=== PATIENT | male | born 1975 | race Caucasian/White ===

== ENCOUNTER 2020-03-08 19:20 | Emergency (ER) | payer OTHER, SELFPAY ==
--- NOTE | 2020-03-08 19:34 | PC.NURSE ---
pt using the bathroom at this time.
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
--- NOTE | 2020-03-08 20:54 | PC.NURSE ---
pt just returned to the ed
[2020-03-08 21:06] VITALS: BP 123/69; PULSE 63; RESP 16; TEMP 36.4; O2SAT 99; BMI 22.1
--- NOTE | 2020-03-08 23:36 | ED.MALEGU ---
HPI - Male Genitourinary General Chief complaint: Urogenital-Male Stated complaint: groin pain Time Seen by Provider: 03/08/20 23:33 Source: patient Mode of arrival: ambulatory Limitations: no limitations History of Present Illness HPI Narrative: Patient presents to ED for bilateral testicular pain for the past 2 weeks. Any abdominal pain, flank pain, hematuria, dysuria, penile lesions. Patient states pain started in left testicle that went to the right. Patient denies any recent trauma to the testicle MD Complaint: testicle pain Related Data Previous Rx's Medication Instructions Recorded levofloxacin 500 mg PO DAILY #10 tab 03/09/20 naproxen 500 mg PO BID PRN #20 tab 03/09/20 Allergies Allergy/AdvReac Type Severity Reaction Status Date / Time From BENADRYL Allergy Unknown CANT Uncoded 11/15/19 18:21 BREATHE HIVES Review of Systems Review of Systems: Yes all other systems are reviewed and are negative Constitutional: Constitutional: Reports as per HPI and Reports no additional constitutional complaints Eyes: Eyes: Reports as per HPI and Reports no additional eye complaints ENT: Reports system reviewed and no additional complaints, except as documented and Reports as per HPI Cardiovascular: Cardiovascular: Reports as per HPI and Reports no additional cardiovascular complaints Respiratory: Respiratory: Reports as per HPI and Reports no additional respiratory complaints Gastrointestinal: Gastrointestinal: Reports as per HPI and Reports no additional gastrointestinal complaints Genitourinary: Genitourinary: Reports no additional male genitourinary complaints and Reports as per HPI Comments: testicular pain. Musculoskeletal: Musculoskeletal: Reports no additional musculoskeletal complaints and Reports as per HPI Neurologic: Reports system reviewed and no additional complaints, except as documented and Reports as per HPI Psychiatric: Psychiatric: Reports no additional psychiatric complaints and Reports as per HPI [facility] Past Medical History Medical History (Updated 03/09/20 @ 01:26 by SOLE Bailey) Bipolar 1 disorder, depressed HTN (hypertension) Hypothyroid Social History Social History Advance Directives: No Advance Directives Information Provided: No Physical Exam Vital Signs: Vital Signs: Last Vital Signs Temp 97.5 F 03/08/20 21:06 Pulse 63 03/08/20 21:06 Resp 16 03/08/20 21:06 BP 123/69 03/08/20 21:06 Pulse Ox 99 03/08/20 21:06 Body Mass Index 22.1 Const: General: cooperative, healthy appearing, comfortable, no acute distress, well developed, alert and awake Orientation/consciousness: patient oriented x3 HENMT: Head: Yes normal to inspection and Yes No palpable skull fracture present Eyes: General: appearance normal, both eyes and all related structures Neck: Neck: Yes normal visual inspection, Yes full ROM, Yes no lymphadenopathy, Yes no meningeal signs, Yes trachea midline, Yes supple and No tender Chest: Chest palpation & inspection: normal inspection of the chest and normal palpation of entire chest wall Resp: Effort & Inspection: normal respiratory effort and able to speak in complete sentences Auscultation: clear to auscultation bilaterally Cardio: Jugular venous distension: no JVD Heart sounds: S1 normal heart sound present and S2 normal heart sound present GI: Inspection: Yes normal to inspection Palpation (GI): Soft to palpation, not firm, nontender, no guarding and not rigid : Other: Both testicles positive tenderness on palpation, but negative for swelling, redness, or hernia on palpation. negative for penile discharge, lesions, or discharge. General: No CVA tenderness and Yes no CVA tenderness Back/Spine/Pelvis: Back: no CVA tenderness, No CVA tenderness and No back tenderness Skin: General skin exam: no rashes or lesions noted and elasticity normal Neuro: General: patient oriented x3, gait normal and no meningeal signs Extrem: General: Yes normal to inspection and Yes full ROM Psych: Appearance: grossly normal, well kempt and not disheveled Course Course Course Narrative: Patient has significant tenderness both testicles. Will send for urinalysis and ultrasound to rule out epididymis, varicella, hydrocele, and torsion. Once again patient has been having the symptoms for the past 2 weeks. Negative for any swelling or mass and groin/testicles to indicate hernia. Reevaluation(s) Reevaluation #1: Patient's ultrasound shows bilateral epididymitis. Patient will be treated accordingly. Time: 01:22 Reevaluation #2: Patient was asked if he was sexually active and patient states he has not been sexually active for over 5 years and has no history of STDs. Will give patient Levaquin found 500 mg once daily for 10 days as per up-to-date. Time: 01:25 MDM - Male Genitourinary MDM Narrative Medical decision making narrative: epididymitis Discharge Plan Discharge Clinical Impression: Epididymitis Patient Disposition: Home, Self-Care Instructions: Epididymitis (ED) Additional Instructions: Return to the ED immediately for any worsening testicular pain, penile discharge, testicular swelling, abdominal pain, flank pain, fever, chills, nausea, or vomiting. Prescriptions: New levofloxacin 500 mg tablet 500 mg PO DAILY Qty: 10 RF: 0 naproxen 500 mg tablet 500 mg PO BID PRN (Reason: pain) Qty: 20 RF: 0 Referrals: Jesus Castaneda MD [Physician] - 2 days (Epididymitis in both testicles. ) Print Language: Croatian
[2020-03-09] VITALS: BP 140/60; PULSE 66; RESP 16; TEMP 36.7; O2SAT 98
--- NOTE | 2020-03-09 | US_ITS ---
EXAMINATION: US SCROTUM CLINICAL INFORMATION: Bilateral testicular pain. Question torsion or epididymitis.. COMPARISON: None TECHNIQUE: A sonogram of the scrotum was performed assessing foss-scale appearance and color Doppler flow. Spectral Doppler analysis of the arterial and venous flow were performed in the testes bilaterally. FINDINGS: RIGHT: Right testicle measures 4.4 x 2.5 x 3 cm, volume 17.3 mL. No focal testicular parenchymal lesions are visualized. Spectral Doppler analysis of the arterial and venous flow is normal in the right testis. Right epididymal head is normal in size. No right hydrocele or varicocele is seen. Right epididymal Doppler flow is increased. LEFT: Left testicle measures 4.7 x 2 x 2.8 cm, volume 13.7 mL. No focal testicular parenchymal lesions are visualized. Spectral Doppler analysis of the arterial and venous flow is normal in the left testis. Left epididymal head is normal in size. No varicocele. Possible small complex hydrocele. Left epididymal Doppler flow is increased. US/US scrotum doppler IMPRESSION: No testicular torsion. Increased Doppler vascularity to the epididymis on the right and left suggestive of epididymitis bilaterally.
--- NOTE | 2020-03-09 | US_ITS ---
EXAMINATION: US SCROTUM CLINICAL INFORMATION: Bilateral testicular pain. Question torsion or epididymitis.. COMPARISON: None TECHNIQUE: A sonogram of the scrotum was performed assessing foss-scale appearance and color Doppler flow. Spectral Doppler analysis of the arterial and venous flow were performed in the testes bilaterally. FINDINGS: RIGHT: Right testicle measures 4.4 x 2.5 x 3 cm, volume 17.3 mL. No focal testicular parenchymal lesions are visualized. Spectral Doppler analysis of the arterial and venous flow is normal in the right testis. Right epididymal head is normal in size. No right hydrocele or varicocele is seen. Right epididymal Doppler flow is increased. LEFT: Left testicle measures 4.7 x 2 x 2.8 cm, volume 13.7 mL. No focal testicular parenchymal lesions are visualized. Spectral Doppler analysis of the arterial and venous flow is normal in the left testis. Left epididymal head is normal in size. No varicocele. Possible small complex hydrocele. Left epididymal Doppler flow is increased. US/US scrotum IMPRESSION: No testicular torsion. Increased Doppler vascularity to the epididymis on the right and left suggestive of epididymitis bilaterally.
[2020-03-09 01:38] LABS: Glucose Urine UA NEG (NEG); Leukocyte Esterase Urine NEG (NEG); Nitrite Urine NEG (NEG); PH 5.5 (5.0-8.0); Specific Gravity - Urine >= 1.030 (1.005-1.025); Urine Blood NEG (NEG); Urine Ketones NEG (NEG); Urine Protein NEG (NEG-TRACE)
[2020-03-09 01:46] LABS: Appearance Urine CLEAR; Color Urine YELLOW
[2020-03-09] MEDS: levoFLOXacin 500 MG TABLET PO (01:51)
[2020-03-09] MEDS: Ibuprofen 800 MG TABLET PO (01:52)
[2020-03-09 10:48] LABS: CT PCR NOT DETECTED (Not Detect.); NG PCR NOT DETECTED (Not Detect.)
== END 2020-03-09 01:50 | disposition home or self-care (01) ==
PROVIDERS: Physician Assistant; Emergency Provider Emergency Medicine
DX: N45.1 Epididymitis (principal); I10 Essential (primary) hypertension
CPT/HCPCS: 76870; 81003; 87491; 87591; 93975; 99284

== ENCOUNTER 2021-11-02 00:50 | Emergency (ER) | payer OTHER, SELFPAY ==
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
[2021-11-02 00:56] VITALS: BP 180/110; BP 186/119; PULSE 49; PULSE 50; RESP 20; TEMP 37.2; O2SAT 97; O2SAT 98; BMI 22.2
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
[2021-11-02 01:37] VITALS: BP 180/120; PULSE 54; RESP 16; O2SAT 100
[2021-11-02 01:50] VITALS: BP 176/125; PULSE 58; RESP 18; TEMP 36.7; O2SAT 97
[2021-11-02 01:55] LABS: Amphetamine Screen Urine Not Detected (Not Detect); Benzodiazepines Screen Urine Not Detected (Not Detect); Cannabinoid Screen Urine Not Detected (Not Detect); Cocaine Screen Urine POSITIVE (Not Detect); Fentanyl, urine POSITIVE (Not Detect); Opiate Screen Urine POSITIVE (Not Detect); Phencyclidine Screen Urine Not Detected (Not Detect)
[2021-11-02 01:56] LABS: Barbiturates, Urine Not Detected (Not Detect)
[2021-11-02 01:59] LABS: Ethanol < 10 mg/dL
[2021-11-02] MEDS: hydrALAZINE HCl 20 MG/ML VIAL 5 MG IVPUSH (03:15)
--- NOTE | 2021-11-02 03:16 | ECG_ITS ---
Test Reason : FALL Blood Pressure : / mmHG Vent. Rate : 046 BPM Atrial Rate : 046 BPM P-R Int : 150 ms QRS Dur : 096 ms QT Int : 534 ms P-R-T Axes : 051 008 201 degrees QTc Int : [address] & T wave abnormality, consider inferior ischemia ST & T wave abnormality, consider anterolateral ischemia Prolonged QT Abnormal ECG When compared with ECG of 21-JUL-2012 13:58, Vent. rate has decreased BY [address] no longer depressed in Inferior leads T wave inversion more evident in Lateral leads Referred By: Cyndi Cadena Electronically Signed By:ALFA HUDSON
[2021-11-02 03:25] LABS: COVID-19 Test Negative (Negative); IDNOW Serial# 16C4AD1C
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
[2021-11-02 03:43] LABS: MANUAL DIFF FLAG NO
[2021-11-02 03:44] LABS: Basophils Percent Auto 0.4 % (0-2); Eosinophils Percent Auto 0.3 % (0-4); Hematocrit 36.4 % (42.0-52.0); Hemoglobin 11.7 g/dl (14.0-18.0); Imm Gran Abs Auto 0.02 X10*3/uL (0.00-0.03); Imm Gran Pct Auto 0.3 % (0.0-0.4); Lymphocytes Absolute Auto 1.6 X10*3/uL (1.2-4.9); Lymphocytes Percent Auto 22.6 % (20-40); Mean Corpuscular HGB Conc 32.1 g/dl (31.0-36.0); Mean Corpuscular Hemoglobin 27.8 pg (27.0-33.0); Mean Corpuscular Volume 86.5 fL (80.0-98.0); Mean Platelet Volume 8.9 fL (9.4-12.4); Monocytes Absolute Auto 0.9 X10*3/uL (0.1-1.2); Monocytes Percent Auto 12.4 % (2-11); Neutrophils Absolute Auto 4.4 x10*3/uL (2.0-8.3); Platelet Count 249 X10*3/uL (160-400); Red Blood Count 4.21 X10*6/uL (4.60-5.80); Red Cell Distribution Width 15.1 % (11.0-16.0); White Blood Count 6.9 X10*3/uL (4.8-10.8)
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
--- NOTE | 2021-11-02 04:01 | PC.NURSE ---
EMS arrived at 0400AM to transport patient to [facility] ER.
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
== END 2021-11-02 04:22 | disposition short-term general hospital (02) ==
PROVIDERS: Emergency Provider Student in an Organized Health Care Education/Training Program
DX: S06.5X9A Traumatic subdural hemorrhage with loss of consciousness of unspecified duration, initial encounter (principal); Y02.0XXA Assault by pushing or placing victim in front of motor vehicle, initial encounter; F19.90 Other psychoactive substance use, unspecified, uncomplicated; I10 Essential (primary) hypertension; R00.1 Bradycardia, unspecified; Z20.822 Contact with and (suspected) exposure to COVID-19; Y93.9 Activity, unspecified; Y92.414 Local residential or business street as the place of occurrence of the external cause; Y99.9 Unspecified external cause status
CPT/HCPCS: 36415; 36573; 70450; 70486; 72125; 80307; 82077; 85025; 87635; 93005; 96374; 99285

== ENCOUNTER 2021-12-14 21:44 | Inpatient (IN) | payer OTHER, SELFPAY ==
--- NOTE | ~2021-12-14 | US_ITS ---
EXAMINATION: US ABDOMEN LIMITED CLINICAL INFORMATION: Elevated LFTs. COMPARISON: Noncontrast CT from 12/14/2021 TECHNIQUE: Real-time imaging of the right upper quadrant abdominal viscera. FINDINGS: PANCREAS: Head and body. Tail is obscured by bowel gas shadowing. LIVER: Normal. The liver is normal in size. The liver contour is normal. Parenchymal echogenicity is normal. No focal hepatic lesion. There is no intrahepatic biliary duct dilatation seen. GALLBLADDER: Normal. The gallbladder is physiologically distended without evidence of stones, sludge, polyps, wall thickening or pericholecystic fluid. COMMON BILE DUCT: Normal in caliber measuring 0.4 cm in diameter. RIGHT KIDNEY: Normal. No hydronephrosis. No renal calculi or focal parenchymal lesions. The kidney measures 11.9 cm in maximum dimension. FREE FLUID: Trace ascites is seen. Trace right pleural effusion seen. US/US abdomen limited IMPRESSION: Liver parenchymal appears normal. Trace ascites and trace right pleural effusion seen No shadowing stones or significant gallbladder wall thickening. No biliary ductal dilatation
--- NOTE | ~2021-12-14 | CT_ITS ---
EXAMINATION: CT CHEST, ABDOMEN AND PELVIS WITHOUT CONTRAST CLINICAL INFORMATION: Fall. Rule out aspiration or rib fracture. Abdominal pain and vomiting. COMPARISON: CT abdomen pelvis 12/09/2012 TECHNIQUE: Multidetector volumetric imaging was performed from the thoracic inlet through the pubic symphysis. Sagittal and coronal reformatted images were obtained on the technologist's workstation. Axial MIP volume rendering provided. This CT examination was performed using dose optimization techniques as appropriate, variously including the following: *Automated exposure control *Adjustment of mA and/or kV according to patient size (this includes techniques or standardized protocols for targeted exams where dose is matched to indication/reason for exam; i.e. extremities or head) *Use of iterative reconstruction technique DLP: 876 mGy-cm FINDINGS: CHEST: Lungs: Assessment of lung parenchyma limited somewhat by extensive respiratory motion artifact. No airspace consolidation or suspicious pulmonary nodule. Mild upper lobe or paraseptal emphysema bilaterally. Central airways are clear. Mediastinum: No cardiomegaly or pericardial effusion. Normal caliber thoracic aorta and central pulmonary trunk. No mediastinal hematoma. No mediastinal or hilar lymphadenopathy. Fluid-filled distention of the mid and distal thoracic esophagus. Pericardium/Pleura: Trace right pleural effusion. No pneumothorax. Chest Wall/Axilla: Unremarkable. ABDOMEN/PELVIS: Liver, Gallbladder, Biliary Tree: The liver is normal in size, shape, and attenuation. No focal hepatic lesion or biliary ductal dilatation is present. The gallbladder is unremarkable with no evidence of radiopaque gallstones, gallbladder wall thickening, or pericholecystic inflammatory changes. Pancreas: Unremarkable. Spleen: Unremarkable. Adrenal Glands: Unremarkable. Kidneys and Ureters: Duplicated right renal collecting system. No renal lesion or hydronephrosis. No radiodense renal calculi identified. Bladder: Diffusely thick-walled appearance. No focal bladder wall thickening. Gastrointestinal Tract: Very large amount of stool filling the mildly dilated cecum, ascending and transverse colon. Interstitial large volume stool in the descending and rectosigmoid colon to a lesser degree. No dilated small bowel loops. No gross bowel wall thickening. Appendix is not discretely visualized. No obvious inflammatory change the cecal base. No intra-abdominal free air. No ascites. Diffuse mesenteric edema and mild presacral edema. Abdominal Wall: No hernia is demonstrated. Lymphovascular Structures: Lymph nodes: No lymphadenopathy identified. Vascular: Normal caliber abdominal aorta. Minimal vascular calcifications. Pelvic Viscera: Unremarkable. OSSEOUS STRUCTURES: Mild T11 superior endplate compression fracture, exact acuity uncertain. Chronic appearing mild T7 compression deformity with slight anterior height loss. Nondisplaced acute appearing fracture the left 12th rib. Couple of a subacute to chronic appearing fractures of the posterolateral right sixth and seventh ribs. Chronic appearing superior endplate Schmorl's node deformity of L4. Extensive cystic change and fragmentation of the lateral femoral heads suspicious for avascular necrosis. Chronic appearing left pubic rami fracture deformities. CT/CT abdomen pelvis wo IV con IMPRESSION: 1. Nondisplaced acute appearing fracture of the left 12th rib. 2. Mild T11 superior endplate compression fracture, exact acuity uncertain. 3. Couple of subacute to chronic appearing fractures of the posterolateral right sixth and seventh ribs. 4. No pneumothorax. No airspace consolidation. 5. Trace right pleural effusion. 6. No intra-abdominal free air or free fluid. 7. Very large amount of stool throughout the colon with mild dilation of the cecum, ascending and transverse colon. Correlate clinically with signs or symptoms of constipation/obstipation. 8. Diffusely thick-walled appearance of the urinary bladder. Correlate clinically with signs or symptoms of cystitis or chronic bladder dysfunction. 9. Additional ancillary findings, as described.
--- NOTE | ~2021-12-14 | CT_ITS ---
EXAMINATION: CT head/brain wo IV con, CT cervical spine wo IV con INDICATION INFORMATION: Reason for Exam etoh, fall, known brain bleed 2 weeks ago COMPARISON: CT head without contrast 11/02/2021 TECHNIQUE: Separate noncontrast CT examinations of the head and cervical spine were performed. Coronal and sagittal images were created for each examination at the technologist workstation. This CT examination was performed using dose optimization techniques as appropriate, variously including the following: *Automated exposure control *Adjustment of mA and/or kV according to patient size (this includes techniques or standardized protocols for targeted exams where dose is matched to indication/reason for exam; i.e. extremities or head) *Use of iterative reconstruction technique DLP: 1931 mGy-cm FINDINGS: Motion degraded examination. Head: Decreased size and density of a left hemispheric subdural collection which measures up to 1.1 cm in maximal thickness along the left temporal lobe (previously 1.9 cm) with resolution of midline shift. No new extra-axial collection. Left frontal scalp hematoma. The mastoid air cells and visualized portions of the paranasal sinuses are well aerated. There is no evidence of acute intracranial hemorrhage or territorial infarction. No abnormal mass effect or midline shift is seen. Land to white matter differentiation is well preserved. No hydrocephalus. No significant volume loss. Patchy periventricular and deep white matter hypoattenuation is consistent with mild small vessel ischemic changes. Cervical spine: There is no evidence of acute cervical spine fracture. Vertebral bodies remain normal in height. No pre- or paravertebral soft tissue abnormality is identified. Paraseptal bullous changes at the lung apices. Unremarkable limited evaluation of the cervical soft tissues. CT/CT cervical spine wo IV con IMPRESSION: Motion limited examination. 1. Compared to CT from 11/02/2021, decreased size and density of a left hemispheric subdural collection with resolution of leftward midline shift. No definite new acute intracranial abnormality within the limitations of motion 2. Within the limitations of motion, no evidence of acute fracture or traumatic malalignment of the cervical spine
--- NOTE | 2021-12-14 21:52 | ECG_ITS ---
Test Reason : VOMITING Blood Pressure : / mmHG Vent. Rate : 095 BPM Atrial Rate : 095 BPM P-R Int : 106 ms QRS Dur : 080 ms QT Int : 366 ms P-R-T Axes : 059 027 214 degrees QTc Int : 459 ms Sinus rhythm with short MN ST & T wave abnormality, consider inferior ischemia ST & T wave abnormality, consider anterolateral ischemia Abnormal ECG When compared with ECG of 02-NOV-2021 03:08, MN interval has decreased Vent. rate has increased BY 49 BPM Non-specific change in ST segment in Inferior leads ST now depressed in Anterior leads Lateral leads Referred By: Kristen More Electronically Signed By:NAVJOT DOMINGO MD
--- NOTE | 2021-12-14 21:56 | ED_ITS ---
HPI - General Adult General Chief complaint: Abdominal Pain Stated complaint: abd pain Time Seen by Provider: 12/14/21 21:48 Source: patient and EMS Mode of arrival: ambulatory Limitations: other (Intoxicated?) History of Present Illness HPI narrative: Patient comes to the emergency room via EMS. Patient was found in the bathroom of the local [facility]. Seems that patient was groaning very loudly and bystanders were concerned. When EMS arrived, blood pressure was on the softer side, in the mid 90s, patient complaining of nausea, vomiting and severe abdominal pain. Patient admits to using 1 bag of heroin prior to arrival. Also, the EMS crew who brought in the patient, they are familiar with him, they took the patient to [facility] approximately 2 weeks ago, patient was diagnosed with a brain bleed. Patient confirms this story. Patient states that he has fallen twice after his visit at [facility] for a brain bleed. Related Data Previous Rx's Medication Instructions Recorded levofloxacin 500 mg tablet 500 mg PO DAILY #10 tabs 03/09/20 naproxen 500 mg tablet 500 mg PO BID PRN pain #20 tabs 03/09/20 Allergies Allergy/AdvReac Type Severity Reaction Status Date / Time From BENADRYL Allergy Unknown CANT Uncoded 11/15/19 18:21 BREATHE HIVES Review of Systems Review of Systems: Constitutional : No Weight loss, No Fever, No Chills, complaining of fatigue, generalized malaise ENT/Mouth : No Hearing loss, No Ear Pain, No Nasal Congestion, No Sinus Pain, No Hoarseness, No sore throat, No Rhinorrhea, No Swallowing Difficulty Eyes: No Eye Pain, No Swelling, No Redness, No Foreign Body, No Discharge, No Vision Changes Cardiovascular : No Chest Pain, No SOB, No Dyspnea on Exertion, No Orthopnea, No Edema, No Palpitations Respiratory : No Cough, No Sputum, No Wheezing, No Smoke Exposure, No Dyspnea Gastrointestinal : Complaining of nausea, vomiting, no diarrhea, diffuse intense abdominal pain Genitourinary : no irregular bleeding, No Dysuria, No Urinary Frequency, No Hematuria, No Urinary Incontinence, No Urgency, No Flank Pain, No Urinary Flow Changes, No Hesitancy Musculoskeletal : No joint pain, No Myalgias, No Joint Swelling Skin : Multiple ecchymosis, Neuro : No Weakness, No Numbness, No Paresthesias, No Loss of Consciousness, No Dizziness, No Headache, recent falls after being diagnosed with a brain bleed Psych : No Anxiety/Panic, No Depression, No SI/HI/AH/VH, No Social Issues, Heme/Lymph: No Bruising, No Bleeding,No Lymphadenopathy Endocrine : No Polyuria, No Polydipsia, No Temperature Intolerance FOR[facility], [facility] Past Medical History Medical History Bipolar 1 disorder, depressed HTN (hypertension) Hypothyroid Social History Social History Alcohol intake: current Patient Tobacco Use Status: Former Tobacco user Smoked in Last 30 Days: Yes Use of substances other than those prescribed or required for medical reasons: Yes Substance Use Type: Heroin Advance Directives: No Advance Directives Information Provided: No Physical Exam ED Vital Signs: Vital Signs - 24 hr 12/14/21 21:57 12/14/21 22:41 12/15/21 00:07 Temperature 98.2 F Pulse Rate 89 88 Respiratory Rate 18 25 H 10 L Blood Pressure 100/59 L 120/55 L 97/62 Pulse Oximetry 100 96 Oxygen Delivery Method Room Air Room Air Room Air 12/15/21 00:35 Temperature Pulse Rate 91 Respiratory Rate 14 Blood Pressure 100/64 Pulse Oximetry 96 Oxygen Delivery Method Room Air BMI result Body Mass Index 24.3 Const Other: Appearance: Alert. Oriented X3. Ill-appearing Eyes: Pupils equal, round and reactive to light. ENT: Pharynx normal. Neck: Normal inspection. Neck supple. No lymph nodes noted. No crepitus CVS: Normal heart rate and rhythm. Pulses normal. Normal S1 and S2 Respiratory: No respiratory distress. Breath sounds normal. No Wheezing. No rales Abdomen: Soft, mildly distended, diffusely tender to palpation Skin: Skin warm and dry. 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 No Lacerations. No Rash Neuro: Oriented X 3. No motor deficit. No sensory deficit. Moving all extre mities. No slurred speech. CN 2 through 12 grossly intact Psych: calm, cooperative Course Course Course Narrative: Of patient's labs and imaging are pending. Also we requested records from [facility]. Reviewing medical records from [facility], patient was in [facility] on November 04, diagnosed with a left temporal lobe subdural hematoma. Then, patient was seen at [facility] again on December 09, CT scan showed a subacute chronic subdural hematoma with improvement in thickness, previously 2.1 cm on November 04, on December 09 it was 1.6 cm EKG done today shows T-wave inversions in V3 to V6. However, EKG that was sent from [facility], showed the same T-wave inversions. Patient is not having any chest pain The chemistry is pending. At this time, we note that the patient is pancytopenic, has a new white blood cell count of 1.3, hemoglobin 7.2, hematocrit 21.9. I asked the patient if he has any blood in the stool, states yes it has been going on for approximately 1 week. Patient declines a rectal exam/JOHN. Patient is agreeable to get a blood transfusion, understands the risks versus benefits. 23:42, I was informed by the patient's nurse that the patient was caught in his room trying to use heroin. CT scan of head and neck do not show any acute abnormality, the subdural hematoma seems to be improving. Patient's lactic acid is 4.0. Patient's white blood cell count is 1.3. Patient is being giving empirically 2 g of IV cefepime. At this time, patient received 1 L of fluids, but more importantly patient needs blood. Sepsis is not suspected. Patient does not have a fever, blood pressure and heart rate within normal limits Patient's labs resulted at 01:10. Patient has also acute kidney injury and hypokalemia, being repleted IV. I discussed the patient with Dr. Reaves, pt being admitted Medical Decision Making Lab Data Result diagrams: 12/14/21 23:00 12/14/21 23:00 Labs: Lab Results 12/14/21 12/14/21 12/14/21 Range/Units 23:00 23:00 23:01 WBC 1.3 L (4.8-10.8) X10*3/uL RBC 2.58 L D (4.60-5.80) X10*6/uL Hgb 7.2 L D (14.0-18.0) g/dl Hct 21.9 L D (42.0-52.0) % MCV 84.9 (80.0-98.0) fL MCH 27.9 (27.0-33.0) pg MCHC 32.9 (31.0-36.0) g/dl RDW 16.2 H (11.0-16.0) % Plt Count 288 (160-400) X10*3/uL MPV 8.3 L (9.4-12.4) fL Immature Gran % (Auto) Cancelled Neut % (Auto) Cancelled Lymph % (Auto) Cancelled Roberts % (Auto) Cancelled Eos % (Auto) Cancelled Baso % (Auto) Cancelled Lymph # (Auto) Cancelled Roberts # (Auto) Cancelled Eos # (Auto) Cancelled Baso # (Auto) Cancelled Abs Immat Gran (auto) Cancelled Absolute Neuts (auto) Cancelled Absolute Nucleated RBC 0.000 (0.0-0.012) X10*3/uL Nucleated RBC % (auto) 0.0 (0.0-0.2) /100WBC Neutrophils % (Manual) 57 (45-73) % Band Neutrophils % 26 H (3-5) % Lymphocytes % (Manual) 13 L (20-40) % Atypical Lymphs % (Man) 1 (0-6) % Eosinophils % (Manual) 1 (0-4) % Basophils % (Manual) 1 (0-2) % Metamyelocytes % 1 % Abs Neuts (Manual) 1.1 L (2.0-8.3) X10*3/uL Lymphocytes # (Manual) 0.2 L (1.2-4.9) X10*3/uL Toxic Vacuolation PRESENT Platelet Estimate NORMAL (NORMAL) Large Platelets PRESENT Plt Morphology Comment NOTED RBC Morphology NOTED Polychromasia 1+ (0-2) /OIF Hypochromasia 1+ (5-14) /OIF Microcytosis 1+ (5-14) /OIF Smear Tech's Comments MANUAL DIFF PT 12.7 (10.0-13.1) SEC INR 1.1 (0.9-1.1) Sodium 137 (135-145) mmol/L Potassium 2.9 L (3.3-5.1) mmol/L Chloride 99 (96-108) mmol/L Carbon Dioxide 22 (22-29) mmol/L Anion Gap 19 (12-20) BUN 19 H (9-16) mg/dL Creatinine 1.61 H (0.5-1.4) mg/dL Estim Creat Clear Calc 54.2 Estimated GFR 46 Random Glucose 68 (60-115) mg/dL Lactic Acid (0.5-2.0) mmol/L Calcium 8.1 L (8.4-10.2) mg/dL Magnesium 1.6 (1.6-2.6) mg/dL Total Bilirubin 0.5 (0.0-1.0) mg/dL Direct Bilirubin 0.3 (0.0-0.5) mg/dL AST 308 H (5-37) U/L ALT 73 H (0-40) U/L Alkaline Phosphatase 404 H (39-117) U/L Ammonia (13-55) umol/L Troponin I High Sens (<3.5-35.0) ng/L Total Protein 7.0 (6.5-8.0) g/dL Albumin 3.0 L (3.5-5.0) g/dL Lipase 15 (8-78) U/L Ethyl Alcohol < 10 mg/dL COVID-19 (GUILLERMO) (Negative) COVID-19 Clin Com Blood Type Antibody Screen Crossmatch 12/14/21 12/14/21 12/14/21 Range/Units 23:01 23:01 23:01 WBC (4.8-10.8) X10*3/uL RBC (4.60-5.80) X10*6/uL Hgb (14.0-18.0) g/dl Hct (42.0-52.0) % MCV (80.0-98.0) fL MCH (27.0-33.0) pg MCHC (31.0-36.0) g/dl RDW (11.0-16.0) % Plt Count (160-400) X10*3/uL MPV (9.4-12.4) fL Immature Gran % (Auto) Neut % (Auto) Lymph % (Auto) Roberts % (Auto) Eos % (Auto) Baso % (Auto) Lymph # (Auto) Roberts # (Auto) Eos # (Auto) Baso # (Auto) Abs Immat Gran (auto) Absolute Neuts (auto) Absolute Nucleated RBC (0.0-0.012) X10*3/uL Nucleated RBC % (auto) (0.0-0.2) /100WBC Neutrophils % (Manual) (45-73) % Band Neutrophils % (3-5) % Lymphocytes % (Manual) (20-40) % Atypical Lymphs % (Man) (0-6) % Eosinophils % (Manual) (0-4) % Basophils % (Manual) (0-2) % Metamyelocytes % % Abs Neuts (Manual) (2.0-8.3) X10*3/uL Lymphocytes # (Manual) (1.2-4.9) X10*3/uL Toxic Vacuolation Platelet Estimate (NORMAL) Large Platelets Plt Morphology Comment RBC Morphology Polychromasia /OIF Hypochromasia /OIF Microcytosis /OIF Smear Tech's Comments PT (10.0-13.1) SEC INR (0.9-1.1) Sodium (135-145) mmol/L Potassium (3.3-5.1) mmol/L Chloride (96-108) mmol/L Carbon Dioxide (22-29) mmol/L Anion Gap (12-20) BUN (9-16) mg/dL Creatinine (0.5-1.4) mg/dL Estim Creat Clear Calc Estimated GFR Random Glucose (60-115) mg/dL Lactic Acid 4.0 H* (0.5-2.0) mmol/L Calcium (8.4-10.2) mg/dL Magnesium (1.6-2.6) mg/dL Total Bilirubin (0.0-1.0) mg/dL Direct Bilirubin (0.0-0.5) mg/dL AST (5-37) U/L ALT (0-40) U/L Alkaline Phosphatase (39-117) U/L Ammonia (13-55) umol/L Troponin I High Sens 11.7 (<3.5-35.0) ng/L Total Protein (6.5-8.0) g/dL Albumin (3.5-5.0) g/dL Lipase (8-78) U/L Ethyl Alcohol mg/dL COVID-19 (GUILLERMO) Negative (Negative) COVID-19 Clin Com See Note Blood Type Antibody Screen Crossmatch 12/14/21 12/14/21 Range/Units 23:01 23:56 WBC (4.8-10.8) X10*3/uL RBC (4.60-5.80) X10*6/uL Hgb (14.0-18.0) g/dl Hct (42.0-52.0) % MCV (80.0-98.0) fL MCH (27.0-33.0) pg MCHC (31.0-36.0) g/dl RDW (11.0-16.0) % Plt Count (160-400) X10*3/uL MPV (9.4-12.4) fL Immature Gran % (Auto) Neut % (Auto) Lymph % (Auto) Roberts % (Auto) Eos % (Auto) Baso % (Auto) Lymph # (Auto) Roberts # (Auto) Eos # (Auto) Baso # (Auto) Abs Immat Gran (auto) Absolute Neuts (auto) Absolute Nucleated RBC (0.0-0.012) X10*3/uL Nucleated RBC % (auto) (0.0-0.2) /100WBC Neutrophils % (Manual) (45-73) % Band Neutrophils % (3-5) % Lymphocytes % (Manual) (20-40) % Atypical Lymphs % (Man) (0-6) % Eosinophils % (Manual) (0-4) % Basophils % (Manual) (0-2) % Metamyelocytes % % Abs Neuts (Manual) (2.0-8.3) X10*3/uL Lymphocytes # (Manual) (1.2-4.9) X10*3/uL Toxic Vacuolation Platelet Estimate (NORMAL) Large Platelets Plt Morphology Comment RBC Morphology Polychromasia /OIF Hypochromasia /OIF Microcytosis /OIF Smear Tech's Comments PT (10.0-13.1) SEC INR (0.9-1.1) Sodium (135-145) mmol/L Potassium (3.3-5.1) mmol/L Chloride (96-108) mmol/L Carbon Dioxide (22-29) mmol/L Anion Gap (12-20) BUN (9-16) mg/dL Creatinine (0.5-1.4) mg/dL Estim Creat Clear Calc Estimated GFR Random Glucose (60-115) mg/dL Lactic Acid (0.5-2.0) mmol/L Calcium (8.4-10.2) mg/dL Magnesium (1.6-2.6) mg/dL Total Bilirubin (0.0-1.0) mg/dL Direct Bilirubin (0.0-0.5) mg/dL AST (5-37) U/L ALT (0-40) U/L Alkaline Phosphatase (39-117) U/L Ammonia 25 (13-55) umol/L Troponin I High Sens (<3.5-35.0) ng/L Total Protein (6.5-8.0) g/dL Albumin (3.5-5.0) g/dL Lipase (8-78) U/L Ethyl Alcohol mg/dL COVID-19 (GUILLERMO) (Negative) COVID-19 Clin Com Blood Type O Positive Antibody Screen NEGATIVE Crossmatch See Detail Imaging Data CT scan of chest abdomen and pelvis: Radiologist's impression: FINDINGS: CHEST: Lungs: Assessment of lung parenchyma limited somewhat by extensive respiratory motion artifact. No airspace consolidation or suspicious pulmonary nodule. Mild upper lobe or paraseptal emphysema bilaterally. Central airways are clear. Mediastinum: No cardiomegaly or pericardial effusion. Normal caliber thoracic aorta and central pulmonary trunk. No mediastinal hematoma. No mediastinal or hilar lymphadenopathy. Fluid-filled distention of the mid and distal thoracic esophagus. Pericardium/Pleura: Trace right pleural effusion. No pneumothorax. Chest Wall/Axilla: Unremarkable. ABDOMEN/PELVIS: Liver, Gallbladder, Biliary Tree: The liver is normal in size, shape, and attenuation. No focal hepatic lesion or biliary ductal dilatation is present. The gallbladder is unremarkable with no evidence of radiopaque gallstones, gallbladder wall thickening, or pericholecystic inflammatory changes. Pancreas: Unremarkable. Spleen: Unremarkable. Adrenal Glands: Unremarkable. Kidneys and Ureters: Duplicated right renal collecting system. No renal lesion or hydronephrosis. No radiodense renal calculi identified. Bladder: Diffusely thick-walled appearance. No focal bladder wall thickening. Gastrointestinal Tract: Very large amount of stool filling the mildly dilated cecum, ascending and transverse colon. Interstitial large volume stool in the descending and rectosigmoid colon to a lesser degree. No dilated small bowel loops. No gross bowel wall thickening. Appendix is not discretely visualized. No obvious inflammatory change the cecal base. No intra-abdominal free air. No ascites. Diffuse mesenteric edema and mild presacral edema. Abdominal Wall: No hernia is demonstrated. Lymphovascular Structures: Lymph nodes: No lymphadenopathy identified. Vascular: Normal caliber abdominal aorta. Minimal vascular calcifications. Pelvic Viscera: Unremarkable. OSSEOUS STRUCTURES: Mild T11 superior endplate compression fracture, exact acuity uncertain. Chronic appearing mild T7 compression deformity with slight anterior height loss. Nondisplaced acute appearing fracture the left 12th rib. Couple of a subacute to chronic appearing fractures of the posterolateral right sixth and seventh ribs. Chronic appearing superior endplate Schmorl's node deformity of L4. Extensive cystic change and fragmentation of the lateral femoral heads suspicious for avascular necrosis. Chronic appearing left pubic rami fracture deformities. CT/CT abdomen pelvis wo IV con IMPRESSION: 1.? Nondisplaced acute appearing fracture of the left 12th rib. 2.? Mild T11 superior endplate compression fracture, exact acuity uncertain. 3.? Couple of subacute to chronic appearing fractures of the posterolateral right sixth and seventh ribs. 4.? No pneumothorax. No airspace consolidation. 5.? Trace right pleural effusion. 6.? No intra-abdominal free air or free fluid. 7.? Very large amount of stool throughout the colon with mild dilation of the cecum, ascending and transverse colon. Correlate clinically with signs or symptoms of constipation/obstipation. 8.? Diffusely thick-walled appearance of the urinary bladder. Correlate clinically with signs or symptoms of cystitis or chronic bladder dysfunction. 9.? Additional ancillary findings, as described. ? CT scan of head and neck: Radiologist's impression: Head: Decreased size and density of a left hemispheric subdural collection which measures up to 1.1 cm in maximal thickness along the left temporal lobe (previously 1.9 cm) with resolution of midline shift. No new extra-axial collection. Left frontal scalp hematoma. The mastoid air cells and visualized portions of the paranasal sinuses are well aerated. There is no evidence of acute intracranial hemorrhage or territorial infarction. No abnormal mass effect or midline shift is seen. Land to white matter differentiation is well preserved. No hydrocephalus. No significant volume loss. Patchy periventricular and deep white matter hypoattenuation is consistent with mild small vessel ischemic changes. Cervical spine: There is no evidence of acute cervical spine fracture. Vertebral bodies remain normal in height. ? No pre- or paravertebral soft tissue abnormality is identified.? Paraseptal bullous changes at the lung apices. Unremarkable limited evaluation of the cervical soft tissues. CT/CT head/brain wo IV con IMPRESSION: ? Motion limited examination. ? 1.? Compared to CT from 11/02/2021, decreased size and density of a left hemispheric subdural collection with resolution of leftward midline shift. No definite new acute intracranial abnormality within the limitations of motion ? 2.? Within the limitations of motion, no evidence of acute fracture or traumatic malalignment of the cervical spine ? Critical Care Time Critical Care Time Critical Care Time: Yes Total Critical Care Time: 60 Attestation: I have personally provided critical care time. Time includes review of lab data, radiology results, discussion with consultants, and monitoring for potential decompensation. Intervention performed as documented. Discharge Plan Discharge Clinical Impression: Abdominal pain, Acute kidney injury, Anemia, Leukopenia Patient Disposition: Admitted As Inpatient Prescriptions: No Action levofloxacin 500 mg tablet 500 mg PO DAILY Qty: 10 0RF naproxen 500 mg tablet 500 mg PO BID PRN (Reason: pain) Qty: 20 0RF
[2021-12-14 21:57] VITALS: BP 100/56; BP 100/59; PULSE 70; PULSE 89; RESP 18; TEMP 36.8; O2SAT 100; BMI 24.3
[2021-12-14 22:41] VITALS: BP 120/55; RESP 25
--- NOTE | 2021-12-14 22:47 | PC.NURSE ---
PATIENT CAME IN COVERED WITH VOMIT AND INCONTINENT OF LARGE AMOUNT OF STOOL ,BED BATH GIVEN ,AND PATIENT IS IN HOSPITAL ATTIRE .
--- NOTE | 2021-12-14 22:47 | PC.NURSE ---
Pt clothes were soil, pt skin is rough, cracking on his feet and swollen. Pt skin Pt has edema +2, capillary refill 3 seconds, pt is vomiting and reported he just had heroin. Pt was clean at the time of the assessment pt was having a firm bowel movement and vomiting. Pt temp was not able to take. Pt hands are swollen and red bilaterally. Pt appears jaundice.
[2021-12-14 23:13] LABS: Hematocrit 21.9 % (42.0-52.0); Hemoglobin 7.2 g/dl (14.0-18.0); Mean Corpuscular HGB Conc 32.9 g/dl (31.0-36.0); Mean Corpuscular Hemoglobin 27.9 pg (27.0-33.0); Mean Corpuscular Volume 84.9 fL (80.0-98.0); Mean Platelet Volume 8.3 fL (9.4-12.4); Platelet Count 288 X10*3/uL (160-400); Red Blood Count 2.58 X10*6/uL (4.60-5.80); Red Cell Distribution Width 16.2 % (11.0-16.0)
[2021-12-14 23:15] LABS: INTERNATIONAL NORM RATIO 1.1 (0.9-1.1); Prothrombin Time 12.7 SEC (10.0-13.1)
[2021-12-14 23:17] LABS: White Blood Count 1.3 X10*3/uL (4.8-10.8)
[2021-12-14 23:23] LABS: COVID-19 Test Negative (Negative)
[2021-12-14 23:30] LABS: SLIDE REVIEW MANUAL DIFF
[2021-12-14 23:30] LABS: Troponin-I High Sensitivity 11.7 ng/L (<3.5-35.0)
[2021-12-14 23:37] LABS: Neutrophils Percent Manual 57 % (45-73)
[2021-12-14 23:38] LABS: Atypical Lymphs Percent Manual 1 % (0-6); Band Neutrophils Percent 26 % (3-5); Basophils Percent Manual 1 % (0-2); Eosinophils Percent Manual 1 % (0-4); Lymphocytes Absolute Manual 0.2 X10*3/uL (1.2-4.9); Lymphocytes Percent Manual 13 % (20-40); Metamyelocytes Percent 1 %; Neutrophils Absolute Manual 1.1 X10*3/uL (2.0-8.3)
[2021-12-14 23:39] LABS: Microcytosis 1+ (5-14) /OIF; Platelet Estimate NORMAL (NORMAL); RBC Morphology NOTED
[2021-12-14 23:40] LABS: Hypochromasia 1+ (5-14) /OIF; Large Platelet PRESENT; Platelet Morphology Comment NOTED; Polychromasia 1+ (0-2) /OIF; Toxic Vacuolation PRESENT
[2021-12-14] MEDS: ondansetron HCL 4 MG/2 ML VIAL IVPUSH (23:48)
[2021-12-14] MEDS: 0.9 % Sodium Chloride 1,000 ML 999 ML IVCONT (23:49)
[2021-12-15] VITALS (12 sets, daily range): BP systolic 97–137; BP diastolic 61–103; PULSE 75–91; RESP 10–18; TEMP 36.4–37; O2SAT 96–98
[2021-12-15] MEDS: cefEPime HCl 2 GM in 0.9 % Sodium Chloride 50 ML IV (00:01)
--- NOTE | 2021-12-15 00:05 | PC.NURSE ---
assumed care of patient at 2330. trying to obtain labs and gain IV accss. pt c/o abdominal pain, nausea. pt vomiting and having episodes of diarrhea. pt cleaned and linens changed by patron attendant & RNs. #20G IV R jugular vein by MD Saxena. pt on rn cardiac. iv fluids and antibiotics running. will continue to monitor.
--- NOTE | 2021-12-15 00:17 | PC.NURSE ---
heroin bags found in patients hands by [facility] Duyen Olivarez and security. taken by security.
[2021-12-15 00:56] LABS: Ammonia 25 umol/L (13-55)
[2021-12-15 00:59] LABS: Alanine Aminotransferase 73 U/L (0-40); Alkaline Phosphatase 404 U/L (39-117); Anion Gap 19 (12-20); Aspartate Amino Transferase 308 U/L (5-37); Bilirubin Direct 0.3 mg/dL (0.0-0.5); Bilirubin Total 0.5 mg/dL (0.0-1.0); Blood Urea Nitrogen 19 mg/dL (9-16); Calcium 8.1 mg/dL (8.4-10.2); Carbon Dioxide 22 mmol/L (22-29); Chloride 99 mmol/L (96-108); Creatinine Clr Calc Pharmacy 54.2; Estimated Glomerular Filt Rate 46; Ethanol < 10 mg/dL; Glucose Random 68 mg/dL (60-115); Lipase 15 U/L (8-78); Magnesium 1.6 mg/dL (1.6-2.6); Potassium 2.9 mmol/L (3.3-5.1); Sodium 137 mmol/L (135-145)
[2021-12-15 01:08] LABS: Reflex Lactate? Lactic Acid Added
[2021-12-15] MEDS: Potassium Chloride/H20 10 MEQ/100 ML PIGGYBACK 100 MEQ IV ×2 (01:50→03:55)
--- NOTE | 2021-12-15 01:54 | PC.NURSE ---
pt has two IV sites. blood transfusion running. pt tolerating well. vital sings stable. 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 no apparent distress.
[2021-12-15 02:04] LABS: ~Lactic Acid-LAB USE ONLY 2.9 mmol/L (0.5-2.0)
[2021-12-15 03:39] LABS: Reflex Lactate? 2 Y
[2021-12-15 03:50] LABS: Appearance Urine Clear; Color Urine Yellow; Glucose Urine UA Negative (Negative); Leukocyte Esterase Urine Negative (Negative); Nitrite Urine Negative (Negative); PH 7.5 (5.0-9.0); Specific Gravity - Urine <= 1.005 (1.005-1.025); UMIC TRIGGER UACC YES; Urine Blood Small (1+) (Negative); Urine Ketones Negative (Negative); Urine Protein Trace mg/dL (Neg-Trace)
[2021-12-15 03:51] LABS: ~Lactic Acid-LAB USE ONLY 3.4 mmol/L (0.5-2.0)
[2021-12-15 03:55] LABS: Amphetamine Screen Urine Not Detected (Not Detect); Barbiturates, Urine Not Detected (Not Detect); Benzodiazepines Screen Urine Not Detected (Not Detect); Cannabinoid Screen Urine Not Detected (Not Detect); Cocaine Screen Urine POSITIVE (Not Detect); Fentanyl, urine POSITIVE (Not Detect); Opiate Screen Urine POSITIVE (Not Detect); Phencyclidine Screen Urine Not Detected (Not Detect)
[2021-12-15] MEDS: Potassium Chloride Packet 20 MEQ PACKET 40 MEQ PO ×2 (04:05→09:28)
[2021-12-15 04:06] LABS: Bacteria Urine None Seen (None Seen); Squamous Epithelial Cell Urine 0-2 /HPF (0-2); WBC Urine 0-5 /HPF (0-5)
[2021-12-15] MEDS: Enoxaparin Sodium 40 MG/0.4 ML SYRINGE SUBCUT (04:06)
[2021-12-15] MEDS: methADONE HCl 20 MG/2 ML ORAL.CONC 30 MG PO (04:06)
--- NOTE | 2021-12-15 06:37 | P.HPHOSP_ITS ---
History of Present Illness Date of Service: 12/15/21 Chief Complaint: abd pain, falling 46-year-old male with IV drug use history presents to the hospital after being found in the bathroom of a local [employer], is seen the patient was groaning very loudly and bystanders were concerned therefore EMS was called, on arrival of EMS patient was found to be hypotensive, with a systolic in the 90s, but otherwise stable. Patient himself is somnolent but arousable, reports significant pain in his hip, as well as his ribs after falling and fracturing then, reports that he was at [facility] with epidural hemorrhage, was discharged and ports 2 more falls post discharge. He denies being homeless but reports that he was to be treated for his drug use history. He reports significant abdominal pain, some nausea and v omiting, Reviewing medical records from [facility], patient was in [facility] on November 04, diagnosed with left arm pleural lobe subdural hematoma, in at [facility] again on December 09, CT scan at that time shows subacute chronic subdural hematoma with improvement in thickness, previously 2.7 and now 1.6 cm, patient also has EKG changes were present previously. Patient denies any chest pain. Patient otherwise denies any chest pain, no urinary symptoms, no weakness nu mbness or tingling, no lower extremity edema. He has bruising all over his body. Reports they are all from falling. Patient was also caught in the ED room trying to use heroin. He underwent head and neck CT which showed no acute abnormality, the subdural hematomas seems to be improving, patient also found to have multiple abnormalities including a lactic acid of 4.0, WBC count of 1.3, hemoglobin of 7.2, previously 11.7 on 11/02, potassium of 2.9, creatinine of 1.61, AST of 308, , ALT of 73, alk-phos of 404, UA positive for blood and RBC, UDS positive for opioids, fentanyl, and cocaine Abdominal pelvic CT shows nondisplaced acute appearing fracture of the left 12th rib, mild T11 superior endplate compression fracture, exact acuity uncertain, couple of subacute to chronic appearing fractures of the posterolateral right 6 and 7 ribs, no pneumothorax, no airspace consolidation, no intra-abdominal free air free fluid, very large amount of stool throughout the colon with mild dilatation of the cecum, ascending and transverse colon, diffusely thick-walled appearance of the urinary bladder, Patient given 1 dose of antibiotics all be admitted further management Review of Systems Review of Systems: Yes all other systems are reviewed and are negative [facility] Medical History Bipolar 1 disorder, depressed HTN (hypertension) Hypothyroid Family History Other No family history of coronary artery disease Surgical History No pertinent past surgical history Social History Alcohol intake: current Patient Tobacco Use Status: Former Tobacco user Smoked in Last 30 Days: Yes Use of substances other than those prescribed or required for medical reasons: Yes Substance Use Type: Heroin Advance Directives: No Advance Directives Information Provided: No Meds Allergies Allergy/AdvReac Type Severity Reaction Status Date / Time From BENADRYL Allergy Unknown CANT Uncoded 11/15/19 18:21 BREATHE HIVES Active Medications: Current Medications Acetaminophen (Acetaminophen 325 Mg Tablet) 650 mg PO Q6H PRN PRN Reason: Pain, Mild (Pain Scale 1-3) Docusate Sodium (Docusate Sodium 100 Mg Capsule) 100 mg PO BID [facility] Enoxaparin Sodium (Enoxaparin Sodium 40 Mg/0.4 Ml Syringe) 40 mg SUBCUT Q24H [facility] Last Admin: 12/15/21 04:06 Dose: 40 mg Lactated Ringer's (Lr) 1,000 mls @ 100 mls/hr IVCONT .Q10H [facility] Last Admin: 12/15/21 04:01 Dose: Not Given Ondansetron HCl (Ondansetron Hcl 4 Mg/2 Ml Vial) 4 mg IVPUSH Q8H PRN PRN Reason: Nausea and Vomiting Polyethylene Glycol (Polyethylene Glycol 3350 17 Gm Powd.Pack) 17 gm PO DAILY [facility] Potassium Chloride (Potassium Chloride Packet 20 Meq Packet) 40 meq PO Q4H [facility] Stop: 12/15/21 08:01 Last Admin: 12/15/21 04:05 Dose: 40 meq Sodium Chloride (0.9 % Sodium Chloride Flush 3 Ml Syringe) 3 ml IVFLUSH QSHIFT [facility] Physical Exam Vital Signs and Narrative: Vital Signs: Last Vital Signs Temp 98.0 F 12/15/21 06:26 Pulse 78 12/15/21 06:26 Resp 16 12/15/21 06:26 BP 127/93 H 12/15/21 06:26 Pulse Ox 98 12/15/21 03:52 O2 Del Method 12/15/21 03:52 BMI result Body Mass Index 24.3 Const: General: cooperative and no acute distress Eyes: General: appearance normal, both eyes and all related structures Resp: Effort & Inspection: normal respiratory effort, able to speak in complete sentences and abnormal respiratory pattern Auscultation: clear to auscultation bilaterally Cardio: Rate: regular rate Rhythm: regular rhythm GI: Palpation (GI): Soft to palpation Auscultation: normal bowel sounds Skin: Other: Patient has skin bruising all over his body including contusions to the face, large ecchymosis on his legs bilaterally Neuro: Cognition (Neuro): normal cognition Extrem: General: Yes normal to inspection and Yes no pedal edema Results Labs CBC and Chem 7: 12/14/21 23:00 12/14/21 23:00 Labs: Laboratory Results - last 24 hr 12/14/21 12/14/21 12/14/21 23:00 23:00 23:01 MCV 84.9 MCH 27.9 MCHC 32.9 RDW 16.2 H Plt Count 288 MPV 8.3 L Immature Gran % (Auto) Cancelled Neut % (Auto) Cancelled Lymph % (Auto) Cancelled [place] % (Auto) Cancelled Eos % (Auto) Cancelled Baso % (Auto) Cancelled Lymph # (Auto) Cancelled [place] # (Auto) Cancelled Eos # (Auto) Cancelled Baso # (Auto) Cancelled Abs Immat Gran (auto) Cancelled Absolute Neuts (auto) Cancelled Absolute Nucleated RBC 0.000 Nucleated RBC % (auto) 0.0 Neutrophils % (Manual) 57 Band Neutrophils % 26 H Lymphocytes % (Manual) 13 L Atypical Lymphs % (Man) 1 Eosinophils % (Manual) 1 Basophils % (Manual) 1 Metamyelocytes % 1 Abs Neuts (Manual) 1.1 L Lymphocytes # (Manual) 0.2 L Toxic Vacuolation PRESENT Platelet Estimate NORMAL Large Platelets PRESENT Plt Morphology Comment NOTED RBC Morphology NOTED Polychromasia 1+ (0-2) Hypochromasia 1+ (5-14) Microcytosis 1+ (5-14) Smear Tech's Comments MANUAL DIFF PT 12.7 INR 1.1 Anion Gap 19 Estim Creat Clear Calc 54.2 Estimated GFR 46 Random Glucose 68 Lactic Acid Lactic Acid F/U @ 2Hr Lactic Acid F/U @ 4Hr Calcium 8.1 L Magnesium 1.6 Total Bilirubin 0.5 Direct Bilirubin 0.3 AST 308 H ALT 73 H Alkaline Phosphatase 404 H Ammonia Troponin I High Sens Total Protein 7.0 Albumin 3.0 L Lipase 15 Urine Color Urine Appearance Urine pH Ur Specific [place] Urine Protein Urine Glucose (UA) Urine Ketones Urine Blood Urine Nitrite Ur Leukocyte Esterase Urine RBC Urine WBC Ur Squamous Epith Cells Urine Bacteria Hyaline Casts Urine Opiates Screen Urine Fentanyl Screen Ur Barbiturates Screen Ur Phencyclidine Scrn Ur Amphetamines Screen U Benzodiazepines Scrn Urine Cocaine Screen U Marijuana (THC) Screen Ethyl Alcohol < 10 COVID-19 (GUILLERMO) COVID-19 Clin Com Blood Type Antibody Screen Crossmatch 12/14/21 12/14/21 12/14/21 23:01 23:01 23:01 MCV MCH MCHC RDW Plt Count MPV Immature Gran % (Auto) Neut % (Auto) Lymph % (Auto) [place] % (Auto) Eos % (Auto) Baso % (Auto) Lymph # (Auto) [place] # (Auto) Eos # (Auto) Baso # (Auto) Abs Immat Gran (auto) Absolute Neuts (auto) Absolute Nucleated RBC Nucleated RBC % (auto) Neutrophils % (Manual) Band Neutrophils % Lymphocytes % (Manual) Atypical Lymphs % (Man) Eosinophils % (Manual) Basophils % (Manual) Metamyelocytes % Abs Neuts (Manual) Lymphocytes # (Manual) Toxic Vacuolation Platelet Estimate Large Platelets Plt Morphology Comment RBC Morphology Polychromasia Hypochromasia Microcytosis Smear Tech's Comments PT INR Anion Gap Estim Creat Clear Calc Estimated GFR Random Glucose Lactic Acid 4.0 H* Lactic Acid F/U @ 2Hr Lactic Acid F/U @ 4Hr Calcium Magnesium Total Bilirubin Direct Bilirubin AST ALT Alkaline Phosphatase Ammonia Troponin I High Sens 11.7 Total Protein Albumin Lipase Urine Color Urine Appearance Urine pH Ur Specific [place] Urine Protein Urine Glucose (UA) Urine Ketones Urine Blood Urine Nitrite Ur Leukocyte Esterase Urine RBC Urine WBC Ur Squamous Epith Cells Urine Bacteria Hyaline Casts Urine Opiates Screen Urine Fentanyl Screen Ur Barbiturates Screen Ur Phencyclidine Scrn Ur Amphetamines Screen U Benzodiazepines Scrn Urine Cocaine Screen U Marijuana (THC) Screen Ethyl Alcohol COVID-19 (GUILLERMO) Negative COVID-19 Clin Com See Note Blood Type Antibody Screen Crossmatch 12/14/21 12/14/21 12/15/21 23:01 23:56 01:36 MCV MCH MCHC RDW Plt Count MPV Immature Gran % (Auto) Neut % (Auto) Lymph % (Auto) [place] % (Auto) Eos % (Auto) Baso % (Auto) Lymph # (Auto) [place] # (Auto) Eos # (Auto) Baso # (Auto) Abs Immat Gran (auto) Absolute Neuts (auto) Absolute Nucleated RBC Nucleated RBC % (auto) Neutrophils % (Manual) Band Neutrophils % Lymphocytes % (Manual) Atypical Lymphs % (Man) Eosinophils % (Manual) Basophils % (Manual) Metamyelocytes % Abs Neuts (Manual) Lymphocytes # (Manual) Toxic Vacuolation Platelet Estimate Large Platelets Plt Morphology Comment RBC Morphology Polychromasia Hypochromasia Microcytosis Smear Tech's Comments PT INR Anion Gap Estim Creat Clear Calc Estimated GFR Random Glucose Lactic Acid Lactic Acid F/U @ 2Hr 2.9 H* Lactic Acid F/U @ 4Hr Calcium Magnesium Total Bilirubin Direct Bilirubin AST ALT Alkaline Phosphatase Ammonia 25 Troponin I High Sens Total Protein Albumin Lipase Urine Color Urine Appearance Urine pH Ur Specific [place] Urine Protein Urine Glucose (UA) Urine Ketones Urine Blood Urine Nitrite Ur Leukocyte Esterase Urine RBC Urine WBC Ur Squamous Epith Cells Urine Bacteria Hyaline Casts Urine Opiates Screen Urine Fentanyl Screen Ur Barbiturates Screen Ur Phencyclidine Scrn Ur Amphetamines Screen U Benzodiazepines Scrn Urine Cocaine Screen U Marijuana (THC) Screen Ethyl Alcohol COVID-19 (GUILLERMO) COVID-19 Clin Com Blood Type O Positive Antibody Screen NEGATIVE Crossmatch See Detail 12/15/21 12/15/21 12/15/21 03:21 03:34 03:34 MCV MCH MCHC RDW Plt Count MPV Immature Gran % (Auto) Neut % (Auto) Lymph % (Auto) [place] % (Auto) Eos % (Auto) Baso % (Auto) Lymph # (Auto) [place] # (Auto) Eos # (Auto) Baso # (Auto) Abs Immat Gran (auto) Absolute Neuts (auto) Absolute Nucleated RBC Nucleated RBC % (auto) Neutrophils % (Manual) Band Neutrophils % Lymphocytes % (Manual) Atypical Lymphs % (Man) Eosinophils % (Manual) Basophils % (Manual) Metamyelocytes % Abs Neuts (Manual) Lymphocytes # (Manual) Toxic Vacuolation Platelet Estimate Large Platelets Plt Morphology Comment RBC Morphology Polychromasia Hypochromasia Microcytosis Smear Tech's Comments PT INR Anion Gap Estim Creat Clear Calc Estimated GFR Random Glucose Lactic Acid Lactic Acid F/U @ 2Hr Lactic Acid F/U @ 4Hr 3.4 H* Calcium Magnesium Total Bilirubin Direct Bilirubin AST ALT Alkaline Phosphatase Ammonia Troponin I High Sens Total Protein Albumin Lipase Urine Color Yellow Urine Appearance Clear Urine pH 7.5 Ur Specific [place] <= 1.005 Urine Protein Trace Urine Glucose (UA) Negative Urine Ketones Negative Urine Blood Small (1+) H Urine Nitrite Negative Ur Leukocyte Esterase Negative Urine RBC 3-5 H Urine WBC 0-5 Ur Squamous Epith Cells 0-2 Urine Bacteria None Seen Hyaline Casts 3-5 Urine Opiates Screen POSITIVE H Urine Fentanyl Screen POSITIVE H Ur Barbiturates Screen Not Detected Ur Phencyclidine Scrn Not Detected Ur Amphetamines Screen Not Detected U Benzodiazepines Scrn Not Detected Urine Cocaine Screen POSITIVE H U Marijuana (THC) Screen Not Detected Ethyl Alcohol COVID-19 (GUILLERMO) COVID-19 Clin Com Blood Type Antibody Screen Crossmatch Imaging Radiologist's Impressions: Impressions Abdomen/Pelvis CT 12/14/21 22:40 IMPRESSION: 1. Nondisplaced acute appearing fracture of the left 12th rib. 2. Mild T11 superior endplate compression fracture, exact acuity uncertain. 3. Couple of subacute to chronic appearing fractures of the posterolateral right sixth and seventh ribs. 4. No pneumothorax. No airspace consolidation. 5. Trace right pleural effusion. 6. No intra-abdominal free air or free fluid. 7. Very large amount of stool throughout the colon with mild dilation of the cecum, ascending and transverse colon. Correlate clinically with signs or symptoms of constipation/obstipation. 8. Diffusely thick-walled appearance of the urinary bladder. Correlate clinically with signs or symptoms of cystitis or chronic bladder dysfunction. 9. Additional ancillary findings, as described. Cervical Spine CT 12/14/21 22:40 IMPRESSION: Motion limited examination. 1. Compared to CT from 11/02/2021, decreased size and density of a left hemispheric subdural collection with resolution of leftward midline shift. No definite new acute intracranial abnormality within the limitations of motion 2. Within the limitations of motion, no evidence of acute fracture or traumatic malalignment of the cervical spine Chest CT 12/14/21 22:40 IMPRESSION: 1. Nondisplaced acute appearing fracture of the left 12th rib. 2. Mild T11 superior endplate compression fracture, exact acuity uncertain. 3. Couple of subacute to chronic appearing fractures of the posterolateral right sixth and seventh ribs. 4. No pneumothorax. No airspace consolidation. 5. Trace right pleural effusion. 6. No intra-abdominal free air or free fluid. 7. Very large amount of stool throughout the colon with mild dilation of the cecum, ascending and transverse colon. Correlate clinically with signs or symptoms of constipation/obstipation. 8. Diffusely thick-walled appearance of the urinary bladder. Correlate clinically with signs or symptoms of cystitis or chronic bladder dysfunction. 9. Additional ancillary findings, as described. Head CT 12/14/21 22:40 IMPRESSION: Motion limited examination. 1. Compared to CT from 11/02/2021, decreased size and density of a left hemispheric subdural collection with resolution of leftward midline shift. No definite new acute intracranial abnormality within the limitations of motion 2. Within the limitations of motion, no evidence of acute fracture or traumatic malalignment of the cervical spine Assessment and Plan (1) Abdominal pain: Status: Acute (2) Acute kidney injury: Status: Acute (3) Normocytic anemia: Status: Acute (4) Leukopenia: Status: Acute (5) Acute hypokalemia: Status: Acute (6) IV drug user: Status: Acute (7) Subdural hematoma: Status: Acute (8) Rib fractures: Status: Acute Plan This is a 46-year-old male with past medical history of IV drug use presents to the hospital after being found in the bathroom of a local [employer], he has multiple complaints and multiple findings # abdominal pain - under to severe constipation - will treat with MiraLax, Dulcolax, and Fleet enema as necessary - monitor for movement - per ED nurse, he had 1 large bowel movement post CT # YONY - 6 secondary to dehydration - will treat with IV fluids - follow BMP # lactic acidosis - no evidence of acute infection - UA negative, chest shows no evidence of pneumonia - will treat with IV fluids - trend # acute hypokalemia - likely secondary to poor oral intake - repleted - follow BMP # leukopenia - unclear etiology, likely secondary to IV drug use - not neutropenic - monitor CBC # acute normocytic anemia - likely multifactorial - evidence of hematoma urea, as well as significant ecchymosis all over his body - at this time patient is being transfused by ED - monitor CBC # hematuria - acute - monitor CBC - urology consulted # IV drug user - will also start on methadone - care team consulted # subdural hematoma - improving per imaging - monitor # rib fractures - secondary to frequent falls in the setting of IV drug use - incentive spirometry DVT prophylaxis: SCDs Pt will require a minimum 2 night hospital stay for the significant abnormalities including the YONY requiring IV fluids, lactic acidosis, and acute normocytic anemia leukopenia Quality Stroke Does the patient have a stroke diagnosis?: No VTE Prior VTE?: No VTE Risk Level:: Medical - low VTE Device Contraindication: Treatment Not Indicated VTE Drug Contraindication: N/A - Med Ordered
[2021-12-15 06:52] LABS: Hematocrit 29.5 % (42.0-52.0); Mean Corpuscular HGB Conc 33.9 g/dl (31.0-36.0); Mean Corpuscular Hemoglobin 29.1 pg (27.0-33.0); Mean Corpuscular Volume 85.8 fL (80.0-98.0); Mean Platelet Volume 8.6 fL (9.4-12.4); Platelet Count 327 X10*3/uL (160-400); Red Blood Count 3.44 X10*6/uL (4.60-5.80); Red Cell Distribution Width 15.3 % (11.0-16.0); White Blood Count 11.7 X10*3/uL (4.8-10.8)
[2021-12-15 07:13] LABS: Anion Gap 20 (12-20); Blood Urea Nitrogen 19 mg/dL (9-16); Calcium 7.7 mg/dL (8.4-10.2); Carbon Dioxide 21 mmol/L (22-29); Chloride 99 mmol/L (96-108); Creatinine Clr Calc Pharmacy 62.4; Estimated Glomerular Filt Rate 54; Glucose Random 68 mg/dL (60-115); Potassium 3.7 mmol/L (3.3-5.1); Sodium 136 mmol/L (135-145)
--- NOTE | 2021-12-15 07:18 | PM.UROCN ---
History of Present Illness Consult details Consult date: 12/15/21 Narrative: 46-year-old male with IV drug use history presents to the hospital reportly was found in the bathroom of a local [facility]. He complains of significant pain in his hip, as well as his ribs after falling and fracturing them. Chart review notes the patient was recently a patient at [facility] on November 04, diagnosed with subdural hematoma, and again on December 09. He reports abdominal pain, some nausea and vomiting. Urology called to evaulate due to hematuria. Urinalysis 12/15/21 +blood present, no bacteria seen. CT Pertinent findings: Kidneys and Ureters: Duplicated right renal collecting system. No renal lesion or hydronephrosis. No radiodense renal calculi identified. Bladder: Diffusely thick-walled appearance. No focal bladder wall thickening. Review of Systems Review of Systems: 10 point ROS negative other than [facility] Past Medical History Medical History Bipolar 1 disorder, depressed HTN (hypertension) Hypothyroid Family History Family History Other No family history of coronary artery disease Surgical History Surgical History No pertinent past surgical history Social History Social History Alcohol intake: current Patient Tobacco Use Status: Former Tobacco user Smoked in Last 30 Days: Yes Use of substances other than those prescribed or required for medical reasons: Yes Substance Use Type: Heroin Advance Directives: No Advance Directives Information Provided: No service: No Current occupational status: unemployed Meds Allergies Allergy/AdvReac Type Severity Reaction Status Date / Time From BENADRYL Allergy Unknown CANT Uncoded 11/15/19 18:21 BREATHE HIVES Active Medications: Current Medications Acetaminophen (Acetaminophen 325 Mg Tablet) 650 mg PO Q6H PRN PRN Reason: Pain, Mild (Pain Scale 1-3) Docusate Sodium (Docusate Sodium 100 Mg Capsule) 100 mg PO BID [facility] Enoxaparin Sodium (Enoxaparin Sodium 40 Mg/0.4 Ml Syringe) 40 mg SUBCUT Q24H [facility] Last Admin: 12/15/21 04:06 Dose: 40 mg Lactated Ringer's (Lr) 1,000 mls @ 100 mls/hr IVCONT .Q10H [facility] Last Admin: 12/15/21 04:01 Dose: Not Given Ondansetron HCl (Ondansetron Hcl 4 Mg/2 Ml Vial) 4 mg IVPUSH Q8H PRN PRN Reason: Nausea and Vomiting Polyethylene Glycol (Polyethylene Glycol 3350 17 Gm Powd.Pack) 17 gm PO DAILY [facility] Potassium Chloride (Potassium Chloride Packet 20 Meq Packet) 40 meq PO Q4H [facility] Stop: 12/15/21 08:01 Last Admin: 12/15/21 04:05 Dose: 40 meq Sodium Chloride (0.9 % Sodium Chloride Flush 3 Ml Syringe) 3 ml IVFLUSH QSHIFT [facility] Home Medications Medication Instructions Recorded Confirmed Last Taken Type aspirin 81 mg tablet,delayed 1 tab PO DAILY 12/15/21 12/15/21 Unknown History release nifedipine 30 mg tablet,extended 1 tab PO DAILY 12/15/21 12/15/21 Unknown History release 24 hr Physical Exam Vital Signs: Vital Signs: Last Vital Signs Temp 98.0 F 12/15/21 06:26 Pulse 78 12/15/21 06:26 Resp 16 12/15/21 06:26 BP 127/93 H 12/15/21 06:26 Pulse Ox 98 12/15/21 03:52 O2 Del Method 12/15/21 03:52 BMI result Body Mass Index 24.3 Const: General: no acute distress HEENT: General nose exam: Normal external nose present Eyes: General: appearance normal, both eyes and all related structures Neck: Neck: Yes normal visual inspection Resp: Effort & Inspection: normal respiratory effort Cardio: Rate: regular rate GI: Inspection: Yes normal to inspection Palpation (GI): Soft to palpation : Other: [place] cath in place clear urine noted Penis: normal penis Scrotum: scrotum normal Extrem: General: No pedal edema Results Labs Result diagrams: 12/15/21 06:40 12/16/21 06:52 Labs: Abnormal lab results 12/14/21 12/14/21 12/14/21 Range/Units 23:00 23:00 23:01 WBC 1.3 L (4.8-10.8) X10*3/uL RBC 2.58 L D (4.60-5.80) X10*6/uL Hgb 7.2 L D (14.0-18.0) g/dl Hct 21.9 L D (42.0-52.0) % RDW 16.2 H (11.0-16.0) % MPV 8.3 L (9.4-12.4) fL Band Neutrophils % 26 H (3-5) % Lymphocytes % (Manual) 13 L (20-40) % Abs Neuts (Manual) 1.1 L (2.0-8.3) X10*3/uL Lymphocytes # (Manual) 0.2 L (1.2-4.9) X10*3/uL Potassium 2.9 L (3.3-5.1) mmol/L Carbon Dioxide (22-29) mmol/L BUN 19 H (9-16) mg/dL Creatinine 1.61 H (0.5-1.4) mg/dL Lactic Acid 4.0 H* (0.5-2.0) mmol/L Lactic Acid F/U @ 2Hr (0.5-2.0) mmol/L Lactic Acid F/U @ 4Hr (0.5-2.0) mmol/L Calcium 8.1 L (8.4-10.2) mg/dL AST 308 H (5-37) U/L ALT 73 H (0-40) U/L Alkaline Phosphatase 404 H (39-117) U/L Albumin 3.0 L (3.5-5.0) g/dL Urine Blood (Negative) Urine RBC (0-2) /HPF Urine Opiates Screen (Not Detect) Urine Fentanyl Screen (Not Detect) Urine Cocaine Screen (Not Detect) Crossmatch 12/14/21 12/15/21 12/15/21 Range/Units 23:56 01:36 03:21 WBC (4.8-10.8) X10*3/uL RBC (4.60-5.80) X10*6/uL Hgb (14.0-18.0) g/dl Hct (42.0-52.0) % RDW (11.0-16.0) % MPV (9.4-12.4) fL Band Neutrophils % (3-5) % Lymphocytes % (Manual) (20-40) % Abs Neuts (Manual) (2.0-8.3) X10*3/uL Lymphocytes # (Manual) (1.2-4.9) X10*3/uL Potassium (3.3-5.1) mmol/L Carbon Dioxide (22-29) mmol/L BUN (9-16) mg/dL Creatinine (0.5-1.4) mg/dL Lactic Acid (0.5-2.0) mmol/L Lactic Acid F/U @ 2Hr 2.9 H* (0.5-2.0) mmol/L Lactic Acid F/U @ 4Hr 3.4 H* (0.5-2.0) mmol/L Calcium (8.4-10.2) mg/dL AST (5-37) U/L ALT (0-40) U/L Alkaline Phosphatase (39-117) U/L Albumin (3.5-5.0) g/dL Urine Blood (Negative) Urine RBC (0-2) /HPF Urine Opiates Screen (Not Detect) Urine Fentanyl Screen (Not Detect) Urine Cocaine Screen (Not Detect) Crossmatch See Detail 12/15/21 12/15/21 12/15/21 Range/Units 03:34 03:34 06:40 WBC 11.7 H (4.8-10.8) X10*3/uL RBC 3.44 L D (4.60-5.80) X10*6/uL Hgb 10.0 L D (14.0-18.0) g/dl Hct 29.5 L D (42.0-52.0) % RDW (11.0-16.0) % MPV 8.6 L (9.4-12.4) fL Band Neutrophils % (3-5) % Lymphocytes % (Manual) (20-40) % Abs Neuts (Manual) (2.0-8.3) X10*3/uL Lymphocytes # (Manual) (1.2-4.9) X10*3/uL Potassium (3.3-5.1) mmol/L Carbon Dioxide (22-29) mmol/L BUN (9-16) mg/dL Creatinine (0.5-1.4) mg/dL Lactic Acid (0.5-2.0) mmol/L Lactic Acid F/U @ 2Hr (0.5-2.0) mmol/L Lactic Acid F/U @ 4Hr (0.5-2.0) mmol/L Calcium (8.4-10.2) mg/dL AST (5-37) U/L ALT (0-40) U/L Alkaline Phosphatase (39-117) U/L Albumin (3.5-5.0) g/dL Urine Blood Small (1+) H (Negative) Urine RBC 3-5 H (0-2) /HPF Urine Opiates Screen POSITIVE H (Not Detect) Urine Fentanyl Screen POSITIVE H (Not Detect) Urine Cocaine Screen POSITIVE H (Not Detect) Crossmatch 12/15/21 Range/Units 06:40 WBC (4.8-10.8) X10*3/uL RBC (4.60-5.80) X10*6/uL Hgb (14.0-18.0) g/dl Hct (42.0-52.0) % RDW (11.0-16.0) % MPV (9.4-12.4) fL Band Neutrophils % (3-5) % Lymphocytes % (Manual) (20-40) % Abs Neuts (Manual) (2.0-8.3) X10*3/uL Lymphocytes # (Manual) (1.2-4.9) X10*3/uL Potassium (3.3-5.1) mmol/L Carbon Dioxide 21 L (22-29) mmol/L BUN 19 H (9-16) mg/dL Creatinine (0.5-1.4) mg/dL Lactic Acid (0.5-2.0) mmol/L Lactic Acid F/U @ 2Hr (0.5-2.0) mmol/L Lactic Acid F/U @ 4Hr (0.5-2.0) mmol/L Calcium 7.7 L (8.4-10.2) mg/dL AST (5-37) U/L ALT (0-40) U/L Alkaline Phosphatase (39-117) U/L Albumin (3.5-5.0) g/dL Urine Blood (Negative) Urine RBC (0-2) /HPF Urine Opiates Screen (Not Detect) Urine Fentanyl Screen (Not Detect) Urine Cocaine Screen (Not Detect) Crossmatch Short CBC 12/14/21 12/15/21 Range/Units 23:00 06:40 WBC 1.3 L 11.7 H (4.8-10.8) X10*3/uL Hgb 7.2 L D 10.0 L D (14.0-18.0) g/dl Hct 21.9 L D 29.5 L D (42.0-52.0) % Plt Count 288 327 (160-400) X10*3/uL BMP 12/14/21 12/15/21 23:00 06:40 Sodium 137 136 Potassium 2.9 L 3.7 D Chloride 99 99 Carbon Dioxide 22 21 L BUN 19 H 19 H Creatinine 1.61 H 1.40 Calcium 8.1 L 7.7 L Liver Function 12/14/21 Range/Units 23:00 Total Bilirubin 0.5 (0.0-1.0) mg/dL Direct Bilirubin 0.3 (0.0-0.5) mg/dL AST 308 H (5-37) U/L ALT 73 H (0-40) U/L Alkaline Phosphatase 404 H (39-117) U/L Albumin 3.0 L (3.5-5.0) g/dL Urine 12/15/21 Range/Units 03:34 Urine Color Yellow Urine Appearance Clear Urine pH 7.5 (5.0-9.0) Ur Specific [place] <= 1.005 (1.005-1.025) Urine Protein Trace (Neg-Trace) mg/dL Urine Glucose (UA) Negative (Negative) mg/dL Imaging Abdomen CT scan report/results: report reviewed and image reviewed Additional studies: Date of Service: 12/14/21 EXAMINATION: CT CHEST, ABDOMEN AND PELVIS WITHOUT CONTRAST CLINICAL INFORMATION: Fall. Rule out aspiration or rib fracture. Abdominal pain and vomiting. COMPARISON: CT abdomen pelvis 12/09/2012 FINDINGS: CHEST: Lungs: Assessment of lung parenchyma limited somewhat by extensive respiratory motion artifact. No airspace consolidation or suspicious pulmonary nodule. Mild upper lobe or paraseptal emphysema bilaterally. Central airways are clear. Mediastinum: No cardiomegaly or pericardial effusion. Normal caliber thoracic aorta and central pulmonary trunk. No mediastinal hematoma. No mediastinal or hilar lymphadenopathy. Fluid-filled distention of the mid and distal thoracic esophagus. Pericardium/Pleura: Trace right pleural effusion. No pneumothorax. Chest Wall/Axilla: Unremarkable. ABDOMEN/PELVIS: Liver, Gallbladder, Biliary Tree: The liver is normal in size, shape, and attenuation. No focal hepatic lesion or biliary ductal dilatation is present. The gallbladder is unremarkable with no evidence of radiopaque gallstones, gallbladder wall thickening, or pericholecystic inflammatory changes. Pancreas: Unremarkable. Spleen: Unremarkable. Adrenal Glands: Unremarkable. Kidneys and Ureters: Duplicated right renal collecting system. No renal lesion or hydronephrosis. No radiodense renal calculi identified. Bladder: Diffusely thick-walled appearance. No focal bladder wall thickening. Gastrointestinal Tract: Very large amount of stool filling the mildly dilated cecum, ascending and transverse colon. Interstitial large volume stool in the descending and rectosigmoid colon to a lesser degree. No dilated small bowel loops. No gross bowel wall thickening. Appendix is not discretely visualized. No obvious inflammatory change the cecal base. No intra-abdominal free air. No ascites. Diffuse mesenteric edema and mild presacral edema. Abdominal Wall: No hernia is demonstrated. Lymphovascular Structures: Lymph nodes: No lymphadenopathy identified. Vascular: Normal caliber abdominal aorta. Minimal vascular calcifications. Pelvic Viscera: Unremarkable. OSSEOUS STRUCTURES: Mild T11 superior endplate compression fracture, exact acuity uncertain. Chronic appearing mild T7 compression deformity with slight anterior height loss. Nondisplaced acute appearing fracture the left 12th rib. Couple of a subacute to chronic appearing fractures of the posterolateral right sixth and seventh ribs. Chronic appearing superior endplate Schmorl's node deformity of L4. Extensive cystic change and fragmentation of the lateral femoral heads suspicious for avascular necrosis. Chronic appearing left pubic rami fracture deformities. CT/CT abdomen pelvis wo IV con IMPRESSION: 1.? Nondisplaced acute appearing fracture of the left 12th rib. 2.? Mild T11 superior endplate compression fracture, exact acuity uncertain. 3.? Couple of subacute to chronic appearing fractures of the posterolateral right sixth and seventh ribs. 4.? No pneumothorax. No airspace consolidation. 5.? Trace right pleural effusion. 6.? No intra-abdominal free air or free fluid. 7.? Very large amount of stool throughout the colon with mild dilation of the cecum, ascending and transverse colon. Correlate clinically with signs or symptoms of constipation/obstipation. 8.? Diffusely thick-walled appearance of the urinary bladder. Correlate clinically with signs or symptoms of cystitis or chronic bladder dysfunction. 9.? Additional ancillary findings, as described. ? Assessment and Plan (1) Hematuria: Status: Acute Plan Hematuria. Urine currently clear, U/A no evidence of active UTI CT findings: Kidneys and Ureters: Duplicated right renal collecting system. No renal lesion or hydronephrosis. Bladder: Diffusely thick-walled appearance. No focal bladder wall thickening. No surgical intervention indicated at this time FU with Urology as out patient Procedures Date of Service Date of Service: 12/15/21
[2021-12-15 07:23] LABS: Band Neutrophils Percent 17 % (3-5); Lymphocytes Absolute Manual 0.5 X10*3/uL (1.2-4.9); Lymphocytes Percent Manual 4 % (20-40); Monocytes Absolute Manual 0.2 X10*3/uL (0.1-1.2); Monocytes Percent Manual 2 % (2-11); Neutrophils Percent Manual 77 % (45-73)
[2021-12-15 07:25] LABS: Burr Cells 2+ (3-5) /OIF; Platelet Estimate NORMAL (NORMAL); Platelet Morphology Comment NORMAL; RBC Morphology NOTED
[2021-12-15] MEDS: polyethylene glycoL 3350 17 GM POWD.PACK PO (09:28)
[2021-12-15] MEDS: 0.9 % Sodium Chloride Flush 3 ML SYRINGE IVFLUSH (09:28)
[2021-12-15] MEDS: Docusate Sodium 100 MG CAPSULE PO (09:28)
--- NOTE | 2021-12-15 10:00 | PC.NURSE ---
PT lethargic, awakens with physical touch. PO meds given as documented. Incontinent care provided.Repositioned. Warm blankets given.
--- NOTE | 2021-12-15 10:26 | PHA.MEDREC ---
Pharmacy Consult ? Medication Reconciliation Pharmacy has completed the medication reconciliation. Was unable to wake patient up. Med rec completed by claim history. Zulema Pritchard, ManuelD
[2021-12-15 10:55] LABS: Alanine Aminotransferase 182 U/L (0-40); Albumin Level 2.9 g/dL (3.5-5.0); Alkaline Phosphatase 676 U/L (39-117); Aspartate Amino Transferase 727 U/L (5-37); Bilirubin Direct 0.5 mg/dL (0.0-0.5); Bilirubin Total 1.3 mg/dL (0.0-1.0)
--- NOTE | 2021-12-15 11:19 | PC.NURSE ---
PT sleeping, no apparent distress. Will continue to observe.
[2021-12-15] MEDS: Lactated Ringers 1,000 ML 100 ML IVCONT ×2 (13:15→23:33)
--- NOTE | 2021-12-15 13:24 | PM.GICN ---
History of Present Illness Data of Consult Service Date: 12/15/21 Requesting physician: Luis Del Castillo Primary Care Provider: Unknown Physician HPI Reason for consult: abn LFT 46-year-old male with hx of subdural hematoma, IV drug use history who I am seeing for assessment for abn LFT. No Hx from patient, somnolent, info from notes and primary team interview Patient was admitted to ED after being found unresponsive in the bathroom of a local [facility]. He was somnolent but arousable on arrival. Apparently he was c/o hip and rib pains after a fall and had recently been at [facility] due to subdural hemorrhage. Labs: lactic acid of 4.0, WBC count of 1.3, hemoglobin of 7.2, previously 11.7 on 11/02, potassium of 2.9, creatinine of 1.61, AST of 308, now 700, , ALT of 73, alk-phos of 404, today 600, UA positive for blood and RBC, UDS positive for opioids, fentanyl, and cocaine Imaging revealed nondisplaced acute appearing fracture of the left 12th rib, mild T11 superior endplate compression fracture, exact acuity uncertain, couple of subacute to chronic appearing fractures of the posterolateral right 6 and 7 ribs, no pneumothorax, no airspace consolidation, no intra-abdominal free air free fluid, very large amount of stool throughout the colon with mild dilatation of the cecum, ascending and transverse colon, diffusely thick-walled appearance of the urinary bladder, chronic subdural hematomas were also noted. Review of Systems Review of Systems: Yes Unobtainable due to mental status PMFSH Past Medical History Medical History Bipolar 1 disorder, depressed HTN (hypertension) Hypothyroid Family History Family History Other No family history of coronary artery disease Surgical History Surgical History No pertinent past surgical history Social History Social History Alcohol intake: current Patient Tobacco Use Status: Former Tobacco user Smoked in Last 30 Days: Yes Use of substances other than those prescribed or required for medical reasons: Yes Substance Use Type: Heroin Advance Directives: No Advance Directives Information Provided: No Meds Allergies Allergy/AdvReac Type Severity Reaction Status Date / Time From BENADRYL Allergy Unknown CANT Uncoded 11/15/19 18:21 BREATHE HIVES Active Medications: Current Medications Acetaminophen (Acetaminophen 325 Mg Tablet) 650 mg PO Q6H PRN PRN Reason: Pain, Mild (Pain Scale 1-3) Docusate Sodium (Docusate Sodium 100 Mg Capsule) 100 mg PO BID [facility] Last Admin: 12/15/21 09:28 Dose: 100 mg Enoxaparin Sodium (Enoxaparin Sodium 40 Mg/0.4 Ml Syringe) 40 mg SUBCUT Q24H [facility] Last Admin: 12/15/21 04:06 Dose: 40 mg Lactated Ringer's (Lr) 1,000 mls @ 100 mls/hr IVCONT .Q10H [facility] Last Admin: 12/15/21 13:15 Dose: 100 mls/hr Lidocaine (Lidocaine 4 % Patch Adh..Patch) 1 patch TRANSDERMA DAILY [facility]; Protocol Magnesium Oxide (Magnesium Oxide 400 Mg Tablet) 800 mg PO DAILY [facility] Ondansetron HCl (Ondansetron Hcl 4 Mg/2 Ml Vial) 4 mg IVPUSH Q8H PRN PRN Reason: Nausea and Vomiting Polyethylene Glycol (Polyethylene Glycol 3350 17 Gm Powd.Pack) 17 gm PO DAILY [facility] Last Admin: 12/15/21 09:28 Dose: 17 gm Sodium Chloride (0.9 % Sodium Chloride Flush 3 Ml Syringe) 3 ml IVFLUSH QSHIFT [facility] Last Admin: 12/15/21 09:28 Dose: 3 ml Home Medications Medication Instructions Recorded Confirmed Last Taken Type aspirin 81 mg tablet,delayed 1 tab PO DAILY 12/15/21 12/15/21 Unknown History release nifedipine 30 mg tablet,extended 1 tab PO DAILY 12/15/21 12/15/21 Unknown History release 24 hr Physical Exam Vital Signs: Vital Signs: Last Vital Signs Temp 98.3 F 12/15/21 12:52 Pulse 75 12/15/21 12:52 Resp 13 12/15/21 12:52 BP 137/103 H 12/15/21 12:52 Pulse Ox 98 12/15/21 12:52 O2 Del Method 12/15/21 12:52 BMI result Body Mass Index 24.3 Const: Other: e General: no acute distress, ill appearing and poor hygiene HEENT: Head: Yes normal to inspection Eyes: General: appearance normal, both eyes and all related structures Pupils: Equal, round and reactive pupils present Chest: Chest palpation & inspection: no crepitus Resp: Effort & Inspection: normal respiratory effort, no audible wheezes and no cough Cardio: Rate: regular rate Rhythm: regular rhythm GI: Palpation (GI): Soft to palpation Auscultation: normal bowel sounds Skin: Other: Patient has skin bruising all over his body including contusions to the face, large ecchymosis on his legs bilaterally Neuro: General: Unable to assess gait Cranial nerves: Yes Equal, round and reactive pupils present Gait exam (Neuro): Unable to assess gait Extrem: General: Yes normal to inspection and Yes no pedal edema Psych: Appearance: disheveled Mental Status: mental status grossly abnormal Results Labs CBC & Chem 7: 12/15/21 06:40 12/15/21 06:40 Labs: Short CBC 12/14/21 12/15/21 Range/Units 23:00 06:40 WBC 1.3 L 11.7 H (4.8-10.8) X10*3/uL Hgb 7.2 L D 10.0 L D (14.0-18.0) g/dl Hct 21.9 L D 29.5 L D (42.0-52.0) % Plt Count 288 327 (160-400) X10*3/uL BMP 12/14/21 12/15/21 23:00 06:40 Sodium 137 136 Potassium 2.9 L 3.7 D Chloride 99 99 Carbon Dioxide 22 21 L BUN 19 H 19 H Creatinine 1.61 H 1.40 Calcium 8.1 L 7.7 L Cardiac Enzymes 12/15/21 Range/Units 06:40 Total Creatine Kinase 423 H (38-174) U/L Liver Function 12/14/21 12/15/21 Range/Units 23:00 06:40 Total Bilirubin 0.5 1.3 H (0.0-1.0) mg/dL Direct Bilirubin 0.3 0.5 (0.0-0.5) mg/dL AST 308 H 727 H (5-37) U/L ALT 73 H 182 H (0-40) U/L Alkaline Phosphatase 404 H 676 H D (39-117) U/L Albumin 3.0 L 2.9 L (3.5-5.0) g/dL Urine 12/15/21 Range/Units 03:34 Urine Color Yellow Urine Appearance Clear Urine pH 7.5 (5.0-9.0) Ur Specific [place] <= 1.005 (1.005-1.025) Urine Protein Trace (Neg-Trace) mg/dL Urine Glucose (UA) Negative (Negative) mg/dL Assessment and Plan (1) IV drug user: Status: Acute (2) Rib fractures: Status: Acute (3) Abnormal LFTs: Status: Acute Plan / 46 yr old m with IVDA hx found altered with pos u tox screen and multiple fractures and injuries with abn LFT> The AST is high as is the CK so suspect this is related to his muscle injuries and the raised alk phos is due to his fractures. Acute viral hep is not excluded though. Plan: 1/ Check GGT, Hep serolgies incl Hep A,B,C, may need to check PCR 2/ watch for any evidence of rhabdo, compartment syndrome etc 3/ if LFT cont to rise would get US liver as well and check HSV, EBV and CMV antibiodies 4/ check acetaminophen level, daily INR 5/ may need neuro input if remains somnolent or repeat CT brain Procedures Date of Service Date of Service: 12/15/21
--- NOTE | 2021-12-15 15:30 | PC.NURSE ---
PT resting quietly, PT seen by urology. More awake at this time. Will continue to observe.
--- NOTE | 2021-12-15 18:04 | PC.NURSE ---
+ blood culture gram + cocci in clusters .Dr. Del Castillo notified.
--- NOTE | 2021-12-15 18:39 | PHA.PROG ---
Admission Date/Time: December 15, 2021 03:28 Indication: BACTEREMIA Weight in k.575 kg Adjusted body weight in K KG Ivel body weight in Kg: Obesity Dosing Indication % IBW: Serum Creatinine - Last 168 Hours 12/14/21 12/15/21 23:00 06:40 Creatinine 1.61 H 1.40 Estimated CrCl and GFR - Last 168 Hours 12/14/21 12/15/21 23:00 06:40 Estim Creat Clear Calc 54.2 62.4 Estimated GFR 46 54 Vancomycin Loading Dose: 1750 MG Current Vancomycin Dosing Regimen:750 MG Q 12 HOURS Vancomycin Monitoring using AUC goal of 400 - 600 range with trough as surrogate marker: Date and Time for next Vancomycin Level to be drawn: 12/17/21 0500 Pharmacist Comments on Vancomycin Plan:PREDICTED AUC 526 Vancomycin dosing will take advantage of eyeOS as a clinical decision support tool that uses Bayesian modeling to calculate individual patient's pharmacokinetic parameters and forecast the patient's drug concentration time course with the target goal AUC 24 range of 400 - 600 mg/L/hr.
[2021-12-15 19:04] LABS: INTERNATIONAL NORM RATIO 1.4 (0.9-1.1); Prothrombin Time 16.1 SEC (10.0-13.1)
[2021-12-15 19:16] LABS: Acetaminophen LAB < 1 mcg/mL (<30); Salicylate < 5.0 mg/dL (15-30)
[2021-12-15] MEDS: vancomycin HCL 1,000 MG, vancomycin HCL 750 MG in 0.9 % Sodium Chloride 500 ML 267.5 MG IV (19:16)
--- NOTE | 2021-12-15 19:43 | HO.PM.IMPN ---
Subjective Subjective Date of Service: 12/16/21 Interval History: Elevated LFTs, bacteremia Review of Systems Patient seems to be more awake denies any chest pain or shortness of breath or abdominal pain or fever or chills or cough or phlegm. Physical Exam Vital Signs: Vital Signs: Last Vital Signs Temp 98.3 F 12/15/21 12:52 Pulse 75 12/15/21 12:52 Resp 13 12/15/21 12:52 BP 137/103 H 12/15/21 12:52 Pulse Ox 98 12/15/21 12:52 O2 Del Method 12/15/21 12:52 BMI result Body Mass Index 24.3 Physical exam unchanged from H&P. And lot of skin changes on the lower legs? Question chronic Objective Data Active Medications Acetaminophen (Acetaminophen 325 Mg Tablet) 650 mg PO Q6H PRN PRN Reason: Pain, Mild (Pain Scale 1-3) Docusate Sodium (Docusate Sodium 100 Mg Capsule) 100 mg PO BID [facility] Last Admin: 12/15/21 09:28 Dose: 100 mg Documented By: MAILE Enoxaparin Sodium (Enoxaparin Sodium 40 Mg/0.4 Ml Syringe) 40 mg SUBCUT Q24H [facility] Last Admin: 12/15/21 04:06 Dose: 40 mg Documented By: IDALIA Lactated Ringer's (Lr) 1,000 mls @ 100 mls/hr IVCONT .Q10H [facility] Last Admin: 12/15/21 13:15 Dose: 100 mls/hr Documented By: MAILE Vancomycin HCl 1,000 mg/Vancomycin HCl 750 mg/ Sodium Chloride 535 mls @ 267.5 mls/hr IV ONCE ONE Stop: 12/15/21 20:34 Last Admin: 12/15/21 19:16 Dose: 267.5 mls/hr Documented By: NURYS Vancomycin HCl 750 mg/ Sodium (Chloride) 265 mls @ 265 mls/hr IV Q12H [facility] Lidocaine (Lidocaine 4 % Patch Adh..Patch) 1 patch TRANSDERMA DAILY [facility]; Protocol Magnesium Oxide (Magnesium Oxide 400 Mg Tablet) 800 mg PO DAILY [facility] Ondansetron HCl (Ondansetron Hcl 4 Mg/2 Ml Vial) 4 mg IVPUSH Q8H PRN PRN Reason: Nausea and Vomiting Pharmacy Consult (Consult Rx Vancomycin Dosing) 1 each MISCELLANE DAILY PRN PRN Reason: Consult order Polyethylene Glycol (Polyethylene Glycol 3350 17 Gm Powd.Pack) 17 gm PO DAILY [facility] Last Admin: 12/15/21 09:28 Dose: 17 gm Documented By: MAILE Sodium Chloride (0.9 % Sodium Chloride Flush 3 Ml Syringe) 3 ml IVFLUSH QSHIFT [facility] Last Admin: 12/15/21 15:13 Dose: Not Given Documented By: MAILE Non-Admin Reason: IV Running Labs CBC & Chem 7: 12/15/21 06:40 12/16/21 06:52 Labs: Laboratory Results - last 24 hr 12/14/21 12/14/21 12/14/21 23:00 23:00 23:01 MCV 84.9 MCH 27.9 MCHC 32.9 RDW 16.2 H Plt Count 288 MPV 8.3 L Immature Gran % (Auto) Cancelled Neut % (Auto) Cancelled Lymph % (Auto) Cancelled [place] % (Auto) Cancelled Eos % (Auto) Cancelled Baso % (Auto) Cancelled Lymph # (Auto) Cancelled [place] # (Auto) Cancelled Eos # (Auto) Cancelled Baso # (Auto) Cancelled Abs Immat Gran (auto) Cancelled Absolute Neuts (auto) Cancelled Absolute Nucleated RBC 0.000 Nucleated RBC % (auto) 0.0 Neutrophils % (Manual) 57 Band Neutrophils % 26 H Lymphocytes % (Manual) 13 L Atypical Lymphs % (Man) 1 Monocytes % (Manual) Eosinophils % (Manual) 1 Basophils % (Manual) 1 Metamyelocytes % 1 Abs Neuts (Manual) 1.1 L Lymphocytes # (Manual) 0.2 L Monocytes # (Manual) Toxic Vacuolation PRESENT Platelet Estimate NORMAL Large Platelets PRESENT Plt Morphology Comment NOTED RBC Morphology NOTED Polychromasia 1+ (0-2) Hypochromasia 1+ (5-14) Microcytosis 1+ (5-14) Jett Cells Smear Tech's Comments MANUAL DIFF Smear Path Review SEE NOTE PT 12.7 INR 1.1 Anion Gap 19 Estim Creat Clear Calc 54.2 Estimated GFR 46 Random Glucose 68 Lactic Acid Lactic Acid F/U @ 2Hr Lactic Acid F/U @ 4Hr Calcium 8.1 L Magnesium 1.6 Total Bilirubin 0.5 Direct Bilirubin 0.3 AST 308 H ALT 73 H Alkaline Phosphatase 404 H Ammonia Total Creatine Kinase Troponin I High Sens Total Protein 7.0 Albumin 3.0 L Lipase 15 Urine Color Urine Appearance Urine pH Ur Specific [place] Urine Protein Urine Glucose (UA) Urine Ketones Urine Blood Urine Nitrite Ur Leukocyte Esterase Urine RBC Urine WBC Ur Squamous Epith Cells Urine Bacteria Hyaline Casts Salicylates Urine Opiates Screen Urine Fentanyl Screen Acetaminophen Ur Barbiturates Screen Ur Phencyclidine Scrn Ur Amphetamines Screen U Benzodiazepines Scrn Urine Cocaine Screen U Marijuana (THC) Screen Ethyl Alcohol < 10 COVID-19 (GUILLERMO) COVID-19 Clin Com Blood Type Antibody Screen Crossmatch 12/14/21 12/14/21 12/14/21 23:01 23:01 23:01 MCV MCH MCHC RDW Plt Count MPV Immature Gran % (Auto) Neut % (Auto) Lymph % (Auto) [place] % (Auto) Eos % (Auto) Baso % (Auto) Lymph # (Auto) [place] # (Auto) Eos # (Auto) Baso # (Auto) Abs Immat Gran (auto) Absolute Neuts (auto) Absolute Nucleated RBC Nucleated RBC % (auto) Neutrophils % (Manual) Band Neutrophils % Lymphocytes % (Manual) Atypical Lymphs % (Man) Monocytes % (Manual) Eosinophils % (Manual) Basophils % (Manual) Metamyelocytes % Abs Neuts (Manual) Lymphocytes # (Manual) Monocytes # (Manual) Toxic Vacuolation Platelet Estimate Large Platelets Plt Morphology Comment RBC Morphology Polychromasia Hypochromasia Microcytosis [place] Cells Smear Tech's Comments Smear Path Review PT INR Anion Gap Estim Creat Clear Calc Estimated GFR Random Glucose Lactic Acid 4.0 H* Lactic Acid F/U @ 2Hr Lactic Acid F/U @ 4Hr Calcium Magnesium Total Bilirubin Direct Bilirubin AST ALT Alkaline Phosphatase Ammonia Total Creatine Kinase Troponin I High Sens 11.7 Total Protein Albumin Lipase Urine Color Urine Appearance Urine pH Ur Specific [place] Urine Protein Urine Glucose (UA) Urine Ketones Urine Blood Urine Nitrite Ur Leukocyte Esterase Urine RBC Urine WBC Ur Squamous Epith Cells Urine Bacteria Hyaline Casts Salicylates Urine Opiates Screen Urine Fentanyl Screen Acetaminophen Ur Barbiturates Screen Ur Phencyclidine Scrn Ur Amphetamines Screen U Benzodiazepines Scrn Urine Cocaine Screen U Marijuana (THC) Screen Ethyl Alcohol COVID-19 (GUILLERMO) Negative COVID-19 Clin Com See Note Blood Type Antibody Screen Crossmatch 12/14/21 12/14/21 12/15/21 23:01 23:56 01:36 MCV MCH MCHC RDW Plt Count MPV Immature Gran % (Auto) Neut % (Auto) Lymph % (Auto) [place] % (Auto) Eos % (Auto) Baso % (Auto) Lymph # (Auto) [place] # (Auto) Eos # (Auto) Baso # (Auto) Abs Immat Gran (auto) Absolute Neuts (auto) Absolute Nucleated RBC Nucleated RBC % (auto) Neutrophils % (Manual) Band Neutrophils % Lymphocytes % (Manual) Atypical Lymphs % (Man) Monocytes % (Manual) Eosinophils % (Manual) Basophils % (Manual) Metamyelocytes % Abs Neuts (Manual) Lymphocytes # (Manual) Monocytes # (Manual) Toxic Vacuolation Platelet Estimate Large Platelets Plt Morphology Comment RBC Morphology Polychromasia Hypochromasia Microcytosis [place] Cells Smear Tech's Comments Smear Path Review PT INR Anion Gap Estim Creat Clear Calc Estimated GFR Random Glucose Lactic Acid Lactic Acid F/U @ 2Hr 2.9 H* Lactic Acid F/U @ 4Hr Calcium Magnesium Total Bilirubin Direct Bilirubin AST ALT Alkaline Phosphatase Ammonia 25 Total Creatine Kinase Troponin I High Sens Total Protein Albumin Lipase Urine Color Urine Appearance Urine pH Ur Specific [place] Urine Protein Urine Glucose (UA) Urine Ketones Urine Blood Urine Nitrite Ur Leukocyte Esterase Urine RBC Urine WBC Ur Squamous Epith Cells Urine Bacteria Hyaline Casts Salicylates Urine Opiates Screen Urine Fentanyl Screen Acetaminophen Ur Barbiturates Screen Ur Phencyclidine Scrn Ur Amphetamines Screen U Benzodiazepines Scrn Urine Cocaine Screen U Marijuana (THC) Screen Ethyl Alcohol COVID-19 (GUILLERMO) COVID-19 Clin Com Blood Type O Positive Antibody Screen NEGATIVE Crossmatch See Detail 12/15/21 12/15/21 12/15/21 03:21 03:34 03:34 MCV MCH MCHC RDW Plt Count MPV Immature Gran % (Auto) Neut % (Auto) Lymph % (Auto) [place] % (Auto) Eos % (Auto) Baso % (Auto) Lymph # (Auto) [place] # (Auto) Eos # (Auto) Baso # (Auto) Abs Immat Gran (auto) Absolute Neuts (auto) Absolute Nucleated RBC Nucleated RBC % (auto) Neutrophils % (Manual) Band Neutrophils % Lymphocytes % (Manual) Atypical Lymphs % (Man) Monocytes % (Manual) Eosinophils % (Manual) Basophils % (Manual) Metamyelocytes % Abs Neuts (Manual) Lymphocytes # (Manual) Monocytes # (Manual) Toxic Vacuolation Platelet Estimate Large Platelets Plt Morphology Comment RBC Morphology Polychromasia Hypochromasia Microcytosis Jett Cells Smear Tech's Comments Smear Path Review PT INR Anion Gap Estim Creat Clear Calc Estimated GFR Random Glucose Lactic Acid Lactic Acid F/U @ 2Hr Lactic Acid F/U @ 4Hr 3.4 H* Calcium Magnesium Total Bilirubin Direct Bilirubin AST ALT Alkaline Phosphatase Ammonia Total Creatine Kinase Troponin I High Sens Total Protein Albumin Lipase Urine Color Yellow Urine Appearance Clear Urine pH 7.5 Ur Specific [place] <= 1.005 Urine Protein Trace Urine Glucose (UA) Negative Urine Ketones Negative Urine Blood Small (1+) H Urine Nitrite Negative Ur Leukocyte Esterase Negative Urine RBC 3-5 H Urine WBC 0-5 Ur Squamous Epith Cells 0-2 Urine Bacteria None Seen Hyaline Casts 3-5 Salicylates Urine Opiates Screen POSITIVE H Urine Fentanyl Screen POSITIVE H Acetaminophen Ur Barbiturates Screen Not Detected Ur Phencyclidine Scrn Not Detected Ur Amphetamines Screen Not Detected U Benzodiazepines Scrn Not Detected Urine Cocaine Screen POSITIVE H U Marijuana (THC) Screen Not Detected Ethyl Alcohol COVID-19 (GUILLERMO) COVID-19 Clin Com Blood Type Antibody Screen Crossmatch 12/15/21 12/15/21 12/15/21 06:40 06:40 18:53 MCV 85.8 MCH 29.1 MCHC 33.9 RDW 15.3 Plt Count 327 MPV 8.6 L Immature Gran % (Auto) Cancelled Neut % (Auto) Cancelled Lymph % (Auto) Cancelled [place] % (Auto) Cancelled Eos % (Auto) Cancelled Baso % (Auto) Cancelled Lymph # (Auto) Cancelled [place] # (Auto) Cancelled Eos # (Auto) Cancelled Baso # (Auto) Cancelled Abs Immat Gran (auto) Cancelled Absolute Neuts (auto) Cancelled Absolute Nucleated RBC 0.000 Nucleated RBC % (auto) 0.0 Neutrophils % (Manual) 77 H Band Neutrophils % 17 H Lymphocytes % (Manual) 4 L Atypical Lymphs % (Man) Monocytes % (Manual) 2 Eosinophils % (Manual) Basophils % (Manual) Metamyelocytes % Abs Neuts (Manual) 11.0 H Lymphocytes # (Manual) 0.5 L Monocytes # (Manual) 0.2 Toxic Vacuolation Platelet Estimate NORMAL Large Platelets Plt Morphology Comment NORMAL RBC Morphology NOTED Polychromasia Hypochromasia Microcytosis [place] Cells 2+ (3-5) Smear Tech's Comments Smear Path Review PT 16.1 H INR 1.4 H Anion Gap 20 Estim Creat Clear Calc 62.4 Estimated GFR 54 Random Glucose 68 Lactic Acid Lactic Acid F/U @ 2Hr Lactic Acid F/U @ 4Hr Calcium 7.7 L Magnesium Total Bilirubin 1.3 H Direct Bilirubin 0.5 AST 727 H ALT 182 H Alkaline Phosphatase 676 H D Ammonia Total Creatine Kinase 423 H Troponin I High Sens Total Protein 7.0 Albumin 2.9 L Lipase Urine Color Urine Appearance Urine pH Ur Specific [place] Urine Protein Urine Glucose (UA) Urine Ketones Urine Blood Urine Nitrite Ur Leukocyte Esterase Urine RBC Urine WBC Ur Squamous Epith Cells Urine Bacteria Hyaline Casts Salicylates Urine Opiates Screen Urine Fentanyl Screen Acetaminophen Ur Barbiturates Screen Ur Phencyclidine Scrn Ur Amphetamines Screen U Benzodiazepines Scrn Urine Cocaine Screen U Marijuana (THC) Screen Ethyl Alcohol COVID-19 (GUILLERMO) COVID-19 Clin Com Blood Type Antibody Screen Crossmatch 12/15/21 18:53 MCV MCH MCHC RDW Plt Count MPV Immature Gran % (Auto) Neut % (Auto) Lymph % (Auto) [place] % (Auto) Eos % (Auto) Baso % (Auto) Lymph # (Auto) [place] # (Auto) Eos # (Auto) Baso # (Auto) Abs Immat Gran (auto) Absolute Neuts (auto) Absolute Nucleated RBC Nucleated RBC % (auto) Neutrophils % (Manual) Band Neutrophils % Lymphocytes % (Manual) Atypical Lymphs % (Man) Monocytes % (Manual) Eosinophils % (Manual) Basophils % (Manual) Metamyelocytes % Abs Neuts (Manual) Lymphocytes # (Manual) Monocytes # (Manual) Toxic Vacuolation Platelet Estimate Large Platelets Plt Morphology Comment RBC Morphology Polychromasia Hypochromasia Microcytosis Jett Cells Smear Tech's Comments Smear Path Review PT INR Anion Gap Estim Creat Clear Calc Estimated GFR Random Glucose Lactic Acid Lactic Acid F/U @ 2Hr Lactic Acid F/U @ 4Hr Calcium Magnesium Total Bilirubin Direct Bilirubin AST ALT Alkaline Phosphatase Ammonia Total Creatine Kinase Troponin I High Sens Total Protein Albumin Lipase Urine Color Urine Appearance Urine pH Ur Specific [place] Urine Protein Urine Glucose (UA) Urine Ketones Urine Blood Urine Nitrite Ur Leukocyte Esterase Urine RBC Urine WBC Ur Squamous Epith Cells Urine Bacteria Hyaline Casts Salicylates < 5.0 L Urine Opiates Screen Urine Fentanyl Screen Acetaminophen < 1 Ur Barbiturates Screen Ur Phencyclidine Scrn Ur Amphetamines Screen U Benzodiazepines Scrn Urine Cocaine Screen U Marijuana (THC) Screen Ethyl Alcohol COVID-19 (GUILLERMO) COVID-19 Clin Com Blood Type Antibody Screen Crossmatch Microbiology Microbiology Results: Microbiology 12/14/21 23:00 Blood Culture - Preliminary Blood - Venous Assessment and Plan (1) Abnormal LFTs: Status: Acute (2) Leukopenia: Status: Acute Plan 46-year-old male with past medical history of IV drug use presents to the hospital after being found in the bathroom of a local [place], he has multiple complaints and multiple findings. In addition to H&P note: LFTs: Seems slightly worsening ? Elevated alk phosphatase because of rib fracture Added Tylenol, salicylate, PT INR, abdominal so now abdominal so now Patient says that he takes Tylenol only once a day GI evaluation noted-labs including above and hepatitis serology added. Monitor LFTs in the morning Hypokalemia repleted and resolved Leukocytosis trending down blood culture 1/2 is Gram-positive cocci Vancomycin added id evaluation Quality Stroke Does the patient have a stroke diagnosis?: No VTE Prior VTE?: No VTE Risk Level:: Medical - low VTE Device Contraindication: Treatment Not Indicated VTE Drug Contraindication: N/A - Med Ordered
--- NOTE | 2021-12-15 20:02 | HO.ADDICT_ITS ---
History of Present Illness Date of Service: 12/15/2021 Chief Complaint: abd pain Reason for Consult: OUD--methadone titration HPI Narrative: Patient is a 46 year old male with OUD currently medically admitted with YONY Methadone 30mg administered with positive effect When seen by this literary writer, patient lethargic and unable to participate in interview. He was able to report that methadone dose was helpful and that he has been on methadone in the past. Did not appear to be in any discomfort--not diaphoretic, not restless Nursing documentation shows that patient has been sleeping most of the day UDS +fentanyl. Review of Systems Review of Systems Yes Unobtainable due to mental status Diagnostics Vital Signs (24Hr): Vital Signs - 24 hr 12/14/21 21:57 12/14/21 22:41 12/15/21 00:07 Temperature 98.2 F Pulse Rate 89 88 Respiratory Rate 18 25 H 10 L Blood Pressure 100/59 L 120/55 L 97/62 Pulse Oximetry 100 96 Oxygen Delivery Method Room Air Room Air Room Air 12/15/21 00:35 12/15/21 01:21 12/15/21 01:37 Temperature 97.9 F 98.1 F Pulse Rate 91 89 84 Respiratory Rate 14 18 15 Blood Pressure 100/64 100/61 116/82 Pulse Oximetry 96 Oxygen Delivery Method Room Air 12/15/21 02:07 12/15/21 02:52 12/15/21 03:57 Temperature 97.5 F 97.5 F Pulse Rate 85 84 84 Respiratory Rate 14 14 18 Blood Pressure 135/95 H 135/91 H 125/89 Pulse Oximetry 98 Oxygen Delivery Method Room Air 12/15/21 03:52 12/15/21 04:14 12/15/21 06:26 Temperature 97.9 F 98.0 F Pulse Rate 80 86 78 Respiratory Rate 16 14 16 Blood Pressure 134/90 H 137/99 H 127/93 H Pulse Oximetry 98 Oxygen Delivery Method Room Air 12/15/21 07:38 12/15/21 12:52 Temperature 98.6 F 98.3 F Pulse Rate 78 75 Respiratory Rate 16 13 Blood Pressure 137/98 H 137/103 H Pulse Oximetry 98 98 Oxygen Delivery Method Room Air Room Air BMI result Body Mass Index 24.3 Labs Results: 12/15/21 06:40 12/15/21 06:40 Labs: Laboratory Results - last 48 hr 12/14/21 12/14/21 12/14/21 23:00 23:00 23:01 WBC 1.3 L RBC 2.58 L D Hgb 7.2 L D Hct 21.9 L D MCV 84.9 MCH 27.9 MCHC 32.9 RDW 16.2 H Plt Count 288 MPV 8.3 L Immature Gran % (Auto) Cancelled Neut % (Auto) Cancelled Lymph % (Auto) Cancelled Hooker % (Auto) Cancelled Eos % (Auto) Cancelled Baso % (Auto) Cancelled Lymph # (Auto) Cancelled Hooker # (Auto) Cancelled Eos # (Auto) Cancelled Baso # (Auto) Cancelled Abs Immat Gran (auto) Cancelled Absolute Neuts (auto) Cancelled Absolute Nucleated RBC 0.000 Nucleated RBC % (auto) 0.0 Neutrophils % (Manual) 57 Band Neutrophils % 26 H Lymphocytes % (Manual) 13 L Atypical Lymphs % (Man) 1 Monocytes % (Manual) Eosinophils % (Manual) 1 Basophils % (Manual) 1 Metamyelocytes % 1 Abs Neuts (Manual) 1.1 L Lymphocytes # (Manual) 0.2 L Monocytes # (Manual) Toxic Vacuolation PRESENT Platelet Estimate NORMAL Large Platelets PRESENT Plt Morphology Comment NOTED RBC Morphology NOTED Polychromasia 1+ (0-2) Hypochromasia 1+ (5-14) Microcytosis 1+ (5-14) Jett Cells Smear Tech's Comments MANUAL DIFF Smear Path Review SEE NOTE PT 12.7 INR 1.1 Sodium 137 Potassium 2.9 L Chloride 99 Carbon Dioxide 22 Anion Gap 19 BUN 19 H Creatinine 1.61 H Estim Creat Clear Calc 54.2 Estimated GFR 46 Random Glucose 68 Lactic Acid Lactic Acid F/U @ 2Hr Lactic Acid F/U @ 4Hr Calcium 8.1 L Magnesium 1.6 Total Bilirubin 0.5 Direct Bilirubin 0.3 AST 308 H ALT 73 H Alkaline Phosphatase 404 H Ammonia Total Creatine Kinase Troponin I High Sens Total Protein 7.0 Albumin 3.0 L Lipase 15 Urine Color Urine Appearance Urine pH Ur Specific [place]burn Urine Protein Urine Glucose (UA) Urine Ketones Urine Blood Urine Nitrite Ur Leukocyte Esterase Urine RBC Urine WBC Ur Squamous Epith Cells Urine Bacteria Hyaline Casts Salicylates Urine Opiates Screen Urine Fentanyl Screen Acetaminophen Ur Barbiturates Screen Ur Phencyclidine Scrn Ur Amphetamines Screen U Benzodiazepines Scrn Urine Cocaine Screen U Marijuana (THC) Screen Ethyl Alcohol < 10 COVID-19 (GUILLERMO) COVID-19 Clin Com Blood Type Antibody Screen Crossmatch 12/14/21 12/14/21 12/14/21 23:01 23:01 23:01 WBC RBC Hgb Hct MCV MCH MCHC RDW Plt Count MPV Immature Gran % (Auto) Neut % (Auto) Lymph % (Auto) Hooker % (Auto) Eos % (Auto) Baso % (Auto) Lymph # (Auto) Hooker # (Auto) Eos # (Auto) Baso # (Auto) Abs Immat Gran (auto) Absolute Neuts (auto) Absolute Nucleated RBC Nucleated RBC % (auto) Neutrophils % (Manual) Band Neutrophils % Lymphocytes % (Manual) Atypical Lymphs % (Man) Monocytes % (Manual) Eosinophils % (Manual) Basophils % (Manual) Metamyelocytes % Abs Neuts (Manual) Lymphocytes # (Manual) Monocytes # (Manual) Toxic Vacuolation Platelet Estimate Large Platelets Plt Morphology Comment RBC Morphology Polychromasia Hypochromasia Microcytosis Jett Cells Smear Tech's Comments Smear Path Review PT INR Sodium Potassium Chloride Carbon Dioxide Anion Gap BUN Creatinine Estim Creat Clear Calc Estimated GFR Random Glucose Lactic Acid 4.0 H* Lactic Acid F/U @ 2Hr Lactic Acid F/U @ 4Hr Calcium Magnesium Total Bilirubin Direct Bilirubin AST ALT Alkaline Phosphatase Ammonia Total Creatine Kinase Troponin I High Sens 11.7 Total Protein Albumin Lipase Urine Color Urine Appearance Urine pH Ur Specific [place] Urine Protein Urine Glucose (UA) Urine Ketones Urine Blood Urine Nitrite Ur Leukocyte Esterase Urine RBC Urine WBC Ur Squamous Epith Cells Urine Bacteria Hyaline Casts Salicylates Urine Opiates Screen Urine Fentanyl Screen Acetaminophen Ur Barbiturates Screen Ur Phencyclidine Scrn Ur Amphetamines Screen U Benzodiazepines Scrn Urine Cocaine Screen U Marijuana (THC) Screen Ethyl Alcohol COVID-19 (GUILLERMO) Negative COVID-19 Clin Com See Note Blood Type Antibody Screen Crossmatch 12/14/21 12/14/21 12/15/21 23:01 23:56 01:36 WBC RBC Hgb Hct MCV MCH MCHC RDW Plt Count MPV Immature Gran % (Auto) Neut % (Auto) Lymph % (Auto) Hooker % (Auto) Eos % (Auto) Baso % (Auto) Lymph # (Auto) Hooker # (Auto) Eos # (Auto) Baso # (Auto) Abs Immat Gran (auto) Absolute Neuts (auto) Absolute Nucleated RBC Nucleated RBC % (auto) Neutrophils % (Manual) Band Neutrophils % Lymphocytes % (Manual) Atypical Lymphs % (Man) Monocytes % (Manual) Eosinophils % (Manual) Basophils % (Manual) Metamyelocytes % Abs Neuts (Manual) Lymphocytes # (Manual) Monocytes # (Manual) Toxic Vacuolation Platelet Estimate Large Platelets Plt Morphology Comment RBC Morphology Polychromasia Hypochromasia Microcytosis Frederick Cells Smear Tech's Comments Smear Path Review PT INR Sodium Potassium Chloride Carbon Dioxide Anion Gap BUN Creatinine Estim Creat Clear Calc Estimated GFR Random Glucose Lactic Acid Lactic Acid F/U @ 2Hr 2.9 H* Lactic Acid F/U @ 4Hr Calcium Magnesium Total Bilirubin Direct Bilirubin AST ALT Alkaline Phosphatase Ammonia 25 Total Creatine Kinase Troponin I High Sens Total Protein Albumin Lipase Urine Color Urine Appearance Urine pH Ur Specific [place]burn Urine Protein Urine Glucose (UA) Urine Ketones Urine Blood Urine Nitrite Ur Leukocyte Esterase Urine RBC Urine WBC Ur Squamous Epith Cells Urine Bacteria Hyaline Casts Salicylates Urine Opiates Screen Urine Fentanyl Screen Acetaminophen Ur Barbiturates Screen Ur Phencyclidine Scrn Ur Amphetamines Screen U Benzodiazepines Scrn Urine Cocaine Screen U Marijuana (THC) Screen Ethyl Alcohol COVID-19 (GUILLERMO) COVID-19 Clin Com Blood Type O Positive Antibody Screen NEGATIVE Crossmatch See Detail 12/15/21 12/15/21 12/15/21 03:21 03:34 03:34 WBC RBC Hgb Hct MCV MCH MCHC RDW Plt Count MPV Immature Gran % (Auto) Neut % (Auto) Lymph % (Auto) Hooker % (Auto) Eos % (Auto) Baso % (Auto) Lymph # (Auto) Hooker # (Auto) Eos # (Auto) Baso # (Auto) Abs Immat Gran (auto) Absolute Neuts (auto) Absolute Nucleated RBC Nucleated RBC % (auto) Neutrophils % (Manual) Band Neutrophils % Lymphocytes % (Manual) Atypical Lymphs % (Man) Monocytes % (Manual) Eosinophils % (Manual) Basophils % (Manual) Metamyelocytes % Abs Neuts (Manual) Lymphocytes # (Manual) Monocytes # (Manual) Toxic Vacuolation Platelet Estimate Large Platelets Plt Morphology Comment RBC Morphology Polychromasia Hypochromasia Microcytosis Frederick Cells Smear Tech's Comments Smear Path Review PT INR Sodium Potassium Chloride Carbon Dioxide Anion Gap BUN Creatinine Estim Creat Clear Calc Estimated GFR Random Glucose Lactic Acid Lactic Acid F/U @ 2Hr Lactic Acid F/U @ 4Hr 3.4 H* Calcium Magnesium Total Bilirubin Direct Bilirubin AST ALT Alkaline Phosphatase Ammonia Total Creatine Kinase Troponin I High Sens Total Protein Albumin Lipase Urine Color Yellow Urine Appearance Clear Urine pH 7.5 Ur Specific Leburn <= 1.005 Urine Protein Trace Urine Glucose (UA) Negative Urine Ketones Negative Urine Blood Small (1+) H Urine Nitrite Negative Ur Leukocyte Esterase Negative Urine RBC 3-5 H Urine WBC 0-5 Ur Squamous Epith Cells 0-2 Urine Bacteria None Seen Hyaline Casts 3-5 Salicylates Urine Opiates Screen POSITIVE H Urine Fentanyl Screen POSITIVE H Acetaminophen Ur Barbiturates Screen Not Detected Ur Phencyclidine Scrn Not Detected Ur Amphetamines Screen Not Detected U Benzodiazepines Scrn Not Detected Urine Cocaine Screen POSITIVE H U Marijuana (THC) Screen Not Detected Ethyl Alcohol COVID-19 (GUILLERMO) COVID-19 Clin Com Blood Type Antibody Screen Crossmatch 12/15/21 12/15/21 12/15/21 06:40 06:40 18:53 WBC 11.7 H RBC 3.44 L D Hgb 10.0 L D Hct 29.5 L D MCV 85.8 MCH 29.1 MCHC 33.9 RDW 15.3 Plt Count 327 MPV 8.6 L Immature Gran % (Auto) Cancelled Neut % (Auto) Cancelled Lymph % (Auto) Cancelled [place] % (Auto) Cancelled Eos % (Auto) Cancelled Baso % (Auto) Cancelled Lymph # (Auto) Cancelled [place]er # (Auto) Cancelled Eos # (Auto) Cancelled Baso # (Auto) Cancelled Abs Immat Gran (auto) Cancelled Absolute Neuts (auto) Cancelled Absolute Nucleated RBC 0.000 Nucleated RBC % (auto) 0.0 Neutrophils % (Manual) 77 H Band Neutrophils % 17 H Lymphocytes % (Manual) 4 L Atypical Lymphs % (Man) Monocytes % (Manual) 2 Eosinophils % (Manual) Basophils % (Manual) Metamyelocytes % Abs Neuts (Manual) 11.0 H Lymphocytes # (Manual) 0.5 L Monocytes # (Manual) 0.2 Toxic Vacuolation Platelet Estimate NORMAL Large Platelets Plt Morphology Comment NORMAL RBC Morphology NOTED Polychromasia Hypochromasia Microcytosis Jett Cells 2+ (3-5) Smear Tech's Comments Smear Path Review PT 16.1 H INR 1.4 H Sodium 136 Potassium 3.7 D Chloride 99 Carbon Dioxide 21 L Anion Gap 20 BUN 19 H Creatinine 1.40 Estim Creat Clear Calc 62.4 Estimated GFR 54 Random Glucose 68 Lactic Acid Lactic Acid F/U @ 2Hr Lactic Acid F/U @ 4Hr Calcium 7.7 L Magnesium Total Bilirubin 1.3 H Direct Bilirubin 0.5 AST 727 H ALT 182 H Alkaline Phosphatase 676 H D Ammonia Total Creatine Kinase 423 H Troponin I High Sens Total Protein 7.0 Albumin 2.9 L Lipase Urine Color Urine Appearance Urine pH Ur Specific [place] Urine Protein Urine Glucose (UA) Urine Ketones Urine Blood Urine Nitrite Ur Leukocyte Esterase Urine RBC Urine WBC Ur Squamous Epith Cells Urine Bacteria Hyaline Casts Salicylates Urine Opiates Screen Urine Fentanyl Screen Acetaminophen Ur Barbiturates Screen Ur Phencyclidine Scrn Ur Amphetamines Screen U Benzodiazepines Scrn Urine Cocaine Screen U Marijuana (THC) Screen Ethyl Alcohol COVID-19 (GUILLERMO) COVID-19 Clin Com Blood Type Antibody Screen Crossmatch 12/15/21 18:53 WBC RBC Hgb Hct MCV MCH MCHC RDW Plt Count MPV Immature Gran % (Auto) Neut % (Auto) Lymph % (Auto) [place]er % (Auto) Eos % (Auto) Baso % (Auto) Lymph # (Auto) [place]er # (Auto) Eos # (Auto) Baso # (Auto) Abs Immat Gran (auto) Absolute Neuts (auto) Absolute Nucleated RBC Nucleated RBC % (auto) Neutrophils % (Manual) Band Neutrophils % Lymphocytes % (Manual) Atypical Lymphs % (Man) Monocytes % (Manual) Eosinophils % (Manual) Basophils % (Manual) Metamyelocytes % Abs Neuts (Manual) Lymphocytes # (Manual) Monocytes # (Manual) Toxic Vacuolation Platelet Estimate Large Platelets Plt Morphology Comment RBC Morphology Polychromasia Hypochromasia Microcytosis Jett Cells Smear Tech's Comments Smear Path Review PT INR Sodium Potassium Chloride Carbon Dioxide Anion Gap BUN Creatinine Estim Creat Clear Calc Estimated GFR Random Glucose Lactic Acid Lactic Acid F/U @ 2Hr Lactic Acid F/U @ 4Hr Calcium Magnesium Total Bilirubin Direct Bilirubin AST ALT Alkaline Phosphatase Ammonia Total Creatine Kinase Troponin I High Sens Total Protein Albumin Lipase Urine Color Urine Appearance Urine pH Ur Specific [place] Urine Protein Urine Glucose (UA) Urine Ketones Urine Blood Urine Nitrite Ur Leukocyte Esterase Urine RBC Urine WBC Ur Squamous Epith Cells Urine Bacteria Hyaline Casts Salicylates < 5.0 L Urine Opiates Screen Urine Fentanyl Screen Acetaminophen < 1 Ur Barbiturates Screen Ur Phencyclidine Scrn Ur Amphetamines Screen U Benzodiazepines Scrn Urine Cocaine Screen U Marijuana (THC) Screen Ethyl Alcohol COVID-19 (GUILLERMO) COVID-19 Clin Com Blood Type Antibody Screen Crossmatch Imaging Radiology Impressions: ITS Impressions Abdomen/Pelvis CT 12/14/21 22:40 IMPRESSION: 1. Nondisplaced acute appearing fracture of the left 12th rib. 2. Mild T11 superior endplate compression fracture, exact acuity uncertain. 3. Couple of subacute to chronic appearing fractures of the posterolateral right sixth and seventh ribs. 4. No pneumothorax. No airspace consolidation. 5. Trace right pleural effusion. 6. No intra-abdominal free air or free fluid. 7. Very large amount of stool throughout the colon with mild dilation of the cecum, ascending and transverse colon. Correlate clinically with signs or symptoms of constipation/obstipation. 8. Diffusely thick-walled appearance of the urinary bladder. Correlate clinically with signs or symptoms of cystitis or chronic bladder dysfunction. 9. Additional ancillary findings, as described. Cervical Spine CT 12/14/21 22:40 IMPRESSION: Motion limited examination. 1. Compared to CT from 11/02/2021, decreased size and density of a left hemispheric subdural collection with resolution of leftward midline shift. No definite new acute intracranial abnormality within the limitations of motion 2. Within the limitations of motion, no evidence of acute fracture or traumatic malalignment of the cervical spine Chest CT 12/14/21 22:40 IMPRESSION: 1. Nondisplaced acute appearing fracture of the left 12th rib. 2. Mild T11 superior endplate compression fracture, exact acuity uncertain. 3. Couple of subacute to chronic appearing fractures of the posterolateral right sixth and seventh ribs. 4. No pneumothorax. No airspace consolidation. 5. Trace right pleural effusion. 6. No intra-abdominal free air or free fluid. 7. Very large amount of stool throughout the colon with mild dilation of the cecum, ascending and transverse colon. Correlate clinically with signs or symptoms of constipation/obstipation. 8. Diffusely thick-walled appearance of the urinary bladder. Correlate clinically with signs or symptoms of cystitis or chronic bladder dysfunction. 9. Additional ancillary findings, as described. Head CT 12/14/21 22:40 IMPRESSION: Motion limited examination. 1. Compared to CT from 11/02/2021, decreased size and density of a left hemispheric subdural collection with resolution of leftward midline shift. No definite new acute intracranial abnormality within the limitations of motion 2. Within the limitations of motion, no evidence of acute fracture or traumatic malalignment of the cervical spine Mental Status Exam Mental Status Exam Patient Appearance: Unkempt Level of Consciousness: Lethargic Medications Medications Current Medications Acetaminophen (Acetaminophen 325 Mg Tablet) 650 mg PO Q6H PRN PRN Reason: Pain, Mild (Pain Scale 1-3) Docusate Sodium (Docusate Sodium 100 Mg Capsule) 100 mg PO BID [facility] Last Admin: 12/15/21 09:28 Dose: 100 mg Enoxaparin Sodium (Enoxaparin Sodium 40 Mg/0.4 Ml Syringe) 40 mg SUBCUT Q24H [facility] Last Admin: 12/15/21 04:06 Dose: 40 mg Lactated Ringer's (Lr) 1,000 mls @ 100 mls/hr IVCONT .Q10H [facility] Last Admin: 12/15/21 13:15 Dose: 100 mls/hr Vancomycin HCl 1,000 mg/Vancomycin HCl 750 mg/ Sodium Chloride 535 mls @ 267.5 mls/hr IV ONCE ONE Stop: 12/15/21 20:34 Last Admin: 12/15/21 19:16 Dose: 267.5 mls/hr Vancomycin HCl 750 mg/ Sodium (Chloride) 265 mls @ 265 mls/hr IV Q12H [facility] Lidocaine (Lidocaine 4 % Patch Adh..Patch) 1 patch TRANSDERMA DAILY [facility]; Protocol Magnesium Oxide (Magnesium Oxide 400 Mg Tablet) 800 mg PO DAILY [facility] Methadone HCl (Methadone Hcl 20 Mg/2 Ml Oral.Conc) 30 mg PO DAILY [facility] Ondansetron HCl (Ondansetron Hcl 4 Mg/2 Ml Vial) 4 mg IVPUSH Q8H PRN PRN Reason: Nausea and Vomiting Pharmacy Consult (Consult Rx Vancomycin Dosing) 1 each MISCELLANE DAILY PRN PRN Reason: Consult order Polyethylene Glycol (Polyethylene Glycol 3350 17 Gm Powd.Pack) 17 gm PO DAILY [facility] Last Admin: 12/15/21 09:28 Dose: 17 gm Sodium Chloride (0.9 % Sodium Chloride Flush 3 Ml Syringe) 3 ml IVFLUSH QSHIFT [facility] Last Admin: 12/15/21 15:13 Dose: Not Given Allergies Allergies Allergy/AdvReac Type Severity Reaction Status Date / Time From BENADRYL Allergy Unknown CANT Uncoded 11/15/19 18:21 BREATHE HIVES Assessment & Plan Assessment & Plan (1) Opioid use disorder: Status: Acute Code(s): F11.90 - Opioid use, unspecified, uncomplicated Assessment and Plan: * methadone 30mg daily ordered --please hold dose if patient appearing sedated * will continue to follow and attempt to obtain substance use history when patient able to participate in interview I spent minutes with the patient and/or on the patient floor today, greater than?50% of which was spent counseling/coordinating care. PMFSH Past Medical History Medical History Bipolar 1 disorder, depressed HTN (hypertension) Hypothyroid Family History Family History Other No family history of coronary artery disease Surgical History Surgical History No pertinent past surgical history Social History Social History Alcohol intake: current Patient Tobacco Use Status: Former Tobacco user Smoked in Last 30 Days: Yes Use of substances other than those prescribed or required for medical reasons: Yes Substance Use Type: Heroin Advance Directives: No Advance Directives Information Provided: No
[2021-12-16] VITALS (7 sets, daily range): BP systolic 132–184; BP diastolic 88–115; PULSE 55–68; RESP 10–18; TEMP 36.4–37.2; O2SAT 92–98
[2021-12-16] MEDS: Docusate Sodium 100 MG CAPSULE PO ×3 (01:48→20:49)
[2021-12-16] MEDS: 0.9 % Sodium Chloride Flush 3 ML SYRINGE IVFLUSH (01:49)
[2021-12-16] MEDS: Enoxaparin Sodium 40 MG/0.4 ML SYRINGE SUBCUT (01:53)
[2021-12-16 04:41] LABS: HBS Num1 11.02 mIU/mL (0-7.99); HBc Num1 0.53 S/CO (0.00-0.79); HBsAGNum1 0.87 S/CO (0.00-0.99); Hepatitis A Antibody IgM 0.31 Index (0-0.79); Hepatitis B Core Antibody Nonreactive (Nonreactive); Hepatitis B Surface Antigen Negative (Negative); ~HepC Num1 11.19 S/CO (0.00-0.79); ~Hepatitis A Antibody IgM Nonreactive (Nonreactive); ~Hepatitis C Antibody Reactive (Nonreactive)
[2021-12-16 05:22] LABS: HBS Num2 8.87 mIU/mL (0-7.99); ~Hepatitis B Surface Antibody GRAYZONE (Nonreactive)
[2021-12-16 07:11] LABS: INTERNATIONAL NORM RATIO 1.5 (0.9-1.1)
[2021-12-16 07:23] LABS: Anion Gap 15 (12-20); Blood Urea Nitrogen 25 mg/dL (9-16); Calcium 7.5 mg/dL (8.4-10.2); Carbon Dioxide 23 mmol/L (22-29); Chloride 100 mmol/L (96-108); Creatinine Clr Calc Pharmacy 70.4; Estimated Glomerular Filt Rate > 60; Glucose Random 72 mg/dL (60-115); Potassium 3.7 mmol/L (3.3-5.1); Sodium 134 mmol/L (135-145)
--- NOTE | 2021-12-16 07:47 | HE.PHANOTE ---
WILLIAN VIDAL CONTINUE CURRENT DOSE, NEXT TROUGH due 12/17 @0500
[2021-12-16] MEDS: Magnesium Oxide 400 MG TABLET 800 MG PO (08:16)
[2021-12-16] MEDS: polyethylene glycoL 3350 17 GM POWD.PACK PO (08:16)
[2021-12-16] MEDS: vancomycin HCL 750 MG in 0.9 % Sodium Chloride 250 ML 265 MG IV ×2 (08:16→19:08)
[2021-12-16] MEDS: methADONE HCl 20 MG/2 ML ORAL.CONC 30 MG PO (08:17)
[2021-12-16] MEDS: Lactated Ringers 1,000 ML 100 ML IVCONT (08:21)
[2021-12-16] MEDS: NIFEdipine ER 30 MG TAB.ER.24 PO (09:22)
[2021-12-16] MEDS: Aspirin Enteric Coated 81 MG TABLET.DR PO (09:22)
[2021-12-16 09:26] LABS: Alanine Aminotransferase 102 U/L (0-40); Albumin Level 2.7 g/dL (3.5-5.0); Alkaline Phosphatase 481 U/L (39-117); Aspartate Amino Transferase 228 U/L (5-37); Bilirubin Direct 0.4 mg/dL (0.0-0.5); Bilirubin Total 0.9 mg/dL (0.0-1.0); Total Protein 6.8 g/dL (6.5-8.0)
--- NOTE | 2021-12-16 10:24 | MHC.CM.PN ---
Addendum entered by Bronwyn Stephenson 12/17/21 11:15: CM DID ATTEMPT TO DELIVER PTS OBSERVATION NOTICE HOWEVER PT STILL SLEEPING AND UNABLE TO ENGAGE OBS NOTICE AT BEDSIDE FOR PTS REVIEW AT A LATER TIME Original Note: Attempted to meet with patient in regards to discharge planning. Patient is currently sleeping. No family present. Case management assessment completed using medical record. Patient is on Methadone, but unable to verify which methadone clinic he uses. No PCP on file. Unable to verify PCP. Patient received 1 Moderna vaccine. No HCP on file. Physical therapy eval is ordered and pending. Case management will have to meet with patient when he is more alert and oriented to complete a more accurate discharge plan. Continue to monitor for d/c needs.
--- NOTE | 2021-12-16 13:44 | P.PNIM_ITS ---
Subjective Subjective Date of Service: 12/16/21 Interval History: Elevated LFTs, bacteremia Review of Systems Patient seems to be more awake denies any chest pain or shortness of breath or abdominal pain or fever or chills or cough or phlegm. Physical Exam Vital Signs: Vital Signs: Last Vital Signs Temp 98.9 F 12/16/21 05:29 Pulse 58 12/16/21 12:07 Resp 12 12/16/21 12:07 BP 184/115 H 12/16/21 12:07 Pulse Ox 98 12/16/21 12:07 O2 Del Method 12/16/21 12:07 BMI result Body Mass Index 24.3 Appearance: Alert.? Oriented X3.? seems generalised weak.1 cvs: rrr, [id number] , no murmur res: clear to auscultation ,no rhonchii or wheezing abd: no rebound or guarding ,nt, bs present. ext pulses present , no cyanosis . Patient has skin bruising all over his body including contusions to the face, large ecchymosis on his legs bilaterally neuro: axo3 , nonfocal. Objective Data Active Medications Acetaminophen (Acetaminophen 325 Mg Tablet) 650 mg PO Q6H PRN PRN Reason: Pain, Mild (Pain Scale 1-3) Aspirin (Aspirin Enteric Coated 81 Mg Tablet.) 81 mg PO DAILY [facility] Last Admin: 12/16/21 09:22 Dose: 81 mg Documented By: MARY Docusate Sodium (Docusate Sodium 100 Mg Capsule) 100 mg PO BID [facility] Last Admin: 12/16/21 08:16 Dose: 100 mg Documented By: MARY Enoxaparin Sodium (Enoxaparin Sodium 40 Mg/0.4 Ml Syringe) 40 mg SUBCUT Q24H [facility] Last Admin: 12/16/21 01:53 Dose: 40 mg Documented By: NURYS Lactated Ringer's (Lr) 1,000 mls @ 100 mls/hr IVCONT .Q10H [facility] Last Admin: 12/16/21 08:21 Dose: 100 mls/hr Documented By: MARY Vancomycin HCl 750 mg/ Sodium (Chloride) 265 mls @ 265 mls/hr IV Q12H [facility] Last Infusion: 12/16/21 09:22 Dose: 0 mls/hr Documented By: MARY Lidocaine (Lidocaine 4 % Patch Adh..Patch) 1 patch TRANSDERMA DAILY [facility]; Protoc ol Last Admin: 12/16/21 08:16 Dose: Not Given Documented By: MARY Non-Admin Reason: Patient Refused Magnesium Oxide (Magnesium Oxide 400 Mg Tablet) 800 mg PO DAILY [facility] Last Admin: 12/16/21 08:16 Dose: 800 mg Documented By: MARY Methadone HCl (Methadone Hcl 20 Mg/2 Ml Oral.Conc) 30 mg PO DAILY [facility] Last Admin: 12/16/21 08:17 Dose: 30 mg Documented By: MARY Nifedipine (Nifedipine Er 30 Mg Tab.Er.24) 30 mg PO DAILY [facility]; Protocol Last Admin: 12/16/21 09:22 Dose: 30 mg Documented By: MARY Ondansetron HCl (Ondansetron Hcl 4 Mg/2 Ml Vial) 4 mg IVPUSH Q8H PRN PRN Reason: Nausea and Vomiting Pharmacy Consult (Consult Rx Vancomycin Dosing) 1 each MISCELLANE DAILY PRN PRN Reason: Consult order Polyethylene Glycol (Polyethylene Glycol 3350 17 Gm Powd.Pack) 17 gm PO DAILY [facility] Last Admin: 12/16/21 08:16 Dose: 17 gm Documented By: MARY Sodium Chloride (0.9 % Sodium Chloride Flush 3 Ml Syringe) 3 ml IVFLUSH QSHIFT [facility] Last Admin: 12/16/21 08:21 Dose: Not Given Documented By: MARY Non-Admin Reason: IV Running Labs CBC & Chem 7: 12/15/21 06:40 12/16/21 06:52 Labs: Laboratory Results - last 24 hr 12/15/21 12/15/21 12/15/21 15:04 18:53 18:53 PT 16.1 H INR 1.4 H Anion Gap Estim Creat Clear Calc Estimated GFR Random Glucose Calcium Total Bilirubin Direct Bilirubin AST ALT Alkaline Phosphatase Total Protein Albumin Salicylates < 5.0 L Acetaminophen < 1 Hepatitis A IgM Ab Nonreactive Hep Bs Antigen Negative Hep Bs Antibody GRAYZONE Hep B Core Total Ab Nonreactive Hepatitis C Ab (EIA) Reactive H 12/16/21 12/16/21 06:52 06:52 PT 18.0 H INR 1.5 H Anion Gap 15 Estim Creat Clear Calc 70.4 Estimated GFR > 60 Random Glucose 72 Calcium 7.5 L Total Bilirubin 0.9 Direct Bilirubin 0.4 AST 228 H ALT 102 H Alkaline Phosphatase 481 H D Total Protein 6.8 Albumin 2.7 L Salicylates Acetaminophen Hepatitis A IgM Ab Hep Bs Antigen Hep Bs Antibody Hep B Core Total Ab Hepatitis C Ab (EIA) Microbiology Microbiology Results: Microbiology 12/14/21 23:00 Blood Culture - Preliminary Blood - Venous Staphylococcus species 12/14/21 23:00 Blood Culture - Preliminary Blood - Venous No growth after 24 hours. Assessment and Plan (1) Hematuria: Status: Acute (2) Abnormal LFTs: Status: Acute (3) Rib fractures: Status: Acute (4) Subdural hematoma: Status: Acute (5) IV drug user: Status: Acute (6) YONY (acute kidney injury): Status: Acute (7) Bacteremia: Status: Acute Plan 46-year-old male with past medical history of IV drug use presents to the hospital after being found in the bathroom of a local [employer]'s, he has multiple complaints and multiple findings # abdominal pain - under to severe constipation - will treat with MiraLax, Dulcolax, and Fleet enema as necessary has 1 bm big yesterday - monitor for bm. # YONY - secondary to dehydration - will treat with IV fluids - follow BMP # lactic acidosis - no evidence of acute infection - UA negative, chest shows no evidence of pneumonia - will treat with IV fluid no further trending need unless clinical siutation changes. # acute hypokalemia - likely secondary to poor oral intake - repleted and resolved. # leukopenia-resolved has leucocytosis moniter cbc # acute normocytic anemia - likely multifactorial - evidence of hematoma , as well as significant ecchymosis all over his body s/p 2 prbc yesterday [facility] admission repeat h/h in 12/26.5 yesterday added repeat cbc. added anemia workup # hematuria - acute - monitor CBC - urology consulted- follow up outpatient. # IV drug user - will also start on methadone - care team consulted # subdural hematoma - improving per imaging - monitor # rib fractures - secondary to frequent falls in the setting of IV drug use - incentive spirometry elevated LFT: alk phos may also be levated sec to rib fracture. improving workup pending abd us, ebv,hsv ,hepataitis serology hypokaemia replted and resolved. Possible Gram-positive Staphylococcus bacteremia: 1/2 blood culture positive in IV drug user patient. Continue IV vancomycin. Monitor vanco trough, renal function and electrolytes. DVT prophylaxis: SCDs Pt eval inaptient need: Elevated liver function test need workup and GI follow-up, Yony need IV hydration, anemia workup, possible bacteremia-need IV antibiotic and workup. Quality Stroke Does the patient have a stroke diagnosis?: No VTE Prior VTE?: No VTE Risk Level:: Medical - low VTE Device Contraindication: Treatment Not Indicated VTE Drug Contraindication: N/A - Med Ordered
[2021-12-16] MEDS: hydrALAZINE HCl 20 MG/ML VIAL 5 MG IVPUSH (15:44)
[2021-12-16] MEDS: hydrALAZINE HCl 25 MG TABLET PO ×2 (15:44→20:49)
[2021-12-16 17:12] LABS: Iron 16 mcg/dL (45-160); Percent Iron Saturation 6 % (15-50); Total Iron Binding Capacity 271 mcg/dL (228-428); Unsaturated Iron Binding 255 ug/dL
[2021-12-16 17:48] LABS: Folate 5.7 ng/mL (> or = 4.0); Vitamin B12 334 pg/mL (200-900)
[2021-12-16 18:51] LABS: Hematocrit 36.2 % (42.0-52.0); Hemoglobin 12.5 g/dl (14.0-18.0); Mean Corpuscular HGB Conc 34.5 g/dl (31.0-36.0); Mean Corpuscular Hemoglobin 28.2 pg (27.0-33.0); Mean Corpuscular Volume 81.7 fL (80.0-98.0); Mean Platelet Volume 9.1 fL (9.4-12.4); Platelet Count 307 X10*3/uL (160-400); Red Blood Count 4.43 X10*6/uL (4.60-5.80); Red Cell Distribution Width 15.9 % (11.0-16.0); White Blood Count 27.7 X10*3/uL (4.8-10.8)
--- NOTE | 2021-12-16 19:53 | PC.NURSE ---
Care of patient assumed in ED now. Patient is alert, able to state name, birthday, location, and year. 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 Pupils are large, 6mm, but briskly reactive to light. Speech is clear, no facial asymmetry noted. 5/5 strength in upper extremities, 5/5 RLE, 4/5 LLE due to history of breaking that leg in the past/pain. Redness/ blotches/bruising noted to all extremities. Patient given dinner tray. HR nsr 60s. BPs stable. call bustamante is within reach.
--- NOTE | 2021-12-16 21:22 | P.PNADD_ITS ---
Subjective Subjective Date of Service: 12/16/21 Reason For Visit: abd pain Interim History: Patient seen in follow up. Initially asleep, however easily awakened. Patient very pleasant and grateful for treatment of withdrawal sx. Reporting improvement in sx, however still experiencing chills and body aches. Reports he has been on methadone recently at [facility] and this is where he wished to return. Review of Systems Acute medical concerns: Yes Medical Review of Systems: unchanged Mental Status Exam Mental Status Exam Patient Appearance: Appropriate Patient Orientation: Person, Place, Time and Situation Level of Consciousness: Awake and Appropriate Mood Description: Calm Affect Description: Calm Diagnostics Vital Signs (24Hr): Vital Signs - 24 hr 12/16/21 05:29 12/16/21 08:11 12/16/21 12:07 Temperature 98.9 F Pulse Rate 63 55 58 Respiratory Rate 18 16 12 Blood Pressure 156/114 H 161/109 H 184/115 H Pulse Oximetry 97 96 98 Oxygen Delivery Method Room Air Room Air Room Air 12/16/21 15:46 12/16/21 19:52 12/16/21 20:20 Temperature 97.7 F 98.6 F Pulse Rate 66 68 65 Respiratory Rate 18 14 10 L Blood Pressure 150/111 H 132/96 H 132/96 H Pulse Oximetry 92 95 94 Oxygen Delivery Method Room Air Room Air Room Air BMI result Body Mass Index 24.3 Labs Results: 12/16/21 18:41 12/16/21 06:52 Labs: Laboratory Results - last 48 hr 12/14/21 12/14/21 12/14/21 23:00 23:00 23:01 WBC 1.3 L RBC 2.58 L D Hgb 7.2 L D Hct 21.9 L D MCV 84.9 MCH 27.9 MCHC 32.9 RDW 16.2 H Plt Count 288 MPV 8.3 L Immature Gran % (Auto) Cancelled Neut % (Auto) Cancelled Lymph % (Auto) Cancelled [place] % (Auto) Cancelled Eos % (Auto) Cancelled Baso % (Auto) Cancelled Lymph # (Auto) Cancelled [place] # (Auto) Cancelled Eos # (Auto) Cancelled Baso # (Auto) Cancelled Abs Immat Gran (auto) Cancelled Absolute Neuts (auto) Cancelled Absolute Nucleated RBC 0.000 Nucleated RBC % (auto) 0.0 Neutrophils % (Manual) 57 Band Neutrophils % 26 H Lymphocytes % (Manual) 13 L Atypical Lymphs % (Man) 1 Monocytes % (Manual) Eosinophils % (Manual) 1 Basophils % (Manual) 1 Metamyelocytes % 1 Abs Neuts (Manual) 1.1 L Lymphocytes # (Manual) 0.2 L Monocytes # (Manual) Toxic Vacuolation PRESENT Platelet Estimate NORMAL Large Platelets PRESENT Plt Morphology Comment NOTED RBC Morphology NOTED Polychromasia 1+ (0-2) Hypochromasia 1+ (5-14) Microcytosis 1+ (5-14) [place] Cells Smear Tech's Comments MANUAL DIFF Smear Path Review SEE NOTE PT 12.7 INR 1.1 Sodium 137 Potassium 2.9 L Chloride 99 Carbon Dioxide 22 Anion Gap 19 BUN 19 H Creatinine 1.61 H Estim Creat Clear Calc 54.2 Estimated GFR 46 Random Glucose 68 Lactic Acid Lactic Acid F/U @ 2Hr Lactic Acid F/U @ 4Hr Calcium 8.1 L Magnesium 1.6 Iron TIBC % Saturation Unsat Iron Binding Total Bilirubin 0.5 Direct Bilirubin 0.3 AST 308 H ALT 73 H Alkaline Phosphatase 404 H Ammonia Total Creatine Kinase Troponin I High Sens Total Protein 7.0 Albumin 3.0 L Lipase 15 Vitamin B12 Folate Urine Color Urine Appearance Urine pH Ur Specific [place] Urine Protein Urine Glucose (UA) Urine Ketones Urine Blood Urine Nitrite Ur Leukocyte Esterase Urine RBC Urine WBC Ur Squamous Epith Cells Urine Bacteria Hyaline Casts Salicylates Urine Opiates Screen Urine Fentanyl Screen Acetaminophen Ur Barbiturates Screen Ur Phencyclidine Scrn Ur Amphetamines Screen U Benzodiazepines Scrn Urine Cocaine Screen U Marijuana (THC) Screen Ethyl Alcohol < 10 COVID-19 (GUILLERMO) COVID-19 Clin Com Hepatitis A IgM Ab Hep Bs Antigen Hep Bs Antibody Hep B Core Total Ab Hepatitis C Ab (EIA) Blood Type Antibody Screen Crossmatch 12/14/21 12/14/21 12/14/21 23:01 23:01 23:01 WBC RBC Hgb Hct MCV MCH MCHC RDW Plt Count MPV Immature Gran % (Auto) Neut % (Auto) Lymph % (Auto) [place] % (Auto) Eos % (Auto) Baso % (Auto) Lymph # (Auto) [place] # (Auto) Eos # (Auto) Baso # (Auto) Abs Immat Gran (auto) Absolute Neuts (auto) Absolute Nucleated RBC Nucleated RBC % (auto) Neutrophils % (Manual) Band Neutrophils % Lymphocytes % (Manual) Atypical Lymphs % (Man) Monocytes % (Manual) Eosinophils % (Manual) Basophils % (Manual) Metamyelocytes % Abs Neuts (Manual) Lymphocytes # (Manual) Monocytes # (Manual) Toxic Vacuolation Platelet Estimate Large Platelets Plt Morphology Comment RBC Morphology Polychromasia Hypochromasia Microcytosis Jett Cells Smear Tech's Comments Smear Path Review PT INR Sodium Potassium Chloride Carbon Dioxide Anion Gap BUN Creatinine Estim Creat Clear Calc Estimated GFR Random Glucose Lactic Acid 4.0 H* Lactic Acid F/U @ 2Hr Lactic Acid F/U @ 4Hr Calcium Magnesium Iron TIBC % Saturation Unsat Iron Binding Total Bilirubin Direct Bilirubin AST ALT Alkaline Phosphatase Ammonia Total Creatine Kinase Troponin I High Sens 11.7 Total Protein Albumin Lipase Vitamin B12 Folate Urine Color Urine Appearance Urine pH Ur Specific [place] Urine Protein Urine Glucose (UA) Urine Ketones Urine Blood Urine Nitrite Ur Leukocyte Esterase Urine RBC Urine WBC Ur Squamous Epith Cells Urine Bacteria Hyaline Casts Salicylates Urine Opiates Screen Urine Fentanyl Screen Acetaminophen Ur Barbiturates Screen Ur Phencyclidine Scrn Ur Amphetamines Screen U Benzodiazepines Scrn Urine Cocaine Screen U Marijuana (THC) Screen Ethyl Alcohol COVID-19 (GUILLERMO) Negative COVID-19 Clin Com See Note Hepatitis A IgM Ab Hep Bs Antigen Hep Bs Antibody Hep B Core Total Ab Hepatitis C Ab (EIA) Blood Type Antibody Screen Crossmatch 12/14/21 12/14/21 12/15/21 23:01 23:56 01:36 WBC RBC Hgb Hct MCV MCH MCHC RDW Plt Count MPV Immature Gran % (Auto) Neut % (Auto) Lymph % (Auto) [place] % (Auto) Eos % (Auto) Baso % (Auto) Lymph # (Auto) [place] # (Auto) Eos # (Auto) Baso # (Auto) Abs Immat Gran (auto) Absolute Neuts (auto) Absolute Nucleated RBC Nucleated RBC % (auto) Neutrophils % (Manual) Band Neutrophils % Lymphocytes % (Manual) Atypical Lymphs % (Man) Monocytes % (Manual) Eosinophils % (Manual) Basophils % (Manual) Metamyelocytes % Abs Neuts (Manual) Lymphocytes # (Manual) Monocytes # (Manual) Toxic Vacuolation Platelet Estimate Large Platelets Plt Morphology Comment RBC Morphology Polychromasia Hypochromasia Microcytosis [place] Cells Smear Tech's Comments Smear Path Review PT INR Sodium Potassium Chloride Carbon Dioxide Anion Gap BUN Creatinine Estim Creat Clear Calc Estimated GFR Random Glucose Lactic Acid Lactic Acid F/U @ 2Hr 2.9 H* Lactic Acid F/U @ 4Hr Calcium Magnesium Iron TIBC % Saturation Unsat Iron Binding Total Bilirubin Direct Bilirubin AST ALT Alkaline Phosphatase Ammonia 25 Total Creatine Kinase Troponin I High Sens Total Protein Albumin Lipase Vitamin B12 Folate Urine Color Urine Appearance Urine pH Ur Specific [place] Urine Protein Urine Glucose (UA) Urine Ketones Urine Blood Urine Nitrite Ur Leukocyte Esterase Urine RBC Urine WBC Ur Squamous Epith Cells Urine Bacteria Hyaline Casts Salicylates Urine Opiates Screen Urine Fentanyl Screen Acetaminophen Ur Barbiturates Screen Ur Phencyclidine Scrn Ur Amphetamines Screen U Benzodiazepines Scrn Urine Cocaine Screen U Marijuana (THC) Screen Ethyl Alcohol COVID-19 (GUILLERMO) COVID-19 Clin Com Hepatitis A IgM Ab Hep Bs Antigen Hep Bs Antibody Hep B Core Total Ab Hepatitis C Ab (EIA) Blood Type O Positive Antibody Screen NEGATIVE Crossmatch See Detail 12/15/21 12/15/21 12/15/21 03:21 03:34 03:34 WBC RBC Hgb Hct MCV MCH MCHC RDW Plt Count MPV Immature Gran % (Auto) Neut % (Auto) Lymph % (Auto) [place] % (Auto) Eos % (Auto) Baso % (Auto) Lymph # (Auto) [place] # (Auto) Eos # (Auto) Baso # (Auto) Abs Immat Gran (auto) Absolute Neuts (auto) Absolute Nucleated RBC Nucleated RBC % (auto) Neutrophils % (Manual) Band Neutrophils % Lymphocytes % (Manual) Atypical Lymphs % (Man) Monocytes % (Manual) Eosinophils % (Manual) Basophils % (Manual) Metamyelocytes % Abs Neuts (Manual) Lymphocytes # (Manual) Monocytes # (Manual) Toxic Vacuolation Platelet Estimate Large Platelets Plt Morphology Comment RBC Morphology Polychromasia Hypochromasia Microcytosis [place] Cells Smear Tech's Comments Smear Path Review PT INR Sodium Potassium Chloride Carbon Dioxide Anion Gap BUN Creatinine Estim Creat Clear Calc Estimated GFR Random Glucose Lactic Acid Lactic Acid F/U @ 2Hr Lactic Acid F/U @ 4Hr 3.4 H* Calcium Magnesium Iron TIBC % Saturation Unsat Iron Binding Total Bilirubin Direct Bilirubin AST ALT Alkaline Phosphatase Ammonia Total Creatine Kinase Troponin I High Sens Total Protein Albumin Lipase Vitamin B12 Folate Urine Color Yellow Urine Appearance Clear Urine pH 7.5 Ur Specific [place] <= 1.005 Urine Protein Trace Urine Glucose (UA) Negative Urine Ketones Negative Urine Blood Small (1+) H Urine Nitrite Negative Ur Leukocyte Esterase Negative Urine RBC 3-5 H Urine WBC 0-5 Ur Squamous Epith Cells 0-2 Urine Bacteria None Seen Hyaline Casts 3-5 Salicylates Urine Opiates Screen POSITIVE H Urine Fentanyl Screen POSITIVE H Acetaminophen Ur Barbiturates Screen Not Detected Ur Phencyclidine Scrn Not Detected Ur Amphetamines Screen Not Detected U Benzodiazepines Scrn Not Detected Urine Cocaine Screen POSITIVE H U Marijuana (THC) Screen Not Detected Ethyl Alcohol COVID-19 (GUILLERMO) COVID-19 Clin Com Hepatitis A IgM Ab Hep Bs Antigen Hep Bs Antibody Hep B Core Total Ab Hepatitis C Ab (EIA) Blood Type Antibody Screen Crossmatch 12/15/21 12/15/21 12/15/21 06:40 06:40 15:04 WBC 11.7 H RBC 3.44 L D Hgb 10.0 L D Hct 29.5 L D MCV 85.8 MCH 29.1 MCHC 33.9 RDW 15.3 Plt Count 327 MPV 8.6 L Immature Gran % (Auto) Cancelled Neut % (Auto) Cancelled Lymph % (Auto) Cancelled [place] % (Auto) Cancelled Eos % (Auto) Cancelled Baso % (Auto) Cancelled Lymph # (Auto) Cancelled [place] # (Auto) Cancelled Eos # (Auto) Cancelled Baso # (Auto) Cancelled Abs Immat Gran (auto) Cancelled Absolute Neuts (auto) Cancelled Absolute Nucleated RBC 0.000 Nucleated RBC % (auto) 0.0 Neutrophils % (Manual) 77 H Band Neutrophils % 17 H Lymphocytes % (Manual) 4 L Atypical Lymphs % (Man) Monocytes % (Manual) 2 Eosinophils % (Manual) Basophils % (Manual) Metamyelocytes % Abs Neuts (Manual) 11.0 H Lymphocytes # (Manual) 0.5 L Monocytes # (Manual) 0.2 Toxic Vacuolation Platelet Estimate NORMAL Large Platelets Plt Morphology Comment NORMAL RBC Morphology NOTED Polychromasia Hypochromasia Microcytosis [place] Cells 2+ (3-5) Smear Tech's Comments Smear Path Review PT INR Sodium 136 Potassium 3.7 D Chloride 99 Carbon Dioxide 21 L Anion Gap 20 BUN 19 H Creatinine 1.40 Estim Creat Clear Calc 62.4 Estimated GFR 54 Random Glucose 68 Lactic Acid Lactic Acid F/U @ 2Hr Lactic Acid F/U @ 4Hr Calcium 7.7 L Magnesium Iron TIBC % Saturation Unsat Iron Binding Total Bilirubin 1.3 H Direct Bilirubin 0.5 AST 727 H ALT 182 H Alkaline Phosphatase 676 H D Ammonia Total Creatine Kinase 423 H Troponin I High Sens Total Protein 7.0 Albumin 2.9 L Lipase Vitamin B12 Folate Urine Color Urine Appearance Urine pH Ur Specific [place] Urine Protein Urine Glucose (UA) Urine Ketones Urine Blood Urine Nitrite Ur Leukocyte Esterase Urine RBC Urine WBC Ur Squamous Epith Cells Urine Bacteria Hyaline Casts Salicylates Urine Opiates Screen Urine Fentanyl Screen Acetaminophen Ur Barbiturates Screen Ur Phencyclidine Scrn Ur Amphetamines Screen U Benzodiazepines Scrn Urine Cocaine Screen U Marijuana (THC) Screen Ethyl Alcohol COVID-19 (GUILLERMO) COVID-19 Clin Com Hepatitis A IgM Ab Nonreactive Hep Bs Antigen Negative Hep Bs Antibody GRAYZONE Hep B Core Total Ab Nonreactive Hepatitis C Ab (EIA) Reactive H Blood Type Antibody Screen Crossmatch 12/15/21 12/15/21 12/16/21 18:53 18:53 06:52 WBC RBC Hgb Hct MCV MCH MCHC RDW Plt Count MPV Immature Gran % (Auto) Neut % (Auto) Lymph % (Auto) [place] % (Auto) Eos % (Auto) Baso % (Auto) Lymph # (Auto) [place] # (Auto) Eos # (Auto) Baso # (Auto) Abs Immat Gran (auto) Absolute Neuts (auto) Absolute Nucleated RBC Nucleated RBC % (auto) Neutrophils % (Manual) Band Neutrophils % Lymphocytes % (Manual) Atypical Lymphs % (Man) Monocytes % (Manual) Eosinophils % (Manual) Basophils % (Manual) Metamyelocytes % Abs Neuts (Manual) Lymphocytes # (Manual) Monocytes # (Manual) Toxic Vacuolation Platelet Estimate Large Platelets Plt Morphology Comment RBC Morphology Polychromasia Hypochromasia Microcytosis Jett Cells Smear Tech's Comments Smear Path Review PT 16.1 H 18.0 H INR 1.4 H 1.5 H Sodium Potassium Chloride Carbon Dioxide Anion Gap BUN Creatinine Estim Creat Clear Calc Estimated GFR Random Glucose Lactic Acid Lactic Acid F/U @ 2Hr Lactic Acid F/U @ 4Hr Calcium Magnesium Iron TIBC % Saturation Unsat Iron Binding Total Bilirubin Direct Bilirubin AST ALT Alkaline Phosphatase Ammonia Total Creatine Kinase Troponin I High Sens Total Protein Albumin Lipase Vitamin B12 Folate Urine Color Urine Appearance Urine pH Ur Specific [place] Urine Protein Urine Glucose (UA) Urine Ketones Urine Blood Urine Nitrite Ur Leukocyte Esterase Urine RBC Urine WBC Ur Squamous Epith Cells Urine Bacteria Hyaline Casts Salicylates < 5.0 L Urine Opiates Screen Urine Fentanyl Screen Acetaminophen < 1 Ur Barbiturates Screen Ur Phencyclidine Scrn Ur Amphetamines Screen U Benzodiazepines Scrn Urine Cocaine Screen U Marijuana (THC) Screen Ethyl Alcohol COVID-19 (GUILLERMO) COVID-19 Clin Com Hepatitis A IgM Ab Hep Bs Antigen Hep Bs Antibody Hep B Core Total Ab Hepatitis C Ab (EIA) Blood Type Antibody Screen Crossmatch 12/16/21 12/16/21 12/16/21 06:52 06:56 18:41 WBC 27.7 H RBC 4.43 L D Hgb 12.5 L D Hct 36.2 L D MCV 81.7 MCH 28.2 MCHC 34.5 RDW 15.9 Plt Count 307 MPV 9.1 L Immature Gran % (Auto) Neut % (Auto) Lymph % (Auto) [place] % (Auto) Eos % (Auto) Baso % (Auto) Lymph # (Auto) [place] # (Auto) Eos # (Auto) Baso # (Auto) Abs Immat Gran (auto) Absolute Neuts (auto) Absolute Nucleated RBC 0.000 Nucleated RBC % (auto) 0.0 Neutrophils % (Manual) Band Neutrophils % Lymphocytes % (Manual) Atypical Lymphs % (Man) Monocytes % (Manual) Eosinophils % (Manual) Basophils % (Manual) Metamyelocytes % Abs Neuts (Manual) Lymphocytes # (Manual) Monocytes # (Manual) Toxic Vacuolation Platelet Estimate Large Platelets Plt Morphology Comment RBC Morphology Polychromasia Hypochromasia Microcytosis Jett Cells Smear Tech's Comments Smear Path Review PT INR Sodium 134 L Potassium 3.7 Chloride 100 Carbon Dioxide 23 Anion Gap 15 BUN 25 H Creatinine 1.24 Estim Creat Clear Calc 70.4 Estimated GFR > 60 Random Glucose 72 Lactic Acid Lactic Acid F/U @ 2Hr Lactic Acid F/U @ 4Hr Calcium 7.5 L Magnesium Iron 16 L TIBC 271 % Saturation 6 L Unsat Iron Binding 255 Total Bilirubin 0.9 Direct Bilirubin 0.4 AST 228 H ALT 102 H Alkaline Phosphatase 481 H D Ammonia Total Creatine Kinase Troponin I High Sens Total Protein 6.8 Albumin 2.7 L Lipase Vitamin B12 334 Folate 5.7 Urine Color Urine Appearance Urine pH Ur Specific [place] Urine Protein Urine Glucose (UA) Urine Ketones Urine Blood Urine Nitrite Ur Leukocyte Esterase Urine RBC Urine WBC Ur Squamous Epith Cells Urine Bacteria Hyaline Casts Salicylates Urine Opiates Screen Urine Fentanyl Screen Acetaminophen Ur Barbiturates Screen Ur Phencyclidine Scrn Ur Amphetamines Screen U Benzodiazepines Scrn Urine Cocaine Screen U Marijuana (THC) Screen Ethyl Alcohol COVID-19 (GUILLERMO) COVID-19 Clin Com Hepatitis A IgM Ab Hep Bs Antigen Hep Bs Antibody Hep B Core Total Ab Hepatitis C Ab (EIA) Blood Type Antibody Screen Crossmatch Imaging Radiology Impressions: ITS Impressions Abdomen/Pelvis CT 12/14/21 22:40 IMPRESSION: 1. Nondisplaced acute appearing fracture of the left 12th rib. 2. Mild T11 superior endplate compression fracture, exact acuity uncertain. 3. Couple of subacute to chronic appearing fractures of the posterolateral right sixth and seventh ribs. 4. No pneumothorax. No airspace consolidation. 5. Trace right pleural effusion. 6. No intra-abdominal free air or free fluid. 7. Very large amount of stool throughout the colon with mild dilation of the cecum, ascending and transverse colon. Correlate clinically with signs or symptoms of constipation/obstipation. 8. Diffusely thick-walled appearance of the urinary bladder. Correlate clinically with signs or symptoms of cystitis or chronic bladder dysfunction. 9. Additional ancillary findings, as described. Cervical Spine CT 12/14/21 22:40 IMPRESSION: Motion limited examination. 1. Compared to CT from 11/02/2021, decreased size and density of a left hemispheric subdural collection with resolution of leftward midline shift. No definite new acute intracranial abnormality within the limitations of motion 2. Within the limitations of motion, no evidence of acute fracture or traumatic malalignment of the cervical spine Chest CT 12/14/21 22:40 IMPRESSION: 1. Nondisplaced acute appearing fracture of the left 12th rib. 2. Mild T11 superior endplate compression fracture, exact acuity uncertain. 3. Couple of subacute to chronic appearing fractures of the posterolateral right sixth and seventh ribs. 4. No pneumothorax. No airspace consolidation. 5. Trace right pleural effusion. 6. No intra-abdominal free air or free fluid. 7. Very large amount of stool throughout the colon with mild dilation of the cecum, ascending and transverse colon. Correlate clinically with signs or symptoms of constipation/obstipation. 8. Diffusely thick-walled appearance of the urinary bladder. Correlate clinically with signs or symptoms of cystitis or chronic bladder dysfunction. 9. Additional ancillary findings, as described. Head CT 12/14/21 22:40 IMPRESSION: Motion limited examination. 1. Compared to CT from 11/02/2021, decreased size and density of a left hemispheric subdural collection with resolution of leftward midline shift. No definite new acute intracranial abnormality within the limitations of motion 2. Within the limitations of motion, no evidence of acute fracture or traumatic malalignment of the cervical spine Abdomen Ultrasound 12/15/21 17:51 IMPRESSION: Liver parenchymal appears normal. Trace ascites and trace right pleural effusion seen No shadowing stones or significant gallbladder wall thickening. No biliary ductal dilatation Medications Medications Current Medications Acetaminophen (Acetaminophen 325 Mg Tablet) 650 mg PO Q6H PRN PRN Reason: Pain, Mild (Pain Scale 1-3) Aspirin (Aspirin Enteric Coated 81 Mg Tablet.Dr) 81 mg PO DAILY [facility] Last Admin: 12/16/21 09:22 Dose: 81 mg Docusate Sodium (Docusate Sodium 100 Mg Capsule) 100 mg PO BID [facility] Last Admin: 12/16/21 20:49 Dose: 100 mg Enoxaparin Sodium (Enoxaparin Sodium 40 Mg/0.4 Ml Syringe) 40 mg SUBCUT Q24H [facility] Last Admin: 12/16/21 01:53 Dose: 40 mg Hydralazine HCl (Hydralazine Hcl 25 Mg Tablet) 25 mg PO TID [facility]; Protocol Last Admin: 12/16/21 20:49 Dose: 25 mg Vancomycin HCl 750 mg/ Sodium (Chloride) 265 mls @ 265 mls/hr IV Q12H [facility] Last Infusion: 12/16/21 20:49 Dose: Infused Lidocaine (Lidocaine 4 % Patch Adh..Patch) 1 patch TRANSDERMA DAILY [facility]; Protocol Last Admin: 12/16/21 08:16 Dose: Not Given Magnesium Oxide (Magnesium Oxide 400 Mg Tablet) 800 mg PO DAILY [facility] Last Admin: 12/16/21 08:16 Dose: 800 mg Methadone HCl (Methadone Hcl 20 Mg/2 Ml Oral.Conc) 40 mg PO DAILY [facility] Nifedipine (Nifedipine Er 30 Mg Tab.Er.24) 60 mg PO DAILY [facility]; Protocol Ondansetron HCl (Ondansetron Hcl 4 Mg/2 Ml Vial) 4 mg IVPUSH Q8H PRN PRN Reason: Nausea and Vomiting Pharmacy Consult (Consult Rx Vancomycin Dosing) 1 each MISCELLANE DAILY PRN PRN Reason: Consult order Polyethylene Glycol (Polyethylene Glycol 3350 17 Gm Powd.Pack) 17 gm PO DAILY [facility] Last Admin: 12/16/21 08:16 Dose: 17 gm Sodium Chloride (0.9 % Sodium Chloride Flush 3 Ml Syringe) 3 ml IVFLUSH QSHIFT [facility] Last Admin: 12/16/21 08:21 Dose: Not Given Allergies Allergies Allergy/AdvReac Type Severity Reaction Status Date / Time From BENADRYL Allergy Unknown CANT Uncoded 11/15/19 18:21 BREATHE HIVES Assessment & Plan Assessment & Plan (1) Opioid use disorder: Status: Acute Code(s): F11.90 - Opioid use, unspecified, uncomplicated Assessment and Plan: * methadone dose increased to 40mg tomorrow AM * will continue to follow I spent ___20___ minutes with the patient and/or on the patient floor today, greater than?50% of which was spent counseling/coordinating care.
[2021-12-17] MEDS: 0.9 % Sodium Chloride Flush 3 ML SYRINGE IVFLUSH ×4 (00:06→19:49)
[2021-12-17 00:07] VITALS: BMI 23.4
[2021-12-17 03:46] VITALS: BP 148/88; PULSE 75; RESP 18; TEMP 36.6; O2SAT 95
[2021-12-17] MEDS: Enoxaparin Sodium 40 MG/0.4 ML SYRINGE SUBCUT (04:25)
--- NOTE | 2021-12-17 06:08 | PC.NURSE ---
bladder scanned at 0350 for 329 ml. tiger text sent to Dr. Reaves. Straight cath ordered. Pt able to void, bladder scanned again at 0425 for 238 ml. Did not straight cath at this time. aware.
[2021-12-17 06:26] LABS: Hematocrit 33.6 % (42.0-52.0); Hemoglobin 11.5 g/dl (14.0-18.0); Mean Corpuscular HGB Conc 34.2 g/dl (31.0-36.0); Mean Corpuscular Hemoglobin 28.2 pg (27.0-33.0); Mean Corpuscular Volume 82.4 fL (80.0-98.0); Mean Platelet Volume 9.5 fL (9.4-12.4); Platelet Count 288 X10*3/uL (160-400); Red Blood Count 4.08 X10*6/uL (4.60-5.80); Red Cell Distribution Width 15.5 % (11.0-16.0); White Blood Count 22.5 X10*3/uL (4.8-10.8)
[2021-12-17 06:47] LABS: Alanine Aminotransferase 67 U/L (0-40); Albumin Level 2.6 g/dL (3.5-5.0); Alkaline Phosphatase 360 U/L (39-117); Anion Gap 17 (12-20); Aspartate Amino Transferase 109 U/L (5-37); Bilirubin Direct 0.3 mg/dL (0.0-0.5); Bilirubin Total 0.5 mg/dL (0.0-1.0); Blood Urea Nitrogen 21 mg/dL (9-16); Calcium 7.8 mg/dL (8.4-10.2); Carbon Dioxide 23 mmol/L (22-29); Chloride 98 mmol/L (96-108); Estimated Glomerular Filt Rate > 60; Glucose Random 116 mg/dL (60-115); Potassium 2.9 mmol/L (3.3-5.1); Sodium 135 mmol/L (135-145); Total Protein 6.5 g/dL (6.5-8.0)
[2021-12-17 07:12] VITALS: BP 130/83; PULSE 67; RESP 17; TEMP 36.1; O2SAT 95
[2021-12-17] MEDS: Docusate Sodium 100 MG CAPSULE PO ×2 (08:29→19:45)
[2021-12-17] MEDS: Aspirin Enteric Coated 81 MG TABLET.DR PO (08:29)
[2021-12-17] MEDS: NIFEdipine ER 30 MG TAB.ER.24 60 MG PO (08:29)
[2021-12-17] MEDS: hydrALAZINE HCl 25 MG TABLET PO ×3 (08:30→19:45)
[2021-12-17] MEDS: Magnesium Oxide 400 MG TABLET 800 MG PO (08:30)
[2021-12-17] MEDS: polyethylene glycoL 3350 17 GM POWD.PACK PO ×2 (08:30→19:45)
[2021-12-17] MEDS: Lidocaine 4 % Patch ADH..PATCH 1 PATCH TRANSDERMA (08:30)
[2021-12-17] MEDS: methADONE HCl 20 MG/2 ML ORAL.CONC 40 MG PO (08:42)
[2021-12-17 09:16] LABS: Vancomycin Trough 17.3 mcg/mL (10.0-20.0)
--- NOTE | 2021-12-17 09:29 | HE.PHANOTE ---
RE YOUNG TROUGH WAS 17.3 AFTER THREE DOSES. PER INSIGHT, THE PREDICTED TROUGH WAS 17.4. NOW THAT RENAL FUNCTION IS IMPROVING, WE EXPECT PATIENT WILL CLEAR DRUG MORE EFFICIENTLY AND THE LOADING DOSE DISSAPEARS, THE LEVEL WILL DROP. KEEP CURRENT DOSE BUT GET A TROUGH AGAIN TOMORROW 12/18 @0500 SERGIO
[2021-12-17] MEDS: vancomycin HCL 750 MG in 0.9 % Sodium Chloride 250 ML 265 MG IV ×2 (10:21→19:45)
[2021-12-17] MEDS: Potassium Chloride Packet 20 MEQ PACKET PO (10:22)
[2021-12-17] MEDS: Potassium Chloride ER 20 MEQ TAB.ER.PRT PO (10:23)
[2021-12-17 10:30] VITALS: BP 130/83; PULSE 67; O2SAT 95
[2021-12-17 10:30] LABS: Magnesium 1.6 mg/dL (1.6-2.6)
[2021-12-17 12:00] VITALS: BP 142/63; PULSE 72; RESP 18; TEMP 36.9; O2SAT 96
--- NOTE | 2021-12-17 12:47 | HO.PM.IMPN ---
Subjective Subjective Date of Service: 12/17/21 Interval History: Elevated LFTs, bacteremia Review of Systems generlaly weak Patient seems to be more awake denies any chest pain or shortness of breath or abdominal pain or fever or chills or cough or phlegm. Physical Exam Vital Signs: Vital Signs: Last Vital Signs Temp 98.4 F 12/17/21 12:00 Pulse 72 12/17/21 12:00 Resp 18 12/17/21 12:00 BP 142/63 H 12/17/21 12:00 Pulse Ox 96 12/17/21 12:00 O2 Del Method 12/17/21 12:00 BMI result Body Mass Index 23.4 Appearance: Alert.? Oriented X3.? seems generalised weak.1 cvs: rrr, [id number] , no murmur res: clear to auscultation ,no rhonchii or wheezing abd: no rebound or guarding ,nt, bs present. ext pulses present , no cyanosis . Patient has skin bruising all over his body including contusions to the face, large ecchymosis on his legs bilaterally neuro: axo3 , nonfocal. Objective Data Active Medications Acetaminophen (Acetaminophen 325 Mg Tablet) 650 mg PO Q6H PRN PRN Reason: Pain, Mild (Pain Scale 1-3) Aspirin (Aspirin Enteric Coated 81 Mg Tablet.) 81 mg PO DAILY PENDING SALE TO [facility] Last Admin: 12/17/21 08:29 Dose: 81 mg Documented By: PAUL Docusate Sodium (Docusate Sodium 100 Mg Capsule) 100 mg PO BID PENDING SALE TO [facility] Last Admin: 12/17/21 08:29 Dose: 100 mg Documented By: PAUL Enoxaparin Sodium (Enoxaparin Sodium 40 Mg/0.4 Ml Syringe) 40 mg SUBCUT Q24H PENDING SALE TO [facility] Last Admin: 12/17/21 04:25 Dose: 40 mg Documented By: OZORALB Hydralazine HCl (Hydralazine Hcl 25 Mg Tablet) 25 mg PO TID PENDING SALE TO [facility]; Protocol Last Admin: 12/17/21 08:30 Dose: 25 mg Documented By: PAUL Vancomycin HCl 750 mg/ Sodium (Chloride) 265 mls @ 265 mls/hr IV Q12H PENDING SALE TO [facility] Last Infusion: 12/17/21 11:45 Dose: 0 mls/hr Documented By: PAUL Lidocaine (Lidocaine 4 % Patch Adh..Patch) 1 patch TRANSDERMA DAILY PENDING SALE TO [facility]; Protocol Last Admin: 12/17/21 08:30 Dose: 1 patch Documented By: PAUL Magnesium Oxide (Magnesium Oxide 400 Mg Tablet) 800 mg PO DAILY PENDING SALE TO [facility] Last Admin: 12/17/21 08:30 Dose: 800 mg Documented By: PAUL Methadone HCl (Methadone Hcl 20 Mg/2 Ml Oral.Conc) 40 mg PO DAILY PENDING SALE TO [facility] Last Admin: 12/17/21 08:42 Dose: 40 mg Documented By: PAUL Nifedipine (Nifedipine Er 30 Mg Tab.Er.24) 60 mg PO DAILY PENDING SALE TO [facility]; Protocol Last Admin: 12/17/21 08:29 Dose: 60 mg Documented By: PAUL Ondansetron HCl (Ondansetron Hcl 4 Mg/2 Ml Vial) 4 mg IVPUSH Q8H PRN PRN Reason: Nausea and Vomiting Pharmacy Consult (Consult Rx Vancomycin Dosing) 1 each MISCELLANE DAILY PRN PRN Reason: Consult order Polyethylene Glycol (Polyethylene Glycol 3350 17 Gm Powd.Pack) 17 gm PO DAILY PENDING SALE TO [facility] Last Admin: 12/17/21 08:30 Dose: 17 gm Documented By: PAUL Sodium Chloride (0.9 % Sodium Chloride Flush 3 Ml Syringe) 3 ml IVFLUSH QSHIFT PENDING SALE TO [facility] Last Admin: 12/17/21 08:36 Dose: 3 ml Documented By: PAUL Labs CBC & Chem 7: 12/17/21 05:55 12/17/21 05:55 Labs: Laboratory Results - last 24 hr 12/16/21 12/16/21 12/16/21 06:52 06:56 18:41 MCV 81.7 MCH 28.2 MCHC 34.5 RDW 15.9 Plt Count 307 MPV 9.1 L Absolute Nucleated RBC 0.000 Nucleated RBC % (auto) 0.0 Anion Gap Estim Creat Clear Calc Estimated GFR Random Glucose Calcium Magnesium Iron 16 L TIBC 271 % Saturation 6 L Unsat Iron Binding 255 Total Bilirubin Direct Bilirubin AST ALT Alkaline Phosphatase Total Protein Albumin Vitamin B12 334 Folate 5.7 Vancomycin Trough 12/17/21 12/17/21 12/17/21 05:55 05:55 05:56 MCV 82.4 MCH 28.2 MCHC 34.2 RDW 15.5 Plt Count 288 MPV 9.5 Absolute Nucleated RBC 0.000 Nucleated RBC % (auto) 0.0 Anion Gap 17 Estim Creat Clear Calc 84.0 Estimated GFR > 60 Random Glucose 116 H D Calcium 7.8 L Magnesium 1.6 Iron TIBC % Saturation Unsat Iron Binding Total Bilirubin 0.5 Direct Bilirubin 0.3 AST 109 H ALT 67 H Alkaline Phosphatase 360 H D Total Protein 6.5 Albumin 2.6 L Vitamin B12 Folate Vancomycin Trough 17.3 Microbiology Microbiology Results: Microbiology 12/14/21 23:00 Blood Culture - Final Blood - Venous Staphylococcus aureus 12/14/21 23:00 Blood Culture - Preliminary Blood - Venous No growth after 48 hours. Assessment and Plan (1) Hematuria: Status: Acute (2) Abnormal LFTs: Status: Acute (3) Rib fractures: Status: Acute (4) Subdural hematoma: Status: Acute (5) IV drug user: Status: Acute (6) AUDREY (acute kidney injury): Status: Acute (7) Bacteremia: Status: Acute (8) Hypokalemia: Status: Acute Plan 46-year-old male with past medical history of IV drug use presents to the hospital after being found in the bathroom of a local [employer], he has multiple complaints and multiple findings # abdominal pain - under to severe constipation has 1 bm big yesterday added milk of mag ,adjusted MiraLax, Dulcolax, and Fleet enema as necessary # AUDREY - secondary to dehydration - will treat with IV fluids - follow BMP # lactic acidosis - no evidence of acute infection - UA negative, chest shows no evidence of pneumonia - will treat with IV fluid no further trending need unless clinical siutation changes. # acute hypokalemia - likely secondary to poor oral intake - repleted and resolved. has leucocytosis moniter cbc # acute normocytic anemia - likely multifactorial - evidence of hematoma , as well as significant ecchymosis all over his body s/p 2 prbc yesterday repeat h/h in .6 anemia workup:iron and iron sats low , b12 and folate seems fine, ferritin levels added fobt # hematuria - acute - monitor CBC - urology consulted- follow up outpatient. # IV drug user - will also start on methadone - care team consulted # subdural hematoma - improving per imaging - monitor # rib fractures - secondary to frequent falls in the setting of IV drug use - incentive spirometry elevated LFT: lft's ,alk phos improvin hepatitis profile hep B -grayzone, hepatitis C reactive abd us-seems fine , ebv,hsv serology pending hypokaemia replted -moniter bmp. Possible Gram-positive Staphylococcus bacteremia: 1/2 blood culture positive in IV drug user patient. Continue IV vancomycin.echo Monitor vanco trough, renal function and electrolytes. Id eval DVT prophylaxis: SCDs Pt eval inaptient need: Elevated liver function test need workup and GI follow-up, Audrey need IV hydration, anemia workup, possible bacteremia-need IV antibiotic and workup. Quality Stroke Does the patient have a stroke diagnosis?: No VTE Prior VTE?: No VTE Risk Level:: Medical - low VTE Device Contraindication: Treatment Not Indicated VTE Drug Contraindication: N/A - Med Ordered
[2021-12-17 14:15] LABS: Ferritin 215 ng/mL (20-250)
[2021-12-17] MEDS: Milk of Magnesia 30 ML ORAL.SUSP 15 ML PO (14:31)
[2021-12-17 15:24] VITALS: BP 139/90; PULSE 69; RESP 17; TEMP 37.2; O2SAT 95
[2021-12-17 15:51] VITALS: BMI 23.4
--- NOTE | 2021-12-17 15:54 | MHC.CLN ---
RE: CONSULT REGARDING WT LOSS CURRENT WT 70KG PREVIOUS WT HX REVEALS 68KG (03/08/2020) 3% NON SIGNIFICANT GAIN X 10 MONTHS PT WITH INCREASED NUTRITION RISK R/T PRESSURE INJURY DIET RX: REGULAR-APPROPRIATE RECOMMEND ADDING ENSURE BID TO INCREASE KCALS AND PROMOTE WOUND HEALING SUPP TO PROVIDE 700KCALS, 40G PROTEIN MONITOR PO INTAKE CLOSELY
[2021-12-17 19:01] VITALS: BP 152/90; PULSE 61; RESP 16; TEMP 37; O2SAT 94
[2021-12-18] VITALS (7 sets, daily range): BP systolic 113–168; BP diastolic 75–99; PULSE 58–73; RESP 16–18; TEMP 36.4–36.8; O2SAT 92–99
--- NOTE | 2021-12-18 00:38 | PM.EVENT ---
Event Note Date of Service: 12/18/21 Event Note: pt experiencing withdrawal symptoms requesting small dose of methadone. reviewed note by Maria Ines Aguila. will give 10 mg of methadone
[2021-12-18] MEDS: methADONE HCl 10 MG TABLET PO (01:25)
[2021-12-18] MEDS: traZODone HCL 50 MG TABLET PO (01:43)
[2021-12-18] MEDS: Enoxaparin Sodium 40 MG/0.4 ML SYRINGE SUBCUT (04:18)
[2021-12-18 05:01] LABS: Hematocrit 37.1 % (42.0-52.0); Hemoglobin 12.5 g/dl (14.0-18.0); Mean Corpuscular HGB Conc 33.7 g/dl (31.0-36.0); Mean Corpuscular Hemoglobin 28.1 pg (27.0-33.0); Mean Corpuscular Volume 83.4 fL (80.0-98.0); Mean Platelet Volume 9.2 fL (9.4-12.4); Platelet Count 252 X10*3/uL (160-400); Red Blood Count 4.45 X10*6/uL (4.60-5.80); Red Cell Distribution Width 15.6 % (11.0-16.0); White Blood Count 17.6 X10*3/uL (4.8-10.8)
[2021-12-18 05:31] LABS: Alanine Aminotransferase 56 U/L (0-40); Albumin Level 2.9 g/dL (3.5-5.0); Alkaline Phosphatase 356 U/L (39-117); Anion Gap 17 (12-20); Aspartate Amino Transferase 73 U/L (5-37); Bilirubin Direct 0.3 mg/dL (0.0-0.5); Bilirubin Total 0.6 mg/dL (0.0-1.0); Blood Urea Nitrogen 17 mg/dL (9-16); Calcium 8.3 mg/dL (8.4-10.2); Carbon Dioxide 25 mmol/L (22-29); Chloride 97 mmol/L (96-108); Creatinine Clr Calc Pharmacy 82.4; Estimated Glomerular Filt Rate > 60; Glucose Random 148 mg/dL (60-115); Potassium 3.1 mmol/L (3.3-5.1); Sodium 136 mmol/L (135-145); Total Protein 7.4 g/dL (6.5-8.0)
[2021-12-18 05:45] LABS: Vancomycin Random 17.7 mcg/mL (15-20)
[2021-12-18] MEDS: vancomycin HCL 750 MG in 0.9 % Sodium Chloride 250 ML 265 MG IV ×2 (06:24→20:18)
--- NOTE | 2021-12-18 07:00 | CA_ITS ---
Transthoracic Echocardiogram Patient (Last, First, Middle): Mando Butler, Gender: Male Date of : 1975 Age: 46 Procedure Date: 12/18/2021 Procedure Type: Transthoracic Echocardiogram Location: S3W Height: 175.26 cm Weight: 69.85 kg BSA: 1.85 m2 Heart Rate: 62 bpm BP: 116 / 68 mmHg Magnesium Mill Operator: Referring MD: Luis Del Castillo MD Symptoms: bacteremia Study Quality: Fair ECG Rhythm: Sinus Conclusions: - Normal left ventricular cavity size. There is mildly increased left ventricular wall thickness. The left ventricular systolic function is hyperdynamic. The visually estimated ejection fraction is >70%. - Normal right ventricular cavity size and systolic function. - The left atrium is mildly dilated. - Trivial pericardial effusion along the lateral wall. - There are no definitive echocardiographic findings of tamponade physiology. Findings Left Ventricle Normal left ventricular cavity size. There is mildly increased left ventricular wall thickness. The left ventricular systolic function is hyperdynamic. The visually estimated ejection fraction is >70%. There is no evidence of regional wall motion abnormalities. Diastolic function is normal for age. Right Ventricle Normal right ventricular cavity size and systolic function. Atria The left atrium is mildly dilated. Aortic Valve Normal aortic valve structure and function. There is no aortic valve stenosis. There is no aortic valve regurgitation. Mitral Valve Normal mitral valve structure and function. There is trace mitral valve regurgitation. There is no mitral valve stenosis. Pulmonic Valve Normal pulmonic valve structure and function. There is trace pulmonic valve regurgitation. Tricuspid Valve Normal tricuspid valve structure and function. There is trace tricuspid valve regurgitation. Normal right atrial pressure. There is no evidence of pulmonary hypertension. Great Vessels All visible segments of the aorta are normal in size. Venous The inferior vena cava is normal in size and collapses greater than 50% with inspiration. Pericardium/Pleural There are no definitive echocardiographic findings of tamponade physiology. Trivial pericardial effusion along the lateral wall. Measurements 2D Linear Measurements IVSd: 1.22 0.6-0.9/0.6-1.0 cm LVIDd: 4.01 3.9-5.3/4.2-5.9 cm LVIDd Index: 2.17 2.4-3.2/2.2-3.1 cm/m2 LVIDs: 2.63 2.0-3.6 cm LVPWd: 1.21 0.7-1.1 cm Ao Root: 3.00 2.1-3.5 cm LA Diam: 4.00 2.7-3.8/3.0-4.0 cm LAIDs Index: 2.16 1.5-2.3 cm/m2 LV Mass: 210.71 67-162/88-224 g LV Mass Index: 113.90 43-95/49-115 g/m2 LVOT Diam: 2.10 3.0+(-)1.3 cm Mitral Valve MV Pk E: 0.59 MV PK A: 0.59 MV Decel Time: 306.00 E/A: 1.00 E'Lateral: 6.85 E'Medial: 8.81 E/E' Med: 6.70 E/E' Lat: 8.60 PHT: 90.00 MVA PHT: 2.44 Decel [place]: 1.93 Aortic Valve AoV Pk Joseph: 1.43 AoV Mn Joseph: 1.01 AoV VTI: 0.33 AoV Pk Grad: 8.00 Aov Mn Grad: 5.00 SEAN Cont.VTI: 2.05 LVOT LVOT Pk Joseph: 0.93 LVOT Mn Joseph: 0.62 LVOT VTI: 0.20 LVOT Pk Grad: 3.00 LVOT Mn Grad: 2.00 LVOT Diam: 2.10 LVOT Area: 3.46 Diastolic Function MV Pk E: 0.59 MV Pk A: 0.59 E/A: 1.00 E'Medial: 8.81 E/E' Med: 6.70 E' Laterial: 6.85 E/E' Lat: 8.60 Right Ventricle TAPSE (mm): 27.00 TVS' Joseph: 14.00 Tricuspid Valve TR Pk Joseph: 2.24 TR Pk Grad: 20.00 RA Press: 3.00 RVSP: 23.00 Great Vessels Aorta Ao Root-2D: 3.00 2.0-3.7 cm Ao Asc: 3.00 2.1-3.4 cm Pulmonary Valve PV Pk Joseph: 1.00 Peak PV Grad: 4.00 Updated in Other Vendor System with Status of Final Ramon Lamar MD electronically signed on 12/18/2021 9:28:18 AM with status of Final
--- NOTE | 2021-12-18 07:24 | HE.PHANOTE ---
re vanco SCr marginally increased today (1.06). Will continue current dose despite trough being 17.7. For safety reasons, I will draw a random level after 2 doses and reassess. Consider changing order to 1500mg q24h if trough goes up again, but there is possibility the patient is at steady state. thanks nusrat
--- NOTE | 2021-12-18 08:05 | HO.PM.IMPN ---
Subjective Subjective Date of Service: 12/18/21 Interval History: bacteremia ,lft's Review of Systems seems weak, still feels generalized weak, denies any abdominal pain or nausea vomiting or fever chills looks more awake today Physical Exam Vital Signs: Vital Signs: Last Vital Signs Temp 97.7 F 12/18/21 04:00 Pulse 62 12/18/21 04:00 Resp 18 12/18/21 04:00 BP 113/75 12/18/21 04:00 Pulse Ox 95 12/18/21 04:00 O2 Del Method 12/18/21 04:00 BMI result Body Mass Index 23.4 Appearance: Alert.? Oriented ,generalised weak cvs: rrr, [id number] , no murmur res: clear to auscultation ,no rhonchii or wheezing abd: no rebound or guarding ,nt, bs present. ext pulses present , no cyanosis . Patient has skin bruising all over his body including contusions to the face, large ecchymosis on his legs bilaterally neuro: axo3 , nonfocal. Objective Data Active Medications Acetaminophen (Acetaminophen 325 Mg Tablet) 650 mg PO Q6H PRN PRN Reason: Pain, Mild (Pain Scale 1-3) Aspirin (Aspirin Enteric Coated 81 Mg Tablet.) 81 mg PO DAILY PENDING SALE TO [facility] Last Admin: 12/17/21 08:29 Dose: 81 mg Documented By: PAUL Docusate Sodium (Docusate Sodium 100 Mg Capsule) 100 mg PO BID PENDING SALE TO [facility] Last Admin: 12/17/21 19:45 Dose: 100 mg Documented By: JUNAID Enoxaparin Sodium (Enoxaparin Sodium 40 Mg/0.4 Ml Syringe) 40 mg SUBCUT Q24H PENDING SALE TO [facility] Last Admin: 12/18/21 04:18 Dose: 40 mg Documented By: JUNAID Hydralazine HCl (Hydralazine Hcl 25 Mg Tablet) 25 mg PO TID PENDING SALE TO [facility]; Protocol Last Admin: 12/17/21 19:45 Dose: 25 mg Documented By: JUNAID Vancomycin HCl 750 mg/ Sodium (Chloride) 265 mls @ 265 mls/hr IV Q12H PENDING SALE TO [facility] Last Admin: 12/18/21 06:24 Dose: 265 mls/hr Documented By: JUNAID Lidocaine (Lidocaine 4 % Patch Adh..Patch) 1 patch TRANSDERMA DAILY PENDING SALE TO [facility]; Protocol Last Admin: 12/17/21 08:30 Dose: 1 patch Documented By: PAUL Magnesium Oxide (Magnesium Oxide 400 Mg Tablet) 800 mg PO DAILY PENDING SALE TO [facility] Last Admin: 12/17/21 08:30 Dose: 800 mg Documented By: PAUL Methadone HCl (Methadone Hcl 20 Mg/2 Ml Oral.Conc) 40 mg PO DAILY PENDING SALE TO [facility] Last Admin: 12/17/21 08:42 Dose: 40 mg Documented By: PAUL Nifedipine (Nifedipine Er 30 Mg Tab.Er.24) 60 mg PO DAILY PENDING SALE TO [facility]; Protocol Last Admin: 12/17/21 08:29 Dose: 60 mg Documented By: PAUL Ondansetron HCl (Ondansetron Hcl 4 Mg/2 Ml Vial) 4 mg IVPUSH Q8H PRN PRN Reason: Nausea and Vomiting Pharmacy Consult (Consult Rx Vancomycin Dosing) 1 each MISCELLANE DAILY PRN PRN Reason: Consult order Polyethylene Glycol (Polyethylene Glycol 3350 17 Gm Powd.Pack) 17 gm PO BID PENDING SALE TO [facility] Last Admin: 12/17/21 19:45 Dose: 17 gm Documented By: JUNAID Sodium Chloride (0.9 % Sodium Chloride Flush 3 Ml Syringe) 3 ml IVFLUSH QSHIFT PENDING SALE TO [facility] Last Admin: 12/17/21 19:49 Dose: 3 ml Documented By: JUNAID Labs CBC & Chem 7: 12/18/21 04:54 12/18/21 04:54 Labs: Laboratory Results - last 24 hr 12/17/21 12/17/21 12/18/21 05:55 05:56 04:54 MCV 83.4 MCH 28.1 MCHC 33.7 RDW 15.6 Plt Count 252 MPV 9.2 L Absolute Nucleated RBC 0.000 Nucleated RBC % (auto) 0.0 Anion Gap Estim Creat Clear Calc Estimated GFR Random Glucose Calcium Magnesium 1.6 Ferritin 215 Total Bilirubin Direct Bilirubin AST ALT Alkaline Phosphatase Total Protein Albumin Vancomycin Trough 17.3 Random Vancomycin 12/18/21 12/18/21 04:54 04:54 MCV MCH MCHC RDW Plt Count MPV Absolute Nucleated RBC Nucleated RBC % (auto) Anion Gap 17 Estim Creat Clear Calc 82.4 Estimated GFR > 60 Random Glucose 148 H Calcium 8.3 L D Magnesium Ferritin Total Bilirubin 0.6 Direct Bilirubin 0.3 AST 73 H ALT 56 H Alkaline Phosphatase 356 H Total Protein 7.4 Albumin 2.9 L Vancomycin Trough Random Vancomycin 17.7 Microbiology Microbiology Results: Microbiology 12/16/21 21:48 Blood Culture - Preliminary Blood - Venous No growth after 24 hours. 12/16/21 21:48 Blood Culture - Preliminary Blood - Venous No growth after 24 hours. 12/14/21 23:00 Blood Culture - Final Blood - Venous Staphylococcus aureus Assessment and Plan (1) Hematuria: Status: Acute (2) Abnormal LFTs: Status: Acute (3) Rib fractures: Status: Acute (4) Subdural hematoma: Status: Acute (5) IV drug user: Status: Acute (6) AUDREY (acute kidney injury): Status: Acute (7) Bacteremia: Status: Acute (8) Hypokalemia: Status: Acute Plan 46-year-old male with past medical history of IV drug use presents to the hospital after being found in the bathroom of a local [employer], he has multiple complaints and multiple findings # abdominal pain - under to severe constipation has 1 bm big yesterday as per patieny added milk of mag ,adjusted MiraLax, Dulcolax, and Fleet enema as necessary # AUDREY- secondary to dehydration improved with iv hydration # lactic acidosis - no evidence of acute infection - UA negative, chest shows no evidence of pneumonia off fluids no further trending need unless clinical siutation changes. # acute hypokalemia - likely secondary to poor oral intake - repleted and resolved. has leucocytosis moniter cbc # acute normocytic anemia - likely multifactorial - evidence of hematoma , as well as significant ecchymosis all over his body s/p 2 prbc yesterday repeat h/h in .6 anemia workup:iron and iron sats low , b12 and folate seems fine, ferritin levels added fobt # hematuria - acute - monitor CBC - urology consulted- follow up outpatient. # IV drug user: question mild withdrawal syptoms last night received extra dose of 10 mg methdone. methadone adjusted 40 mg recently but still has possible withdrawal updated addiction team about last night they will follow-up today for further adjustment methadone if needed. # subdural hematoma - improving per imaging - monitor # rib fractures - secondary to frequent falls in the setting of IV drug use - incentive spirometry elevated LFT: lft's ,alk phos improvin hepatitis profile hep B -grayzone, hepatitis C reactive abd us-seems fine , ebv,hsv serology pending hypokaemia replted -moniter bmp. MSSA Bacteremia : Continue IV vancomycin. echo Monitor vanco trough, renal function and electrolytes. Id eval DVT prophylaxis: SCDs Pt eval inaptient need: Elevated liver function test need workup and GI follow-up, Audrey need IV hydration, anemia workup, possible bacteremia-need IV antibiotic and workup. Quality Stroke Does the patient have a stroke diagnosis?: No VTE Prior VTE?: No VTE Risk Level:: Medical - low VTE Device Contraindication: Treatment Not Indicated VTE Drug Contraindication: N/A - Med Ordered
[2021-12-18] MEDS: methADONE HCl 20 MG/2 ML ORAL.CONC 40 MG PO (08:08)
[2021-12-18] MEDS: Docusate Sodium 100 MG CAPSULE PO ×2 (08:09→20:17)
[2021-12-18] MEDS: hydrALAZINE HCl 25 MG TABLET PO ×3 (08:09→20:17)
[2021-12-18] MEDS: Lidocaine 4 % Patch ADH..PATCH 1 PATCH TRANSDERMA (08:09)
[2021-12-18] MEDS: Magnesium Oxide 400 MG TABLET 800 MG PO (08:09)
[2021-12-18] MEDS: Aspirin Enteric Coated 81 MG TABLET.DR PO (08:09)
[2021-12-18] MEDS: NIFEdipine ER 30 MG TAB.ER.24 60 MG PO (08:09)
[2021-12-18] MEDS: polyethylene glycoL 3350 17 GM POWD.PACK PO ×2 (08:10→20:17)
--- NOTE | 2021-12-18 12:17 | MHC.CM.PN ---
Per MD rounds no plan today for patient's d/c. Continues with IV abts. CM will continue to follow for discharge planning needs.
--- NOTE | 2021-12-18 13:39 | MHC.CLN ---
F/U DIET=REGULAR. SUPPLEMENT ENSURE BID PROVIDES ADDITIONAL 700 KCALS, 40 G PROTEIN. STAGE II WOUND TO BUTTOCKS. SUPPLEMENT APPROPRIATE TO PROMOTE WOUND HEALING. INTAKE 100% X 2 MEALS. FOLLOW FOR INTAKE AND WOUND HEALING.
--- NOTE | 2021-12-18 14:25 | MHC.RECOVRN ---
Addendum entered by Angi Mazariegos RN 12/18/21 14:30: This appeals writer reviewed with pt role of CM, CM is aware of pts interest in [facility], SNF or exterminator helper rehab is not recommended and so is the Addiction/Recovery team. Original Note: This appeals writer met w/ pt, pt alert, watching t.v, laying in bed. Pt reports felt horrible withdrawals in the evening last p.m. Pt expressed concern if that would happen again tonite. Pt reminded that if feeling withdrawal, let RN know and RN can contact Provider. Pt reports that after receiving 10mg last p.m of Methadone, pt felt better. Pt states is feeling better right now, pt states is feeling tired and plans to rest. Pt expressed concern about discharge plans, pt states interested in [facility] and would be willing to go anywhere, [facility], [place] etc for further treatment. Pt reports is fearful of being discharged to the street as pt is currently homeless and feels like can not survive on the street in the cold months so sick. Pt reports wants to take shower today. Pt pleasant and states thank you for the care here at the hospital.
[2021-12-18] MEDS: 0.9 % Sodium Chloride Flush 3 ML SYRINGE IVFLUSH ×2 (16:26→20:19)
--- NOTE | 2021-12-18 16:49 | MHC.RECOVRN ---
This technical proposal writer met w/ pt, pt was alert to verbal stimuli, under all covers, eyes closed. Pt reporting feeling withdrawals now. Pt states feeling the cold sweats, achey, nauseous, gooseflesh. Provider aware, Provider put in an order for 5mg MTD.
[2021-12-18] MEDS: methADONE HCl 20 MG/2 ML ORAL.CONC 5 MG PO (17:05)
[2021-12-18] MEDS: Potassium Chloride Packet 20 MEQ PACKET PO (17:07)
[2021-12-19 03:10] VITALS: BP 135/86; PULSE 68; RESP 16; TEMP 36.5; O2SAT 98
[2021-12-19] MEDS: Enoxaparin Sodium 40 MG/0.4 ML SYRINGE SUBCUT (03:41)
[2021-12-19] MEDS: Acetaminophen 325 MG TABLET 650 MG PO ×2 (05:24→16:21)
[2021-12-19] MEDS: cloNIDine HCL 0.1 MG TABLET PO (06:09)
[2021-12-19] MEDS: hydrOXYzine HCL 25 MG TABLET PO ×2 (06:09→16:21)
[2021-12-19 06:22] LABS: Vancomycin Random 16.2 mcg/mL (15-20)
[2021-12-19] MEDS: vancomycin HCL 750 MG in 0.9 % Sodium Chloride 250 ML 265 MG IV ×2 (06:43→18:10)
[2021-12-19 07:23] LABS: Creatinine Clr Calc Pharmacy 105.3; Estimated Glomerular Filt Rate > 60
[2021-12-19 08:00] VITALS: BP 136/84; PULSE 63; RESP 16; TEMP 36.7; O2SAT 98
[2021-12-19 08:25] LABS: Magnesium 1.5 mg/dL (1.6-2.6); Potassium 2.9 mmol/L (3.3-5.1)
--- NOTE | 2021-12-19 08:49 | HE.PHANOTE ---
VANCO DOSING ADJUSTMENT 750MG AM DOSE ALREADY GIVEN. BASED ON SCR OF 0.83 AND TROUGH OF 16.2 DOSE CONTINUED FOR SAME DOSE AND TROUGH ORDERED FOR 12/19
[2021-12-19] MEDS: Magnesium Oxide 400 MG TABLET 800 MG PO (09:18)
[2021-12-19] MEDS: Lidocaine 4 % Patch ADH..PATCH 1 PATCH TRANSDERMA (09:18)
[2021-12-19] MEDS: polyethylene glycoL 3350 17 GM POWD.PACK PO ×2 (09:18→19:39)
[2021-12-19] MEDS: Docusate Sodium 100 MG CAPSULE PO ×2 (09:18→19:38)
[2021-12-19] MEDS: methADONE HCl 20 MG/2 ML ORAL.CONC 50 MG PO (09:19)
[2021-12-19] MEDS: hydrALAZINE HCl 25 MG TABLET PO ×3 (09:19→19:38)
[2021-12-19] MEDS: Aspirin Enteric Coated 81 MG TABLET.DR PO (09:19)
[2021-12-19] MEDS: NIFEdipine ER 30 MG TAB.ER.24 60 MG PO (09:19)
[2021-12-19 12:00] VITALS: BP 133/84; PULSE 59; RESP 16; TEMP 36.7; O2SAT 98
[2021-12-19 15:16] VITALS: BP 130/87; PULSE 68; RESP 17; TEMP 36.4; O2SAT 97
--- NOTE | 2021-12-19 16:20 | MHC.RECOVSUP ---
Recovery Support note: This report writer followed up with patient to discuss withdrawal symptoms and methadone maintenance. Patient reports to this report writer that last night was torture and that he couldn't get any rest due to body aches and cold sweats related to withdrawal. Patient reports current withdrawal symptoms including aches, runny nose and hot and cold flashes. Discussed with Jane NAVA. Plan for patient to receive additional 10mg of methadone today.
[2021-12-19] MEDS: 0.9 % Sodium Chloride Flush 3 ML SYRINGE IVFLUSH ×2 (16:21→19:39)
[2021-12-19] MEDS: methADONE HCl 20 MG/2 ML ORAL.CONC 10 MG PO (16:24)
[2021-12-19 19:07] LABS: CMV DNA PCR Qn Source Plasma; CMV DNA Qn PCR Not Detected log IU/mL; CMV DNA Qn Real Time PCR Not Detected
[2021-12-19 19:13] VITALS: BP 127/77; PULSE 62; RESP 17; TEMP 36.7; O2SAT 95
[2021-12-19 20:56] LABS: EBV DNA PCR Not Detected (Not Detected); EBV Source Plasma
[2021-12-20] MEDS: Enoxaparin Sodium 40 MG/0.4 ML SYRINGE SUBCUT (03:06)
[2021-12-20] MEDS: hydrOXYzine HCL 25 MG TABLET PO ×2 (03:06→12:58)
[2021-12-20] MEDS: vancomycin HCL 750 MG in 0.9 % Sodium Chloride 250 ML 265 MG IV (06:45)
[2021-12-20 06:58] LABS: Creatinine Clr Calc Pharmacy 78.7; Estimated Glomerular Filt Rate > 60
[2021-12-20 07:00] LABS: Vancomycin Trough 20.2 mcg/mL (10.0-20.0)
[2021-12-20 07:27] VITALS: BP 131/89; PULSE 61; RESP 18; TEMP 37.1; O2SAT 95
[2021-12-20] MEDS: polyethylene glycoL 3350 17 GM POWD.PACK PO ×2 (07:36→19:43)
[2021-12-20] MEDS: methADONE HCl 20 MG/2 ML ORAL.CONC 50 MG PO (07:37)
[2021-12-20] MEDS: Aspirin Enteric Coated 81 MG TABLET.DR PO (07:37)
[2021-12-20] MEDS: hydrALAZINE HCl 25 MG TABLET PO ×3 (07:37→19:43)
[2021-12-20] MEDS: Acetaminophen 325 MG TABLET 650 MG PO ×2 (07:37→16:07)
[2021-12-20] MEDS: Magnesium Oxide 400 MG TABLET 800 MG PO (07:37)
[2021-12-20] MEDS: Docusate Sodium 100 MG CAPSULE PO ×2 (07:37→19:43)
[2021-12-20] MEDS: NIFEdipine ER 30 MG TAB.ER.24 60 MG PO (07:38)
--- NOTE | 2021-12-20 07:43 | HE.PHANOTE ---
VANCO DOSE ADJUSTMENT BASED ON INCREASE OF SCR TO 1.11 AND TROUGH OF 20.2 DOSES DECREASED TO 1250 Q 24H. MEW SCR AND RANDOM ORDERED FOR 1700 TODAY
[2021-12-20 08:14] LABS: Alanine Aminotransferase 38 U/L (0-40); Albumin Level 2.8 g/dL (3.5-5.0); Alkaline Phosphatase 356 U/L (39-117); Aspartate Amino Transferase 37 U/L (5-37); Bilirubin Direct 0.2 mg/dL (0.0-0.5); Bilirubin Total 0.3 mg/dL (0.0-1.0); Magnesium 1.6 mg/dL (1.6-2.6); Potassium 3.2 mmol/L (3.3-5.1); Total Protein 6.8 g/dL (6.5-8.0)
[2021-12-20] MEDS: Lactated Ringers 1,000 ML 80 ML IVCONT ×2 (08:25→19:39)
[2021-12-20 11:30] VITALS: BP 132/88; PULSE 61; RESP 18; TEMP 36.6; O2SAT 97
--- NOTE | 2021-12-20 11:47 | HO.PM.IMPN ---
Subjective Subjective Date of Service: 12/21/21 Interval History: bacteremia ,lft's Review of Systems still feels generalized weak, denies any abdominal pain or nausea vomiting or fever chills looks more awake Physical Exam Vital Signs: Vital Signs: Last Vital Signs Temp 97.8 F 12/20/21 11:30 Pulse 61 12/20/21 11:30 Resp 18 12/20/21 11:30 BP 132/88 12/20/21 11:30 Pulse Ox 97 12/20/21 11:30 O2 Del Method 12/20/21 11:30 BMI result Body Mass Index 23.4 Appearance: Alert.? Oriented ,generalised weak cvs: rrr, [id number] , no murmur res: clear to auscultation ,no rhonchii or wheezing abd: no rebound or guarding ,nt, bs present. ext pulses present , no cyanosis . Patient has skin bruising all over his body including contusions to the face, large ecchymosis on his legs bilaterally neuro: axo3 , nonfocal. Objective Data Active Medications Acetaminophen (Acetaminophen 325 Mg Tablet) 650 mg PO Q6H PRN PRN Reason: Pain, Mild (Pain Scale 1-3) Last Admin: 12/20/21 07:37 Dose: 650 mg Documented By: COTEMA Aspirin (Aspirin Enteric Coated 81 Mg Tablet.) 81 mg PO DAILY [facility] Last Admin: 12/20/21 07:37 Dose: 81 mg Documented By: WILBUR Docusate Sodium (Docusate Sodium 100 Mg Capsule) 100 mg PO BID [facility] Last Admin: 12/20/21 07:37 Dose: 100 mg Documented By: WILBUR Enoxaparin Sodium (Enoxaparin Sodium 40 Mg/0.4 Ml Syringe) 40 mg SUBCUT Q24H [facility] Last Admin: 12/20/21 03:06 Dose: 40 mg Documented By: MARISSA Hydralazine HCl (Hydralazine Hcl 25 Mg Tablet) 25 mg PO TID [facility]; Protocol Last Admin: 12/20/21 07:37 Dose: 25 mg Documented By: WILBUR Hydroxyzine HCl (Hydroxyzine Hcl 25 Mg Tablet) 25 mg PO Q8H PRN PRN Reason: withdrawal symptoms Last Admin: 12/20/21 03:06 Dose: 25 mg Documented By: MARISSA Vancomycin HCl 1,250 mg/ (Sodium Chloride) 250 mls @ 166.667 mls/hr IV Q24H [facility] Lactated Ringer's (Lr) 1,000 mls @ 80 mls/hr IVCONT .[id number] [facility] Last Admin: 12/20/21 08:25 Dose: 80 mls/hr Documented By: COTEMA Lidocaine (Lidocaine 4 % Patch Adh..Patch) 1 patch TRANSDERMA DAILY [facility]; Protocol Last Admin: 12/20/21 07:43 Dose: Not Given Documented By: COTEMA Non-Admin Reason: Patient Refused Magnesium Oxide (Magnesium Oxide 400 Mg Tablet) 800 mg PO DAILY [facility] Last Admin: 12/20/21 07:37 Dose: 800 mg Documented By: COTEMA Methadone HCl (Methadone Hcl 20 Mg/2 Ml Oral.Conc) 50 mg PO DAILY [facility] Last Admin: 12/20/21 07:37 Dose: 50 mg Documented By: COTEMA Nifedipine (Nifedipine Er 30 Mg Tab.Er.24) 60 mg PO DAILY [facility]; Protocol Last Admin: 12/20/21 07:38 Dose: 60 mg Documented By: WILBUR Ondansetron HCl (Ondansetron Hcl 4 Mg/2 Ml Vial) 4 mg IVPUSH Q8H PRN PRN Reason: Nausea and Vomiting Pharmacy Consult (Consult Rx Vancomycin Dosing) 1 each MISCELLANE DAILY PRN PRN Reason: Consult order Polyethylene Glycol (Polyethylene Glycol 3350 17 Gm Powd.Pack) 17 gm PO BID [facility] Last Admin: 12/20/21 07:36 Dose: 17 gm Documented By: BLANCOEMA Sodium Chloride (0.9 % Sodium Chloride Flush 3 Ml Syringe) 3 ml IVFLUSH QSHIFT [facility] Last Admin: 12/20/21 07:36 Dose: Not Given Documented By: COTEMA Non-Admin Reason: IV Running Labs CBC & Chem 7: 12/18/21 04:54 12/21/21 05:50 Labs: Laboratory Results - last 24 hr 12/15/21 12/15/21 12/20/21 18:53 18:53 05:39 Estim Creat Clear Calc 78.7 Estimated GFR > 60 Magnesium 1.6 Total Bilirubin 0.3 Direct Bilirubin 0.2 AST 37 D ALT 38 Alkaline Phosphatase 356 H Total Protein 6.8 Albumin 2.8 L Vancomycin Trough CMV Specimen Source Plasma CMV Qnt PCR IU/mL Not Detected CMV Qnt PCR log IU/mL Not Detected EBV Source Plasma EBV DNA (PCR) Not Detected 12/20/21 05:39 Estim Creat Clear Calc Estimated GFR Magnesium Total Bilirubin Direct Bilirubin AST ALT Alkaline Phosphatase Total Protein Albumin Vancomycin Trough 20.2 H CMV Specimen Source CMV Qnt PCR IU/mL CMV Qnt PCR log IU/mL EBV Source EBV DNA (PCR) Microbiology Microbiology Results: Microbiology 12/14/21 23:00 Blood Culture - Final Blood - Venous No growth after 5 days. Assessment and Plan (1) Hypokalemia: Status: Acute (2) Bacteremia: Status: Acute (3) Abnormal LFTs: Status: Acute (4) IV drug user: Status: Acute Plan 46-year-old male with past medical history of IV drug use presents to the hospital after being found in the bathroom of a local [employer], he has multiple complaints and multiple findings # abdominal pain - under to severe constipation passing bm's as per patient continue MiraLax, Dulcolax, and Fleet enema as necessary # YONY-? secondary to dehydration improved with iv hydration # lactic acidosis - no evidence of acute infection - UA negative, chest shows no evidence of pneumonia off fluids no further trending need unless clinical siutation changes. # acute hypokalemia - likely secondary to poor oral intake - repleted ,also added po magnesium. has leucocytosis moniter cbc # acute normocytic anemia - likely multifactorial - evidence of hematoma , as well as significant ecchymosis all over his body s/p 2 prbc yesterday repeat h/h in .6 ?anemia workup:iron and iron sats low , b12 and folate seems fine, ferritin levels added fobt # hematuria - acute - monitor CBC - urology consulted- follow up outpatient. # IV drug user: switched to metadone 50 mg daily updated addiction team about last night they will follow-up today for further adjustment methadone if needed. # subdural hematoma - improving per imaging - monitor # rib fractures - secondary to frequent falls in the setting of IV drug use - incentive spirometry elevated LFT: lft's ,alk phos improvin hepatitis profile hep B -grayzone, hepatitis C reactive abd us-seems fine , ebv,hsv serology pending hypokaemia replted -moniter bmp. MSSA Bacteremia :? Continue IV vancomycin-? interaction between linezolid/methadone. repeat blood culture neg@48 hrs echo-grosslly seems fine ,ef 70% Monitor vanco trough, renal function and electrolytes. Id eval DVT prophylaxis: SCDs Pt eval inaptient need:? possible bacteremia-need IV antibiotic and workup-need to eval final antibiotics regimen since linezolid/metahdone interaction,also may need . Quality Stroke Does the patient have a stroke diagnosis?: No VTE Prior VTE?: No VTE Risk Level:: Medical - low VTE Device Contraindication: Treatment Not Indicated VTE Drug Contraindication: N/A - Med Ordered
--- NOTE | 2021-12-20 12:35 | P.PNADD_ITS ---
Subjective Subjective Date of Service: 12/20/21 Reason For Visit: abd pain Medical Problems Affecting Mental Status: No Interim History: patient reports the methadone 50mg yesterday am, along with an additional 10mg later in day, was effective in managing sx of withdrawals and cravings. Today has received the 50mg this am. Reports now beginning to experience generalized body aches, restless legs, cramping, hot/cold flashes, some sweating, which he attributes to opioid withdrawals. Requests to continue with additional 10mg afternoon methadone dosing for today. Medication Compliance: Yes Review of Systems Review of Systems as per HPI Reports w/d's, including body aches, cold/hot sweats, restless legs Mental Status Exam Mental Status Exam Patient Appearance: Appropriate Patient Orientation: Person, Place, Time and Situation Level of Consciousness: Awake and Appropriate Mood Description: Calm Affect Description: Calm Speech Pattern: Clear and Appropriate Diagnostics Vital Signs (24Hr): Vital Signs - 24 hr 12/19/21 15:16 12/19/21 19:13 12/20/21 07:27 Temperature 97.6 F 98.1 F 98.8 F Pulse Rate 68 62 61 Respiratory Rate 17 17 18 Blood Pressure 130/87 127/77 131/89 Pulse Oximetry 97 95 95 Oxygen Delivery Method Room Air Room Air Room Air 12/20/21 11:30 Temperature 97.8 F Pulse Rate 61 Respiratory Rate 18 Blood Pressure 132/88 Pulse Oximetry 97 Oxygen Delivery Method Room Air BMI result Body Mass Index 23.4 Labs Results: 12/18/21 04:54 12/20/21 05:39 Labs: Laboratory Results - last 48 hr 12/15/21 12/15/21 12/19/21 18:53 18:53 05:40 Potassium Creatinine Estim Creat Clear Calc Estimated GFR Magnesium Total Bilirubin Direct Bilirubin AST ALT Alkaline Phosphatase Total Protein Albumin Vancomycin Trough Random Vancomycin 16.2 CMV Specimen Source Plasma CMV Qnt PCR IU/mL Not Detected CMV Qnt PCR log IU/mL Not Detected EBV Source Plasma EBV DNA (PCR) Not Detected 12/19/21 12/20/21 12/20/21 05:40 05:39 05:39 Potassium 2.9 L 3.2 L Creatinine 0.83 1.11 Estim Creat Clear Calc 105.3 78.7 Estimated GFR > 60 > 60 Magnesium 1.5 L 1.6 Total Bilirubin 0.3 Direct Bilirubin 0.2 AST 37 D ALT 38 Alkaline Phosphatase 356 H Total Protein 6.8 Albumin 2.8 L Vancomycin Trough 20.2 H Random Vancomycin CMV Specimen Source CMV Qnt PCR IU/mL CMV Qnt PCR log IU/mL EBV Source EBV DNA (PCR) Imaging Radiology Impressions: ITS Impressions Abdomen/Pelvis CT 12/14/21 22:40 IMPRESSION: 1. Nondisplaced acute appearing fracture of the left 12th rib. 2. Mild T11 superior endplate compression fracture, exact acuity uncertain. 3. Couple of subacute to chronic appearing fractures of the posterolateral right sixth and seventh ribs. 4. No pneumothorax. No airspace consolidation. 5. Trace right pleural effusion. 6. No intra-abdominal free air or free fluid. 7. Very large amount of stool throughout the colon with mild dilation of the cecum, ascending and transverse colon. Correlate clinically with signs or symptoms of constipation/obstipation. 8. Diffusely thick-walled appearance of the urinary bladder. Correlate clinically with signs or symptoms of cystitis or chronic bladder dysfunction. 9. Additional ancillary findings, as described. Cervical Spine CT 12/14/21 22:40 IMPRESSION: Motion limited examination. 1. Compared to CT from 11/02/2021, decreased size and density of a left hemispheric subdural collection with resolution of leftward midline shift. No definite new acute intracranial abnormality within the limitations of motion 2. Within the limitations of motion, no evidence of acute fracture or traumatic malalignment of the cervical spine Chest CT 12/14/21 22:40 IMPRESSION: 1. Nondisplaced acute appearing fracture of the left 12th rib. 2. Mild T11 superior endplate compression fracture, exact acuity uncertain. 3. Couple of subacute to chronic appearing fractures of the posterolateral right sixth and seventh ribs. 4. No pneumothorax. No airspace consolidation. 5. Trace right pleural effusion. 6. No intra-abdominal free air or free fluid. 7. Very large amount of stool throughout the colon with mild dilation of the cecum, ascending and transverse colon. Correlate clinically with signs or symptoms of constipation/obstipation. 8. Diffusely thick-walled appearance of the urinary bladder. Correlate clinically with signs or symptoms of cystitis or chronic bladder dysfunction. 9. Additional ancillary findings, as described. Head CT 12/14/21 22:40 IMPRESSION: Motion limited examination. 1. Compared to CT from 11/02/2021, decreased size and density of a left hemispheric subdural collection with resolution of leftward midline shift. No definite new acute intracranial abnormality within the limitations of motion 2. Within the limitations of motion, no evidence of acute fracture or traumatic malalignment of the cervical spine Abdomen Ultrasound 12/15/21 17:51 IMPRESSION: Liver parenchymal appears normal. Trace ascites and trace right pleural effusion seen No shadowing stones or significant gallbladder wall thickening. No biliary ductal dilatation Medications Medications Current Medications Acetaminophen (Acetaminophen 325 Mg Tablet) 650 mg PO Q6H PRN PRN Reason: Pain, Mild (Pain Scale 1-3) Last Admin: 12/20/21 07:37 Dose: 650 mg Aspirin (Aspirin Enteric Coated 81 Mg Tablet.Dr) 81 mg PO DAILY [facility] Last Admin: 12/20/21 07:37 Dose: 81 mg Docusate Sodium (Docusate Sodium 100 Mg Capsule) 100 mg PO BID [facility] Last Admin: 12/20/21 07:37 Dose: 100 mg Enoxaparin Sodium (Enoxaparin Sodium 40 Mg/0.4 Ml Syringe) 40 mg SUBCUT Q24H [facility] Last Admin: 12/20/21 03:06 Dose: 40 mg Hydralazine HCl (Hydralazine Hcl 25 Mg Tablet) 25 mg PO TID [facility]; Protocol Last Admin: 12/20/21 07:37 Dose: 25 mg Hydroxyzine HCl (Hydroxyzine Hcl 25 Mg Tablet) 25 mg PO Q8H PRN PRN Reason: withdrawal symptoms Last Admin: 12/20/21 03:06 Dose: 25 mg Vancomycin HCl 1,250 mg/ (Sodium Chloride) 250 mls @ 166.667 mls/hr IV Q24H [facility] Lactated Ringer's (Lr) 1,000 mls @ 80 mls/hr IVCONT .[id number] [facility] Last Admin: 12/20/21 08:25 Dose: 80 mls/hr Lidocaine (Lidocaine 4 % Patch Adh..Patch) 1 patch TRANSDERMA DAILY [facility]; Protocol Last Admin: 12/20/21 07:43 Dose: Not Given Magnesium Oxide (Magnesium Oxide 400 Mg Tablet) 800 mg PO DAILY [facility] Last Admin: 12/20/21 07:37 Dose: 800 mg Magnesium Oxide (Magnesium Oxide 400 Mg Tablet) 400 mg PO BIDPC [facility] Methadone HCl (Methadone Hcl 20 Mg/2 Ml Oral.Conc) 50 mg PO DAILY [facility] Last Admin: 12/20/21 07:37 Dose: 50 mg Methadone HCl (Methadone Hcl 10 Mg Tablet) 10 mg PO ONCE ONE Stop: 12/20/21 12:34 Nifedipine (Nifedipine Er 30 Mg Tab.Er.24) 60 mg PO DAILY [facility]; Protocol Last Admin: 12/20/21 07:38 Dose: 60 mg Ondansetron HCl (Ondansetron Hcl 4 Mg/2 Ml Vial) 4 mg IVPUSH Q8H PRN PRN Reason: Nausea and Vomiting Pharmacy Consult (Consult Rx Vancomycin Dosing) 1 each MISCELLANE DAILY PRN PRN Reason: Consult order Polyethylene Glycol (Polyethylene Glycol 3350 17 Gm Powd.Pack) 17 gm PO BID [facility] Last Admin: 12/20/21 07:36 Dose: 17 gm Sodium Chloride (0.9 % Sodium Chloride Flush 3 Ml Syringe) 3 ml IVFLUSH QSHIFT [facility] Last Admin: 12/20/21 07:36 Dose: Not Given Allergies Allergies Allergy/AdvReac Type Severity Reaction Status Date / Time From BENADRYL Allergy Unknown CANT Uncoded 11/15/19 18:21 BREATHE HIVES Assessment & Plan Assessment & Plan (1) Opioid use disorder: Status: Acute Code(s): F11.90 - Opioid use, unspecified, uncomplicated Plan 1. Add methadone dose 10mg for now. 2. Increase daily methadone dose to 60mg daily, start tomorrow am. 3. Recovery team to f/u with patient. I spent minutes with the patient and/or on the patient floor today, greater than?50% of which was spent counseling/coordinating care. Education Patient educated on: diagnosis, medication risk/benefits and substance abuse Informed Consent: understands
[2021-12-20] MEDS: Potassium Chloride Packet 20 MEQ PACKET 40 MEQ PO (12:58)
[2021-12-20] MEDS: methADONE HCl 20 MG/2 ML ORAL.CONC 10 MG PO (12:58)
[2021-12-20 15:10] VITALS: BP 137/86; PULSE 64; RESP 17; TEMP 36.5; O2SAT 96
[2021-12-20] MEDS: Magnesium Oxide 400 MG TABLET PO (16:07)
[2021-12-20 17:26] LABS: Estimated Glomerular Filt Rate > 60
[2021-12-20 17:41] LABS: Vancomycin Random 20.1 mcg/mL (15-20)
[2021-12-20 19:11] VITALS: BP 141/86; PULSE 69; RESP 17; TEMP 37.2; O2SAT 95
[2021-12-21] MEDS: Enoxaparin Sodium 40 MG/0.4 ML SYRINGE SUBCUT (05:10)
[2021-12-21] MEDS: hydrOXYzine HCL 25 MG TABLET PO (05:12)
[2021-12-21] MEDS: Acetaminophen 325 MG TABLET 650 MG PO (05:12)
[2021-12-21 06:22] LABS: Creatinine Clr Calc Pharmacy 87.4; Estimated Glomerular Filt Rate > 60
[2021-12-21 06:31] LABS: Vancomycin Random 11.7 mcg/mL (15-20)
--- NOTE | 2021-12-21 07:15 | HE.PHANOTE ---
VANCO DOSING ADJUSTMENT BASED ON IMPROVEMENT OF SCR AND TROUGH OF 11.7 DOSE RESTARTED AT 1500 Q 24H. TROUGH ORDERED FOR 12/22 @ 0600
[2021-12-21 07:22] VITALS: BP 128/75; PULSE 63; RESP 16; TEMP 37.5; O2SAT 94
[2021-12-21] MEDS: methADONE HCl 20 MG/2 ML ORAL.CONC 60 MG PO (07:56)
[2021-12-21] MEDS: Magnesium Oxide 400 MG TABLET 800 MG PO (07:56)
[2021-12-21] MEDS: NIFEdipine ER 30 MG TAB.ER.24 60 MG PO (07:57)
[2021-12-21] MEDS: Aspirin Enteric Coated 81 MG TABLET.DR PO (07:57)
[2021-12-21] MEDS: hydrALAZINE HCl 25 MG TABLET PO ×3 (07:57→20:21)
[2021-12-21] MEDS: Magnesium Oxide 400 MG TABLET PO ×2 (07:57→16:35)
[2021-12-21] MEDS: polyethylene glycoL 3350 17 GM POWD.PACK PO ×2 (07:58→20:21)
[2021-12-21] MEDS: vancomycin HCL 1,500 MG in 0.9 % Sodium Chloride 500 ML 333.33 MG IV (07:58)
[2021-12-21] MEDS: Docusate Sodium 100 MG CAPSULE PO ×2 (08:14→20:21)
[2021-12-21 08:26] LABS: Potassium 3.6 mmol/L (3.3-5.1)
[2021-12-21] MEDS: Lactated Ringers 1,000 ML 80 ML IVCONT ×2 (09:35→20:24)
[2021-12-21 11:32] VITALS: BP 129/82; PULSE 62; RESP 18; TEMP 36.6; O2SAT 96
--- NOTE | 2021-12-21 12:14 | HO.PM.IMPN ---
Subjective Subjective Date of Service: 12/21/21 Interval History: mssa ,lft's Review of Systems still feels generalized weak, denies any abdominal pain or nausea vomiting or fever chills looks more awake Physical Exam Vital Signs: Vital Signs: Last Vital Signs Temp 97.9 F 12/21/21 11:32 Pulse 62 12/21/21 11:32 Resp 18 12/21/21 11:32 BP 129/82 12/21/21 11:32 Pulse Ox 96 12/21/21 11:32 O2 Del Method 12/21/21 11:32 BMI result Body Mass Index 23.4 Appearance: Alert.? Oriented ,generalised weak cvs: rrr, [id number] , no murmur res: clear to auscultation ,no rhonchii or wheezing abd: no rebound or guarding ,nt, bs present. ext pulses present , no cyanosis . Patient has skin bruising all over his body including contusions to the face, large ecchymosis on his legs bilaterally neuro: axo3 , nonfocal. Objective Data Active Medications Acetaminophen (Acetaminophen 325 Mg Tablet) 650 mg PO Q6H PRN PRN Reason: Pain, Mild (Pain Scale 1-3) Last Admin: 12/21/21 05:12 Dose: 650 mg Documented By: MARISSA Aspirin (Aspirin Enteric Coated 81 Mg Tablet.) 81 mg PO DAILY [facility] Last Admin: 12/21/21 07:57 Dose: 81 mg Documented By: POOJA Docusate Sodium (Docusate Sodium 100 Mg Capsule) 100 mg PO BID [facility] Last Admin: 12/21/21 08:14 Dose: 100 mg Documented By: POOJA Enoxaparin Sodium (Enoxaparin Sodium 40 Mg/0.4 Ml Syringe) 40 mg SUBCUT Q24H [facility] Last Admin: 12/21/21 05:10 Dose: 40 mg Documented By: MARISSA Hydralazine HCl (Hydralazine Hcl 25 Mg Tablet) 25 mg PO TID [facility]; Protocol Last Admin: 12/21/21 07:57 Dose: 25 mg Documented By: POOJA Hydroxyzine HCl (Hydroxyzine Hcl 25 Mg Tablet) 25 mg PO Q8H PRN PRN Reason: withdrawal symptoms Last Admin: 12/21/21 05:12 Dose: 25 mg Documented By: MARISSA Lactated Ringer's (Lr) 1,000 mls @ 80 mls/hr IVCONT .[id number] [facility] Last Admin: 12/21/21 09:35 Dose: 80 mls/hr Documented By: POOJA Vancomycin HCl 1,500 mg/ (Sodium Chloride) 500 mls @ 333.333 mls/hr IV Q24H [facility] Last Infusion: 12/21/21 09:42 Dose: 0 mls/hr Documented By: POOJA Lidocaine (Lidocaine 4 % Patch Adh..Patch) 1 patch TRANSDERMA DAILY [facility]; Protocol Last Admin: 12/21/21 07:58 Dose: Not Given Documented By: POOJA Non-Admin Reason: Patient Refused Magnesium Oxide (Magnesium Oxide 400 Mg Tablet) 800 mg PO DAILY [facility] Last Admin: 12/21/21 07:56 Dose: 800 mg Documented By: POOJA Magnesium Oxide (Magnesium Oxide 400 Mg Tablet) 400 mg PO BIDPC [facility] Last Admin: 12/21/21 07:57 Dose: 400 mg Documented By: POOJA Methadone HCl (Methadone Hcl 20 Mg/2 Ml Oral.Conc) 60 mg PO DAILY [facility] Last Admin: 12/21/21 07:56 Dose: 60 mg Documented By: POOJA Nifedipine (Nifedipine Er 30 Mg Tab.Er.24) 60 mg PO DAILY [facility]; Protocol Last Admin: 12/21/21 07:57 Dose: 60 mg Documented By: POOJA Ondansetron HCl (Ondansetron Hcl 4 Mg/2 Ml Vial) 4 mg IVPUSH Q8H PRN PRN Reason: Nausea and Vomiting Pharmacy Consult (Consult Rx Vancomycin Dosing) 1 each MISCELLANE DAILY PRN PRN Reason: Consult order Polyethylene Glycol (Polyethylene Glycol 3350 17 Gm Powd.Pack) 17 gm PO BID [facility] Last Admin: 12/21/21 07:58 Dose: 17 gm Documented By: POOJA Sodium Chloride (0.9 % Sodium Chloride Flush 3 Ml Syringe) 3 ml IVFLUSH QSHIFT [facility] Last Admin: 12/21/21 07:53 Dose: Not Given Documented By: POOJA Non-Admin Reason: IV Running Labs CBC & Chem 7: 12/18/21 04:54 12/21/21 05:50 Labs: Laboratory Results - last 24 hr 12/20/21 12/20/2122 16:59 16:59 05:50 Estim Creat Clear Calc 84.0 87.4 Estimated GFR > 60 > 60 Random Vancomycin 20.1 H 12/21/21 05:50 Estim Creat Clear Calc Estimated GFR Random Vancomycin 11.7 L Assessment and Plan (1) Hypokalemia: Status: Acute (2) Bacteremia: Status: Acute (3) YONY (acute kidney injury): Status: Acute (4) Abnormal LFTs: Status: Acute Plan 46-year-old male with past medical history of IV drug use presents to the hospital after being found in the bathroom of a local [employer], he has multiple complaints and multiple findings # abdominal pain - under to severe constipation passing bm's? as per patient continue MiraLax, Dulcolax, and Fleet enema as necessary # YONY-? secondary to dehydration improved with iv hydration # lactic acidosis - no evidence of acute infection - UA negative, chest shows no evidence of pneumonia off fluids no further trending need unless clinical siutation changes. # acute hypokalemia - likely secondary to poor oral intake - repleted ,also added po magnesium. has leucocytosis moniter cbc # acute normocytic anemia - likely multifactorial - evidence of hematoma , as well as significant ecchymosis all over his body s/p 2 prbc yesterday repeat h/h in .6 ?anemia workup:iron and iron sats low , b12 and folate seems fine, ferritin levels normal possible iron/iron sats low due to recent bruise/hematoma moniter cbc if h/h drop may need further workup. # hematuria - acute - monitor CBC - urology consulted- follow up outpatient. # IV drug user: on metadone? 50 mg daily started this admission updated addiction team about last night they will follow-up today for further adjustment methadone if needed. # subdural hematoma - improving per imaging - monitor # rib fractures - secondary to frequent falls in the setting of IV drug use - incentive spirometry elevated LFT: lft's ,alk phos improvin hepatitis profile hep B -grayzone, hepatitis C reactive,ebv,hsv serology pending abd us-seems fine . moniter lft's , will need Gi follow up upon discharge. hypokaemia replted -moniter bmp. MSSA Bacteremia :? Continue IV vancomycin- interaction between linezolid/methadone. repeat blood culture neg@48 hrs echo-grosslly seems fine ,ef 70% Monitor vanco trough, renal function and electrolytes. d/w ID- recomended most likley need linezolid addiction follow up -before startin linezolid ,? interaction between linezolid/methadone. Discussed with addiction, id and subsequently with patient multiple times he currently does not agree for linezolid and wants to continue vancomycin. '' he said I would need to think for about it'' DVT prophylaxis: SCDs Pt eval inaptient need:?? possible bacteremia-need IV antibiotic and workup-need to eval final antibiotics regimen since linezolid/metahdone interaction . Quality Stroke Does the patient have a stroke diagnosis?: No VTE Prior VTE?: No VTE Risk Level:: Medical - low VTE Device Contraindication: Treatment Not Indicated VTE Drug Contraindication: N/A - Med Ordered
--- NOTE | 2021-12-21 12:57 | MHC.RECOVRN ---
Addendum entered by Angi Mazariegos RN 12/21/21 16:02: This movie writer met w/ pt, pt alert, sitting up in bed resting. T/W reviewed w/ pt, that pts MTD would be on hold at 60mg if on other ABX that had been ordered due to interaction. T/W reviewed that comfort medications could be prescribed to help w/ withdrawals that pt has been reporting in the evening. Pt verbalized understanding and agreeable. Pt request medication for sleep. Dr. Del Castillo aware. Original Note: This movie writer met w/ pt, pt alert, oriented, sitting in bed. Pt reports last night had withdrawal symptoms around midnite. Pt states hot/cold sweats, muscle cramping, unable to sleep. Pt states had success on MTD in the past, was on 110 mg for one year at [facility]. Pt reports does not want a daily dose as high as 110mg. Pt reports before coming into hospital 1-3 bundles daily of heroin, IV. Pt states from [id number] was in Recovery, went throught [facility], [facility] and was living at [facility]. Pt reports, experienced a reoccurrence about one year ago and has been unstably housed with daily heroin use. Pt reports no cravings at this time, feels committed to recovery and wanting to get back to living and giving back and thanks God . Pt interested in referral to [employer]. Pt expressed interest in getting in touch with AA/NA recovery community. Pt reports has no belongings, pt request toiletries, change of clothes. This movie writer and pt discussed CSS process, if pt medically cleared and suitable, can perform ADL's and is ambulatory, referral could then be placed. Pt aware of processs. Pt verbalized understanding. Pt pleasant, grateful for the care at [facility]. T/W will f/u w/ Case Management. As pt is currently not ambulating, this movie writer can not put referral into CSS until PT eval etc.
--- NOTE | 2021-12-21 13:29 | P.EN_ITS ---
Event Note Date of Service: 12/21/21 Event Note: This casualty underwriter contacted by hospitalist Dr. Del Castillo, who was seeking guidance regarding methadone, as ID had recommended linezolid. T/C with [facility], spoke with pharmacist who recommended would be considered safe as long as doses not increased at this time. Patient currently receiving methadone 60 mg daily. Was also instructed to watch for signs and symptoms of serotonin syndrome with the 2 medications being used concurrently. Those symptoms include: Signs and symptoms include: * Agitation or restlessness * Insomnia * Confusion * Rapid heart rate and high blood pressure * Dilated pupils * Loss of muscle coordination or twitching muscles * High blood pressure * Muscle rigidity * Heavy sweating * Diarrhea * Headache * Shivering * Goose bumps These recommendation shared with Dr. Geri Del Castillo.
--- NOTE | 2021-12-21 13:29 | PM.EVENT ---
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 Del Castillo, who was seeking guidance regarding methadone, as ID had recommended linezolid. T/C with [facility] [place], spoke with pharmacist who recommended would be considered safe as long as doses not increased at this time. Patient currently receiving methadone 60 mg daily. Was also instructed to watch for signs and symptoms of serotonin syndrome with the 2 medications being used concurrently. Those symptoms include: Signs and symptoms include: Agitation or restlessness Insomnia Confusion Rapid heart rate and high blood pressure Dilated pupils Loss of muscle coordination or twitching muscles High blood pressure Muscle rigidity Heavy sweating Diarrhea Headache Shivering Goose bumps These recommendation shared with Dr. Geri Del Castillo.
[2021-12-21 15:18] VITALS: BP 139/85; PULSE 67; RESP 16; TEMP 36.6; O2SAT 95
--- NOTE | 2021-12-21 15:48 | MHC.CLN ---
F/U DIET=REGULAR. SUPPLEMENT ENSURE BID PROVIDES ADDITIONAL 700 KCALS, 40 G PROTEIN. STAGE II WOUND TO BUTTOCKS. SUPPLEMENT APPROPRIATE TO PROMOTE WOUND HEALING. INTAKE 50-100%. CONTINUE DIET AND SUPPLEMENT. FOLLOW FOR INTAKE AND WOUND HEALING.
--- OUTSIDE RECORDS SUMMARY | 2021-12-21 16:11 | XMS_ITS | Continuity of Care Document ---
:1975 Author Organization [facility] Address [address] [place] [id number]- Care Team Providers Name Role Phone Niall STARK, Jace Stovall Primary Care Physician [id number] Date(s): 11/22/21 - 11/22/[address] [address]- Discharge Disposition: A-Error Chart/Home (ED Only) Attending Physician: Not on Staff, Attending MD Admitting Physician: Not on Staff, Admitting MD Referring Physician: Not on Staff, Referring MD Allergies, Adverse Reactions, Alerts Substance Reaction Severity Status diphenhydrAMINE Active Medications Keppra 500 mg oral tablet 1 tablet = 500 mg, By Mouth, 2 times a day, # 10 tablet, 0 Refills, Maintenance, 11/04/21 11:18:00 EDT, Tablet, [facility], Partial fill upon patient request if the prescription is for a schedule II opioid drug., 176, cm, 11/02/21 10:51:... Start Date: 11/04/21 Stop Date: 11/09/21 Status: Orderedmultivitamin Multiple Vitamins oral tablet 1 tablet, By Mouth, Daily, # 14 tablet, 0 Refills, Maintenance, Tablet Start Date: 10/19/12 Stop Date: 11/02/12 Status: Orderednaproxen 500 mg oral tablet 1 tablet = 500 mg, By Mouth, 2 times a day, # 60 tablet, 0 Refills, Maintenance, Tablet Start Date: 10/19/12 Stop Date: 11/18/12 Status: Orderedoxybutynin 5 mg/5 ml oral syrup 5 mL = 5 mg, By Mouth, 3 times a day, PRN Pain , Moderate, # 210 mL, 0 Refills, Maintenance, Syrup Start Date: 10/19/12 Stop Date: 11/02/12 Status: Orderedtamsulosin 0.4 mg oral capsule 1 capsule = 0.4 mg, By Mouth, Daily, # 30 capsule, 0 Refills, Maintenance, Capsule Start Date: 10/19/12 Stop Date: 11/18/12 Status: Ordered Care Team PersonnelName: Jace Tierney MD Address: [address] [place] [id number]
--- OUTSIDE RECORDS SUMMARY | 2021-12-21 16:11 | XMS_ITS | Continuity of Care Document ---
:1975 Author Organization [facility] Address [address] [place] [address]- Care Team Providers Name Role Phone Not on Staff, PCP Primary Care Physician Unavailable Encounter [facility] Date(s): 11/04/21 - 11/04/21 [facility] [address] [place] [address]- Encounter Diagnosis Subdural hemorrhage (Final) - 11/04/21 Heroin use (Final) - 11/04/21 Discharge Disposition: A-D/C AMA Attending Physician: Lázaro Aiken MD Admitting Physician: Lázaro Aiken MD Referring Physician: Not on Staff, Referring MD Allergies, Adverse Reactions, Alerts Substance Reaction Severity Status diphenhydrAMINE Active Medications Keppra 500 mg oral tablet 1 tablet = 500 mg, By Mouth, 2 times a day, # 10 tablet, 0 Refills, Maintenance, 11/04/21 11:18:00 EDT, Tablet, [facility], Partial fill upon patient [...] Date: 10/19/12 Stop Date: 11/18/12 Status: Ordered Vital Signs Most recent to oldest [Reference 1 2 3 Range]: Oxygen Saturation [94-100 %] 97 % 100 % 100 % (11/04/21 8:58 AM) (11/04/21 8:39 AM) (11/04/21 8:01 A M) Pulse Rate [55-90 bpm] 55 bpm 57 bpm 57 bpm (11/04/21 8:58 AM) (11/04/21 8:39 AM) (11/04/21 8:01 A M) Blood Pressure [90-138/55-84 mm 122/80 mm Hg 136/93 mm Hg 125/87 mm Hg Hg] (11/04/21 8:39 AM) (11/04/21 8:01 AM) (11/04/21 7:05 A M) Respiratory Rate [16-30 br/min] 9 br/min 11 br/min 11 br/min *L* *L* *L* (11/04/21 8:58 AM) (11/04/21 8:39 AM) (11/04/21 8:01 A M) Temperature [96.8-100.4 DegF] 97.6 DegF (11/04/21 8:58 AM) Mode of Delivery (Oxygen) Room air Room air Room a ir (11/04/21 8:58 AM) (11/04/21 8:39 AM) (11/04/21 8:01 A M) Blood pressure sites Arm, left Arm, left Arm, left (11/04/21 8:39 AM) (11/04/21 8:01 AM) (11/04/21 7:05 A M) Temperature Route Oral (11/04/21 8:58 AM) Care Team PersonnelName: Not on Staff, PCP
--- OUTSIDE RECORDS SUMMARY | 2021-12-21 16:11 | XMS_ITS | Continuity of Care Document ---
:1975 Author Organization [facility] Address [address] [place] [address]- Care Team Providers Name Role Phone Not on Staff, PCP Primary Care Physician Unavailable Encounter [facility] Date(s): 04/27/20 - 04/27/20 [facility] [address] [place] [address]- Discharge Disposition: A-D/C Home Attending Physician: Bereket Barrientos MD Admitting Physician: Bereket Barrientos MD Referring Physician: Not on Staff, Referring MD Allergies, Adverse Reactions, Alerts Substance Reaction Severity Status diphenhydrAMINE Active Medications multivitamin Multiple Vitamins oral tablet 1 tablet, By [...] Vital Signs Most recent to oldest [Reference Range]: 1 2 Height 175 cm 175 cm (04/27/20 12:48 PM) (04/27/20 10:33 AM) Weight 73 kg 73 kg (04/27/20 12:48 PM) (04/27/20 10:33 AM) Oxygen Saturation [94-100 %] 99 % 100 % (04/27/20 12:48 PM) (04/27/20 10:33 AM) Pulse Rate [55-90 bpm] 56 bpm 52 bpm (04/27/20 12:48 PM) *L* (04/27/20 10:33 AM) Body Mass Index [18.5-24.99] 23.84 (04/27/20 12:48 PM) Blood Pressure [90-138/55-84 mm Hg] 17/73 mm Hg 110/ 70 mm Hg *L* (04/27/20 10:33 AM) (04/27/20 12:48 PM) Respiratory Rate [16-30 br/min] 18 br/min 20 br/mi n (04/27/20 12:48 PM) (04/27/20 10:33 AM) Temperature [96.8-100.4 DegF] 97.7 DegF (04/27/20 10:33 AM) Mode of Delivery (Oxygen) Room air Room air (04/27/20 12:48 PM) (04/27/20 10:33 AM) Blood pressure sites Arm, left (04/27/20 12:48 PM) Temperature Route Oral (04/27/20 10:33 AM) Dry Weight 73 kg 73 kg (04/27/20 12:48 PM) (04/27/20 10:33 AM)
--- OUTSIDE RECORDS SUMMARY | 2021-12-21 16:11 | XMS_ITS | Continuity of Care Document ---
:1975 Author Organization [facility] Address [address] [place] [address]- Care Team Providers Name Role Phone Not on Staff, PCP Primary Care Physician Unavailable Encounter [facility] Date(s): 12/08/21 - 12/09/[address] [address] Discharge Disposition: A-D/C AMA Attending Physician: Dl Bullock MD Admitting Physician: Mitchell Zamora DO Referring Physician: Not on Staff, Referring MD Allergies, Adverse Reactions, Alerts Substance Reaction Severity Status diphenhydrAMINE Active Medications Acetaminophen Tablet 650 mg, Tablet, By Mouth, Every 4 hours, PRN for Pain , Mild, Temperature Greater than 100.5, Routine, 12/08/21 7:25:00 EDT Start Date: 12/08/21 Stop Date: 12/10/21 Status: Discontinuedlevothyroxine 0.1 mg oral tablet By Mouth, Daily, 0 Refills, Maintenance, 12/08/21 15:08:00 EDT, Partial fill upon patient request ifthe prescription is for a schedule II opioid drug. Start Date: 12/08/21 Status: OrderedLisinopril By Mouth, Daily, Maintenance, 12/08/21 15:08:00 EDT, Partial fill upon patient request if the prescription is for a schedule II opioid drug. Start Date: 12/08/21 Status: Orderedmethadone 10 mg oral tablet 10 mg, Tablet, By Mouth, Once, Routine, 12/09/21 14:00:00 EDT, Stop date 12/09/21 14:00:00 EDT Start Date: 12/09/21 Stop Date: 12/09/21 Status: Completed Problem List Condition Confirmation Course Effective Dates Status Health I nformant Status Avascular necrosis of Confirmed Active hip Essential Confirmed Active hypertension IV heroin dependence Confirmed Active History of subdural Confirmed 11/02/21 Active hematoma History of traumatic Confirmed Active brain injury Hypothyroidism Confirmed Active Tobacco dependence Confirmed Active Results Radiology Reports Exam Date Time Procedure Performing Provider Status 12/08/21 3:56 AM XR Femur 2 Views Left Nelli KhannaJavier Snyder (Camila ified) Notes:(XR Femur 2 Views Left) Reason For Exam: PainRESULT: Femur 2 Views Left PROCEDURE: Pelvis 1 or 2 Views, Femur 2 Views Left CLINICAL INDICATION: 46 years old Male with Hx of Present Illness: pt. At [employer] fell forward striking forehead no loc; Reason: Pain; Clinical Question(s): Fracture. TECHNIQUE: AP pelvis and AP and crosstable lateral views of the LEFT femur including a frog lateral view of the LEFT hip are obtained. COMPARISONS: Pelvis and LEFT hip, enhanced CT abdomen and pelvis of November 23, 2021, CT LEFT hip of later today December 08, 2021. FINDINGS: Bones and joints: No acute fracture or dislocation. Old healed fractures of the LEFT superior and inferior pubic rami again seen. Mild degenerative changes of the hip joints bilaterally. Moderate calcifications adjacent to the RIGHT greater trochanter consistent with significant enthesopathy (calcification at ligament and tendon insertion sites) or trochanteric bursitis. Focal lucency along the weightbearing aspect of the LEFT femoral head correlating with AVN and subchondral collapse on CT which also showed more subtle evidence of AVN in the RIGHT femoral head not seen radiographically.. Small suprapatellar effusion in the LEFT knee. Soft Tissues: Moderate volume of fecal material in the RIGHT colon and increased volume of gas in small and large bowel loops without definite dilatation.. No evidence of radiopaque foreign body. IMPRESSION: 1. No evidence of acute bony injuries. 2. AVN with mild subchondral collapse of the LEFT femoral head. 3. Mild degenerative changes of both hips. 4. Old healed fractures LEFT superior and inferior pubic rami. 5. Small LEFT pleural effusion. Thank you for allowing me to participate in the care of this patient. WSN: [id number] Ordering Physician: Fly Jones Dictated By: Justin Caldwell MD Dictated Date/Time: 12/08/21 8:19 am Reviewed By: Justin Caldwell MD Signed By: Justin Caldwell MD Signed Date/Time: 12/08/21 8:19 am Transcribed By: MARY ALICE Transcribed Date/Time: 12/08/21 8:10 am Exam Date Time Procedure Performing Provider Status 12/08/21 3:56 AM Pelvis 1 or 2 Views Nelli Khanna; Claudio (Ver ied) Notes:(Pelvis 1 or 2 Views) Reason For Exam: PainRESULT: Pelvis 1 or 2 Views PROCEDURE: Pelvis 1 or 2 Views, Femur 2 Views Left CLINICAL INDICATION: 46 years old Male with Hx of Present Illness: pt. At [employer] fell forward striking forehead no loc; Reason: Pain; Clinical Question(s): Fracture. TECHNIQUE: AP pelvis and AP and crosstable lateral views of the LEFT femur including a frog lateral view of the LEFT hip are obtained. COMPARISONS: Pelvis and LEFT hip, enhanced CT abdomen and pelvis of November 23, 2021, CT LEFT hip of later today December 08, 2021. FINDINGS: Bones and joints: No acute fracture or dislocation. Old healed fractures of the LEFT superior and inferior pubic rami again seen. Mild degenerative changes of the hip joints bilaterally. Moderate calcifications adjacent to the RIGHT greater trochanter consistent with significant enthesopathy (calcification at ligament and tendon insertion sites) or trochanteric bursitis. Focal lucency along the weightbearing aspect of the LEFT femoral head correlating with AVN and subchondral collapse on CT which also showed more subtle evidence of AVN in the RIGHT femoral head not seen radiographically.. Small suprapatellar effusion in the LEFT knee. Soft Tissues: Moderate volume of fecal material in the RIGHT colon and increased volume of gas in small and large bowel loops without definite dilatation.. No evidence of radiopaque foreign body. IMPRESSION: 1. No evidence of acute bony injuries. 2. AVN with mild subchondral collapse of the LEFT femoral head. 3. Mild degenerative changes of both hips. 4. Old healed fractures LEFT superior and inferior pubic rami. 5. Small LEFT pleural effusion. Thank you for allowing me to participate in the care of this patient. WSN: [id number] Ordering Physician: Fly Jones Dictated By: Justin Caldwell MD Dictated Date/Time: 12/08/21 8:19 am Reviewed By: Justin Caldwell MD Signed By: Justin Caldewll MD Signed Date/Time: 12/08/21 8:19 am Transcribed By: MARY ALICE Transcribed Date/Time: 12/08/21 8:10 am Exam Date Time Procedure Performing Provider Status 12/08/21 3:56 AM Ankle Min 3 Views Left Nelli Khanna; Auth (Ve rified) Notes:(Ankle Min 3 Views Left) Reason For Exam: PainRESULT: Ankle Min 3 Views Left PROCEDURE: Ankle Min 3 Views Left CLINICAL INDICATION: 46 years old Male with Hx of Present Illness: pt. At [facility] fell forward striking forehead no loc; Reason: Pain; Clinical Question(s): Fracture. TECHNIQUE: Three views of the LEFT ankle are obtained. COMPARISONS: None. FINDINGS: Bones and joints: No fracture or dislocation. Joint spaces are normal. Soft Tissues: Mild soft tissue sonogram of the medial and lateral malleoli and posterior to the ankle No evidence of radiopaque foreign body. IMPRESSION: 1. No evidence of acute bony injuries. 2. Mild soft tissue about the ankle with relative sparing anteriorly. Thank you for allowing me to participate in the care of this patient. WSN: [id number] Ordering Physician: Fly Jones Dictated By: Justin Caldwell MD Dictated Date/Time: 12/08/21 8:10 am Reviewed By: Justin Caldwell MD Signed By: Justin Caldwell MD Signed Date/Time: 12/08/21 8:10 am Transcribed By: MARY ALICE Transcribed Date/Time: 12/08/21 8:09 am Exam Date Time Procedure Performing Provider Status 12/08/21 3:56 AM Chest 2 Views Frontal and Lat Nelli Khanna; [place] [facility] (Verified) Notes:(Chest 2 Views Frontal and Lat) Reason For Exam: Traumatic Chest Pain;Other:RESULT: Chest 2 Views Frontal and Lat Chest 2 Views Frontal and Lat Hx of Present Illness: pt. at [facility] fell forward striking forehead no loc; Reason: Other:; Traumatic Chest Pain; Clinical Question(s): Other:; Pneumothorax, Fracture COMPARISON: 11/02/2021 FINDINGS: LINES AND TUBES: None. LUNGS AND PLEURA: Clear lungs. Normal pulmonary vascularity. No pleural effusion. No pneumothorax. HEART, MEDIASTINUM AND BALTA: Heart is normal in size. Normal mediastinal and hilar contour. BONES AND SOFT TISSUES: Multiple chronic right-sided rib fractures. No acute fracture. Large volume stool retention. IMPRESSION: No acute abnormality. WSN: [id number] Ordering Physician: Fly Jones Dictated By: Marvin Mercedes MD Dictated Date/Time: 12/08/21 8:08 am Reviewed By: Marvin Mercedes MD Signed By: Marvin Mercedes MD Signed Date/Time: 12/08/21 8:08 am Transcribed By: MARY ALICE Transcribed Date/Time: 12/08/21 8:05 am Vital Signs Most recent to oldest 1 2 3 [Reference Range]: Height 175 cm 175 cm 175 cm (12/09/21 11:10 AM) (12/09/21 7:30 AM) (12/09/21 4:00 AM) Weight 68.5 kg (12/08/21 5:57 PM) Oxygen Saturation [94-100 96 % 99 % 96 % %] (12/09/21 11:10 AM) (12/09/21 7:30 AM) (12/09/21 4:00 AM) Pulse Rate [55-90 bpm] 59 bpm 65 bpm 66 bpm (12/09/21 11:10 AM) (12/09/21 7:30 AM) (12/09/21 4:00 AM) Body Mass Index [18.5-24.99 22.37 kg/m2 kg/m2] (12/08/21 5:57 PM) Blood Pressure 140/98 mm Hg 139/108 mm Hg 156/112 mm Hg [90-138/55-84 mm Hg] *H* *H* *H* (12/09/21 11:22 AM) (12/09/21 11:10 AM) ( 2 7:30 AM) Respiratory Rate [16-30 17 br/min 17 br/min 16 br/mi n br/min] (12/09/21 1:10 PM) (12/09/21 12:18 PM) (12/09/21 11:10 AM) Temperature [96.8-100.4 98.4 DegF 98.1 DegF 98.1 Deg F DegF] (12/09/21 11:10 AM) (12/09/21 7:30 AM) (12/09/21 4:00 AM) Mode of Delivery (Oxygen) Room air Room air Room a ir (12/09/21 11:10 AM) (12/09/21 7:30 AM) (12/09/21 4:00 AM) Blood pressure sites Arm, right Arm, left Arm, left (12/09/21 11:10 AM) (12/09/21 7:30 AM) (12/09/21 4:00 AM) Temperature Route Oral Oral Oral (12/09/21 11:10 AM) (12/09/21 7:30 AM) (12/09/21 4:00 AM) Dry Weight 68.5 kg (12/08/21 5:57 PM) Social History Social History Type Response Tobacco Use: 4 or less cigarettes(le ss than 1/4 pack)/day in last 30 days. Sex Note [facility] , CIS S: TRANSCRIMarvin Gillette MD: VERIFY Event Display: Result: Authored Date: Chest 2 Views Frontal and Lat Hx of Present Illness: pt. at [facility] fell forward striking forehead no loc; Reason: Other:; Traumatic Chest Pain; Clinical Question(s): Other:; Pneumothorax, Fracture COMPARISON: 11/02/2021 FINDINGS: LINES AND TUBES: None. LUNGS AND PLEURA: Clear lungs. Normal pulmonary vascularity. No pleural effusion. No pneumothorax. HEART, MEDIASTINUM AND BALTA: Heart is normal in size. Normal mediastinal and hilar contour. BONES AND SOFT TISSUES: Multiple chronic right-sided rib fractures. No acute fracture. Large volume stool retention. IMPRESSION: No acute abnormality. WSN: [id number] Ordering Physician: Fly Jones Dictated By: Marvin Mercedes MD Dictated Date/Time: 12/08/21 8:08 am Reviewed By: Marvin Mercedes MD Signed By: Marvin Merecdes MD Signed Date/Time: 12/08/21 8:08 am Transcribed By: MARY ALICE Transcribed Date/Time: 12/08/21 8:05 am XR Ankle - left GE 3 Views [facility] , CIS S: TRANSCRIBE Justin Caldwell MD: VERIFY Event Display: Result: Authored Date: PROCEDURE: Ankle Min 3 Views Left CLINICAL INDICATION: 46 years old Male with Hx of Present Illness: pt. At [facility] fell forward striking forehead no loc; Reason: Pain; Clinical Question(s): Fracture. TECHNIQUE: Three views of the LEFT ankle are obtained. COMPARISONS: None. FINDINGS: Bones and joints: No fracture or dislocation. Joint spaces are normal. Soft Tissues: Mild soft tissue sonogram of the medial and lateral malleoli and posterior to the ankle No evidence of radiopaque foreign body. IMPRESSION: 1. No evidence of acute bony injuries. 2. Mild soft tissue about the ankle with relative sparing anteriorly. Thank you for allowing me to participate in the care of this patient. WSN: [id number] Ordering Physician: Fly Jones Dictated By: Justin Caldwell MD Dictated Date/Time: 12/08/21 8:10 am Reviewed By: Justin Caldwell MD Signed By: Justin Caldwell MD Signed Date/Time: 12/08/21 8:10 am Transcribed By: CSJsesica Transcribed Date/Time: 12/08/21 8:09 am XR Femur - left 2 Views [facility] , CIS S: TRANSCRIBE Justin Caldwell MD: VERIFY Event Display: Result: Authored Date: PROCEDURE: Pelvis 1 or 2 Views, Femur 2 Views Left CLINICAL INDICATION: 46 years old Male with Hx of Present Illness: pt. At [employer] fell forward striking forehead no loc; Reason: Pain; Clinical Question(s): Fracture. TECHNIQUE: AP pelvis and AP and crosstable lateral views of the LEFT femur including a frog lateral view of the LEFT hip are obtained. COMPARISONS: Pelvis and LEFT hip, enhanced CT abdomen and pelvis of November 23, 2021, CT LEFT hip of later today December 08, 2021. FINDINGS: Bones and joints: No acute fracture or dislocation. Old healed fractures of the LEFT superior and inferior pubic rami again seen. Mild degenerative changes of the hip joints bilaterally. Moderate calcifications adjacent to the RIGHT greater trochanter consistent with significant enthesopathy (calcification at ligament and tendon insertion sites) or trochanteric bursitis. Focal lucency along the weightbearing aspect of the LEFT femoral head correlating with AVN and subchondral collapse on CT which also showed more subtle evidence of AVN in the RIGHT femoral head not seen radiographically.. Small suprapatellar effusion in the LEFT knee. Soft Tissues: Moderate volume of fecal material in the RIGHT colon and increased volume of gas in small and large bowel loops without definite dilatation.. No evidence of radiopaque foreign body. IMPRESSION: 1. No evidence of acute bony injuries. 2. AVN with mild subchondral collapse of the LEFT femoral head. 3. Mild degenerative changes of both hips. 4. Old healed fractures LEFT superior and inferior pubic rami. 5. Small LEFT pleural effusion. Thank you for allowing me to participate in the care of this patient. WSN: [id number] Ordering Physician: Fly Jones Dictated By: Justin Caldwell MD Dictated Date/Time: 12/08/21 8:19 am Reviewed By: Justin Caldwell MD Signed By: Justin Caldwell MD Signed Date/Time: 12/08/21 8:19 am Transcribed By: CSJessica Transcribed Date/Time: 12/08/21 8:10 am XR Pelvis 1 or 2 Views [facility] , CIS S: TRANSCRIBE Justin Caldwell MD: VERIFY Event Display: Result: Authored Date: [id number] PROCEDURE: Pelvis 1 or 2 Views, Femur 2 Views Left CLINICAL INDICATION: 46 years old Male with Hx of Present Illness: pt. At [employer] fell forward striking forehead no loc; Reason: Pain; Clinical Question(s): Fracture. TECHNIQUE: AP pelvis and AP and crosstable lateral views of the LEFT femur including a frog lateral view of the LEFT hip are obtained. COMPARISONS: Pelvis and LEFT hip, enhanced CT abdomen and pelvis of November 23, 2021, CT LEFT hip of later today December 08, 2021. FINDINGS: Bones and joints: No acute fracture or dislocation. Old healed fractures of the LEFT superior and inferior pubic rami again seen. Mild degenerative changes of the hip joints bilaterally. Moderate calcifications adjacent to the RIGHT greater trochanter consistent with significant enthesopathy (calcification at ligament and tendon insertion sites) or trochanteric bursitis. Focal lucency along the weightbearing aspect of the LEFT femoral head correlating with AVN and subchondral collapse on CT which also showed more subtle evidence of AVN in the RIGHT femoral head not seen radiographically.. Small suprapatellar effusion in the LEFT knee. Soft Tissues: Moderate volume of fecal material in the RIGHT colon and increased volume of gas in small and large bowel loops without definite dilatation.. No evidence of radiopaque foreign body. IMPRESSION: 1. No evidence of acute bony injuries. 2. AVN with mild subchondral collapse of the LEFT femoral head. 3. Mild degenerative changes of both hips. 4. Old healed fractures LEFT superior and inferior pubic rami. 5. Small LEFT pleural effusion. Thank you for allowing me to participate in the care of this patient. WSN: [id number] Ordering Physician: Fly Jones Dictated By: Justin Caldwell MD Dictated Date/Time: 12/08/21 8:19 am Reviewed By: Justin Caldwell MD Signed By: Justin Caldwell MD Signed Date/Time: 12/08/21 8:19 am Transcribed By: MARY ALICE Transcribed Date/Time: 12/08/21 8:10 am Patient Care team information PersonnelName: Not on Staff, PCP
--- OUTSIDE RECORDS SUMMARY | 2021-12-21 16:11 | XMS_ITS | Continuity of Care Document ---
:1975 Author Organization [facility] Address [address] [place] [id number]- Care Team Providers Name Role Phone Not on Staff, PCP Primary Care Physician Unavailable [place] [facility] [place] 11/26/21 - 11/30/[address] [address] Encounter Diagnosis Substance use disorder (Final) - 11/23/21 Fall (Final) - 11/23/21 Rib fracture (Final) - 11/23/21 Opiate addiction (Final) - 11/23/21 Discharge Disposition: A-D/C Home Attending Physician: Mateusz Vital MD Admitting Physician: Preston Jay MD Referring Physician: Not on Staff, Referring MD Allergies, Adverse Reactions, Alerts Substance Reaction Severity Status diphenhydrAMINE Active Medications acetaminophen 325 mg oral tablet 975 mg, By Mouth, 3 times a day, Temperature Greater than 100.5, # 24 tablet, Refills 0, Tot. Refills 0, Maintenance, 11/30/21 12:01:00 EDT, Route to Pharmacy Electronically, [facility], Partial fill upon patient request if the prescript... Start Date: 11/30/21 Stop Date: 12/07/21 Status: Orderedaspirin 81 mg oral delayed release tablet 81 mg, By Mouth, Daily, # 30 tablet, Refills 0, Tot. Refills 0, Maintenance, 11/30/21 12:01:00 EDT, Route to Pharmacy Electronically, [facility], Partial fill upon patient request if the prescription is for a schedule II opioid drug., 17... Start Date: 11/30/21 Status: Orderedmagnesium oxide 400 mg oral tablet 1 tablet = 400 mg, By Mouth, Daily, for 7 days, # 7 tablet, 0 Refills, Acute 12/07/21 12:02:00 EDT, 11/30/21 12:02:00 EDT, Tablet, [facility], Partial fill upon patient request if the prescription is for a schedule II opioid drug., 175.3... Start Date: 11/30/21 Stop Date: 12/07/21 Status: Orderedmethadone 10 mg oral tablet 30 mg, Tablet, By Mouth, 11/30/21 9:00:00 EDT Start Date: 11/30/21 Stop Date: 11/30/21 Status: CompletedNIFEdipine 30 mg oral tablet, extended release 30 mg, 1, tablet, By Mouth, Daily, # 30 tablet, Refills 0, Tot. Refills 0, Maintenance, 11/30/21 12:02:00 EDT, Route to Pharmacy Electronically, [facility], Partial fill upon patient request if the prescription is for a schedule II opioi... Start Date: 11/30/21 Status: OrderedNIFEdipine 30 mg oral tablet, extended release 30 mg, ER Tablet, By Mouth, 11/30/21 9:00:00 EDT Start Date: 11/30/21 Stop Date: 11/30/21 Status: Completedtamsulosin 0.4 mg oral capsule 1 capsule = 0.4 mg, By Mouth, Daily, # 30 capsule, 0 Refills, Maintenance, 10/19/12 10:35:42 EDT, Capsule Start Date: 10/19/12 Stop Date: 11/18/12 Status: OrderedTylenol 325 mg oral tablet 650 mg, Tablet, By Mouth, Once, PRN for Pain , Moderate, LACY, 11/30/21 3:16:00 EDT Start Date: 11/30/21 Stop Date: 11/30/21 Status: Completed Results Radiology Reports Exam Date Time Procedure Performing Provider Status 11/23/21 12:08 AM XR Femur 2 Views Left Ghotra , Claudia; Auth (V erified) Notes:(XR Femur 2 Views Left) Reason For Exam: with Pain;TraumaRESULT: Femur 2 Views Left XR Hip w/Pelvis 2-3 View Left, Femur 2 Views Left HX OF PRESENT ILLNESS: Fall with hip pain; Reason: Pain; Clinical Question(s): Fracture COMPARISON: Subsequent pelvis CT. FINDINGS: Chronic appearing left superior and inferior pubic ramus fractures. Heterogeneous lucency/cystic change in the bilateral femoral heads, left more than right. No femoralhead collapse. Normal soft tissues. IMPRESSION: 1. No acute fracture or dislocation. 2. Chronic appearing left superior and inferior pubic ramus fractures. 3. Appearance of the femoral heads is likely due to avascular necrosis. WSN: [id number] Ordering Physician: Velia Reveles Dictated By: Trent Dumont MD Dictated Date/Time: 11/23/21 7:51 am Reviewed By: Trent Dumont MD Signed By: Trent Dumont MD Signed Date/Time: 11/23/21 7:51 am Transcribed By: MARY ALICE Transcribed Date/Time: 11/23/21 7:48 am Exam Date Time Procedure Performing Provider Status 11/23/21 12:08 AM XR Hip w/Pelvis 2-3 View Left Claudia Ghotra; Auth (Verified) Notes:(XR Hip w/Pelvis 2-3 View Left) Reason For Exam: PainRESULT: XR Hip w/Pelvis 2-3 View Left XR Hip w/Pelvis 2-3 View Left, Femur 2 Views Left HX OF PRESENT ILLNESS: Fall with hip pain; Reason: Pain; Clinical Question(s): Fracture COMPARISON: Subsequent pelvis CT. FINDINGS: Chronic appearing left superior and inferior pubic ramus fractures. Heterogeneous lucency/cystic change in the bilateral femoral heads, left more than right. No femoralhead collapse. Normal soft tissues. IMPRESSION: 1. No acute fracture or dislocation. 2. Chronic appearing left superior and inferior pubic ramus fractures. 3. Appearance of the femoral heads is likely due to avascular necrosis. WSN: [id number] Ordering Physician: Velia Reveles Dictated By: Trent Dumont MD Dictated Date/Time: 11/23/21 7:51 am Reviewed By: Trent Dumont MD Signed By: Trent Dumont MD Signed Date/Time: 11/23/21 7:51 am Transcribed By: MARY ALICE Transcribed Date/Time: 11/23/21 7:48 am Vital Signs Most recent to oldest 1 2 3 [Reference Range]: Height 175.3 cm 175.3 cm 175.3 cm (11/30/21 1:02 PM) (11/30/21 4:29 AM) (11/29/21 7:3 6 PM) Weight 68.2 kg (11/24/21 4:02 PM) Oxygen Saturation [94-100 98 % 93 % 94 % %] (11/30/21 1:02 PM) *L* (11/29/21 7:36 PM) (11/30/21 4:29 AM) Pulse Rate [55-90 bpm] 74 bpm 74 bpm 72 bpm (11/30/21 1:02 PM) (11/30/21 4:29 AM) (11/29/21 7:3 6 PM) Body Mass Index [18.5-24.99 22.19 kg/m2 kg/m2] (11/24/21 4:02 PM) Blood Pressure 132/85 mm Hg 133/77 mm Hg 118/70 mm Hg [90-138/55-84 mm Hg] (11/30/21 1:02 PM) (11/30/21 9:11 AM) ( 4:29 AM) Respiratory Rate [16-30 18 br/min 18 br/min 18 br/mi n br/min] (11/30/21 1:02 PM) (11/30/21 9:11 AM) (11/30/21 4:4 5 AM) Temperature [96.8-100.4 97.8 DegF 99.2 DegF 98.0 Deg F DegF] (11/30/21 1:02 PM) (11/30/21 4:29 AM) (11/29/21 7:3 6 PM) Liters per Minute 1 L/min 1 L/min 2 L/min (11/29/21 4:19 AM) (11/28/21 8:19 PM) (11/28/21 2:1 1 PM) Mode of Delivery (Oxygen) Room air Room air Room a ir (11/30/21 1:02 PM) (11/30/21 4:29 AM) (11/29/21 7:3 6 PM) Blood pressure sites Arm, left Arm, left Arm, left (11/30/21 1:02 PM) (11/30/21 4:29 AM) (11/29/21 7:3 6 PM) Temperature Route Oral Oral Oral (11/30/21 1:02 PM) (11/30/21 4:29 AM) (11/29/21 7:3 6 PM) Dry Weight 66.8 kg (11/24/21 4:02 PM) Weight Obtained Via Patient/family stated (11/24/21 4:02 PM) Dry Weight Obtained Via Bed scale (11/24/21 4:02 PM) XR Femur - left 2 Views [facility] , CIS S: TRANSCRIBE Trent Dumont MD: VERIFY Event Display: Result: Authored Date: XR Hip w/Pelvis 2-3 View Left, Femur 2 Views Left HX OF PRESENT ILLNESS: Fall with hip pain; Reason: Pain; Clinical Question(s): Fracture COMPARISON: Subsequent pelvis CT. FINDINGS: Chronic appearing left superior and inferior pubic ramus fractures. Heterogeneous lucency/cystic change in the bilateral femoral heads, left more than right. No femoralhead collapse. Normal soft tissues. IMPRESSION: 1. No acute fracture or dislocation. 2. Chronic appearing left superior and inferior pubic ramus fractures. 3. Appearance of the femoral heads is likely due to avascular necrosis. WSN: [id number] Ordering Physician: Velia Reveles Dictated By: Trent Dumont MD Dictated Date/Time: 11/23/21 7:51 am Reviewed By: Trent Dumont MD Signed By: Trent Dumont MD Signed Date/Time: 11/23/21 7:51 am Transcribed By: MARY ALICE Transcribed Date/Time: 11/23/21 7:48 am XR Pelvis and Hip - left Views [facility] , CIS S: TRANSCRIBE Trent Dumont MD: VERIFY Event Display: Result: Authored Date: [id number] XR Hip w/Pelvis 2-3 View Left, Femur 2 Views Left HX OF PRESENT ILLNESS: Fall with hip pain; Reason: Pain; Clinical Question(s): Fracture COMPARISON: Subsequent pelvis CT. FINDINGS: Chronic appearing left superior and inferior pubic ramus fractures. Heterogeneous lucency/cystic change in the bilateral femoral heads, left more than right. No femoralhead collapse. Normal soft tissues. IMPRESSION: 1. No acute fracture or dislocation. 2. Chronic appearing left superior and inferior pubic ramus fractures. 3. Appearance of the femoral heads is likely due to avascular necrosis. WSN: [id number] Ordering Physician: Velia Reveles Dictated By: Trent Dumont MD Dictated Date/Time: 11/23/21 7:51 am Reviewed By: Trent Dumont MD Signed By: Trnet Dumont MD Signed Date/Time: 11/23/21 7:51 am Transcribed By: MARY ALICE Transcribed Date/Time: 11/23/21 7:48 am Patient Care team information PersonnelName: Not on Staff, PCP
--- OUTSIDE RECORDS SUMMARY | 2021-12-21 16:11 | XMS_ITS | Continuity of Care Document ---
:1975 Author Organization [facility] Address [address] [place] [address]- Care Team Providers Name Role Phone Not on Staff, PCP Primary Care Physician Unavailable Encounter [facility] [place] Date(s): 11/30/21 - 12/01/[address] [address]- Discharge Disposition: A-D/C Home Attending Physician: Samuel Dalton MD Admitting Physician: Samuel Dalton MD Referring Physician: Not on Staff, Referring MD Allergies, Adverse Reactions, Alerts Substance Reaction Severity Status diphenhydrAMINE Active Medications acetaminophen 325 mg oral tablet 975 mg, By Mouth, 3 times a day, Temperature Greater than 100.5, # 24 tablet, Refills 0, Tot. Refills 0, Maintenance, 11/30/21 12:01:00 EDT, Route to Pharmacy Electronically, [facility], Partial fill upon patient request if the prescript... Start Date: 11/30/21 Stop Date: 12/07/21 Status: Orderedaspirin 81 mg oral delayed release tablet 81 mg, By Mouth, Daily, # 30 tablet, Refills 0, Tot. Refills 0, Maintenance, 11/30/21 12:01:00 EDT, Route to Pharmacy Electronically, [facility], Partial fill upon patient request if the prescription is for a schedule II opioid drug., 17... Start Date: 11/30/21 Status: Orderedmagnesium oxide 400 mg oral tablet 1 tablet = 400 mg, By Mouth, Daily, for 7 days, # 7 tablet, 0 Refills, Acute 12/07/21 12:02:00 EDT, 11/30/21 12:02:00 EDT, Tablet, [facility], Partial fill upon patient request if the prescription is for a schedule II opioid drug., 175.3... Start Date: 11/30/21 Stop Date: 12/07/21 Status: OrderedNIFEdipine 30 mg oral tablet, extended release 30 mg, ER Tablet, By Mouth, 12/01/21 9:00:00 EDT Start Date: 12/01/21 Stop Date: 12/01/21 Status: CompletedNIFEdipine 30 mg oral tablet, extended release 30 mg, 1, tablet, By Mouth, Daily, # 30 tablet, Refills 0, Tot. Refills 0, Maintenance, 11/30/21 12:02:00 EDT, Route to Pharmacy Electronically, [facility], Partial fill upon patient request if the prescription is for a schedule II opioi... Start Date: 11/30/21 Status: Orderedtamsulosin 0.4 mg oral capsule 1 capsule = 0.4 mg, By Mouth, Daily, # 30 capsule, 0 Refills, Maintenance, 10/19/12 10:35:42 EDT, Capsule Start Date: 10/19/12 Stop Date: 11/18/12 Status: Ordered Vital Signs Most recent to oldest 1 2 3 [Reference Range]: Oxygen Saturation [94-100 %] 97 % 97 % 97 % (12/01/21 9:25 PM) (12/01/21 11:58 AM) (12/01/21 10 :35 AM) Pulse Rate [55-90 bpm] 76 bpm 73 bpm 79 bpm (12/01/21 9:25 PM) (12/01/21 11:58 AM) (12/01/21 10 :35 AM) Blood Pressure [90-138/55-84 131/90 mm Hg 132/84 mm Hg 133 /79 mm Hg mm Hg] (12/01/21 9:25 PM) (12/01/21 11:58 AM) (12/01/21 10 :35 AM) Respiratory Rate [16-30 16 br/min 18 br/min 18 br/mi n br/min] (12/01/21 9:25 PM) (12/01/21 11:58 AM) (12/01/21 10 :35 AM) Temperature [96.8-100.4 98.4 DegF 98.1 DegF 97.9 Deg F DegF] (12/01/21 11:58 AM) (12/01/21 7:42 AM) (12/01/21 2: 27 AM) Mode of Delivery (Oxygen) Room air Room air Room a ir (12/01/21 9:25 PM) (12/01/21 11:58 AM) (12/01/21 7: 42 AM) Blood pressure sites Arm, left Arm, left Arm, left (12/01/21 9:25 PM) (12/01/21 11:58 AM) (12/01/21 7: 42 AM) Temperature Route Oral Oral Oral (12/01/21 11:58 AM) (12/01/21 7:42 AM) (12/01/21 2: 27 AM) Patient Care team information PersonnelName: Not on Staff, PCP
--- OUTSIDE RECORDS SUMMARY | 2021-12-21 16:11 | XMS_ITS | Continuity of Care Document ---
:1975 Author Organization [facility] Address [address] [place] [address]- Care Team Providers Name Role Phone Not on Staff, PCP Primary Care Physician Unavailable [place] [facility] [place] 04/13/20 [place] 04/13/20 [facility] [address] [place] [address]- Discharge Disposition: A-D/C Home Attending Physician: Raza Mack MD Admitting Physician: Raza Mack MD Referring Physician: Not on Staff, Referring [...] Height 175 cm 175 cm 175 cm (04/13/20 6:09 PM) (04/13/20 4:49 PM) (04/13/20 2:3 8 PM) Weight 72 kg 72 kg 72 kg (04/13/20 6:09 PM) (04/13/20 4:49 PM) (04/13/20 2:3 8 PM) Oxygen Saturation [94-100 %] 98 % 100 % (04/13/20 4:49 PM) (04/13/20 2:38 PM) Pulse Rate [55-90 bpm] 67 bpm 97 bpm (04/13/20 4:49 PM) *H* (04/13/20 2:38 PM) Body Mass Index [18.5-24.99] 23.51 (04/13/20 4:49 PM) Blood Pressure [90-138/55-84 mm 132/90 mm Hg 147/104 mm Hg Hg] (04/13/20 4:49 PM) *H* (04/13/20 2:38 PM) Respiratory Rate [16-30 br/min] 16 br/min 18 br/min (04/13/20 4:49 PM) (04/13/20 2:38 PM) Temperature [96.8-100.4 DegF] 98.2 DegF 97.5 DegF (04/13/20 4:49 PM) (04/13/20 2:38 PM) Mode of Delivery (Oxygen) Room air Room air (04/13/20 4:49 PM) (04/13/20 2:38 PM) Blood pressure sites Arm, left (04/13/20 2:38 PM) Temperature Route Oral Oral (04/13/20 4:49 PM) (04/13/20 2:38 PM) Dry Weight 72 kg 72 kg 72 kg (04/13/20 6:09 PM) (04/13/20 4:49 PM) (04/13/20 2:3 8 PM)
--- OUTSIDE RECORDS SUMMARY | 2021-12-21 16:11 | XMS_ITS | Continuity of Care Document ---
:1975 Author Organization [facility] Address [address] [place] [address]- Care Team Providers Name Role Phone Not on Staff, PCP Primary Care Physician Unavailable [place] [facility] [place] 12[place]18[place]21 [facility] [address] [place] [id number] Attending Physician: Jace Tierney MD Admitting Physician: Jace Tierney MD Referring Physician: Jace Tierney MD Allergies, Adverse Reactions, Alerts Substance Reaction Severity Status diphenhydrAMINE Active Medications levothyroxine 0.1 mg oral tablet By Mouth, Daily, 0 Refills, Maintenance, 12/08/21 15:08:00 EDT, Partial fill upon patient request ifthe prescription is for a schedule II opioid drug. Start Date: 12/08/21 Status: OrderedLisinopril By Mouth, Daily, Maintenance, 12/08/21 15:08:00 EDT, Partial fill upon patient request if the prescription is for a schedule II opioid drug. Start Date: 12/08/21 Status: Ordered Problem List Condition Confirmation Course Effective Dates Status Health I nformant Status Avascular necrosis of Confirmed Active hip Essential Confirmed Active hypertension IV heroin dependence Confirmed Active History of subdural Confirmed 11/02/21 Active hematoma History of traumatic Confirmed Active brain injury Hypothyroidism Confirmed Active Tobacco dependence Confirmed Active Social History Social History Type Response Tobacco Use: 4 or less cigarettes(le ss than 1/4 pack)/day in last 30 days. Sex Patient Care team information PersonnelName: Not on Staff, PCP
--- OUTSIDE RECORDS SUMMARY | 2021-12-21 16:11 | XMS_ITS | Continuity of Care Document ---
:1975 Author Organization [facility] Address [address] [place] [address]- Care Team Providers Name Role Phone Not on Staff, PCP Primary Care Physician Unavailable [place] [facility] [place] [facility] [address] [place], [place] [address] Discharge Disposition: A-D/C AMA Attending Physician: Marques lAvares MD Admitting Physician: Marques Alvares MD Referring Physician: Not on Staff, Referring [...] Start Date: 10/19/12 Stop Date: 11/02/12 Status: OrderedoxyCODONE 5 mg oral tablet 5 mg, Tablet, By Mouth, Every 6 hours, PRN for Pain , Severe, Routine, 11/02/21 7:13:00 EDT Start Date: 11/02/21 Stop Date: 11/03/21 Status: Discontinuedtamsulosin 0.4 mg oral capsule 1 capsule = 0.4 mg, By Mouth, Daily, # 30 capsule, 0 Refills, Maintenance, Capsule Start Date: 10/19/12 Stop Date: 11/18/12 Status: Ordered Results Radiology Reports Exam Date Time Procedure Performing Provider Status 11/02/21 4:47 AM Chest Portable Mahsa Alvesian; Claudio (Verified) Notes:(Chest Portable) Reason For Exam: Pain;Other:RESULT: Chest Portable Chest Portable Reason: Other:; Pain; Clinical Question(s): Other:; Fracture, pneumothorax, pulmonary contusion COMPARISON: None. FINDINGS: LINES AND TUBES: None. LUNGS AND PLEURA: Minimal atelectasis at right lung base, otherwise clear lungs. Normal pulmonary vascularity. No pleural effusion. No pneumothorax. HEART, MEDIASTINUM AND BALTA: Heart is normal in size. Normal upper mediastinal and hilar contour. BONES AND SOFT TISSUES: There are recent appearing right posterior fifth-seventh rib fractures. IMPRESSION: Recent appearing right posterior rib fractures. No acute intrathoracic pathology. Mild atelectasis at right lung base. WSN: [id number] Ordering Physician: Rodger Broussard Dictated By: Trent Heart MD Dictated Date/Time: 11/02/21 6:55 am Reviewed By: Trent Heart MD Signed By: Trent Heart MD Signed Date/Time: 11/02/21 6:55 am Transcribed By: MARY ALICE Transcribed Date/Time: 11/02/21 6:49 am Vital Signs Most recent to oldest 1 2 3 4 [Reference Range]: Height 176 cm (11/02/21 10:51 AM) Weight 64 kg 64.7 kg 64.7 kg 64.7 kg (11/03/21 8:00 AM) (11/02/21 10:51 AM) (11/02/21 7:31 AM) ( 7:31 AM) Oxygen Saturation 99 % 98 % 98 % [94-100 %] (11/03/21 8:00 AM) (11/03/21 7:00 AM) (11/03/21 6:00 AM) Pulse Rate [55-90 bpm] 59 bpm 61 bpm (11/02/21 10:51 AM) (11/02/21 5:07 AM) Body Mass Index 20.89 [18.5-24.99] (11/02/21 10:51 AM) Blood Pressure 141/101 mm Hg 136/112 mm Hg 138/102 mm Hg [90-138/55-84 mm Hg] *H* (11/03/21 7:00 AM) (11/03/21 6:21 AM) (11/03/21 8:00 AM) Respiratory Rate 10 br/min 10 br/min 10 br/min [16-30 br/min] *L* *L* *L* (11/03/21 11:19 AM) (11/03/21 10:52 AM) (11/03/21 9:52 AM) Temperature 97.9 DegF 98.7 DegF 98 DegF [96.8-100.4 DegF] (11/03/21 8:00 AM) (11/03/21 4:00 AM) (11/03/21 12:00 A M) Mode of Delivery Room air Room air Room air (Oxygen) (11/03/21 11:00 AM) (11/03/21 10:00 AM) (11/03/21 9:00 AM) Blood pressure sites Arm, left Arm, left Arm, left (11/03/21 8:00 AM) (11/03/21 7:00 AM) (11/03/21 6:00 AM) Temperature Route Oral Oral Oral (11/03/21 8:00 AM) (11/03/21 4:00 AM) (11/03/21 12:00 AM) Dry Weight 64.7 kg (11/02/21 10:51 AM) Weight Obtained Via Bed scale Bed scale Bed scale Bed scal e (11/03/21 8:00 AM) (11/02/21 10:51 AM) (11/02/21 7:31 AM) ( 7:31 AM) Dry Weight Obtained Bed scale Via (11/02/21 10:51 AM) Portable XR Chest Views [facility] , CIS S: TRANSCRIBE Sly STARK, Trent Hopkins: VERIFY Event Display: Result: Authored Date: Chest Portable Reason: Other:; Pain; Clinical Question(s): Other:; Fracture, pneumothorax, pulmonary contusion COMPARISON: None. FINDINGS: LINES AND TUBES: None. LUNGS AND PLEURA: Minimal atelectasis at right lung base, otherwise clear lungs. Normal pulmonary vascularity. No pleural effusion. No pneumothorax. HEART, MEDIASTINUM AND BALTA: Heart is normal in size. Normal upper mediastinal and hilar contour. BONES AND SOFT TISSUES: There are recent appearing right posterior fifth-seventh rib fractures. IMPRESSION: Recent appearing right posterior rib fractures. No acute intrathoracic pathology. Mild atelectasis at right lung base. WSN: [id number] Ordering Physician: Rodger Broussard Dictated By: Trent Heart MD Dictated Date/Time: 11/02/21 6:55 am Reviewed By: Trent Heart MD Signed By: Trent Heart MD Signed Date/Time: 11/02/21 6:55 am Transcribed By: MARY ALICE Transcribed Date/Time: 11/02/21 6:49 am Care Team PersonnelName: Not on Staff, PCP
--- OUTSIDE RECORDS SUMMARY | 2021-12-21 16:11 | XMS_ITS | Continuity of Care Document ---
:1975 Author Organization [facility] Address [address] [place] [address], [address] [place] [address]- Care Team Providers Name Role Phone Not on Staff, PCP Primary Care Physician Unavailable Encounter [facility] [place] Date(s): 11/18/21 - 12/18/[address], [address] [place], [place] [address] Attending Physician: Cas Gann Admitting Physician: Cas Gann Referring Physician: AdmtrCas Allergies, Adverse Reactions, Alerts Substance Reaction Severity [...]
--- OUTSIDE RECORDS SUMMARY | 2021-12-21 16:11 | XMS_ITS | Continuity of Care Document ---
:1975 Author Organization [facility] Address [address] [place] [address], [address] [place] [address]- Care Team Providers Name Role Phone Not on Staff, PCP Primary Care Physician Unavailable [place] [facility] [place] - 12/18/[address], [address] [place] [address]- Attending Physician: Niall STARK, Jace Stovall Referring Physician: Marlo Baron Allergies, Adverse Reactions, Alerts Substance Reaction Severity [...]
[2021-12-21 18:52] LABS: HSV 1 IgM IFA Negative (Negative); HSV 2 IgM IFA Negative (Negative)
[2021-12-21 19:55] VITALS: PULSE 61; RESP 18; TEMP 36.6; O2SAT 95
[2021-12-22] VITALS (8 sets, daily range): BP systolic 137–163; BP diastolic 91–99; PULSE 58–63; RESP 17–20; TEMP 36.5–37.1; O2SAT 94–97
[2021-12-22] MEDS: Enoxaparin Sodium 40 MG/0.4 ML SYRINGE SUBCUT (03:45)
[2021-12-22 07:00] LABS: Hematocrit 32.2 % (42.0-52.0); Hemoglobin 10.6 g/dl (14.0-18.0); Mean Corpuscular HGB Conc 32.9 g/dl (31.0-36.0); Mean Corpuscular Volume 85.2 fL (80.0-98.0); Mean Platelet Volume 10.1 fL (9.4-12.4); Platelet Count 302 X10*3/uL (160-400); Red Blood Count 3.78 X10*6/uL (4.60-5.80); Red Cell Distribution Width 15.9 % (11.0-16.0)
[2021-12-22 07:29] LABS: Creatinine Clr Calc Pharmacy 92.9; Estimated Glomerular Filt Rate > 60
[2021-12-22 07:31] LABS: Alanine Aminotransferase 27 U/L (0-40); Albumin Level 2.7 g/dL (3.5-5.0); Alkaline Phosphatase 349 U/L (39-117); Anion Gap 15 (12-20); Aspartate Amino Transferase 30 U/L (5-37); Bilirubin Direct 0.2 mg/dL (0.0-0.5); Bilirubin Total 0.3 mg/dL (0.0-1.0); Blood Urea Nitrogen 13 mg/dL (9-16); Calcium 8.2 mg/dL (8.4-10.2); Carbon Dioxide 26 mmol/L (22-29); Chloride 97 mmol/L (96-108); Estimated Glomerular Filt Rate > 60; Glucose Random 86 mg/dL (60-115); Potassium 3.8 mmol/L (3.3-5.1); Sodium 134 mmol/L (135-145); Total Protein 6.8 g/dL (6.5-8.0)
[2021-12-22 07:36] LABS: Vancomycin Random 14.4 mcg/mL (15-20)
[2021-12-22] MEDS: Lidocaine 4 % Patch ADH..PATCH 1 PATCH TRANSDERMA (08:02)
[2021-12-22] MEDS: hydrALAZINE HCl 25 MG TABLET PO ×3 (08:03→21:13)
[2021-12-22] MEDS: polyethylene glycoL 3350 17 GM POWD.PACK PO ×2 (08:03→21:13)
[2021-12-22] MEDS: Docusate Sodium 100 MG CAPSULE PO ×2 (08:03→21:13)
[2021-12-22] MEDS: NIFEdipine ER 30 MG TAB.ER.24 60 MG PO (08:04)
[2021-12-22] MEDS: Magnesium Oxide 400 MG TABLET PO ×2 (08:04→16:28)
[2021-12-22] MEDS: methADONE HCl 20 MG/2 ML ORAL.CONC 60 MG PO (08:04)
[2021-12-22] MEDS: Aspirin Enteric Coated 81 MG TABLET.DR PO (08:05)
[2021-12-22] MEDS: Lactated Ringers 1,000 ML 80 ML IVCONT (08:05)
--- NOTE | 2021-12-22 08:24 | HE.PHANOTE ---
VANCO DOSING ADJUSTMENT BASED ON SCR OF 0.96 AND TROUGH OF 14.4. DOSE CONTINUED AT 1500 Q 24H. NEXT TROUGH 12/24 @ 0600
[2021-12-22] MEDS: Magnesium Oxide 400 MG TABLET 800 MG PO (09:24)
[2021-12-22] MEDS: vancomycin HCL 1,500 MG in 0.9 % Sodium Chloride 500 ML 333.33 MG IV (09:25)
--- NOTE | 2021-12-22 10:01 | P.PNIM_ITS ---
Subjective Subjective Date of Service: 12/22/21 Interval History: f/u bacteremia interval history: had some abd pain last night but better today Review of Systems no fever no abd pain this mroning Physical Exam Vital Signs: Vital Signs: Last Vital Signs Temp 98.2 F 12/22/21 07:41 Pulse 62 12/22/21 07:41 Resp 18 12/22/21 07:41 BP 163/99 H 12/22/21 07:41 Pulse Ox 97 12/22/21 07:41 O2 Del Method 12/22/21 07:41 BMI result Body Mass Index 23.4 Appearance: Alert.? Oriented ,generalised weak cvs: rrr, [id number] , no murmur res: clear to auscultation ,no rhonchii or wheezing abd: no rebound or guarding ,nt, bs present. ext pulses present , no cyanosis . Patient has skin bruising all over his body including contusions to the face, large ecchymosis on his legs bilaterally neuro: axo3 , nonfocal. Objective Data Active Medications Acetaminophen (Acetaminophen 325 Mg Tablet) 650 mg PO Q6H PRN PRN Reason: Pain, Mild (Pain Scale 1-3) Last Admin: 12/21/21 05:12 Dose: 650 mg Documented By: MARISSA Aspirin (Aspirin Enteric Coated 81 Mg Tablet.) 81 mg PO DAILY [facility] Last Admin: 12/22/21 08:05 Dose: 81 mg Documented By: AROLDO Docusate Sodium (Docusate Sodium 100 Mg Capsule) 100 mg PO BID [facility] Last Admin: 12/22/21 08:03 Dose: 100 mg Documented By: AROLDO Enoxaparin Sodium (Enoxaparin Sodium 40 Mg/0.4 Ml Syringe) 40 mg SUBCUT Q24H [facility] Last Admin: 12/22/21 03:45 Dose: 40 mg Documented By: VIKASH Hydralazine HCl (Hydralazine Hcl 25 Mg Tablet) 25 mg PO TID [facility]; Protocol Last Admin: 12/22/21 08:03 Dose: 25 mg Documented By: AROLDO Hydroxyzine HCl (Hydroxyzine Hcl 25 Mg Tablet) 25 mg PO Q8H PRN PRN Reason: withdrawal symptoms Last Admin: 12/21/21 05:12 Dose: 25 mg Documented By: MARISSA Vancomycin HCl 1,500 mg/ (Sodium Chloride) 500 mls @ 333.333 mls/hr IV Q24H [facility] Last Admin: 12/22/21 09:25 Dose: 333.33 mls/hr Documented By: AROLDO Lidocaine (Lidocaine 4 % Patch Adh..Patch) 1 patch TRANSDERMA DAILY [facility]; Protocol Last Admin: 12/22/21 08:02 Dose: 1 patch Documented By: AROLDO Magnesium Oxide (Magnesium Oxide 400 Mg Tablet) 800 mg PO DAILY [facility] Last Admin: 12/22/21 09:24 Dose: 800 mg Documented By: AROLDO Magnesium Oxide (Magnesium Oxide 400 Mg Tablet) 400 mg PO BIDPC [facility] Last Admin: 12/22/21 08:04 Dose: 400 mg Documented By: AROLDO Methadone HCl (Methadone Hcl 20 Mg/2 Ml Oral.Conc) 60 mg PO DAILY [facility] Last Admin: 12/22/21 08:04 Dose: 60 mg Documented By: AROLDO Nifedipine (Nifedipine Er 30 Mg Tab.Er.24) 60 mg PO DAILY [facility]; Protocol Last Admin: 12/22/21 08:04 Dose: 60 mg Documented By: AROLDO Ondansetron HCl (Ondansetron Hcl 4 Mg/2 Ml Vial) 4 mg IVPUSH Q8H PRN PRN Reason: Nausea and Vomiting Pharmacy Consult (Consult Rx Vancomycin Dosing) 1 each MISCELLANE DAILY PRN PRN Reason: Consult order Polyethylene Glycol (Polyethylene Glycol 3350 17 Gm Powd.Pack) 17 gm PO BID [facility] Last Admin: 12/22/21 08:03 Dose: 17 gm Documented By: AROLDO Sodium Chloride (0.9 % Sodium Chloride Flush 3 Ml Syringe) 3 ml IVFLUSH QSHIFT [facility] Last Admin: 12/22/21 08:06 Dose: Not Given Documented By: AROLDO Non-Admin Reason: IV Running Labs CBC & Chem 7: 12/22/21 05:47 12/22/21 05:47 Labs: Laboratory Results - last 24 hr 12/15/21 12/22/21 12/22/21 18:53 05:47 05:47 MCV MCH MCHC RDW Plt Count MPV Absolute Nucleated RBC Nucleated RBC % (auto) Anion Gap Estim Creat Clear Calc 92.9 Estimated GFR > 60 Random Glucose Calcium Total Bilirubin Direct Bilirubin AST ALT Alkaline Phosphatase Total Protein Albumin Random Vancomycin 14.4 L HSV I IgM Ab (IFA) Negative HSV II IgM Ab (IFA) Negative 12/22/21 12/22/21 05:47 05:47 MCV 85.2 MCH 28.0 MCHC 32.9 RDW 15.9 Plt Count 302 MPV 10.1 Absolute Nucleated RBC 0.000 Nucleated RBC % (auto) 0.0 Anion Gap 15 Estim Creat Clear Calc 91.0 Estimated GFR > 60 Random Glucose 86 D Calcium 8.2 L Total Bilirubin 0.3 Direct Bilirubin 0.2 AST 30 ALT 27 Alkaline Phosphatase 349 H Total Protein 6.8 Albumin 2.7 L Random Vancomycin HSV I IgM Ab (IFA) HSV II IgM Ab (IFA) Microbiology Microbiology Results: Microbiology 12/16/21 21:48 Blood Culture - Final Blood - Venous No growth after 5 days. 12/16/21 21:48 Blood Culture - Final Blood - Venous No growth after 5 days. Assessment and Plan (1) Hypokalemia: Status: Acute (2) Bacteremia: Status: Acute (3) YONY (acute kidney injury): Status: Acute (4) Abnormal LFTs: Status: Acute Plan 46-year-old male with past medical history of IV drug use presents to the hospital after being found in the bathroom of a local [employer], he has multiple complaints and multiple findings # abdominal pain d/t severe constipation, no evidence of obstruction, has had bms continue MiraLax, Dulcolax, and Fleet enema as necessary # YONY-? secondary to dehydration--resolved # lactic acidosis - no evidence of acute infection - UA negative, chest shows no evidence of pneumonia off fluids no further trending need unless clinical siutation changes. # acute hypokalemia--corrected and resolved has leucocytosis moniter cbc # acute normocytic anemia - likely multifactorial - evidence of hematoma , as well as significant ecchymosis all over his body s/p 2 prbc yesterday repeat h/h in .6 ?anemia workup:iron and iron sats low , b12 and folate seems fine, ferritin levels normal possible iron/iron sats low due to recent bruise/hematoma moniter cbc if h/h drop may need further workup. # hematuria - acute - monitor CBC - urology consulted- follow up outpatient. # IV drug user: continue methadone, addiction med following # subdural hematoma - improving per imaging - monitor # rib fractures - secondary to frequent falls in the setting of IV drug use - incentive spirometry elevated LFT: lft's ,alk phos improvin hepatitis profile hep B -grayzone, hepatitis C reactive,ebv,hsv serology pending abd us-seems fine . moniter lft's , will need Gi follow up upon discharge. MSSA Bacteremia :? Continue IV vancomycin- interaction between linezolid/methadone. repeat blood culture neg@48 hrs echo-grosslly seems fine ,ef 70% Monitor vanco trough, renal function and electrolytes. d/w ID- recomended most likley need linezolid Will transition to Zyvox and monitor interaction with Methadone ' DVT prophylaxis: SCDs Pt eval inaptient need:??bacteremia on IV Abx, DC planning Quality Stroke Does the patient have a stroke diagnosis?: No VTE Prior VTE?: No VTE Risk Level:: Medical - low VTE Device Contraindication: Treatment Not Indicated VTE Drug Contraindication: N/A - Med Ordered
--- NOTE | 2021-12-22 12:24 | MHC.RECOVRN ---
Met with pt in 369 to follow up regarding methadone titration and discharge planning. Pt sitting in bed watching TV, awake, alert, easily engages in conversation. Appears comfortable, slightly diaphoretic. Pt reports withdrawal symptoms including diaphoresis, stomach cramps, muscle aches. Requesting methadone dose increase. Pt reports desire to continue with vanco as opposed to linezolid. Pt aware PT will attempt to evaluate pt today, pt looking forward to working with PT team and agrees to engage in evaluation. Pt unsure of d/c plans at this time and is aware that CSS will not be possible until medically cleared. Pts referral has been sent to [facility]. Discussed with Maria Ines Aguila APRN.
--- NOTE | 2021-12-22 14:15 | P.CNID_ITS ---
History of Present Illness Data of Consult Service Date: 12/21/21 Requesting physician: Luis Del Castillo Primary Care Provider: Unknown Physician HPI Reason for consult: bacteremia He presents to hospital with being found down at [facility]. He has no fever or chills now. He has fallen and has ecchymoses throughout body. He has blood culture staph aureus Review of Systems Review of Systems: Yes all other systems are reviewed and are negative PMFSH Past Medical History Medical History Bipolar 1 disorder, depressed HTN (hypertension) Hypothyroid Family History Family History Other No family history of coronary artery disease Family history: reviewed and not pertinent Surgical History Surgical History No pertinent past surgical history Social History Social History Household Members: Friend(s) Housing: Apartment Do you presently have visiting nurse or other home services: No Alcohol intake: current Patient Tobacco Use Status: Current everyday Tobacco user Tobacco use type: Cigarette Cigarettes Per Day: 4 Second Hand Smoke Exposure: Yes Substance Use Type: Heroin service: No Current occupational status: unemployed Meds Allergies Allergy/AdvReac Type Severity Reaction Status Date / Time From BENADRYL Allergy Unknown CANT Uncoded 11/15/19 18:21 BREATHE HIVES Active Medications: Current Medications Acetaminophen (Acetaminophen 325 Mg Tablet) 650 mg PO Q6H PRN PRN Reason: Pain, Mild (Pain Scale 1-3) Last Admin: 12/21/21 05:12 Dose: 650 mg Aspirin (Aspirin Enteric Coated 81 Mg Tablet.) 81 mg PO DAILY [facility] Last Admin: 12/22/21 08:05 Dose: 81 mg Docusate Sodium (Docusate Sodium 100 Mg Capsule) 100 mg PO BID [facility] Last Admin: 12/22/21 08:03 Dose: 100 mg Enoxaparin Sodium (Enoxaparin Sodium 40 Mg/0.4 Ml Syringe) 40 mg SUBCUT Q24H [facility] Last Admin: 12/22/21 03:45 Dose: 40 mg Hydralazine HCl (Hydralazine Hcl 25 Mg Tablet) 25 mg PO TID [facility]; Protocol Last Admin: 12/22/21 08:03 Dose: 25 mg Hydroxyzine HCl (Hydroxyzine Hcl 25 Mg Tablet) 25 mg PO Q8H PRN PRN Reason: withdrawal symptoms Last Admin: 12/21/21 05:12 Dose: 25 mg Vancomycin HCl 1,500 mg/ (Sodium Chloride) 500 mls @ 333.333 mls/hr IV Q24H [facility] Last Infusion: 12/22/21 11:00 Dose: Infused Lidocaine (Lidocaine 4 % Patch Adh..Patch) 1 patch TRANSDERMA DAILY [facility]; Protocol Last Admin: 12/22/21 08:02 Dose: 1 patch Magnesium Oxide (Magnesium Oxide 400 Mg Tablet) 800 mg PO DAILY [facility] Last Admin: 12/22/21 09:24 Dose: 800 mg [facility] Admin: 12/22/21 08:04 Dose: 400 mg Methadone HCl (Methadone Hcl 20 Mg/2 Ml Oral.Conc) 60 mg PO DAILY [facility] Last Admin: 12/22/21 08:04 Dose: 60 mg Nifedipine (Nifedipine Er 30 Mg Tab.Er.24) 60 mg PO DAILY [facility]; Protocol Last Admin: 12/22/21 08:04 Dose: 60 mg Ondansetron HCl (Ondansetron Hcl 4 Mg/2 Ml Vial) 4 mg IVPUSH Q8H PRN PRN Reason: Nausea and Vomiting Pharmacy Consult (Consult Rx Vancomycin Dosing) 1 each MISCELLANE DAILY PRN PRN Reason: Consult order Polyethylene Glycol (Polyethylene Glycol 3350 17 Gm Powd.Pack) 17 gm PO BID [facility] Last Admin: 12/22/21 08:03 Dose: 17 gm Sodium Chloride (0.9 % Sodium Chloride Flush 3 Ml Syringe) 3 ml IVFLUSH QSHIFT [facility] Last Admin: 12/22/21 08:06 Dose: Not Given Home Medications Medication Instructions Recorded Confirmed Last Taken Type aspirin 81 mg tablet,delayed 1 tab PO DAILY 12/15/21 12/15/21 Unknown History release nifedipine 30 mg tablet,extended 1 tab PO DAILY 12/15/21 12/15/21 Unknown History release 24 hr Physical Exam Vital Signs: Vital Signs: Last Vital Signs Temp 98.7 F 12/22/21 11:28 Pulse 60 12/22/21 11:28 Resp 18 12/22/21 11:28 BP 141/92 H 10/25/22 11:28 Pulse Ox 95 12/22/21 11:28 O2 Del Method 12/22/21 11:28 BMI result Body Mass Index 23.4 Const: General: cooperative HEENT: Head: Yes normal to inspection Face and sinus: Yes normal facial exam Mouth: Normal oral and palatal mucosa present Teeth and gingiva: dentition normal Eyes: General: appearance normal, both eyes and all related structures Pupils: Equal, round and reactive pupils present Resp: Effort & Inspection: normal respiratory effort Cardio: Rate: regular rate Rhythm: regular rhythm GI: Palpation (GI): Soft to palpation and nontender : General: Yes no CVA tenderness Back/Spine/Pelvis: Back: no CVA tenderness Skin: Other: bruised arm area Neuro: General: moves all extremities Cranial nerves: Yes Equal, round and reactive pupils present Extrem: General: Yes normal to inspection Psych: Appearance: grossly normal Results Labs CBC & Chem 7: 12/22/21 05:47 12/22/21 05:47 Labs: Short CBC 12/22/21 Range/Units 05:47 WBC 7.0 (4.8-10.8) X10*3/uL Hgb 10.6 L (14.0-18.0) g/dl Hct 32.2 L (42.0-52.0) % Plt Count 302 (160-400) X10*3/uL BMP 12/22/21 12/22/21 05:47 05:47 Sodium 134 L Potassium 3.8 Chloride 97 Carbon Dioxide 26 BUN 13 Creatinine 0.94 0.96 Calcium 8.2 L Liver Function 12/22/21 Range/Units 05:47 Total Bilirubin 0.3 (0.0-1.0) mg/dL Direct Bilirubin 0.2 (0.0-0.5) mg/dL AST 30 (5-37) U/L ALT 27 (0-40) U/L Alkaline Phosphatase 349 H (39-117) U/L Albumin 2.7 L (3.5-5.0) g/dL Microbiology Microbiology Results: Microbiology 12/16/21 21:48 Blood - Venous Blood Culture - Final No growth after 5 days. 12/16/21 21:48 Blood - Venous Blood Culture - Final No growth after 5 days. 12/14/21 23:00 Blood - Venous Blood Culture - Final No growth after 5 days. 12/14/21 23:00 Blood - Venous Blood Culture - Final Staphylococcus aureus Assessment and Plan (1) Bacteremia: Status: Acute He has probable bacteremia from skin source He has no known endocarditis. He has cleared blood culture Plan Patient is not wanting to stay in facility for needed IV antibiotics so would have to give po linezolid for fourteen days. He is at risk for recurrence and realizes it.
[2021-12-22] MEDS: Acetaminophen 325 MG TABLET 650 MG PO (14:38)
[2021-12-22] MEDS: hydrOXYzine HCL 25 MG TABLET PO (14:39)
[2021-12-22] MEDS: 0.9 % Sodium Chloride Flush 3 ML SYRINGE IVFLUSH (16:29)
[2021-12-22 16:53] LABS: Free T4 (Free Thyroxine) < 0.40 ng/dL (0.71-1.85)
[2021-12-22 18:20] LABS: Thyroid Stimulating Hormone > 100.00 uIU/mL (0.32-4.0)
--- NOTE | 2021-12-22 20:30 | P.PNADD_ITS ---
Subjective Subjective Date of Service: 12/22/21 Reason For Visit: abd pain Interim History: Patient seen in follow up. Awake, alert, pleasant. Methadone dose at 60mg. Reporting withdrawal sx in the evenings--chills, sweats. PT eval completed earlier today, STR recommended. Review of Systems Constitutional: Reports as per HPI and Reports weakness Reports weakness Mental Status Exam Mental Status Exam Patient Appearance: Appropriate Patient Orientation: Person, Place, Time and Situation Level of Consciousness: Awake and Appropriate Patient Behavior: Appropriate and Cooperative Mood Description: Calm Affect Description: Calm Patient Cognition Impaired: No Ability to Follow Directions: Excellent Speech Pattern: Clear Thought Process: Intact Thought Content: positive for Intact Judgement: Good Diagnostics Vital Signs (24Hr): Vital Signs - 24 hr 12/22/21 00:00 12/22/21 04:00 12/22/21 07:41 Temperature 98.4 F 97.7 F 98.2 F Pulse Rate 63 61 62 Respiratory Rate 18 18 18 Blood Pressure 139/97 H 137/91 H 163/99 H Pulse Oximetry 96 94 97 Oxygen Delivery Method Room Air Room Air Room Air 12/22/21 11:28 12/22/21 14:28 12/22/21 15:50 Temperature 98.7 F 98.0 F Pulse Rate 60 60 58 Respiratory Rate 18 18 Blood Pressure 141/92 H 141/92 H 149/97 H Pulse Oximetry 95 95 95 Oxygen Delivery Method Room Air Room Air 12/22/21 19:23 Temperature 98.1 F Pulse Rate 61 Respiratory Rate 17 Blood Pressure 146/95 H Pulse Oximetry 96 Oxygen Delivery Method Room Air BMI result Body Mass Index 23.4 Labs Results: 12/22/21 05:47 12/22/21 05:47 Labs: Laboratory Results - last 48 hr 12/15/21 12/21/21 12/21/21 18:53 05:50 05:50 WBC RBC Hgb Hct MCV MCH MCHC RDW Plt Count MPV Absolute Nucleated RBC Nucleated RBC % (auto) Sodium Potassium 3.6 Chloride Carbon Dioxide Anion Gap BUN Creatinine 1.00 Estim Creat Clear Calc 87.4 Estimated GFR > 60 Random Glucose Calcium Total Bilirubin Direct Bilirubin AST ALT Alkaline Phosphatase Total Protein Albumin TSH Free T4 Random Vancomycin 11.7 L HSV I IgM Ab (IFA) Negative HSV I IgM Titer TNP HSV II IgM Titer TNP HSV II IgM Ab (IFA) Negative 12/22/21 12/22/21 12/22/21 05:47 05:47 05:47 WBC 7.0 RBC 3.78 L Hgb 10.6 L Hct 32.2 L MCV 85.2 MCH 28.0 MCHC 32.9 RDW 15.9 Plt Count 302 MPV 10.1 Absolute Nucleated RBC 0.000 Nucleated RBC % (auto) 0.0 Sodium Potassium Chloride Carbon Dioxide Anion Gap BUN Creatinine 0.94 Estim Creat Clear Calc 92.9 Estimated GFR > 60 Random Glucose Calcium Total Bilirubin Direct Bilirubin AST ALT Alkaline Phosphatase Total Protein Albumin TSH Free T4 Random Vancomycin 14.4 L HSV I IgM Ab (IFA) HSV I IgM Titer HSV II IgM Titer HSV II IgM Ab (IFA) 12/22/21 05:47 WBC RBC Hgb Hct MCV MCH MCHC RDW Plt Count MPV Absolute Nucleated RBC Nucleated RBC % (auto) Sodium 134 L Potassium 3.8 Chloride 97 Carbon Dioxide 26 Anion Gap 15 BUN 13 Creatinine 0.96 Estim Creat Clear Calc 91.0 Estimated GFR > 60 Random Glucose 86 D Calcium 8.2 L Total Bilirubin 0.3 Direct Bilirubin 0.2 AST 30 ALT 27 Alkaline Phosphatase 349 H Total Protein 6.8 Albumin 2.7 L TSH > 100.00 H Free T4 < 0.40 L Random Vancomycin HSV I IgM Ab (IFA) HSV I IgM Titer HSV II IgM Titer HSV II IgM Ab (IFA) Imaging Radiology Impressions: ITS Impressions Abdomen/Pelvis CT 12/14/21 22:40 IMPRESSION: 1. Nondisplaced acute appearing fracture of the left 12th rib. 2. Mild T11 superior endplate compression fracture, exact acuity uncertain. 3. Couple of subacute to chronic appearing fractures of the posterolateral right sixth and seventh ribs. 4. No pneumothorax. No airspace consolidation. 5. Trace right pleural effusion. 6. No intra-abdominal free air or free fluid. 7. Very large amount of stool throughout the colon with mild dilation of the cecum, ascending and transverse colon. Correlate clinically with signs or symptoms of constipation/obstipation. 8. Diffusely thick-walled appearance of the urinary bladder. Correlate clinically with signs or symptoms of cystitis or chronic bladder dysfunction. 9. Additional ancillary findings, as described. Cervical Spine CT 12/14/21 22:40 IMPRESSION: Motion limited examination. 1. Compared to CT from 11/02/2021, decreased size and density of a left hemispheric subdural collection with resolution of leftward midline shift. No definite new acute intracranial abnormality within the limitations of motion 2. Within the limitations of motion, no evidence of acute fracture or traumatic malalignment of the cervical spine Chest CT 12/14/21 22:40 IMPRESSION: 1. Nondisplaced acute appearing fracture of the left 12th rib. 2. Mild T11 superior endplate compression fracture, exact acuity uncertain. 3. Couple of subacute to chronic appearing fractures of the posterolateral right sixth and seventh ribs. 4. No pneumothorax. No airspace consolidation. 5. Trace right pleural effusion. 6. No intra-abdominal free air or free fluid. 7. Very large amount of stool throughout the colon with mild dilation of the cecum, ascending and transverse colon. Correlate clinically with signs or symptoms of constipation/obstipation. 8. Diffusely thick-walled appearance of the urinary bladder. Correlate clinically with signs or symptoms of cystitis or chronic bladder dysfunction. 9. Additional ancillary findings, as described. Head CT 12/14/21 22:40 IMPRESSION: Motion limited examination. 1. Compared to CT from 11/02/2021, decreased size and density of a left hemispheric subdural collection with resolution of leftward midline shift. No definite new acute intracranial abnormality within the limitations of motion 2. Within the limitations of motion, no evidence of acute fracture or traumatic malalignment of the cervical spine Abdomen Ultrasound 12/15/21 17:51 IMPRESSION: Liver parenchymal appears normal. Trace ascites and trace right pleural effusion seen No shadowing stones or significant gallbladder wall thickening. No biliary ductal dilatation Medications Medications Current Medications Acetaminophen (Acetaminophen 325 Mg Tablet) 650 mg PO Q6H PRN PRN Reason: Pain, Mild (Pain Scale 1-3) Last Admin: 12/22/21 14:38 Dose: 650 mg Aspirin (Aspirin Enteric Coated 81 Mg Tablet.) 81 mg PO DAILY [facility] Last Admin: 12/22/21 08:05 Dose: 81 mg Docusate Sodium (Docusate Sodium 100 Mg Capsule) 100 mg PO BID [facility] Last Admin: 12/22/21 08:03 Dose: 100 mg Enoxaparin Sodium (Enoxaparin Sodium 40 Mg/0.4 Ml Syringe) 40 mg SUBCUT Q24H [facility] Last Admin: 12/22/21 03:45 Dose: 40 mg Hydralazine HCl (Hydralazine Hcl 25 Mg Tablet) 25 mg PO TID [facility]; Protocol Last Admin: 12/22/21 14:34 Dose: 25 mg Hydroxyzine HCl (Hydroxyzine Hcl 25 Mg Tablet) 25 mg PO Q8H PRN PRN Reason: withdrawal symptoms Last Admin: 12/22/21 14:39 Dose: 25 mg Vancomycin HCl 1,500 mg/ (Sodium Chloride) 500 mls @ 333.333 mls/hr IV Q24H [facility] Last Infusion: 12/22/21 11:00 Dose: Infused Lidocaine (Lidocaine 4 % Patch Adh..Patch) 1 patch TRANSDERMA DAILY [facility]; Protocol Last Admin: 12/22/21 08:02 Dose: 1 patch Magnesium Oxide (Magnesium Oxide 400 Mg Tablet) 800 mg PO DAILY [facility] Last Admin: 12/22/21 09:24 Dose: 800 mg Magnesium Oxide (Magnesium Oxide 400 Mg Tablet) 400 mg PO BIDPC [facility] Last Admin: 12/22/21 16:28 Dose: 400 mg Methadone HCl (Methadone Hcl 20 Mg/2 Ml Oral.Conc) 60 mg PO DAILY [facility] Last Admin: 12/22/21 08:04 Dose: 60 mg Methadone HCl (Methadone Hcl 20 Mg/2 Ml Oral.Conc) 5 mg PO BEDTIME [facility] Nifedipine (Nifedipine Er 30 Mg Tab.Er.24) 60 mg PO DAILY [facility]; Protocol Last Admin: 12/22/21 08:04 Dose: 60 mg Ondansetron HCl (Ondansetron Hcl 4 Mg/2 Ml Vial) 4 mg IVPUSH Q8H PRN PRN Reason: Nausea and Vomiting Pharmacy Consult (Consult Rx Vancomycin Dosing) 1 each MISCELLANE DAILY PRN PRN Reason: Consult order Polyethylene Glycol (Polyethylene Glycol 3350 17 Gm Powd.Pack) 17 gm PO BID [facility] Last Admin: 12/22/21 08:03 Dose: 17 gm Sodium Chloride (0.9 % Sodium Chloride Flush 3 Ml Syringe) 3 ml IVFLUSH QSHIFT [facility] Last Admin: 12/22/21 16:29 Dose: 3 ml Allergies Allergies Allergy/AdvReac Type Severity Reaction Status Date / Time From BENADRYL Allergy Unknown CANT Uncoded 11/15/19 18:21 BREATHE HIVES Assessment & Plan Assessment & Plan (1) Opioid use disorder: Status: Acute Code(s): F11.90 - Opioid use, unspecified, uncomplicated Assessment and Plan: * methadone 5mg QHS, in addition to 60mg QD dose. * RSRN to follow up in AM regarding dispo and coordination with [facility] I spent __30____ minutes with the patient and/or on the patient floor today, greater than?50% of which was spent counseling/coordinating care.
[2021-12-22] MEDS: methADONE HCl 20 MG/2 ML ORAL.CONC 5 MG PO (21:13)
[2021-12-23 03:32] VITALS: BP 125/84; PULSE 78; RESP 20; TEMP 36.2; O2SAT 98
[2021-12-23] MEDS: Enoxaparin Sodium 40 MG/0.4 ML SYRINGE SUBCUT (03:57)
[2021-12-23] MEDS: 0.9 % Sodium Chloride Flush 3 ML SYRINGE IVFLUSH ×4 (03:57→22:01)
[2021-12-23 06:17] LABS: Creatinine Clr Calc Pharmacy 93.9; Estimated Glomerular Filt Rate > 60
[2021-12-23 08:00] VITALS: BP 135/93; PULSE 62; RESP 20; TEMP 36.2; O2SAT 95
[2021-12-23] MEDS: polyethylene glycoL 3350 17 GM POWD.PACK PO ×2 (08:02→21:52)
[2021-12-23] MEDS: methADONE HCl 20 MG/2 ML ORAL.CONC 60 MG PO (08:02)
[2021-12-23] MEDS: Magnesium Oxide 400 MG TABLET 800 MG PO (08:04)
[2021-12-23] MEDS: Docusate Sodium 100 MG CAPSULE PO ×2 (08:04→21:45)
[2021-12-23] MEDS: hydrALAZINE HCl 25 MG TABLET PO ×3 (08:04→21:45)
[2021-12-23] MEDS: NIFEdipine ER 30 MG TAB.ER.24 60 MG PO (08:04)
[2021-12-23] MEDS: Magnesium Oxide 400 MG TABLET PO ×2 (08:05→16:08)
[2021-12-23] MEDS: Aspirin Enteric Coated 81 MG TABLET.DR PO (08:05)
[2021-12-23] MEDS: vancomycin HCL 1,500 MG in 0.9 % Sodium Chloride 500 ML 333.33 MG IV (08:05)
[2021-12-23 11:49] VITALS: BP 137/80; PULSE 58; RESP 20; TEMP 36.8; O2SAT 96
--- NOTE | 2021-12-23 13:30 | MHC.CLN ---
F/U PO INTAKE 100% X 4 MEALS DIET RX:REGULAR-APPROPRIATE PT RECEIVING SUPPLEMENT ENSURE BID PROVIDES ADDITIONAL 700 KCALS, 40 G PROTEIN STAGE II WOUND TO BUTTOCKS-SUPPLEMENT APPROPRIATE TO PROMOTE WOUND HEALING CONTINUE DIET AND SUPPLEMENT FOLLOW FOR INTAKE AND WOUND HEALING
--- NOTE | 2021-12-23 13:32 | HO.PM.IMPN ---
Subjective Subjective Date of Service: 12/23/21 Interval History: f/u bacteremia interval history:has no new complaint, he knows that plan is ultimately to switch to PO Abx Review of Systems no fever no abd pain this mroning Physical Exam Vital Signs: Vital Signs: Last Vital Signs Temp 98.2 F 12/23/21 11:49 Pulse 58 12/23/21 11:49 Resp 20 12/23/21 11:49 BP 137/80 12/23/21 11:49 Pulse Ox 96 12/23/21 11:49 O2 Del Method 12/23/21 11:49 BMI result Body Mass Index 23.4 Const: Other: General: AO X 3, no acute distress Resp: CTA bilateral CVS: S1,S2,RRR GI: +BS, NT, mild distention--unchanged Skin: No rash Neuro: motor grossly intact Psych: appropriate affect Objective Data Active Medications Acetaminophen (Acetaminophen 325 Mg Tablet) 650 mg PO Q6H PRN PRN Reason: Pain, Mild (Pain Scale 1-3) Last Admin: 12/22/21 14:38 Dose: 650 mg Documented By: AROLDO Aspirin (Aspirin Enteric Coated 81 Mg Tablet.) 81 mg PO DAILY [facility] Last Admin: 12/23/21 08:05 Dose: 81 mg Documented By: GISELA Docusate Sodium (Docusate Sodium 100 Mg Capsule) 100 mg PO BID [facility] Last Admin: 12/23/21 08:04 Dose: 100 mg Documented By: GISELA Enoxaparin Sodium (Enoxaparin Sodium 40 Mg/0.4 Ml Syringe) 40 mg SUBCUT Q24H [facility] Last Admin: 12/23/21 03:57 Dose: 40 mg Documented By: MARYJO Hydralazine HCl (Hydralazine Hcl 25 Mg Tablet) 25 mg PO TID [facility]; Protocol Last Admin: 12/23/21 08:04 Dose: 25 mg Documented By: GISELA Hydroxyzine HCl (Hydroxyzine Hcl 25 Mg Tablet) 25 mg PO Q8H PRN PRN Reason: withdrawal symptoms Last Admin: 12/22/21 14:39 Dose: 25 mg Documented By: AROLDO Vancomycin HCl 1,500 mg/ (Sodium Chloride) 500 mls @ 333.333 mls/hr IV Q24H [facility] Last Infusion: 12/23/21 10:45 Dose: 0 mls/hr Documented By: GISELA Lidocaine (Lidocaine 4 % Patch Adh..Patch) 1 patch TRANSDERMA DAILY [facility]; Protocol Last Admin: 12/23/21 10:44 Dose: Not Given Documented By: GISELA Non-Admin Reason: Patient Refused Magnesium Oxide (Magnesium Oxide 400 Mg Tablet) 800 mg PO DAILY [facility] Last Admin: 12/23/21 08:04 Dose: 800 mg Documented By: GISELA Magnesium Oxide (Magnesium Oxide 400 Mg Tablet) 400 mg PO BIDPC [facility] Last Admin: 12/23/21 08:05 Dose: 400 mg Documented By: GISELA Methadone HCl (Methadone Hcl 20 Mg/2 Ml Oral.Conc) 60 mg PO DAILY [facility] Last Admin: 12/23/21 08:02 Dose: 60 mg Documented By: GISELA Methadone HCl (Methadone Hcl 20 Mg/2 Ml Oral.Conc) 5 mg PO BEDTIME [facility] Last Admin: 12/22/21 21:13 Dose: 5 mg Documented By: DARIO Nifedipine (Nifedipine Er 30 Mg Tab.Er.24) 60 mg PO DAILY [facility]; Protocol Last Admin: 12/23/21 08:04 Dose: 60 mg Documented By: GISELA Ondansetron HCl (Ondansetron Hcl 4 Mg/2 Ml Vial) 4 mg IVPUSH Q8H PRN PRN Reason: Nausea and Vomiting Pharmacy Consult (Consult Rx Vancomycin Dosing) 1 each MISCELLANE DAILY PRN PRN Reason: Consult order Polyethylene Glycol (Polyethylene Glycol 3350 17 Gm Powd.Pack) 17 gm PO BID [facility] Last Admin: 12/23/21 08:02 Dose: 17 gm Documented By: GISELA Sodium Chloride (0.9 % Sodium Chloride Flush 3 Ml Syringe) 3 ml IVFLUSH QSHIFT [facility] Last Admin: 12/23/21 08:06 Dose: 3 ml Documented By: GISELA Labs CBC & Chem 7: 12/22/21 05:47 12/23/21 05:46 Labs: Laboratory Results - last 24 hr 12/15/21 12/22/21 12/23/21 18:53 05:47 05:46 Estim Creat Clear Calc 93.9 Estimated GFR > 60 TSH > 100.00 H Free T4 < 0.40 L HSV I IgM Titer TNP HSV II IgM Titer TNP Assessment and Plan (1) Hypokalemia: Status: Acute (2) Bacteremia: Status: Acute (3) YONY (acute kidney injury): Status: Acute (4) Abnormal LFTs: Status: Acute Plan 46-year-old male with past medical history of IV drug use presents to the hospital after being found in the bathroom of a local [employer], he has multiple complaints and multiple findings # abdominal pain d/t severe constipation, no evidence of obstruction, has had bms continue MiraLax, Dulcolax, and Fleet enema as necessary # YONY-? secondary to dehydration--resolved # lactic acidosis - no evidence of acute infection - UA negative, chest shows no evidence of pneumonia off fluids no further trending need unless clinical siutation changes. # acute hypokalemia--corrected and resolved has leucocytosis moniter cbc # acute normocytic anemia - likely multifactorial - evidence of hematoma , as well as significant ecchymosis all over his body s/p 2 prbc yesterday repeat h/h in .6 ?anemia workup:iron and iron sats low , b12 and folate seems fine, ferritin levels normal possible iron/iron sats low due to recent bruise/hematoma moniter cbc if h/h drop may need further workup. # hematuria - acute - monitor CBC - urology consulted- follow up outpatient. # IV drug user: continue methadone, addiction med following # subdural hematoma - improving per imaging - monitor # rib fractures - secondary to frequent falls in the setting of IV drug use - incentive spirometry elevated LFT: lft's ,alk phos improvin hepatitis profile hep B -grayzone, hepatitis C reactive,ebv,hsv serology pending abd us-seems fine . moniter lft's , will need Gi follow up upon discharge. #MSSA Bacteremia :?Has been on IV Vanco, he doesn't want PICC and IV Abx at facility therefore changing to oral Zyvox for 14 days, making transition today DVT prophylaxis: SCDs Pt eval inaptient need:??bacteremia on IV Abx, DC planning Quality Stroke Does the patient have a stroke diagnosis?: No VTE Prior VTE?: No VTE Risk Level:: Medical - low VTE Device Contraindication: Treatment Not Indicated VTE Drug Contraindication: N/A - Med Ordered
[2021-12-23 14:43] VITALS: BP 137/80; PULSE 58; O2SAT 96
--- NOTE | 2021-12-23 14:53 | MHC.RECOVRN ---
Met with pt this morning to check in regarding methadone titration as well as discharge planning. Pt awake, alert, easily engages in conversation. Pt continues to be very grateful for care at [facility] and looking forward to recovery. Pt reports methadone increase was helpful and was able to sleep 2 hours as opposed to 20 mins. Pt reports PT went well and is hopeful for continued care and gaining strength at [facility]. Due to pt possibly being placed at [facility], OTP referral has also been sent to [facility] in [place]. Pt denies questions or conerns at this time. Discussed with Maria Ines Aguila APRN.
[2021-12-23 15:45] VITALS: BP 144/93; PULSE 58; RESP 18; TEMP 36.4; O2SAT 95
[2021-12-23] MEDS: Linezolid 600 MG TABLET PO ×2 (16:08→21:45)
[2021-12-23] MEDS: Acetaminophen 325 MG TABLET 650 MG PO (16:18)
[2021-12-23 19:21] VITALS: BP 137/85; PULSE 57; RESP 18; TEMP 36.4; O2SAT 95
[2021-12-23] MEDS: hydrOXYzine HCL 25 MG TABLET PO (21:55)
[2021-12-23] MEDS: methADONE HCl 20 MG/2 ML ORAL.CONC 5 MG PO (21:55)
[2021-12-24] VITALS (8 sets, daily range): BP systolic 127–151; BP diastolic 79–93; PULSE 50–68; RESP 14–20; TEMP 36.1–36.7; O2SAT 94–98
[2021-12-24] MEDS: Enoxaparin Sodium 40 MG/0.4 ML SYRINGE SUBCUT (03:14)
[2021-12-24 07:43] LABS: Creatinine Clr Calc Pharmacy 92.9; Estimated Glomerular Filt Rate > 60
[2021-12-24 08:01] LABS: Vancomycin Random 16.4 mcg/mL (15-20)
--- NOTE | 2021-12-24 08:36 | MHC.RECOVRN ---
Spoke with Rasheeda at [facility], pt is all set to dose tomorrow (12/25) as long as last dose letter is provided.
[2021-12-24] MEDS: hydrALAZINE HCl 25 MG TABLET PO ×3 (08:40→20:27)
[2021-12-24] MEDS: Linezolid 600 MG TABLET PO ×2 (08:40→20:27)
[2021-12-24] MEDS: Aspirin Enteric Coated 81 MG TABLET.DR PO (08:40)
[2021-12-24] MEDS: polyethylene glycoL 3350 17 GM POWD.PACK PO ×2 (08:40→20:28)
[2021-12-24] MEDS: NIFEdipine ER 30 MG TAB.ER.24 60 MG PO (08:41)
[2021-12-24] MEDS: Magnesium Oxide 400 MG TABLET 800 MG PO (08:41)
[2021-12-24] MEDS: Docusate Sodium 100 MG CAPSULE PO ×2 (08:42→20:27)
[2021-12-24] MEDS: 0.9 % Sodium Chloride Flush 3 ML SYRINGE IVFLUSH ×3 (08:42→20:28)
[2021-12-24] MEDS: methADONE HCl 20 MG/2 ML ORAL.CONC 60 MG PO (08:42)
[2021-12-24 10:54] LABS: COVID-19 Test Negative (Negative)
--- NOTE | 2021-12-24 11:55 | P.DS_ITS ---
DS: Providers Provider Date of Service: 12/24/21 Date of admission: 12/15/21 03:28 Primary care physician: Unknown Physician Consults: 12/15/21 03:50 Consult to Care Team Routine Comment: Reason for consultation: methadone 12/15/21 06:47 Consult to Urology Routine Consulting Provider: Jesus Castaneda Reason for consultation: hematuria 12/15/21 13:17 Consult to Gastroenterology Routine Consulting Provider: [facility] Reason for consultation: worsening Lft's Has provider been notified: No 12/15/21 18:05 Consult to Infectious Diseases Routine Consulting Provider: Deann Rader Reason for consultation: bactermia Has provider been notified: No 12/23/21 13:31 Consult to Infectious Diseases Routine Consulting Provider: Deann Rader Reason for consultation: bacteremia Has provider been notified: Yes DS: Diagnosis Discharge Diagnosis (1) Hypokalemia: Status: Resolved (2) Bacteremia: Status: Resolved (3) YONY (acute kidney injury): Status: Deleted (4) Abnormal LFTs: Status: Inactive DS: Summary Hospital Course Hospital Course: Chief Complaint: abd pain, falling 46-year-old male with IV drug use history presents to the hospital after being found in the bathroom of a local [employer], is seen the patient was groaning very loudly and bystanders were concerned therefore EMS was called, on arrival of EMS patient was found to be hypotensive, with a systolic in the 90s, but otherwise stable. Patient himself is somnolent but arousable, reports significant pain in his hip, as well as his ribs after falling and fracturing then, reports that he was at [facility] with epidural hemorrhage, was discharged and ports 2 more falls post discharge.? He? denies being homeless but reports that he was to be treated for his drug use history.? He reports significant abdominal pain, some nausea and vomiting, Reviewing medical records from [facility], patient was in [facility] on November 04, diagnosed with left arm pleural lobe subdural hematoma, in at [facility] again on December 09, CT scan at that time shows subacute chronic subdural hematoma with improvement in thickness, previously 2.7 and now 1.6 cm, patient also has EKG changes were present previously.? Patient denies any chest pain. Patient otherwise denies any chest pain, no urinary symptoms, no weakness numbness or tingling, no lower extremity edema.? He has bruising all over his body.? Reports they are all from falling.? Patient was also caught in the ED room trying to use heroin. He underwent head and neck CT which showed no acute abnormality, the subdural hematomas seems to be improving, patient also found to have multiple abnormalities including a lactic acid of 4.0, WBC count of 1.3, hemoglobin of 7.2, previously 11.7 on 11/02, potassium of 2.9, creatinine of 1.61, AST of 308, , ALT of 73, alk-phos of 404, UA positive for blood and RBC, UDS positive for opioids, fentanyl, and cocaine Abdominal pelvic CT shows nondisplaced acute appearing fracture of the left 12th rib, mild T11 superior endplate compression fracture, exact acuity uncertain, couple of subacute to chronic appearing fractures of the posterolateral right 6 and 7 ribs, no pneumothorax, no airspace consolidation, no intra-abdominal free air free fluid, very large amount of stool throughout the colon with mild dilatation of the cecum, ascending and transverse colon, diffusely thick-walled appearance of the urinary bladder, Patient given 1 dose of antibiotics all be admitted further management Hospital course: 46-year-old male with IV drug use history - initially admitted for abdominal pain, YONY, lactic acidosis and high, hypokalemia, anemia, elevated LFTs, also has history of subdural hematoma: patient abdominal may pain thought to be due to constipation which is improving with laxatives and producing bowels. YONY improved with hydration. Lactic acidosis thought to be related to dehydration and YONY. Acute normocytic anemia possible multifactorial has subdural hematoma and significant ecchymosis on the body: Given 1 PRBC in the ED initially H&H is stable around 10.6/32.2. also initially found to have elevated LFT mild: found to be hepatitis C (EIA) reactive, LFTs improved, patient denies any symptoms currently. Patient is to follow-up with GI out patiently for further workup. In addition patient found to have MSSA bacteremia: repeat culture negative, echo seems grossly fine( please see imaging section): Patient was initially on IV vancomycin then subsequently switched to linezolid p.o. patient already completed 1 week, patient will need 1 more week of linezolid as per ID. Please monitor CBC, BMP, LFT, CPK Weekly while patient is on antibiotics. IV drug use: patient was seen by security services specialist currently started on methadone- which will be arranged outpatient as per food scientist. in addition: hematuria-- was seen by Urology with the following remark by Dr. Smith on 12/15 Hematuria.? Urine currently clear, U/A no evidence of active UTI CT findings:??Kidneys and Ureters: Duplicated right renal collecting system. No renal lesion or hydronephrosis. Bladder: Diffusely thick-walled appearance. No focal bladder wall thickening. No surgical intervention indicated at this time FU with Urology as out patient subdural hematoma--old as described Compared to CT from 11/02/2021, decreased size and density of a left hemispheric subdural collection with resolution of leftward midline shift. No definite new acute intracranial abnormality within the limitations of motion Patient was seen by PT recommended str. above management discussed with the patient in detail length, he understand and in agreement with above plan, time spent 50 minute. patient will benefit from less than 30 days stay Time Spent with Patient Time attestation: Total time spent providing and/or coordinating discharge services: Discharge coordination time: Greater than 30 minutes Quality: Safe Use of Opioids Does Pt have an Active Cancer Diagnosis on the Problem List?: No Quality: Stroke Does the patient have a stroke diagnosis?: No Physical Exam Vital Signs: Vital Signs: Last Vital Signs Temp 98.0 F 12/24/21 11:49 Pulse 54 12/24/21 11:49 Resp 20 12/24/21 11:49 BP 145/92 H 12/24/21 11:49 Pulse Ox 98 12/24/21 11:49 O2 Del Method 12/24/21 11:49 BMI result Body Mass Index 23.4 DS: Data Data Completed and Pending Labs on day of discharge: Laboratory Results - last 24 hr 12/24/21 12/24/21 12/24/21 06:36 06:36 10:05 Creatinine 0.94 Estim Creat Clear Calc 92.9 Estimated GFR > 60 Random Vancomycin 16.4 COVID-19 (GUILLERMO) Negative COVID-19 Clin Com See Note Discharge Plan Discharge Anticipated Discharge Date/Time: 12/25/21 10:08 [facility] Diagnosis: Bacteremia [facility]errals: [facility] [Outside] - 1 Week Jesus Castaneda MD [Physician] - 2 Weeks (hematuria and bladder thickening) Dameon Kim MD [Physician] - 2 Weeks (elevated left, ) Physician,Unknown J [Primary Care Provider] - 1 Week Discharge Medications: New linezolid 600 mg Tablet 600 mg PO BID Qty: 14 0RF polyethylene glycol 3350 17 gram Powder In Packet 17 g PO BID Qty: 30 0RF hydralazine 25 mg Tablet 25 mg PO TID Qty: 90 0RF Protocol: Hold for SBP< HOLD for SBP < : 90 magnesium oxide 400 mg (241.3 mg magnesium) Tablet 800 mg PO DAILY PRN (Reason: constipation) Qty: 10 0RF acetaminophen 325 mg Tablet 650 mg PO Q6H PRN (Reason: Pain, Mild (Pain Scale 1-3)) Qty: 10 0RF docusate sodium 100 mg Capsule 100 mg PO BID PRN (Reason: constipation) Qty: 30 0RF Continued aspirin 81 mg tablet,delayed release (DR/EC) 1 tab PO DAILY Changed nifedipine 30 mg tablet extended release 24hr 2 tab PO DAILY Qty: 60 0RF Discharge Orders: Discharge Order (Routine); Ordered 12/31/21 Ordered By: Luis Del Castillo Diet: Advance to usual diet Activity on Discharge: As tolerated Stand Alone Forms: Patient Portal Discharge page Care Plan Goals: Full recovery from bacteremia Health Concerns: 46-year-old male with IV drug use history - initially admitted for abdominal pain, YONY, lactic acidosis and high, hypokalemia, anemia, elevated LFTs, also has history of subdural hematoma: patient abdominal may pain thought to be due to constipation which is improving with laxatives and producing bowels. YONY improved with hydration. Lactic acidosis thought to be related to dehydration and YONY. Acute normocytic anemia possible multifactorial has subdural hematoma and significant ecchymosis on the body: Given 1 PRBC in the ED initially H&H is stable around 10.6/32.2. also initially found to have elevated LFT mild: found to be hepatitis C (EIA) reactive, LFTs improved, patient denies any symptoms currently. Patient is to follow-up with GI out patiently for further workup. In addition patient found to have MSSA bacteremia: repeat culture negative, echo seems grossly fine( please see imaging section): Patient was initially on IV vancomycin then subsequently switched to linezolid p.o. patient already completed 1 week, patient will need 1 more week of linezolid as per ID. Please monitor CBC, BMP, LFT, CPK Weekly while patient is on antibiotics. IV drug use: patient was seen by security services specialist currently started on methadone- which will be arranged outpatient as per food scientist. Patient was seen by PT recommended str. patient will be [facility] [place] Plan of Treatment: Take Zyvox as recommended and follow up with your Doctor in a week Assessment: as above Discharge Date/Time: 12/31/21 19:09
--- NOTE | 2021-12-24 12:17 | MHC.CM.PN ---
Per ROUNDS discussion, the plan is for STR at [facility] pending [employer] auth and Methadone arrangements. CM will follow.
[2021-12-24] MEDS: hydrOXYzine HCL 25 MG TABLET PO (15:59)
[2021-12-24] MEDS: Magnesium Oxide 400 MG TABLET PO (15:59)
[2021-12-24] MEDS: Acetaminophen 325 MG TABLET 650 MG PO (15:59)
--- NOTE | 2021-12-24 16:38 | PC.NURSE ---
Alert and oriented. Denies pain, VSS, afebrile, no acute resp. distress noted. Took all schedule meds as ordered. OOB with physical therapy. Covid swab obtained, see results. Patient transferred to S3, room 369. Report called in to receiving nurse.
[2021-12-24] MEDS: methADONE HCl 20 MG/2 ML ORAL.CONC 5 MG PO (20:27)
[2021-12-25] VITALS (7 sets, daily range): BP systolic 130–155; BP diastolic 83–95; PULSE 51–58; RESP 15–17; TEMP 36.4–36.8; O2SAT 94–98
[2021-12-25] MEDS: Enoxaparin Sodium 40 MG/0.4 ML SYRINGE SUBCUT (03:41)
[2021-12-25 06:05] LABS: Creatinine Clr Calc Pharmacy 80.1; Estimated Glomerular Filt Rate > 60
[2021-12-25] MEDS: NIFEdipine ER 30 MG TAB.ER.24 60 MG PO (07:35)
[2021-12-25] MEDS: Magnesium Oxide 400 MG TABLET PO ×2 (07:35→17:19)
[2021-12-25] MEDS: Aspirin Enteric Coated 81 MG TABLET.DR PO (07:35)
[2021-12-25] MEDS: Magnesium Oxide 400 MG TABLET 800 MG PO (07:35)
[2021-12-25] MEDS: hydrALAZINE HCl 25 MG TABLET PO ×3 (07:36→20:43)
[2021-12-25] MEDS: Linezolid 600 MG TABLET PO ×2 (07:36→20:43)
[2021-12-25] MEDS: methADONE HCl 20 MG/2 ML ORAL.CONC 60 MG PO (07:36)
[2021-12-25] MEDS: Docusate Sodium 100 MG CAPSULE PO ×2 (07:37→20:43)
[2021-12-25] MEDS: Lidocaine 4 % Patch ADH..PATCH 1 PATCH TRANSDERMA (07:37)
[2021-12-25] MEDS: polyethylene glycoL 3350 17 GM POWD.PACK PO ×2 (07:37→20:43)
[2021-12-25] MEDS: 0.9 % Sodium Chloride Flush 3 ML SYRINGE IVFLUSH ×3 (07:37→20:44)
--- NOTE | 2021-12-25 12:49 | MHC.RECOVRN ---
Pt provided with last dose letter. Looking forward to STR and becoming stronger. Denies questions or concerns, provided with t/w contact information if needed.
--- NOTE | 2021-12-25 14:10 | MHC.CLN ---
F/U DIET RX:REGULAR-APPROPRIATE. PT RECEIVING SUPPLEMENT ENSURE BID PROVIDES ADDITIONAL 700 KCALS, 40 G PROTEIN. STAGE II WOUND TO BUTTOCKS-SUPPLEMENT APPROPRIATE TO PROMOTE WOUND HEALING. PO INTAKE 75-100% AT MEALS. CONTINUE DIET AND SUPPLEMENT. FOLLOW FOR INTAKE AND WOUND HEALING.
[2021-12-25] MEDS: methADONE HCl 20 MG/2 ML ORAL.CONC 5 MG PO (20:44)
[2021-12-26] MEDS: Enoxaparin Sodium 40 MG/0.4 ML SYRINGE SUBCUT (03:34)
[2021-12-26 03:41] VITALS: BP 138/83; PULSE 59; RESP 17; TEMP 36; O2SAT 95
[2021-12-26 06:34] LABS: Creatinine Clr Calc Pharmacy 80.1; Estimated Glomerular Filt Rate > 60
--- NOTE | 2021-12-26 07:28 | MHC.CM.PN ---
Addendum entered by Deysi Coker RN 12/26/21 09:30: CM MET W/PT WHO REPORTS HE IS AGREEABLE TO [facility], CM REATTEMPTED TO CONTACT [facility] W/OUT SUCCESS, 2ND MESSAGE LEFT W/CM CONTACT INFO. Original Note: [facility] WILL OFFER A BED IF GUEST DOSING IS SET UP AT [facility] IN [place] [phone], CM ATTEMPTED TO CONTACT [facility] AT 7:28AM HOWEVER NO ANSWER, MESSAGE LEFT W/REQUEST FOR CALL BACK AND CM CONTACT INFO.
[2021-12-26 07:32] VITALS: BP 133/74; PULSE 56; RESP 16; TEMP 36.6; O2SAT 94
[2021-12-26] MEDS: polyethylene glycoL 3350 17 GM POWD.PACK PO ×2 (09:00→20:33)
[2021-12-26] MEDS: methADONE HCl 20 MG/2 ML ORAL.CONC 60 MG PO (09:00)
[2021-12-26] MEDS: Docusate Sodium 100 MG CAPSULE PO ×2 (09:00→20:32)
[2021-12-26] MEDS: Aspirin Enteric Coated 81 MG TABLET.DR PO (09:00)
[2021-12-26] MEDS: hydrALAZINE HCl 25 MG TABLET PO ×3 (09:00→20:32)
[2021-12-26] MEDS: Lidocaine 4 % Patch ADH..PATCH 1 PATCH TRANSDERMA (09:00)
[2021-12-26] MEDS: Linezolid 600 MG TABLET PO ×2 (09:00→20:32)
[2021-12-26] MEDS: NIFEdipine ER 30 MG TAB.ER.24 60 MG PO (09:00)
[2021-12-26] MEDS: 0.9 % Sodium Chloride Flush 3 ML SYRINGE IVFLUSH ×3 (09:01→20:33)
--- NOTE | 2021-12-26 09:39 | P.PNIM_ITS ---
Subjective Subjective Date of Service: 12/26/21 Interval History: f/u bacteremia interval history:has no new complaint, no issues with zyvox, awaiting placement Review of Systems no fever no abd pain this mroning Physical Exam Vital Signs: Vital Signs: Last Vital Signs Temp 97.9 F 12/26/21 07:32 Pulse 56 12/26/21 07:32 Resp 16 12/26/21 07:32 BP 133/74 12/26/21 07:32 Pulse Ox 94 12/26/21 07:32 O2 Del Method 12/26/21 07:32 BMI result Body Mass Index 23.4 Const: Other: General: AO X 3, no acute distress Resp: CTA bilateral CVS: S1,S2,RRR GI: +BS, NT, mild distention--unchanged Skin: No rash Neuro: motor grossly intact Psych: appropriate affect Objective Data Active Medications Acetaminophen (Acetaminophen 325 Mg Tablet) 650 mg PO Q6H PRN PRN Reason: Pain, Mild (Pain Scale 1-3) Last Admin: 12/24/21 15:59 Dose: 650 mg Documented By: WILBUR Aspirin (Aspirin Enteric Coated 81 Mg Tablet.Dr) 81 mg PO DAILY [facility] Last Admin: 12/26/21 09:00 Dose: 81 mg Documented By: NITZA Docusate Sodium (Docusate Sodium 100 Mg Capsule) 100 mg PO BID [facility] Last Admin: 12/26/21 09:00 Dose: 100 mg Documented By: NITZA Enoxaparin Sodium (Enoxaparin Sodium 40 Mg/0.4 Ml Syringe) 40 mg SUBCUT Q24H [facility] Last Admin: 12/26/21 03:34 Dose: 40 mg Documented By: ASHLEYB Hydralazine HCl (Hydralazine Hcl 25 Mg Tablet) 25 mg PO TID [facility]; Protocol Last Admin: 12/26/21 09:00 Dose: 25 mg Documented By: NITZA Hydroxyzine HCl (Hydroxyzine Hcl 25 Mg Tablet) 25 mg PO Q8H PRN PRN Reason: withdrawal symptoms Last Admin: 12/24/21 15:59 Dose: 25 mg Documented By: WILBUR Lidocaine (Lidocaine 4 % Patch Adh..Patch) 1 patch TRANSDERMA DAILY [facility]; Protocol Last Admin: 12/26/21 09:00 Dose: 1 patch Documented By: NITZA Linezolid (Linezolid 600 Mg Tablet) 600 mg PO BID [facility] Last Admin: 12/26/21 09:00 Dose: 600 mg Documented By: NITZA Magnesium Oxide (Magnesium Oxide 400 Mg Tablet) 800 mg PO DAILY [facility] Last Admin: 12/25/21 07:35 Dose: 800 mg Documented By: LORENA Magn[facility] Oxide ([facility] 400 Mg Tablet) [facility] Last Admin: 12/25/21 17:19 Dose: 400 mg Documented By: LORENA Methadone HCl (Methadone Hcl 20 Mg/2 Ml Oral.Conc) 60 mg PO DAILY [facility] Last Admin: 12/26/21 09:00 Dose: 60 mg Documented By: NITZA Methadone HCl (Methadone Hcl 20 Mg/2 Ml Oral.Conc) 5 mg PO BEDTIME [facility] Last Admin: 12/25/21 20:44 Dose: 5 mg Documented By: ROCAEL Nifedipine (Nifedipine Er 30 Mg Tab.Er.24) 60 mg PO DAILY [facility]; Protocol Last Admin: 12/26/21 09:00 Dose: 60 mg Documented By: NITZA Ondansetron HCl (Ondansetron Hcl 4 Mg/2 Ml Vial) 4 mg IVPUSH Q8H PRN PRN Reason: Nausea and Vomiting Polyethylene Glycol (Polyethylene Glycol 3350 17 Gm Powd.Pack) 17 gm PO BID [facility] Last Admin: 12/26/21 09:00 Dose: 17 gm Documented By: NITZA Sodium Chloride (0.9 % Sodium Chloride Flush 3 Ml Syringe) 3 ml IVFLUSH QSHIFT [facility] Last Admin: 12/26/21 09:01 Dose: 3 ml Documented By: NITZA Labs CBC & Chem 7: 12/22/21 05:47 12/26/21 06:01 Labs: Laboratory Results - last 24 hr 12/26/21 06:01 Estim Creat Clear Calc 80.1 Estimated GFR > 60 Assessment and Plan (1) Hypokalemia: Status: Acute (2) Bacteremia: Status: Acute (3) YONY (acute kidney injury): Status: Acute (4) Abnormal LFTs: Status: Acute Plan 46-year-old male with past medical history of IV drug use presents to the hospital after being found in the bathroom of a local [employer], he has multiple complaints and multiple findings # abdominal pain d/t severe constipation, no evidence of obstruction, has had bms continue MiraLax, Dulcolax, and Fleet enema as necessary # YONY-? secondary to dehydration--resolved # lactic acidosis - no evidence of acute infection - UA negative, chest shows no evidence of pneumonia off fluids no further trending need unless clinical siutation changes. # acute hypokalemia--corrected and resolved has leucocytosis moniter cbc # acute normocytic anemia - likely multifactorial - evidence of hematoma , as well as significant ecchymosis all over his body s/p 2 prbc yesterday repeat h/h in .6 ?anemia workup:iron and iron sats low , b12 and folate seems fine, ferritin levels normal possible iron/iron sats low due to recent bruise/hematoma moniter cbc if h/h drop may need further workup. # hematuria - acute - monitor CBC - urology consulted- follow up outpatient. # IV drug user: continue methadone, addiction med following # subdural hematoma - improving per imaging - monitor # rib fractures - secondary to frequent falls in the setting of IV drug use - incentive spirometry elevated LFT: lft's ,alk phos improvin hepatitis profile hep B -grayzone, hepatitis C reactive,ebv,hsv serology pending abd us-seems fine . moniter lft's , will need Gi follow up upon discharge. #MSSA Bacteremia :?Has been on IV Vanco, he doesn't want PICC and IV Abx at facility therefore changing to oral Zyvox for 14 days. D3. No s/sx of serotonin syndrome DVT prophylaxis: SCDs Pt eval inaptient need:??bacteremia on IV Abx, DC planning--> awaiting placment Quality Stroke Does the patient have a stroke diagnosis?: No VTE Prior VTE?: No VTE Risk Level:: Medical - low VTE Device Contraindication: Treatment Not Indicated VTE Drug Contraindication: N/A - Med Ordered
[2021-12-26] MEDS: Magnesium Oxide 400 MG TABLET 800 MG PO (09:45)
[2021-12-26 11:14] VITALS: BP 142/89; PULSE 54; RESP 15; TEMP 36.7; O2SAT 94
[2021-12-26 15:20] VITALS: BP 131/81; PULSE 51; RESP 14; TEMP 36.7; O2SAT 96
[2021-12-26 19:10] VITALS: BP 124/88; PULSE 55; RESP 14; TEMP 36.8; O2SAT 96
[2021-12-26] MEDS: methADONE HCl 20 MG/2 ML ORAL.CONC 5 MG PO (20:33)
[2021-12-27] VITALS (7 sets, daily range): BP systolic 126–144; BP diastolic 73–93; PULSE 52–59; RESP 17–18; TEMP 36.1–36.7; O2SAT 95–96
[2021-12-27] MEDS: Enoxaparin Sodium 40 MG/0.4 ML SYRINGE SUBCUT (03:37)
[2021-12-27 07:11] LABS: Creatinine Clr Calc Pharmacy 72.8; Estimated Glomerular Filt Rate > 60
--- NOTE | 2021-12-27 08:23 | P.PNIM_ITS ---
Subjective Subjective Date of Service: 12/27/21 Interval History: f/u bacteremia interval history:has no new complaint, no issues with zyvox, awaiting placement, had decent BM overnight Review of Systems no fever no abd pain this mroning Physical Exam Vital Signs: Vital Signs: Last Vital Signs Temp 97.0 F 12/27/21 03:38 Pulse 56 12/27/21 03:38 Resp 17 12/27/21 03:38 BP 135/73 12/27/21 03:38 Pulse Ox 95 12/27/21 03:38 O2 Del Method 12/27/21 03:38 BMI result Body Mass Index 23.4 Const: Other: General: AO X 3, no acute distress Resp: CTA bilateral CVS: S1,S2,RRR GI: +BS, NT, mild distention--unchanged Skin: No rash Neuro: motor grossly intact Psych: appropriate affect Objective Data Active Medications Acetaminophen (Acetaminophen 325 Mg Tablet) 650 mg PO Q6H PRN PRN Reason: Pain, Mild (Pain Scale 1-3) Last Admin: 12/24/21 15:59 Dose: 650 mg Documented By: WILBUR Aspirin (Aspirin Enteric Coated 81 Mg Tablet.) 81 mg PO DAILY [facility] Last Admin: 12/26/21 09:00 Dose: 81 mg Documented By: NITZA Docusate Sodium (Docusate Sodium 100 Mg Capsule) 100 mg PO BID [facility] Last Admin: 12/26/21 20:32 Dose: 100 mg Documented By: ROCAEL Enoxaparin Sodium (Enoxaparin Sodium 40 Mg/0.4 Ml Syringe) 40 mg SUBCUT Q24H [facility] Last Admin: 12/27/21 03:37 Dose: 40 mg Documented By: ROCAEL Hydralazine HCl (Hydralazine Hcl 25 Mg Tablet) 25 mg PO TID [facility]; Protocol Last Admin: 12/26/21 20:32 Dose: 25 mg Documented By: ROCAEL Hydroxyzine HCl (Hydroxyzine Hcl 25 Mg Tablet) 25 mg PO Q8H PRN PRN Reason: withdrawal symptoms Last Admin: 12/24/21 15:59 Dose: 25 mg Documented By: WILBUR Lidocaine (Lidocaine 4 % Patch Adh..Patch) 1 patch TRANSDERMA DAILY [facility]; Protocol Last Admin: 12/26/21 09:00 Dose: 1 patch Documented By: NITZA Linezolid (Linezolid 600 Mg Tablet) 600 mg PO BID [facility] Last Admin: 12/26/21 20:32 Dose: 600 mg Documented By: ROCAEL Magnesium Oxide (Magnesium Oxide 400 Mg Tablet) 800 mg PO DAILY [facility] Last Admin: 12/26/21 09:45 Dose: 800 mg Documented By: NITZA Magnesium Oxide (Magnesium Oxide 400 Mg Tablet) 400 mg PO BIDPC [facility] Last Admin: 12/26/21 15:44 Dose: Not Given Documented By: NITZA Non-Admin Reason: Physician Held Med Methadone HCl (Methadone Hcl 20 Mg/2 Ml Oral.Conc) 60 mg PO DAILY [facility] Last Admin: 12/26/21 09:00 Dose: 60 mg Documented By: NITZA Methadone HCl (Methadone Hcl 20 Mg/2 Ml Oral.Conc) 5 mg PO BEDTIME [facility] Last Admin: 12/26/21 20:33 Dose: 5 mg Documented By: ROCAEL Nifedipine (Nifedipine Er 30 Mg Tab.Er.24) 60 mg PO DAILY [facility]; Protocol Last Admin: 12/26/21 09:00 Dose: 60 mg Documented By: NITZA Ondansetron HCl (Ondansetron Hcl 4 Mg/2 Ml Vial) 4 mg IVPUSH Q8H PRN PRN Reason: Nausea and Vomiting Polyethylene Glycol (Polyethylene Glycol 3350 17 Gm Powd.Pack) 17 gm PO BID [facility] Last Admin: 12/26/21 20:33 Dose: 17 gm Documented By: ROCAEL Sodium Chloride (0.9 % Sodium Chloride Flush 3 Ml Syringe) 3 ml IVFLUSH QSHIFT [facility] Last Admin: 12/26/21 20:33 Dose: 3 ml Documented By: ROCAEL Labs CBC & Chem 7: 12/22/21 05:47 12/27/21 05:59 Labs: Laboratory Results - last 24 hr 12/27/21 05:59 Estim Creat Clear Calc 72.8 Estimated GFR > 60 Assessment and Plan (1) Hypokalemia: Status: Acute (2) Bacteremia: Status: Acute (3) YONY (acute kidney injury): Status: Acute (4) Abnormal LFTs: Status: Acute Plan 46-year-old male with past medical history of IV drug use presents to the hospital after being found in the bathroom of a local [employer]'s, he has multiple complaints and multiple findings # abdominal pain d/t severe constipation, no evidence of obstruction,continue to have BM continue MiraLax, Dulcolax, and Fleet enema as necessary # YONY-? secondary to dehydration--resolved # lactic acidosis - no evidence of acute infection - UA negative, chest shows no evidence of pneumonia off fluids no further trending need unless clinical siutation changes. # acute hypokalemia--corrected and resolved has leucocytosis moniter cbc # acute normocytic anemia - likely multifactorial - evidence of hematoma , as well as significant ecchymosis all over his body s/p 2 prbc yesterday repeat h/h in .6 ?anemia workup:iron and iron sats low , b12 and folate seems fine, ferritin levels normal possible iron/iron sats low due to recent bruise/hematoma moniter cbc if h/h drop may need further workup. # hematuria - acute - monitor CBC - urology consulted- follow up outpatient. # IV drug user: continue methadone, addiction med following # subdural hematoma - improving per imaging - monitor # rib fractures - secondary to frequent falls in the setting of IV drug use - incentive spirometry elevated LFT: lft's ,alk phos improvin hepatitis profile hep B -grayzone, hepatitis C reactive,ebv,hsv serology pending abd us-seems fine . moniter lft's , will need Gi follow up upon discharge. #MSSA Bacteremia :?Has been on IV Vanco, he doesn't want PICC and IV Abx at facility therefore changing to oral Zyvox for 14 days. D5/14. No s/sx of serotonin syndrome DVT prophylaxis: SCDs Pt eval inaptient need:??bacteremia on IV Abx, DC planning--> awaiting placment (probable DC tomorrow or day after) Quality Stroke Does the patient have a stroke diagnosis?: No VTE Prior VTE?: No VTE Risk Level:: Medical - low VTE Device Contraindication: Treatment Not Indicated VTE Drug Contraindication: N/A - Med Ordered
[2021-12-27] MEDS: Lidocaine 4 % Patch ADH..PATCH 1 PATCH TRANSDERMA (09:45)
[2021-12-27] MEDS: Magnesium Oxide 400 MG TABLET 800 MG PO (09:46)
[2021-12-27] MEDS: methADONE HCl 20 MG/2 ML ORAL.CONC 60 MG PO (09:47)
[2021-12-27] MEDS: Docusate Sodium 100 MG CAPSULE PO ×2 (09:47→19:24)
[2021-12-27] MEDS: 0.9 % Sodium Chloride Flush 3 ML SYRINGE IVFLUSH ×3 (09:47→19:25)
[2021-12-27] MEDS: Linezolid 600 MG TABLET PO ×2 (09:47→19:24)
[2021-12-27] MEDS: Aspirin Enteric Coated 81 MG TABLET.DR PO (09:47)
[2021-12-27] MEDS: NIFEdipine ER 30 MG TAB.ER.24 60 MG PO (09:47)
[2021-12-27] MEDS: Magnesium Oxide 400 MG TABLET PO ×2 (09:47→17:16)
[2021-12-27] MEDS: hydrALAZINE HCl 25 MG TABLET PO ×3 (09:48→19:24)
[2021-12-27] MEDS: methADONE HCl 20 MG/2 ML ORAL.CONC 5 MG PO (19:24)
[2021-12-28] VITALS (7 sets, daily range): BP systolic 117–141; BP diastolic 77–89; PULSE 51–57; RESP 16–18; TEMP 36.1–36.7; O2SAT 95–97
[2021-12-28] MEDS: Enoxaparin Sodium 40 MG/0.4 ML SYRINGE SUBCUT (03:32)
[2021-12-28 07:12] LABS: Creatinine Clr Calc Pharmacy 76.6; Estimated Glomerular Filt Rate > 60
[2021-12-28] MEDS: NIFEdipine ER 30 MG TAB.ER.24 60 MG PO (08:08)
[2021-12-28] MEDS: Docusate Sodium 100 MG CAPSULE PO ×2 (08:09→19:16)
[2021-12-28] MEDS: Aspirin Enteric Coated 81 MG TABLET.DR PO (08:09)
[2021-12-28] MEDS: 0.9 % Sodium Chloride Flush 3 ML SYRINGE IVFLUSH ×2 (08:09→16:59)
[2021-12-28] MEDS: hydrALAZINE HCl 25 MG TABLET PO ×3 (08:09→19:16)
[2021-12-28] MEDS: Magnesium Oxide 400 MG TABLET 800 MG PO (08:09)
[2021-12-28] MEDS: Linezolid 600 MG TABLET PO ×2 (08:09→19:17)
[2021-12-28] MEDS: Magnesium Oxide 400 MG TABLET PO ×2 (08:09→16:59)
[2021-12-28] MEDS: Lidocaine 4 % Patch ADH..PATCH 1 PATCH TRANSDERMA (08:10)
[2021-12-28] MEDS: methADONE HCl 20 MG/2 ML ORAL.CONC 60 MG PO (08:10)
--- NOTE | 2021-12-28 10:10 | MHC.RECOVRN ---
T/w notified [facility] does not have availability and will be going to [facility]. Pts referral sent to [facility] ([phone]), awaiting supervisor metal cans approval for direct admit. Since pt had been initiated on methadone while at [facility], pt does not have a home clinic and thus can not guest dose at [facility]. Pt must be approved as a direct admission to [facility] on [facility] in [place]. [facility] aware that after dc from [facility], pt has 2 accepting clinics ([facility] in [place] and [facility] in [place]). CM aware.
--- NOTE | 2021-12-28 11:27 | HO.PM.IMPN ---
Subjective Subjective Date of Service: 12/28/21 Interval History: f/u bacteremia interval history:has no new complaint, no issues with zyvox, awaiting placement, had decent BM overnight Review of Systems no fever no abd pain this mroning Physical Exam Vital Signs: Vital Signs: Last Vital Signs Temp 98.0 F 12/28/21 07:48 Pulse 54 12/28/21 07:48 Resp 17 12/28/21 07:48 BP 117/77 12/28/21 07:48 Pulse Ox 96 12/28/21 07:48 O2 Del Method 12/28/21 07:48 BMI result Body Mass Index 23.4 Const: Other: General: AO X 3, no acute distress Resp: CTA bilateral CVS: S1,S2,RRR GI: +BS, NT, ND, soft Skin: No rash Neuro: motor grossly intact Psych: appropriate affect Objective Data Active Medications Acetaminophen (Acetaminophen 325 Mg Tablet) 650 mg PO Q6H PRN PRN Reason: Pain, Mild (Pain Scale 1-3) Last Admin: 12/24/21 15:59 Dose: 650 mg Documented By: WILBUR Aspirin (Aspirin Enteric Coated 81 Mg Tablet.Dr) 81 mg PO DAILY [facility] BEDS AT [facility] Last Admin: 12/28/21 08:09 Dose: 81 mg Documented By: DENIA Docusate Sodium (Docusate Sodium 100 Mg Capsule) 100 mg PO BID [facility] 234 BEDS AT [facility] Last Admin: 12/28/21 08:09 Dose: 100 mg Documented By: DENIA Enoxaparin Sodium (Enoxaparin Sodium 40 Mg/0.4 Ml Syringe) 40 mg SUBCUT Q24H [facility] 234 BEDS AT [facility] Last Admin: 12/28/21 03:32 Dose: 40 mg Documented By: CASTILBrandy Hydralazine HCl (Hydralazine Hcl 25 Mg Tablet) 25 mg PO TID [facility] 234 BEDS AT [facility]; Protocol Last Admin: 12/28/21 08:09 Dose: 25 mg Documented By: DENIA Hydroxyzine HCl (Hydroxyzine Hcl 25 Mg Tablet) 25 mg PO Q8H PRN PRN Reason: withdrawal symptoms Last Admin: 12/24/21 15:59 Dose: 25 mg Documented By: WILBUR Lidocaine (Lidocaine 4 % Patch Adh..Patch) 1 patch TRANSDERMA DAILY [facility] 234 BEDS [facility]; Protocol Last Admin: 12/28/21 08:10 Dose: 1 patch Documented By: DENIA Linezolid (Linezolid 600 Mg Tablet) 600 mg PO BID [facility] 234 BEDS AT [facility] Last Admin: 12/28/21 08:09 Dose: 600 mg Documented By: DENIA Magnesium Oxide (Magnesium Oxide 400 Mg Tablet) 800 mg PO DAILY [facility] 234 BEDS AT [facility] Last Admin: 12/28/21 08:09 Dose: 800 mg Documented By: DENIA Magnesium Oxide (Magnesium Oxide 400 Mg Tablet) 400 mg PO BIDPC [facility]S [facility]CLUDE 234 BEDS AT [facility] Last Admin: 12/28/21 08:09 Dose: 400 mg Documented By: DENIA Methadone HCl (Methadone Hcl 20 Mg/2 Ml Oral.Conc) 60 mg PO DAILY [facility] 234 BEDS AT [facility] Last Admin: 12/28/21 08:10 Dose: 60 mg Documented By: DENIA Methadone HCl (Methadone Hcl 20 Mg/2 Ml Oral.Conc) 5 mg PO BEDTIME [facility] 234 BEDS AT [facility] Last Admin: 12/27/21 19:24 Dose: 5 mg Documented By: CASTILM Nifedipine (Nifedipine Er 30 Mg Tab.Er.24) 60 mg PO DAILY [facility] 234 BEDS AT [facility]; Protocol Last Admin: 12/28/21 08:08 Dose: 60 mg Documented By: DENIA Ondansetron HCl (Ondansetron Hcl 4 Mg/2 Ml Vial) 4 mg IVPUSH Q8H PRN PRN Reason: Nausea and Vomiting Polyethylene Glycol (Polyethylene Glycol 3350 17 Gm Powd.Pack) 17 gm PO BID [facility] 234 BEDS AT [facility] Last Admin: 12/28/21 08:12 Dose: Not Given Documented By: DENIA Non-Admin Reason: Patient Refused Sodium Chloride (0.9 % Sodium Chloride Flush 3 Ml Syringe) 3 ml IVFLUSH QSHIFT [facility] 234 BEDS AT [facility] Last Admin: 12/28/21 08:09 Dose: 3 ml Documented By: DENIA Labs CBC & Chem 7: 12/22/21 05:47 12/28/21 06:01 Labs: Laboratory Results - last 24 hr 12/28/21 06:01 Estim Creat Clear Calc 76.6 Estimated GFR > 60 Assessment and Plan (1) Hypokalemia: Status: Acute (2) Bacteremia: Status: Acute (3) YONY (acute kidney injury): Status: Acute (4) Abnormal LFTs: Status: Acute Plan 46-year-old male with past medical history of IV drug use presents to the hospital after being found in the bathroom of a local [employer], he has multiple complaints and multiple findings # abdominal pain d/t severe constipation, no evidence of obstruction,continue to have BM continue MiraLax, Dulcolax, and Fleet enema as necessary # YONY-? secondary to dehydration--resolved # lactic acidosis - no evidence of acute infection - UA negative, chest shows no evidence of pneumonia off fluids no further trending need unless clinical siutation changes. # acute hypokalemia--corrected and resolved has leucocytosis moniter cbc # acute normocytic anemia - likely multifactorial - evidence of hematoma , as well as significant ecchymosis all over his body s/p 2 prbc yesterday repeat h/h in .6 ?anemia workup:iron and iron sats low , b12 and folate seems fine, ferritin levels normal possible iron/iron sats low due to recent bruise/hematoma moniter cbc if h/h drop may need further workup. # hematuria - acute - monitor CBC - urology consulted- follow up outpatient. # IV drug user: continue methadone, addiction med following # subdural hematoma - improving per imaging - monitor # rib fractures - secondary to frequent falls in the setting of IV drug use - incentive spirometry elevated LFT: lft's ,alk phos improvin hepatitis profile hep B -grayzone, hepatitis C reactive,ebv,hsv serology pending abd us-seems fine . moniter lft's , will need Gi follow up upon discharge. #MSSA Bacteremia :?Has been on IV Vanco, he doesn't want PICC and IV Abx at facility therefore changing to oral Zyvox for 14 days. D5/14. No s/sx of serotonin syndrome DVT prophylaxis: SCDs Pt eval inaptient need:??bacteremia on IV Abx, DC planning--> awaiting placment (probable DC todau to [place] once Methadone delivery at [facility] straightened out) Quality Stroke Does the patient have a stroke diagnosis?: No VTE Prior VTE?: No VTE Risk Level:: Medical - low VTE Device Contraindication: Treatment Not Indicated VTE Drug Contraindication: N/A - Med Ordered
--- NOTE | 2021-12-28 12:11 | MHC.RECOVRN ---
Spoke with Jane at [facility]. Tub Puller out today and unable to be accepted to [facility]. Earliest pt could dose is Tuesday12/30/21. CM aware.
--- NOTE | 2021-12-28 12:33 | MHC.CM.PN ---
[facility] IS OFFERING PT A BED PENDING OP METHADONE IS ARRANGED AT [facility] IN [place] [employer] DID ATTEMPT TO ARRANGE MMTP HOWEVER THE MACHINE CLOTH MEASURER WAS OUT OF THE OFFICE AND IS REQUIRED FOR NEW PTS PER [employer], THEY WILL BE UNABLE TO CONFIRM PTS SPOT THERE PRIOR TO TUESDAY MD, PT AND SNF INFORMED
--- NOTE | 2021-12-28 12:40 | MHC.CLN ---
F/U DIET RX:REGULAR-APPROPRIATE. PT RECEIVING SUPPLEMENT ENSURE BID PROVIDES ADDITIONAL 700 KCALS, 40 G PROTEIN. STAGE II WOUND TO BUTTOCKS-SUPPLEMENT APPROPRIATE TO PROMOTE WOUND HEALING. PO INTAKE 50-100% AT MEALS. CONTINUE DIET AND SUPPLEMENT. FOLLOW FOR INTAKE AND WOUND HEALING.
[2021-12-28] MEDS: methADONE HCl 20 MG/2 ML ORAL.CONC 5 MG PO (19:17)
[2021-12-28] MEDS: polyethylene glycoL 3350 17 GM POWD.PACK PO (19:18)
[2021-12-29] VITALS (8 sets, daily range): BP systolic 103–138; BP diastolic 66–93; PULSE 51–57; RESP 16–20; TEMP 36.2–36.7; O2SAT 95–97
[2021-12-29] MEDS: 0.9 % Sodium Chloride Flush 3 ML SYRINGE IVFLUSH ×4 (00:01→19:29)
[2021-12-29] MEDS: Enoxaparin Sodium 40 MG/0.4 ML SYRINGE SUBCUT (02:54)
--- NOTE | 2021-12-29 03:28 | PC.NURSE ---
Patient remains in bed with some weakness, alert and oriented x3. Camera in room. Laid in bed for most part of shift. All needs provided. Tolerated all scheduled meds well. Encouraged repositioning.
[2021-12-29 06:26] LABS: Creatinine Clr Calc Pharmacy 74.7; Estimated Glomerular Filt Rate > 60
[2021-12-29] MEDS: NIFEdipine ER 30 MG TAB.ER.24 60 MG PO (09:07)
[2021-12-29] MEDS: Aspirin Enteric Coated 81 MG TABLET.DR PO (09:08)
[2021-12-29] MEDS: hydrALAZINE HCl 25 MG TABLET PO ×3 (09:08→19:24)
[2021-12-29] MEDS: Linezolid 600 MG TABLET PO ×2 (09:08→19:24)
[2021-12-29] MEDS: Docusate Sodium 100 MG CAPSULE PO ×2 (09:08→19:24)
[2021-12-29] MEDS: Magnesium Oxide 400 MG TABLET PO ×2 (09:08→16:40)
[2021-12-29] MEDS: methADONE HCl 20 MG/2 ML ORAL.CONC 65 MG PO (09:10)
[2021-12-29] MEDS: Magnesium Oxide 400 MG TABLET 800 MG PO (09:14)
--- NOTE | 2021-12-29 16:02 | HO.PM.IMPN ---
Subjective Subjective Date of Service: 12/29/21 Interval History: f/u bacteremia Review of Systems denies any new complaint including chest pain or shortness of breath or abdominal pain or fever chills. Physical Exam Vital Signs: Vital Signs: Last Vital Signs Temp 97.2 F 12/29/21 15:55 Pulse 57 12/29/21 15:55 Resp 18 12/29/21 15:55 BP 127/88 12/29/21 15:55 Pulse Ox 96 12/29/21 15:55 O2 Del Method 12/29/21 15:55 BMI result Body Mass Index 23.4 General: AO X 3, no acute distress Resp:? CTA bilateral CVS: S1,S2,RRR GI: +BS, NT, ND, soft Skin: No rash Neuro:? motor grossly intact Psych: appropriate affect Objective Data Active Medications Acetaminophen (Acetaminophen 325 Mg Tablet) 650 mg PO Q6H PRN PRN Reason: Pain, Mild (Pain Scale 1-3) Last Admin: 12/24/21 15:59 Dose: 650 mg Documented By: WILBUR Aspirin (Aspirin Enteric Coated 81 Mg Tablet.Dr) 81 mg PO DAILY [facility] Last Admin: 12/29/21 09:08 Dose: 81 mg Documented By: VARUN Docusate Sodium (Docusate Sodium 100 Mg Capsule) 100 mg PO BID [facility] Last Admin: 12/29/21 09:08 Dose: 100 mg Documented By: VARUN Enoxaparin Sodium (Enoxaparin Sodium 40 Mg/0.4 Ml Syringe) 40 mg SUBCUT Q24H [facility] Last Admin: 12/29/21 02:54 Dose: 40 mg Documented By: MIKA Hydralazine HCl (Hydralazine Hcl 25 Mg Tablet) 25 mg PO TID [facility]; Protocol Last Admin: 12/29/21 14:53 Dose: 25 mg Documented By: VARUN Hydroxyzine HCl (Hydroxyzine Hcl 25 Mg Tablet) 25 mg PO Q8H PRN PRN Reason: withdrawal symptoms Last Admin: 12/24/21 15:59 Dose: 25 mg Documented By: WILBUR Lidocaine (Lidocaine 4 % Patch Adh..Patch) 1 patch TRANSDERMA DAILY [facility]; Protocol Last Admin: 12/29/21 09:16 Dose: Not Given Documented By: VARUN Non-Admin Reason: Patient Refused Linezolid (Linezolid 600 Mg Tablet) 600 mg PO BID [facility] Last Admin: 12/29/21 09:08 Dose: 600 mg Documented By: VARUN Magnesium Oxide (Magnesium Oxide 400 Mg Tablet) 800 mg PO DAILY [facility] Last Admin: 12/29/21 09:14 Dose: 800 mg Documented By: VARUN [facility]esium [facility]ide ([facility]esium [facility] 400 Mg [facility]t) [facility] Last Admin: 12/29/21 09:08 Dose: 400 mg Documented By: VARUN Methadone HCl (Methadone Hcl 20 Mg/2 Ml Oral.Conc) 65 mg PO DAILY [facility] Last Admin: 12/29/21 09:10 Dose: 65 mg Documented By: VARUN Nifedipine (Nifedipine Er 30 Mg Tab.Er.24) 60 mg PO DAILY [facility]; Protocol Last Admin: 12/29/21 09:07 Dose: 60 mg Documented By: VARUN Ondansetron HCl (Ondansetron Hcl 4 Mg/2 Ml Vial) 4 mg IVPUSH Q8H PRN PRN Reason: Nausea and Vomiting Polyethylene Glycol (Polyethylene Glycol 3350 17 Gm Powd.Pack) 17 gm PO BID [facility] Last Admin: 12/29/21 09:10 Dose: Not Given Documented By: VARUN Non-Admin Reason: Patient Refused Sodium Chloride (0.9 % Sodium Chloride Flush 3 Ml Syringe) 3 ml IVFLUSH QSHIFT [facility] Last Admin: 12/29/21 09:09 Dose: 3 ml Documented By: VARUN Labs CBC & Chem 7: 12/22/21 05:47 12/29/21 05:14 Labs: Laboratory Results - last 24 hr 12/29/21 05:14 Estim Creat Clear Calc 74.7 Estimated GFR > 60 Assessment and Plan (1) Bacteremia: Status: Acute (2) Abnormal LFTs: Status: Acute (3) IV drug user: Status: Acute (4) Hypokalemia: Status: Acute (5) YONY (acute kidney injury): Status: Acute Plan 46-year-old male with past medical history of IV drug use presents to the hospital after being found in the bathroom of a local [employer], he has multiple complaints and multiple findings # abdominal pain d/t severe constipation, no evidence of obstruction,continue to have BM continue MiraLax, Dulcolax, and Fleet enema as necessary # YONY-? secondary to dehydration--resolved Encouraged for p.o. hydration, added albumin. # acute hypokalemia--corrected and resolved leucocytosis- Seems to be resolved. moniter cbc # acute normocytic anemia - likely multifactorial - evidence of hematoma , as well as significant ecchymosis all over his body s/p 2 prbc . H&H stable around: 10.6/32.2 ?anemia workup:iron and iron sats low , b12 and folate seems fine, ferritin levels normal possible iron/iron sats low due to recent bruise/hematoma moniter cbc if h/h drop may need further workup. # hematuria - acute - monitor CBC - urology consulted- follow up outpatient. # IV drug user: continue methadone, addiction med following # subdural hematoma - improving per imaging - monitor # rib fractures - secondary to frequent falls in the setting of IV drug use - incentive spirometry elevated LFT: lft's ,alk phos improvin hepatitis profile hep B -grayzone, hepatitis C reactive,ebv,hsv serology pending abd us-seems fine . moniter lft's , will need Gi follow up upon discharge. #MSSA Bacteremia :?Has been on IV Vanco, he doesn't want PICC and IV Abx at facility therefore changing to oral Zyvox for 14 days. D5/14. No s/sx of serotonin syndrome DVT prophylaxis: SCDs Pt eval inaptient need:??bacteremia on IV Abx, DC planning--> awaiting placment (probable DC todau to [place] once Methadone delivery at [facility] straightened out) Quality Stroke Does the patient have a stroke diagnosis?: No VTE Prior VTE?: No VTE Risk Level:: Medical - low VTE Device Contraindication: Treatment Not Indicated VTE Drug Contraindication: N/A - Med Ordered
[2021-12-29] MEDS: Albumin Human 25 % 100 ML IV ×2 (16:40→17:53)
[2021-12-29] MEDS: hydrOXYzine HCL 25 MG TABLET PO (20:53)
[2021-12-29] MEDS: methADONE HCl 20 MG/2 ML ORAL.CONC 5 MG PO (20:54)
[2021-12-30] MEDS: Enoxaparin Sodium 40 MG/0.4 ML SYRINGE SUBCUT (03:42)
[2021-12-30 07:36] VITALS: BP 122/89; PULSE 52; RESP 16; TEMP 36.2; O2SAT 96
[2021-12-30] MEDS: Magnesium Oxide 400 MG TABLET 800 MG PO (08:34)
[2021-12-30] MEDS: Docusate Sodium 100 MG CAPSULE PO ×2 (08:34→20:03)
[2021-12-30] MEDS: NIFEdipine ER 30 MG TAB.ER.24 60 MG PO (08:34)
[2021-12-30] MEDS: Aspirin Enteric Coated 81 MG TABLET.DR PO (08:34)
[2021-12-30] MEDS: Linezolid 600 MG TABLET PO ×2 (08:34→20:03)
[2021-12-30] MEDS: Magnesium Oxide 400 MG TABLET PO ×2 (08:34→16:28)
[2021-12-30] MEDS: methADONE HCl 20 MG/2 ML ORAL.CONC 65 MG PO (08:35)
[2021-12-30] MEDS: 0.9 % Sodium Chloride Flush 3 ML SYRINGE IVFLUSH ×3 (08:35→20:03)
[2021-12-30] MEDS: hydrALAZINE HCl 25 MG TABLET PO ×3 (08:35→20:03)
--- NOTE | 2021-12-30 10:18 | MHC.CLN ---
F/U DIET RX:REGULAR-APPROPRIATE. PT RECEIVING SUPPLEMENT ENSURE BID PROVIDES ADDITIONAL 700 KCALS, 40 G PROTEIN. STAGE II WOUND TO BUTTOCKS-SUPPLEMENT APPROPRIATE TO PROMOTE WOUND HEALING. PO INTAKE 50-100% AT MEALS. CONTINUE DIET AND SUPPLEMENT. FOLLOW FOR INTAKE AND WOUND HEALING. RD TO FOLLOW WEEKLY.
[2021-12-30 11:09] VITALS: BP 139/88; PULSE 51; RESP 16; TEMP 36.3; O2SAT 96
--- NOTE | 2021-12-30 11:29 | MHC.RECOVRN ---
Waiting on final approval from medical aides teacher at [facility] regarding patient's direct admission. CM aware.
[2021-12-30] MEDS: Acetaminophen 325 MG TABLET 650 MG PO (13:12)
--- NOTE | 2021-12-30 13:14 | HO.PM.IMPN ---
Subjective Subjective Date of Service: 01/02/22 Interval History: f/u bacteremia Review of Systems denies any new complaint including chest pain or shortness of breath or abdominal pain or fever chills. Physical Exam Vital Signs: Vital Signs: Last Vital Signs Temp 97.4 F 12/30/21 11:09 Pulse 51 12/30/21 11:09 Resp 16 12/30/21 11:09 BP 139/88 12/30/21 11:09 Pulse Ox 96 12/30/21 11:09 O2 Del Method 12/30/21 11:09 BMI result Body Mass Index 23.4 General: AO X 3, no acute distress Resp:? CTA bilateral CVS: S1,S2,RRR GI: +BS, NT, ND, soft Skin: No rash Neuro:? motor grossly intact Psych: appropriate affect Objective Data Active Medications Acetaminophen (Acetaminophen 325 Mg Tablet) 650 mg PO Q6H PRN PRN Reason: Pain, Mild (Pain Scale 1-3) Last Admin: 12/24/21 15:59 Dose: 650 mg Documented By: WILBUR Aspirin (Aspirin Enteric Coated 81 Mg Tablet.Dr) 81 mg PO DAILY [facility] Last Admin: 12/30/21 08:34 Dose: 81 mg Documented By: VARUN Docusate Sodium (Docusate Sodium 100 Mg Capsule) 100 mg PO BID [facility] Last Admin: 12/30/21 08:34 Dose: 100 mg Documented By: VARUN Enoxaparin Sodium (Enoxaparin Sodium 40 Mg/0.4 Ml Syringe) 40 mg SUBCUT Q24H [facility] Last Admin: 12/30/21 03:42 Dose: 40 mg Documented By: CED Hydralazine HCl (Hydralazine Hcl 25 Mg Tablet) 25 mg PO TID [facility]; Protocol Last Admin: 12/30/21 08:35 Dose: 25 mg Documented By: VARUN Hydroxyzine HCl (Hydroxyzine Hcl 25 Mg Tablet) 25 mg PO Q8H PRN PRN Reason: withdrawal symptoms Last Admin: 12/29/21 20:53 Dose: 25 mg Documented By: CED Lidocaine (Lidocaine 4 % Patch Adh..Patch) 1 patch TRANSDERMA DAILY [facility]; Protocol Last Admin: 12/30/21 08:36 Dose: Not Given Documented By: VARUN Non-Admin Reason: Patient Refused Linezolid (Linezolid 600 Mg Tablet) 600 mg PO BID [facility] Last Admin: 12/30/21 08:34 Dose: 600 mg Documented By: VARUN Magnesium Oxide (Magnesium Oxide 400 Mg Tablet) 800 mg PO DAILY [facility] Last Admin: 12/30/21 08:34 Dose: 800 mg Documented By: VARUN Magnesium Oxide ([facility]esium [facility]ide 400 Mg Tablet) [facility] Admin: 12/30/21 08:34 Dose: 400 mg Documented By: VARUN Methadone HCl (Methadone Hcl 20 Mg/2 Ml Oral.Conc) 65 mg PO DAILY [facility] Last Admin: 12/30/21 08:35 Dose: 65 mg Documented By: VARUN Methadone HCl (Methadone Hcl 20 Mg/2 Ml Oral.Conc) 5 mg PO BEDTIME [facility] Last Admin: 12/29/21 20:54 Dose: 5 mg Documented By: CED Nifedipine (Nifedipine Er 30 Mg Tab.Er.24) 60 mg PO DAILY [facility]; Protocol Last Admin: 12/30/21 08:34 Dose: 60 mg Documented By: VARUN Ondansetron HCl (Ondansetron Hcl 4 Mg/2 Ml Vial) 4 mg IVPUSH Q8H PRN PRN Reason: Nausea and Vomiting Polyethylene Glycol (Polyethylene Glycol 3350 17 Gm Powd.Pack) 17 gm PO BID [facility] Last Admin: 12/30/21 08:36 Dose: Not Given Documented By: VARUN Non-Admin Reason: Patient Refused Sodium Chloride (0.9 % Sodium Chloride Flush 3 Ml Syringe) 3 ml IVFLUSH QSHIFT [facility] Last Admin: 12/30/21 08:35 Dose: 3 ml Documented By: VARUN Labs CBC & Chem 7: 12/22/21 05:47 12/29/21 05:14 Assessment and Plan (1) Bacteremia: Status: Acute (2) Abnormal LFTs: Status: Acute (3) IV drug user: Status: Acute (4) Hypokalemia: Status: Acute (5) YONY (acute kidney injury): Status: Acute Plan 46-year-old male with past medical history of IV drug use presents to the hospital after being found in the bathroom of a local [employer], he has multiple complaints and multiple findings # abdominal pain d/t severe constipation, no evidence of obstruction,continue to have BM continue MiraLax, Dulcolax, and Fleet enema as necessary # YONY-? secondary to dehydration--resolved Encouraged for p.o. hydration, added albumin. # acute hypokalemia--corrected and resolved leucocytosis- Seems to be resolved. moniter cbc # acute normocytic anemia - likely multifactorial - evidence of hematoma , as well as significant ecchymosis all over his body s/p 2 prbc . H&H stable around: 10.6/32.2 ?anemia workup:iron and iron sats low , b12 and folate seems fine, ferritin levels normal possible iron/iron sats low due to recent bruise/hematoma moniter cbc if h/h drop may need further workup. # hematuria - acute - monitor CBC - urology consulted- follow up outpatient. # IV drug user: continue methadone, addiction med following # subdural hematoma - improving per imaging - monitor # rib fractures - secondary to frequent falls in the setting of IV drug use - incentive spirometry elevated LFT: lft's ,alk phos improvin hepatitis profile hep B -grayzone, hepatitis C reactive,ebv,hsv serology pending abd us-seems fine . moniter lft's , will need Gi follow up upon discharge. #MSSA Bacteremia :?Has been on IV Vanco, he doesn't want PICC and IV Abx at facility therefore changing to oral Zyvox for 14 days. D5/14. No s/sx of serotonin syndrome DVT prophylaxis: SCDs Pt eval inaptient need:??bacteremia on IV Abx, DC planning--> awaiting placment (probable DC todau to [place] once Methadone delivery at [facility] straightened out) Quality Stroke Does the patient have a stroke diagnosis?: No VTE Prior VTE?: No VTE Risk Level:: Medical - low VTE Device Contraindication: Treatment Not Indicated VTE Drug Contraindication: N/A - Med Ordered
--- NOTE | 2021-12-30 13:26 | PM.EVENT ---
Event Note Date of Service: 12/30/21 Event Note: Addiction note: Methadone dose currently at 65mg QD As patient was recently transitioned to PO Linezolid, pharmacy recommendation was to keep dose where it is to reduce risk of seretonin syndrome. HS dose of methadone has been discontinued. If patient is c/o difficulty sleeping, sleep agent should be used to address this.
[2021-12-30 14:43] VITALS: BP 139/88; PULSE 51; O2SAT 96
[2021-12-30 15:02] VITALS: BP 145/79; PULSE 63; RESP 16; TEMP 36.3; O2SAT 99
--- NOTE | 2021-12-30 15:31 | MHC.CM.PN ---
[facility] HAS STARTED THE AUTH PROCESS OF THIS NOTE, NO AUTH RECEIVED YET.
[2021-12-30 18:57] VITALS: BP 129/83; PULSE 60; RESP 17; TEMP 36.4; O2SAT 96
[2021-12-30] MEDS: Zolpidem Tartrate 5 MG TABLET PO (20:58)
[2021-12-30 23:31] VITALS: BP 136/87; PULSE 56; RESP 18; TEMP 36.2; O2SAT 95
[2021-12-31 02:29] VITALS: BP 128/89; PULSE 57; RESP 16; TEMP 36.9; O2SAT 94
[2021-12-31] MEDS: Enoxaparin Sodium 40 MG/0.4 ML SYRINGE SUBCUT (02:35)
[2021-12-31 07:50] VITALS: BP 126/84; PULSE 59; RESP 18; TEMP 36.1; O2SAT 96
[2021-12-31] MEDS: Linezolid 600 MG TABLET PO (08:04)
[2021-12-31] MEDS: hydrALAZINE HCl 25 MG TABLET PO ×2 (08:04→15:05)
[2021-12-31] MEDS: Magnesium Oxide 400 MG TABLET PO ×2 (08:04→16:55)
[2021-12-31] MEDS: NIFEdipine ER 30 MG TAB.ER.24 60 MG PO (08:04)
[2021-12-31] MEDS: Magnesium Oxide 400 MG TABLET 800 MG PO (08:04)
[2021-12-31] MEDS: Aspirin Enteric Coated 81 MG TABLET.DR PO (08:04)
[2021-12-31] MEDS: Docusate Sodium 100 MG CAPSULE PO (08:05)
[2021-12-31] MEDS: methADONE HCl 20 MG/2 ML ORAL.CONC 65 MG PO (08:05)
[2021-12-31] MEDS: 0.9 % Sodium Chloride Flush 3 ML SYRINGE IVFLUSH ×2 (08:05→15:09)
[2021-12-31 11:31] VITALS: BP 112/80; PULSE 63; RESP 18; TEMP 36.3; O2SAT 95
--- NOTE | 2021-12-31 13:08 | MHC.CM.PN ---
Addendum entered by Bronwyn Stephenson 12/31/21 14:14: PTS BELONGINGS ARE WITH [employer] AWARE THEY WILL NEED TO PICK THEM UP ON THE WAY OUT Original Note: [facility] HAS RECEIVED INSURANCE AUTH FOR [facility] CARE PT WILL BE UNABLE TO GET REHAB WITH THIS AUTH, HOWEVER THEY HAVE AGREED TO RE-EVAL HIM ONCE THERE PER PACKING MACHINE INSPECTOR, PT IS ALL SET TO START RECEIVING HIS METHADONE AT [facility] TOMORROW MORNING TRANSPORT ARRANGED VIA [facility] FOR 1700 HOURS PT/ NURSE/ MD/ SNF AWARE
--- NOTE | 2021-12-31 13:33 | PM.DS ---
DS: Providers Provider Date of Service: 12/31/21 Date of admission: 12/15/21 03:28 Primary care physician: Unknown Physician Consults: 12/15/21 03:50 Consult to Care Team Routine Comment: Reason for consultation: methadone 12/15/21 06:47 Consult to Urology Routine Consulting Provider: Jesus Castaneda Reason for consultation: hematuria 12/15/21 13:17 Consult to Gastroenterology Routine Consulting Provider: [facility] Reason for consultation: worsening Lft's Has provider been notified: No 12/15/21 18:05 Consult to Infectious Diseases Routine Consulting Provider: Deann Rader Reason for consultation: bactermia Has provider been notified: No 12/23/21 13:31 Consult to Infectious Diseases Routine Consulting Provider: Deann Rader Reason for consultation: bacteremia Has provider been notified: Yes DS: Diagnosis Discharge Diagnosis (1) Bacteremia: Status: Acute (2) Abnormal LFTs: Status: Acute (3) IV drug user: Status: Acute (4) Hypokalemia: Status: Acute (5) YONY (acute kidney injury): Status: Acute DS: Summary Hospital Course Hospital Course: Chief Complaint: abd pain, falling 46-year-old male with IV drug use history presents to the hospital after being found in the bathroom of a local [employer], is seen the patient was groaning very loudly and bystanders were concerned therefore EMS was called, on arrival of EMS patient was found to be hypotensive, with a systolic in the 90s, but otherwise stable. Patient himself is somnolent but arousable, reports significant pain in his hip, as well as his ribs after falling and fracturing then, reports that he was at [facility] with epidural hemorrhage, was discharged and ports 2 more falls post discharge.? He? denies being homeless but reports that he was to be treated for his drug use history.? He reports significant abdominal pain, some nausea and vomiting, Reviewing medical records from [facility], patient was in [facility] on November 04, diagnosed with left arm pleural lobe subdural hematoma, in at [facility] again on December 09, CT scan at that time shows subacute chronic subdural hematoma with improvement in thickness, previously 2.7 and now 1.6 cm, patient also has EKG changes were present previously.? Patient denies any chest pain. Patient otherwise denies any chest pain, no urinary symptoms, no weakness numbness or tingling, no lower extremity edema.? He has bruising all over his body.? Reports they are all from falling.? Patient was also caught in the ED room trying to use heroin. He underwent head and neck CT which showed no acute abnormality, the subdural hematomas seems to be improving, patient also found to have multiple abnormalities including a lactic acid of 4.0, WBC count of 1.3, hemoglobin of 7.2, previously 11.7 on 11/02, potassium of 2.9, creatinine of 1.61, AST of 308, , ALT of 73, alk-phos of 404, UA positive for blood and RBC, UDS positive for opioids, fentanyl, and cocaine Abdominal pelvic CT shows nondisplaced acute appearing fracture of the left 12th rib, mild T11 superior endplate compression fracture, exact acuity uncertain, couple of subacute to chronic appearing fractures of the posterolateral right 6 and 7 ribs, no pneumothorax, no airspace consolidation, no intra-abdominal free air free fluid, very large amount of stool throughout the colon with mild dilatation of the cecum, ascending and transverse colon, diffusely thick-walled appearance of the urinary bladder, Patient given 1 dose of antibiotics all be admitted further management Hospital course: 46-year-old male with IV drug use history - initially admitted for abdominal pain, YONY, lactic acidosis and high, hypokalemia, anemia, elevated LFTs, also has history of subdural hematoma: patient abdominal may pain thought to be due to constipation which is improving with laxatives and producing bowels. YONY improved with hydration. Lactic acidosis thought to be related to dehydration and YONY. Acute normocytic anemia possible multifactorial has subdural hematoma and significant ecchymosis on the body: Given 1 PRBC in the ED initially H&H is stable around 10.6/32.2. also initially found to have elevated LFT mild: found to be hepatitis C (EIA) reactive, LFTs improved, patient denies any symptoms currently. Patient is to follow-up with GI out patiently for further workup. In addition patient found to have MSSA bacteremia: repeat culture negative, echo seems grossly fine( please see imaging section): Patient was initially on IV vancomycin then subsequently switched to linezolid p.o. patient already completed 1 week, patient will need 1 more week of linezolid as per ID. Please monitor CBC, BMP, LFT, CPK Weekly while patient is on antibiotics. IV drug use: patient was seen by educational specialist currently started on methadone- which will be arranged outpatient as per complaint supervisor. in addition: hematuria-- was seen by Urology with the following remark by Dr. Smith on 12/15 Hematuria.? Urine currently clear, U/A no evidence of active UTI CT findings:??Kidneys and Ureters: Duplicated right renal collecting system. No renal lesion or hydronephrosis. Bladder: Diffusely thick-walled appearance. No focal bladder wall thickening. No surgical intervention indicated at this time FU with Urology as out patient subdural hematoma--old as described Compared to CT from 11/02/2021, decreased size and density of a left hemispheric subdural collection with resolution of leftward midline shift. No definite new acute intracranial abnormality within the limitations of motion Patient was seen by PT recommended str. above management discussed with the patient in detail length, he understand and in agreement with above plan, time spent 50 minute. patient will benefit from less than 30 days stay Time Spent with Patient Time attestation: Total time spent providing and/or coordinating discharge services: Discharge coordination time: Greater than 30 minutes Quality: Safe Use of Opioids Does Pt have an Active Cancer Diagnosis on the Problem List?: No Quality: Stroke Does the patient have a stroke diagnosis?: No Physical Exam Vital Signs: Vital Signs: Last Vital Signs Temp 97.4 F 12/31/21 11:31 Pulse 63 12/31/21 11:31 Resp 18 12/31/21 11:31 BP 112/80 12/31/21 11:31 Pulse Ox 95 12/31/21 11:31 O2 Del Method 12/31/21 11:31 BMI result Body Mass Index 23.4 General: AO X 3, no acute distress Resp:? CTA bilateral CVS: S1,S2,RRR GI: +BS, NT, ND, soft Skin: No rash Neuro:? motor grossly intact Psych: appropriate affect DS: Data Additional Comments Additional comments: Laboratory Results - last 24 hr ? 12/29/21 ? 05:14 Estim Creat Clear Calc ?74.7 Estimated GFR ?> 60 Discharge Plan Discharge Anticipated Discharge Date/Time: 12/25/21 10:08 Patient Disposition: Xfer [facility] Discharge Diagnosis: Bacteremia Referrals: [facility] & [facility] [Outside] - 1 Week Jesus Castaneda MD [Physician] - 2 Weeks (hematuria and bladder thickening) Dameon Kim MD [Physician] - 2 Weeks (elevated left, ) Physician,Cassy J [Primary Care Provider] - 1 Week Discharge Medications: New acetaminophen 325 mg Tablet 650 mg PO Q6H PRN (Reason: Pain, Mild (Pain Scale 1-3)) Qty: 10 0RF docusate sodium 100 mg Capsule 100 mg PO BID PRN (Reason: constipation) Qty: 30 0RF magnesium oxide 400 mg (241.3 mg magnesium) Tablet 800 mg PO DAILY PRN (Reason: constipation) Qty: 10 0RF hydralazine 25 mg Tablet 25 mg PO TID Qty: 90 0RF Protocol: Hold for SBP< HOLD for SBP < : 90 polyethylene glycol 3350 17 gram Powder In Packet 17 g PO BID Qty: 30 0RF linezolid 600 mg Tablet 600 mg PO BID Qty: 14 0RF Continued aspirin 81 mg tablet,delayed release (DR/EC) 1 tab PO DAILY Changed nifedipine 30 mg tablet extended release 24hr 2 tab PO DAILY Qty: 60 0RF Discharge Orders: Discharge Order (Routine); Ordered 12/31/21 Ordered By: Luis Del Castillo Diet: Advance to usual diet Activity on Discharge: As tolerated Stand Alone Forms: Patient Portal Discharge page Care Plan Goals: Full recovery from bacteremia Health Concerns: 46-year-old male with IV drug use history - initially admitted for abdominal pain, YONY, lactic acidosis and high, hypokalemia, anemia, elevated LFTs, also has history of subdural hematoma: patient abdominal may pain thought to be due to constipation which is improving with laxatives and producing bowels. YONY improved with hydration. Lactic acidosis thought to be related to dehydration and YONY. Acute normocytic anemia possible multifactorial has subdural hematoma and significant ecchymosis on the body: Given 1 PRBC in the ED initially H&H is stable around 10.6/32.2. also initially found to have elevated LFT mild: found to be hepatitis C (EIA) reactive, LFTs improved, patient denies any symptoms currently. Patient is to follow-up with GI out patiently for further workup. In addition patient found to have MSSA bacteremia: repeat culture negative, echo seems grossly fine( please see imaging section): Patient was initially on IV vancomycin then subsequently switched to linezolid p.o. patient already completed 1 week, patient will need 1 more week of linezolid as per ID. Please monitor CBC, BMP, LFT, CPK Weekly while patient is on antibiotics. IV drug use: patient was seen by educational specialist currently started on methadone- which will be arranged outpatient as per complaint supervisor. Patient was seen by PT recommended str. patient will be [facility] [place] Plan of Treatment: Take Zyvox as recommended and follow up with your Doctor in a week Assessment: as above
[2021-12-31] MEDS: hydrOXYzine HCL 25 MG TABLET PO (14:09)
[2021-12-31 15:06] VITALS: BP 120/77; PULSE 57; TEMP 36.1; O2SAT 98
[2021-12-31 18:58] VITALS: BP 138/80; PULSE 60; RESP 17; TEMP 36.6; O2SAT 96
== END 2021-12-31 19:09 | disposition skilled nursing facility (03) | DRG 469 ==
LOC: HO.ED 12-15 01:11 → HO.EDOVER 12-15 07:11 → HO.S3 12-16 23:37 → HO.EDOVER 12-21 16:08 → HO.IMC 12-22 14:19 → HO.S3 12-24 14:33
PROVIDERS: Internal Medicine; Physician Assistant; Admitting Provider Internal Medicine; Emergency Provider Emergency Medicine; Visit Provider Internal Medicine
DX: N17.9 Acute kidney failure, unspecified (principal); E87.20 Acidosis, unspecified; R78.81 Bacteremia; S06.5XAA Traumatic subdural hemorrhage with loss of consciousness status unknown, initial encounter; E86.0 Dehydration; E03.9 Hypothyroidism, unspecified; S22.32XA Fracture of one rib, left side, initial encounter for closed fracture; F17.210 Nicotine dependence, cigarettes, uncomplicated; Z71.6 Tobacco abuse counseling; E87.6 Hypokalemia; K59.00 Constipation, unspecified; B95.61 Methicillin susceptible Staphylococcus aureus infection as the cause of diseases classified elsewhere; B19.20 Unspecified viral hepatitis C without hepatic coma; I10 Essential (primary) hypertension; F11.23 Opioid dependence with withdrawal; F31.9 Bipolar disorder, unspecified; W19.XXXA Unspecified fall, initial encounter; D64.9 Anemia, unspecified; R31.9 Hematuria, unspecified; Q62.5 Duplication of ureter; Z20.822 Contact with and (suspected) exposure to COVID-19; Z88.8 Allergy status to other drugs, medicaments and biological substances; Z56.0 Unemployment, unspecified; Z79.899 Other long term (current) drug therapy
CPT/HCPCS: 36415; 36430; 70450; 71250; 72125; 74176; 76705; 80048; 80076; 80143; 80179; 80202; 80307; 81001; 82077; 82140; 82550; 82565; 82607; 82728; 82746; 83540; 83605; 83690; 83735; 84132; 84439; 84443; 84484; 85007; 85027; 85610; 86695; 86696; 86704; 86706; 86709; 86803; 86850; 86900; 86901; 86923; 87040; 87077; 87186; 87205; 87340; 87497; 87635; 87798; 93005; 93306; 96361; 96365; 96367; 96375; 97110; 97116; 97162; 97530; 99218; 99285; J0692; J1650; J2405; J3370; P9016; P9047

== ENCOUNTER 2022-02-01 16:19 | Outpatient (REF) | payer OTHER, SELFPAY ==
[2022-02-01 16:47] LABS: MANUAL DIFF FLAG NO
[2022-02-01 16:58] LABS: Basophils Absolute Auto 0.1 X10*3/uL (0.0-0.2); Basophils Percent Auto 1.2 % (0-2); Eosinophils Absolute Auto 0.4 X10*3/uL (0.0-0.4); Eosinophils Percent Auto 6.5 % (0-4); Imm Gran Abs Auto 0.01 X10*3/uL (0.00-0.03); Imm Gran Pct Auto 0.2 % (0.0-0.4); Lymphocytes Absolute Auto 2.2 X10*3/uL (1.2-4.9); Lymphocytes Percent Auto 33.1 % (20-40); Mean Corpuscular HGB Conc 33.3 g/dl (31.0-36.0); Mean Corpuscular Hemoglobin 28.9 pg (27.0-33.0); Mean Corpuscular Volume 86.8 fL (80.0-98.0); Mean Platelet Volume 8.6 fL (9.4-12.4); Monocytes Absolute Auto 0.2 X10*3/uL (0.1-1.2); Monocytes Percent Auto 3.5 % (2-11); Neutrophils Absolute Auto 3.7 x10*3/uL (2.0-8.3); Neutrophils Percent Auto 55.5 % (45-73); Platelet Count 443 X10*3/uL (160-400); Red Cell Distribution Width 17.6 % (11.0-16.0); White Blood Count 6.6 X10*3/uL (4.8-10.8)
[2022-02-01 17:02] LABS: INTERNATIONAL NORM RATIO 0.9 (0.9-1.1); Prothrombin Time 10.8 SEC (10.0-13.1)
[2022-02-01 17:28] LABS: Anion Gap 15 (12-20); Blood Urea Nitrogen 17 mg/dL (9-16); Calcium 9.3 mg/dL (8.4-10.2); Carbon Dioxide 24 mmol/L (22-29); Chloride 99 mmol/L (96-108); Estimated Glomerular Filt Rate > 60; Glucose Random 90 mg/dL (60-115); Potassium 4.1 mmol/L (3.3-5.1); Sodium 134 mmol/L (135-145)
[2022-02-04 06:54] LABS: HCV RNA PCR Qn 1200000 IU/mL (NOT DETECTED); HCV RNA PCR Qn 6.08 Log IU/mL (NOT DETECTED)
[2022-02-05 12:47] LABS: FIB-ALT 29 U/L (9-46); FIB-Alpha-2-Macroglobulin 220 mg/dL (106-279); FIB-Apolipoprotein A1 146 mg/dL (94-176); FIB-GGT 47 U/L (3-95); FIB-Haptoglobin 221 mg/dL (43-212); FIB-Total Bilirubin 0.4 mg/dL (0.2-1.2); Liver Fibrosis Stage F0; Nec Inflam Act Grade A0; Nec Inflam Act Score 0.12
[2022-02-11 13:13] LABS: HCV Genotype LiPA 1a
== END 2022-02-01 16:20 | disposition home or self-care (01) ==
LOC: HO.LAB 16:19
PROVIDERS: Visit Provider Internal Medicine
DX: A41.01 Sepsis due to Methicillin susceptible Staphylococcus aureus (principal); B19.20 Unspecified viral hepatitis C without hepatic coma
CPT/HCPCS: 36415; 80048; 81596; 85025; 85610; 87040; 87522; 87902; 99212

== ENCOUNTER → 2022-02-04 12:39 | Outpatient (BNVA) | payer OTHER, SELFPAY | PROVIDERS: Visit Provider Physician Assistant | DX: A41.01 Sepsis due to Methicillin susceptible Staphylococcus aureus (principal); B19.20 Unspecified viral hepatitis C without hepatic coma; K59.00 Constipation, unspecified | CPT/HCPCS: 99202; 99212 ==

== ENCOUNTER → 2022-04-02 13:59 | Outpatient (BNVA) | payer OTHER, SELFPAY | PROVIDERS: Visit Provider Internal Medicine | DX: A41.01 Sepsis due to Methicillin susceptible Staphylococcus aureus (principal); B19.20 Unspecified viral hepatitis C without hepatic coma | CPT/HCPCS: 99212 ==

== ENCOUNTER 2022-09-12 10:13 | Inpatient (IN) | payer OTHER, SELFPAY ==
[2022-09-12] VITALS (9 sets, daily range): BP systolic 130–202; BP diastolic 50–125; PULSE 45–68; RESP 12–14; TEMP 34.7–37.4; O2SAT 94–100; BMI 19.8
--- NOTE | ~2022-09-12 | XR_ITS ---
EXAMINATION: XR CHEST CLINICAL INFORMATION: Chest pain. COMPARISON: Most recent CT chest dated 12/08/2021. TECHNIQUE: Frontal view of the chest was obtained. FINDINGS: No airspace consolidation. No pleural effusion or pneumothorax. Stable cardiomediastinal silhouette. Redemonstration of healed right rib fractures. XR/XR chest 1V IMPRESSION: No acute cardiopulmonary findings.
--- NOTE | 2022-09-12 10:30 | ECG_ITS ---
Test Reason : CP Blood Pressure : / mmHG Vent. Rate : 052 BPM Atrial Rate : 052 BPM P-R Int : 128 ms QRS Dur : 090 ms QT Int : 512 ms P-R-T Axes : 040 015 223 degrees QTc Int : 476 ms Sinus bradycardia with sinus arrhythmia ST & T wave abnormality, consider inferolateral ischemia Prolonged QT Abnormal ECG When compared with ECG of 14-DEC-2021 22:38, Vent. rate has decreased BY [address] depressions are not as marked in lateral leads as on previous ECG Referred By: Cyndi Cadena Electronically Signed By:Ramon Lamar
--- NOTE | 2022-09-12 11:07 | ED_ITS ---
HPI - Chest Pain General Chief Complaint: Chest Pain Stated Complaint: SOB,CP RAD TO BACK X1 HR,USED HEROIN T-1 Time Seen by Provider: 09/12/22 10:29 Source: patient Mode of arrival: ambulatory History of Present Illness HPI narrative: 47-year-old male, known IVDA, arrives via EMS for being found in the [employer] [facility] bathroom likely due to outside rain and complaints of chest pain with pressure that radiates into the back at a 7/10, patient is on methadone but endorses he used illicit drugs last night. He denies any fever or chills. Related Data Home Medications Medication Instructions Recorded Confirmed aspirin 81 mg tablet,delayed 1 tab PO DAILY 12/15/21 12/15/21 release Previous Rx's Medication Instructions Recorded linezolid 600 mg tablet 600 mg PO BID #14 tabs 12/25/21 acetaminophen 325 mg tablet 650 mg PO Q6H PRN Pain, Mild (Pain 12/31/21 Scale 1-3) #10 tabs docusate sodium 100 mg capsule 100 mg PO BID PRN constipation #30 12/31/21 caps hydralazine 25 mg tablet 25 mg PO TID #90 tabs 12/31/21 magnesium oxide 400 mg (241.3 mg 800 mg PO DAILY PRN constipation 12/31/21 magnesium) tablet #10 tabs nifedipine 30 mg tablet,extended 2 tab PO DAILY #60 tabs 12/31/21 release 24 hr polyethylene glycol 3350 17 gram 17 g PO BID #30 ea 12/31/21 oral powder packet sofosbuvir 400 mg-velpatasvir 100 1 tab PO DAILY 12 weeks #84 tabs 04/02/22 mg tablet (Epclusa) Allergies Allergy/AdvReac Type Severity Reaction Status Date / Time From BENADRYL Allergy Unknown CANT Uncoded 09/12/22 10:32 BREATHE HIVES Review of Systems Review of Systems: Pertinent positives and negatives as stated in HPI PMFSH Past Medical History Source: nursing notes reviewed Medical History Abdominal pain Abnormal LFTs Acute kidney injury Bipolar 1 disorder, depressed Hepatitis C HTN (hypertension) Hypothyroid IV drug user Leukopenia MSSA (methicillin susceptible Staphylococcus aureus) septicemia Normocytic anemia Opioid use disorder Rib fractures Subdural hematoma Surgical History No pertinent past surgical history Family History Family History Other No family history of coronary artery disease Social History Social History Household Members: Friend(s) Household Members Other:: Currently rehab in [place] Housing: Apartment Do you presently have visiting nurse or other home services: No Alcohol intake: current Patient Tobacco Use Status: Current everyday Tobacco user Tobacco use type: Cigarette Cigarettes Per Day: 4 Smoked in Last 30 Days: Yes Second Hand Smoke Exposure: Yes Use of substances other than those prescribed or required for medical reasons: Yes Substance Use Type: Heroin Substance Use Frequency: Chronic Longstanding Last Used Substance: Days (ago) Advance Directives: No Advance Directives Information Provided: No service: No Current occupational status: unemployed Physical Exam Vital Signs: Vital Signs: Last Vital Signs Temp 96.3 F L 09/12/22 13:25 Pulse 64 09/12/22 13:25 Resp 14 09/12/22 13:25 BP 149/117 H 09/12/22 13:25 Pulse Ox 98 09/12/22 13:25 O2 Del Method Room Air 09/12/22 13:25 BMI result Body Mass Index 19.8 VITAL SIGNS: Reviewed. GENERAL: Cachectic, appears older than stated age, in no acute distress. HEAD: Normocephalic/atraumatic EYES: PERRLA, EOMI EARS: Ext canals without abnormality NOSE: Nares patent bilateral OROPHARYNX: no oral lesions noted, posterior pharynx clear NECK: Supple, no adenopathy LUNGS: Normal breath sounds. No adventitious sounds or accessory muscle use. SpO2<98> CARDIOVASCULAR: Regular rate and rhythm without noted murmurs ABDOMEN: Soft, mild tenderness to palpation on epigastric, non-distended with bowel sounds. MUSCULOSKELETAL: No tenderness, deformities, or effusions noted on gross inspection. EXTREMITIES: No cyanosis, clubbing or edema. SKIN: Inspection of the skin reveals no rashes NEUROLOGIC: Alert and oriented x 4. Strength and sensation to light touch were grossly intact x 4. Medications Administered Generic Name Dose Route Start Last Admin Trade Name Freq PRN Reason Stop Dose Admin Sodium Chloride 1,000 mls @ 999 mls/hr 09/12/22 13:45 09/12/22 13:42 Ns IV 09/12/22 14:45 999 mls/hr .Q1H1M ROBBIE Administration Discontinued Medications Generic Name Dose Route Start Last Admin Trade Name Clifford PRN Reason Stop Dose Admin Potassium Chloride 60 meq 09/12/22 13:33 09/12/22 13:41 Potassium Chloride Er 20 Meq Tab.Er.Prt PO 09/12/22 13:34 60 meq ONCE ONE Administration Medical Decision Making Medical Decision Making [facility] Narrative: 47-year-old male with history and clinical presentation, DDX: Hypothermia, ACS, pneumonia, acid reflux/gastritis, low clinical suspicion for pancreatitis/cholecystitis. Patient was noted to be hypothermic on initial evaluation and have the bear hugger put in place and on her read temp being notes that he has had a good response with rectal temp of 96 degrees. Patient is otherwise mentating well and on re-evaluation is feeling much improved. I reviewed his investigations which demonstrate hematologic indices under chronically stable without leukocytosis although there is a left shift, chronic normocytic anemia without thrombocytopenia. Chemistry indices are grossly within normal limits other than potassium-3.1 which was repleted with 60 mEq of potassium chloride and a slight bump in creatinine-1.4 to and will give some IV fluids. Liver enzymes although elevated are noted to be chronically stable and likely indicative of patient's chronic use of IV drugs as well as underlying hepatitis-C diagnosis. Troponin is noted to be 2.8 without ischemic changes on EKG. On review of the potassium level in conjunction with creatinine and drug use with weakness I decided to proceed with CPK levels which are noted to be significantly elevated, patient is already receiving 1 L of fluids and will order an additional L. 1424: I discussed case with inpatient hospitalist. Differential Diagnosis Differential Diagnoses: The differential diagnosis associated with the presentation includes Please see discussion above Admission/Observation Consideration of admission/observation: Escalation of care including admission/observation considered Please see discussion above Consult Healthcare Provider Management of the patient was discussed with: Hospitalist Lab Data [facility] Lab Attestation statement: I reviewed the patient's lab results. Please see discussion above 09/12/22 11:22 09/12/22 11:22 Labs: Lab Results 09/12/22 09/12/22 09/12/22 Range/Units 11:04 11:04 11:22 WBC 8.4 (4.8-10.8) X10*3/uL RBC 4.39 L (4.60-5.80) X10*6/uL Hgb 12.0 L (14.0-18.0) g/dl Hct 37.5 L (42.0-52.0) % MCV 85.4 (80.0-98.0) fL MCH 27.3 (27.0-33.0) pg MCHC 32.0 (31.0-36.0) g/dl RDW 20.1 H (11.0-16.0) % Plt Count 305 D (160-400) X10*3/uL MPV 8.4 L (9.4-12.4) fL Immature Gran % (Auto) 0.2 (0.0-0.4) % Neut % (Auto) 87.4 H (45-73) % Lymph % (Auto) 9.4 L (20-40) % [place] % (Auto) 2.7 (2-11) % Eos % (Auto) 0.1 (0-4) % Baso % (Auto) 0.2 (0-2) % Lymph # (Auto) 0.8 L (1.2-4.9) X10*3/uL [place] # (Auto) 0.2 (0.1-1.2) X10*3/uL Eos # (Auto) 0.0 (0.0-0.4) X10*3/uL Baso # (Auto) 0.0 (0.0-0.2) X10*3/uL Abs Immat Gran (auto) 0.02 (0.00-0.03) X10*3/uL Absolute Neuts (auto) 7.3 (2.0-8.3) x10*3/uL Absolute Nucleated RBC 0.000 (0.0-0.012) X10*3/uL Nucleated RBC % (auto) 0.0 (0.0-0.2) /100WBC Sodium (135-145) mmol/L Potassium (3.3-5.1) mmol/L Chloride (96-108) mmol/L Carbon Dioxide (22-29) mmol/L Anion Gap (12-20) BUN (9-16) mg/dL Creatinine (0.5-1.4) mg/dL Estim Creat Clear Calc Estimated GFR POC Glucose (60-115) mg/dL Random Glucose (60-115) mg/dL Lactic Acid (0.5-2.0) mmol/L Calcium (8.4-10.2) mg/dL Magnesium (1.6-2.6) mg/dL Total Bilirubin (0.0-1.0) mg/dL AST (5-37) U/L ALT (0-40) U/L Alkaline Phosphatase (39-117) U/L Total Creatine Kinase (38-174) U/L Troponin I High Sens (<3.5-35.0) ng/L Total Protein (6.5-8.0) g/dL Albumin (3.5-5.0) g/dL Lipase (8-78) U/L Urine Color Yellow Urine Appearance Clear Urine pH 8.0 (5.0-9.0) Ur Specific [place] 1.015 (1.005-1.025) Urine Protein Trace (Neg-Trace) mg/dL Urine Glucose (UA) Negative (Negative) mg/dL Urine Ketones Negative (Negative) mg/dL Urine Blood Negative (Negative) Urine Nitrite Negative (Negative) Ur Leukocyte Esterase Negative (Negative) Urine Opiates Screen Not Detected (Not Detect) Urine Fentanyl Screen POSITIVE H (Not Detect) Ur Barbiturates Screen Not Detected (Not Detect) Ur Phencyclidine Scrn Not Detected (Not Detect) Ur Amphetamines Screen Not Detected (Not Detect) U Benzodiazepines Scrn Not Detected (Not Detect) Urine Cocaine Screen POSITIVE H (Not Detect) U Marijuana (THC) Screen Not Detected (Not Detect) 09/12/22 09/12/22 09/12/22 Range/Units 11:22 11:22 11:28 WBC (4.8-10.8) X10*3/uL RBC (4.60-5.80) X10*6/uL Hgb (14.0-18.0) g/dl Hct (42.0-52.0) % MCV (80.0-98.0) fL MCH (27.0-33.0) pg MCHC (31.0-36.0) g/dl RDW (11.0-16.0) % Plt Count (160-400) X10*3/uL MPV (9.4-12.4) fL Immature Gran % (Auto) (0.0-0.4) % Neut % (Auto) (45-73) % Lymph % (Auto) (20-40) % [place] % (Auto) (2-11) % Eos % (Auto) (0-4) % Baso % (Auto) (0-2) % Lymph # (Auto) (1.2-4.9) X10*3/uL [place] # (Auto) (0.1-1.2) X10*3/uL Eos # (Auto) (0.0-0.4) X10*3/uL Baso # (Auto) (0.0-0.2) X10*3/uL Abs Immat Gran (auto) (0.00-0.03) X10*3/uL Absolute Neuts (auto) (2.0-8.3) x10*3/uL Absolute Nucleated RBC (0.0-0.012) X10*3/uL Nucleated RBC % (auto) (0.0-0.2) /100WBC Sodium 136 (135-145) mmol/L Potassium 3.1 L D (3.3-5.1) mmol/L Chloride 97 (96-108) mmol/L Carbon Dioxide 24 (22-29) mmol/L Anion Gap 18 (12-20) BUN 14 (9-16) mg/dL Creatinine 1.42 H (0.5-1.4) mg/dL Estim Creat Clear Calc 54.1 Estimated GFR 53 POC Glucose (60-115) mg/dL Random Glucose 111 (60-115) mg/dL Lactic Acid 1.8 (0.5-2.0) mmol/L Calcium 9.6 (8.4-10.2) mg/dL Magnesium 2.4 (1.6-2.6) mg/dL Total Bilirubin 0.8 (0.0-1.0) mg/dL AST 102 H (5-37) U/L ALT 48 H (0-40) U/L Alkaline Phosphatase 357 H (39-117) U/L Total Creatine Kinase 1181 H (38-174) U/L Troponin I High Sens 2.8 (<3.5-35.0) ng/L Total Protein 10.6 H (6.5-8.0) g/dL Albumin 4.4 (3.5-5.0) g/dL Lipase 14 (8-78) U/L Urine Color Urine Appearance Urine pH (5.0-9.0) Ur Specific [place] (1.005-1.025) Urine Protein (Neg-Trace) mg/dL Urine Glucose (UA) (Negative) mg/dL Urine Ketones (Negative) mg/dL Urine Blood (Negative) Urine Nitrite (Negative) Ur Leukocyte Esterase (Negative) Urine Opiates Screen (Not Detect) Urine Fentanyl Screen (Not Detect) Ur Barbiturates Screen (Not Detect) Ur Phencyclidine Scrn (Not Detect) Ur Amphetamines Screen (Not Detect) U Benzodiazepines Scrn (Not Detect) Urine Cocaine Screen (Not Detect) U Marijuana (THC) Screen (Not Detect) 09/12/22 Range/Units 11:28 WBC (4.8-10.8) X10*3/uL RBC (4.60-5.80) X10*6/uL Hgb (14.0-18.0) g/dl Hct (42.0-52.0) % MCV (80.0-98.0) fL MCH (27.0-33.0) pg MCHC (31.0-36.0) g/dl RDW (11.0-16.0) % Plt Count (160-400) X10*3/uL MPV (9.4-12.4) fL Immature Gran % (Auto) (0.0-0.4) % Neut % (Auto) (45-73) % Lymph % (Auto) (20-40) % [place] % (Auto) (2-11) % Eos % (Auto) (0-4) % Baso % (Auto) (0-2) % Lymph # (Auto) (1.2-4.9) X10*3/uL [place] # (Auto) (0.1-1.2) X10*3/uL Eos # (Auto) (0.0-0.4) X10*3/uL Baso # (Auto) (0.0-0.2) X10*3/uL Abs Immat Gran (auto) (0.00-0.03) X10*3/uL Absolute Neuts (auto) (2.0-8.3) x10*3/uL Absolute Nucleated RBC (0.0-0.012) X10*3/uL Nucleated RBC % (auto) (0.0-0.2) /100WBC Sodium (135-145) mmol/L Potassium (3.3-5.1) mmol/L Chloride (96-108) mmol/L Carbon Dioxide (22-29) mmol/L Anion Gap (12-20) BUN (9-16) mg/dL Creatinine (0.5-1.4) mg/dL Estim Creat Clear Calc Estimated GFR POC Glucose 85 (60-115) mg/dL Random Glucose (60-115) mg/dL Lactic Acid (0.5-2.0) mmol/L Calcium (8.4-10.2) mg/dL Magnesium (1.6-2.6) mg/dL Total Bilirubin (0.0-1.0) mg/dL AST (5-37) U/L ALT (0-40) U/L Alkaline Phosphatase (39-117) U/L Total Creatine Kinase (38-174) U/L Troponin I High Sens (<3.5-35.0) ng/L Total Protein (6.5-8.0) g/dL Albumin (3.5-5.0) g/dL Lipase (8-78) U/L Urine Color Urine Appearance Urine pH (5.0-9.0) Ur Specific [place] (1.005-1.025) Urine Protein (Neg-Trace) mg/dL Urine Glucose (UA) (Negative) mg/dL Urine Ketones (Negative) mg/dL Urine Blood (Negative) Urine Nitrite (Negative) Ur Leukocyte Esterase (Negative) Urine Opiates Screen (Not Detect) Urine Fentanyl Screen (Not Detect) Ur Barbiturates Screen (Not Detect) Ur Phencyclidine Scrn (Not Detect) Ur Amphetamines Screen (Not Detect) U Benzodiazepines Scrn (Not Detect) Urine Cocaine Screen (Not Detect) U Marijuana (THC) Screen (Not Detect) Independent Interpretation I performed an independent interpretation of an: EKG Interpretation: Sinus bradycardia, HR-52, no STEMI, FL/QRS/QTC is within normal limits. Radiology Impression Radiologist Impression: No pneumonia, otherwise my interpretation is in agreement with radiology's impression. External Record Review External record reviewed: Outpatient record and Prior outpatient labs Critical Care Time Critical Care Time Critical Care Time: Yes Total Critical Care Time: 30 Attestation: I personally attest to this time spent taking care of the patient. Discharge Plan Discharge Clinical Impression: Rhabdomyolysis, YONY (acute kidney injury), Hepatitis C Patient Disposition: Admitted As Inpatient Prescriptions: No Action aspirin 81 mg tablet,delayed release (DR/EC) 1 tab PO DAILY linezolid 600 mg Tablet 600 mg PO BID Qty: 14 0RF polyethylene glycol 3350 17 gram Powder In Packet 17 g PO BID Qty: 30 0RF hydralazine 25 mg Tablet 25 mg PO TID Qty: 90 0RF Protocol: Hold for SBP< HOLD for SBP < : 90 magnesium oxide 400 mg (241.3 mg magnesium) Tablet 800 mg PO DAILY PRN (Reason: constipation) Qty: 10 0RF nifedipine 30 mg tablet extended release 24hr 2 tab PO DAILY Qty: 60 0RF acetaminophen 325 mg Tablet 650 mg PO Q6H PRN (Reason: Pain, Mild (Pain Scale 1-3)) Qty: 10 0RF docusate sodium 100 mg Capsule 100 mg PO BID PRN (Reason: constipation) Qty: 30 0RF sofosbuvir-velpatasvir [Epclusa] 400-100 mg tablet 1 tab PO DAILY 84 Days Qty: 84 0RF
[2022-09-12 11:12] LABS: Appearance Urine Clear; Color Urine Yellow; Glucose Urine UA Negative (Negative); Leukocyte Esterase Urine Negative (Negative); Nitrite Urine Negative (Negative); Specific Gravity - Urine 1.015 (1.005-1.025); Urine Blood Negative (Negative); Urine Ketones Negative (Negative); Urine Protein Trace mg/dL (Neg-Trace)
[2022-09-12 11:22] LABS: Amphetamine Screen Urine Not Detected (Not Detect); Barbiturates, Urine Not Detected (Not Detect); Benzodiazepines Screen Urine Not Detected (Not Detect); Cannabinoid Screen Urine Not Detected (Not Detect); Cocaine Screen Urine POSITIVE (Not Detect); Fentanyl, urine POSITIVE (Not Detect); Opiate Screen Urine Not Detected (Not Detect); Phencyclidine Screen Urine Not Detected (Not Detect)
--- NOTE | 2022-09-12 11:23 | PC.NURSE ---
20g IV placed in the right AC, labs drawn & urine sent to lab.
[2022-09-12 11:28] LABS: Basophils Percent Auto 0.2 % (0-2); Eosinophils Percent Auto 0.1 % (0-4); Hematocrit 37.5 % (42.0-52.0); Imm Gran Abs Auto 0.02 X10*3/uL (0.00-0.03); Imm Gran Pct Auto 0.2 % (0.0-0.4); Lymphocytes Absolute Auto 0.8 X10*3/uL (1.2-4.9); Lymphocytes Percent Auto 9.4 % (20-40); Mean Corpuscular Hemoglobin 27.3 pg (27.0-33.0); Mean Corpuscular Volume 85.4 fL (80.0-98.0); Mean Platelet Volume 8.4 fL (9.4-12.4); Monocytes Absolute Auto 0.2 X10*3/uL (0.1-1.2); Monocytes Percent Auto 2.7 % (2-11); Neutrophils Absolute Auto 7.3 x10*3/uL (2.0-8.3); Neutrophils Percent Auto 87.4 % (45-73); Platelet Count 305 X10*3/uL (160-400); Red Blood Count 4.39 X10*6/uL (4.60-5.80); Red Cell Distribution Width 20.1 % (11.0-16.0); White Blood Count 8.4 X10*3/uL (4.8-10.8)
[2022-09-12 11:29] LABS: MANUAL DIFF FLAG NO
[2022-09-12 11:32] LABS: Glucose, Whole Blood 85 mg/dL (60-115)
[2022-09-12 11:43] LABS: Alanine Aminotransferase 48 U/L (0-40); Albumin Level 4.4 g/dL (3.5-5.0); Alkaline Phosphatase 357 U/L (39-117); Anion Gap 18 (12-20); Aspartate Amino Transferase 102 U/L (5-37); Bilirubin Total 0.8 mg/dL (0.0-1.0); Blood Urea Nitrogen 14 mg/dL (9-16); Calcium 9.6 mg/dL (8.4-10.2); Carbon Dioxide 24 mmol/L (22-29); Chloride 97 mmol/L (96-108); Creatinine Clr Calc Pharmacy 54.1; Estimated Glomerular Filt Rate 53; Glucose Random 111 mg/dL (60-115); Potassium 3.1 mmol/L (3.3-5.1); Sodium 136 mmol/L (135-145); Total Protein 10.6 g/dL (6.5-8.0)
[2022-09-12 11:45] LABS: Lactic Acid 1.8 mmol/L (0.5-2.0)
[2022-09-12 11:50] LABS: Troponin-I High Sensitivity 2.8 ng/L (<3.5-35.0)
--- NOTE | 2022-09-12 11:52 | PC.NURSE ---
patient arrived via ems in wet clothing, pt incontinent of a large amount of stool and cleaned by techs/changed into hospital attire, monitoring manager applied- pt noted to be sinus laith with frequent pvcs and inverted t-waves on monitor, ekg performed, rectal temp obtained pt found to be hypothermic- luz huggar applied, pt admitted to using 2 bags of heroin within the last 24 hours, poc obtained- 85, cxr performed, iv inserted labs drawn- pt extremely difficult stick, pt lungs diminished throughout, notable 2+ pedal edema, urine obtained, pt noted to be jaundice as well, call bustamante within reach, will continue to monitor.
--- NOTE | 2022-09-12 12:46 | PC.NURSE ---
patient sleeping, wakes to verbal stimulus, color television console monitor intact-sinus laith intact, pt continues to be hypertensive, pt has a oral temp which was nearly normal by mouth- however patients skin continues to feel cool/cold, will repeat a rectal temp shortly. call bustamante within reach, will continue to monitor.
[2022-09-12 13:14] LABS: Lipase 14 U/L (8-78); Magnesium 2.4 mg/dL (1.6-2.6)
--- NOTE | 2022-09-12 13:28 | PC.NURSE ---
pt a&ox3, repeat rectal temp documented at 96.3 - dr. goncalves notified. pt stating that he's still having chest pain a pain level of 4/10 - states that the pain is intermittent, resting comfortably in the bear hugger trying to increase temperature, call bustamante within reach, will continue to monitor.
[2022-09-12] MEDS: Potassium Chloride ER 20 MEQ TAB.ER.PRT 60 MEQ PO (13:41)
[2022-09-12] MEDS: 0.9 % Sodium Chloride 1,000 ML 999 ML IV ×2 (13:42→15:13)
--- NOTE | 2022-09-12 13:49 | PC.NURSE ---
patient medicated per order
--- NOTE | 2022-09-12 14:30 | PM.IMHP ---
History of Present Illness Date of Service: 09/12/22 Attending physician on admission: Beka Briceno Chief Complaint: chest pain 47-year-old male with history of bipolar disorder, hepatitis-C ?treated with epclusa, hypertension, hypothyroidism, ongoing IV polysubstance abuse with opiate use disorder on methadone, history MSSA bacteremia treated with PO linezolid presented to the ED via EMS after being found in a gas station bathroom likely due to the outside rain with complaints of chest pain and pressure radiating to the back. He is unable to provider many details as to how he ended up in the bathroom but states he is homeless and has been wandering in torrential rain though states he has good shoes. He is reporting pain in the feet bilaterally. He states his last cocaine use was several days ago and last methadone dose was yesterday, follows with [facility]. He describes the chest pain as a 7/10 with radiation to the back that is still present but improved. No associated sob, lightheadedness, palpitations, diaphoresis. He did also have single episode of large volume diarrhea with single episode vomiting this morning. No fevers, chills, recent illness, abd pain, nausea, vomiting, urinary symptoms, melena, hematochezia, or myalgia. On arrival, patient is hypothermic to 94.5 degrees, bradycardic to 49 improved to 64. Initially was hypotensive to 202/125 with improvement to 149/117 without intervention. There is no hypoxia. There is no leukocytosis. Stable normocytic anemia with H/H 12.0/37.5%. Creat 1.42, baseline 1.23. BUN 14. Lytes normal except for K 3.1. Mg 2.4. Total bilirubin 0.8, AST 102, ALT 48, alkaline phosphatase 357. Total CK 1181. Troponin below detectable limits. Urinalysis unremarkable. Urine tox screen positive for fentanyl and cocaine. Chest x-ray negative for any acute cardiopulmonary abnormality. EKG shows sinus bradycardia rate 52 with sinus arrhythmia as well as nonspecific ST/T-wave abnormality and prolonged QT of 512, QTC 476. In the ED, given 2 L IV NS bolus and 60 mEq potassium chloride p.o.. Review of Systems Review of Systems: General: No fevers, malaise, unintentional weight loss HEENT: No sore throat, nasal congestion, rhinorrhea, sinus pain, ear pain Cardiovascular: +chest pain. No palpitations, or leg edema Respiratory: No shortness of breath, wheezing, cough GI: +diarrhea, +vomiting. No abdominal pain, nausea, constipation, melena, hematochezia : No dysuria, hematuria, increased urinary frequency, decreased urinary output MSK: No myalgia, back pain Neuro: No headaches, weakness, paresthesias Skin: No rashes or lesions [facility] Medical History (Updated 09/12/22 @ 16:28 by SOLE Epps) Abdominal pain Abnormal LFTs Acute kidney injury Bipolar 1 disorder, depressed Hepatitis C HTN (hypertension) Hypothyroid IV drug user Leukopenia MSSA (methicillin susceptible Staphylococcus aureus) septicemia Normocytic anemia Opioid use disorder Rib fractures Subdural hematoma Family History Other No family history of coronary artery disease Surgical History No pertinent past surgical history Social History Household Members: Friend(s) Household Members Other:: Currently rehab in [place] Housing: Apartment Do you presently have visiting nurse or other home services: No Alcohol intake: current Patient Tobacco Use Status: Current everyday Tobacco user Tobacco use type: Cigarette Cigarettes Per Day: 4 Smoked in Last 30 Days: Yes Second Hand Smoke Exposure: Yes Use of substances other than those prescribed or required for medical reasons: Yes Substance Use Type: Heroin Substance Use Frequency: Chronic Longstanding Last Used Substance: Days (ago) Advance Directives: No Advance Directives Information Provided: No service: No Current occupational status: unemployed Meds Allergies Allergy/AdvReac Type Severity Reaction Status Date / Time From BENADRYL Allergy Unknown CANT Uncoded 09/12/22 10:32 BREATHE HIVES Active Medications: Current Medications Sodium Chloride (Ns) 1,000 mls @ 999 mls/hr IV .Q1H1M ROBBIE Stop: 09/12/22 14:45 Last Admin: 09/12/22 13:42 Dose: 999 mls/hr Sodium Chloride (Ns) 1,000 mls @ 999 mls/hr IV .Q1H1M ROBBIE Stop: 09/12/22 15:30 Home Medications Medication Instructions Recorded Confirmed Last Taken Type methadone 10 mg/mL oral concentrate 75 mg PO DAILY 09/12/22 09/11/22 History Physical Exam Vital Signs and Narrative: Vital Signs: Last Vital Signs Temp 96.3 F L 09/12/22 13:25 Pulse 64 09/12/22 13:25 Resp 14 09/12/22 13:25 BP 149/117 H 09/12/22 13:25 Pulse Ox 98 09/12/22 13:25 O2 Del Method Room Air 09/12/22 13:25 BMI result Body Mass Index 19.8 Constitutional - somnolent but arousable, No apparent distress, disheveled appearing Eyes - PERRLA, EOMI Cardiovascular - S1S2, RRR, No edema Respiratory - Normal lung expansion, Normal respiratory effort, No respiratory distress, CTA bilaterally Gastrointestinal - NT / ND; +BS; No rebound or guarding Extremities - no calf tenderness bilaterally, no swelling Skin - Warm/Dry, in tact. Neurological - somnolent but arousable, oriented x2, disoriented to time Results Labs 09/12/22 11:22 09/12/22 11:22 Labs: Laboratory Results - last 24 hr 09/12/22 09/12/22 09/12/22 11:04 11:04 11:22 MCV 85.4 MCH 27.3 MCHC 32.0 RDW 20.1 H Plt Count 305 D MPV 8.4 L Immature Gran % (Auto) 0.2 Neut % (Auto) 87.4 H Lymph % (Auto) 9.4 L [place] % (Auto) 2.7 Eos % (Auto) 0.1 Baso % (Auto) 0.2 Lymph # (Auto) 0.8 L [place] # (Auto) 0.2 Eos # (Auto) 0.0 Baso # (Auto) 0.0 Abs Immat Gran (auto) 0.02 Absolute Neuts (auto) 7.3 Absolute Nucleated RBC 0.000 Nucleated RBC % (auto) 0.0 Anion Gap Estim Creat Clear Calc Estimated GFR POC Glucose Random Glucose Lactic Acid Calcium Magnesium Total Bilirubin AST ALT Alkaline Phosphatase Total Creatine Kinase Troponin I High Sens Total Protein Albumin Lipase Urine Color Yellow Urine Appearance Clear Urine pH 8.0 Ur Specific [place] 1.015 Urine Protein Trace Urine Glucose (UA) Negative Urine Ketones Negative Urine Blood Negative Urine Nitrite Negative Ur Leukocyte Esterase Negative Urine Opiates Screen Not Detected Urine Fentanyl Screen POSITIVE H Ur Barbiturates Screen Not Detected Ur Phencyclidine Scrn Not Detected Ur Amphetamines Screen Not Detected U Benzodiazepines Scrn Not Detected Urine Cocaine Screen POSITIVE H U Marijuana (THC) Screen Not Detected 09/12/22 09/12/22 09/12/22 11:22 11:22 11:28 MCV MCH MCHC RDW Plt Count MPV Immature Gran % (Auto) Neut % (Auto) Lymph % (Auto) [place] % (Auto) Eos % (Auto) Baso % (Auto) Lymph # (Auto) [place] # (Auto) Eos # (Auto) Baso # (Auto) Abs Immat Gran (auto) Absolute Neuts (auto) Absolute Nucleated RBC Nucleated RBC % (auto) Anion Gap 18 Estim Creat Clear Calc 54.1 Estimated GFR 53 POC Glucose Random Glucose 111 Lactic Acid 1.8 Calcium 9.6 Magnesium 2.4 Total Bilirubin 0.8 AST 102 H ALT 48 H Alkaline Phosphatase 357 H Total Creatine Kinase 1181 H Troponin I High Sens 2.8 Total Protein 10.6 H Albumin 4.4 Lipase 14 Urine Color Urine Appearance Urine pH Ur Specific [place] Urine Protein Urine Glucose (UA) Urine Ketones Urine Blood Urine Nitrite Ur Leukocyte Esterase Urine Opiates Screen Urine Fentanyl Screen Ur Barbiturates Screen Ur Phencyclidine Scrn Ur Amphetamines Screen U Benzodiazepines Scrn Urine Cocaine Screen U Marijuana (THC) Screen 09/12/22 11:28 MCV MCH MCHC RDW Plt Count MPV Immature Gran % (Auto) Neut % (Auto) Lymph % (Auto) [place] % (Auto) Eos % (Auto) Baso % (Auto) Lymph # (Auto) [place] # (Auto) Eos # (Auto) Baso # (Auto) Abs Immat Gran (auto) Absolute Neuts (auto) Absolute Nucleated RBC Nucleated RBC % (auto) Anion Gap Estim Creat Clear Calc Estimated GFR POC Glucose 85 Random Glucose Lactic Acid Calcium Magnesium Total Bilirubin AST ALT Alkaline Phosphatase Total Creatine Kinase Troponin I High Sens Total Protein Albumin Lipase Urine Color Urine Appearance Urine pH Ur Specific [place] Urine Protein Urine Glucose (UA) Urine Ketones Urine Blood Urine Nitrite Ur Leukocyte Esterase Urine Opiates Screen Urine Fentanyl Screen Ur Barbiturates Screen Ur Phencyclidine Scrn Ur Amphetamines Screen U Benzodiazepines Scrn Urine Cocaine Screen U Marijuana (THC) Screen Imaging Radiologist's Impressions: Impressions Chest X-Ray 09/12/22 11:52 IMPRESSION: No acute cardiopulmonary findings. Assessment and Plan (1) Hypothermia: Status: Acute (2) Elevated CK: Status: Acute (3) Acute metabolic encephalopathy: Status: Acute Plan 47-year-old male with history of bipolar disorder, hepatitis-C ?treated with epclusa, hypertension, hypothyroidism, ongoing IV polysubstance abuse with opiate use disorder on methadone, history MSSA bacteremia treated with PO linezolid admitted for hypothermia due to environmental exposure and elevated CK. #Acute hypothermia due to environmental exposure -Homeless, wandering in torrential rain found in gas station bathroom. -Continue luz hugger until internal temp 98.0 degrees -Skin in tact, no trench foot -Social work consult -Admit to m/s #Elevated CK -No YONY or myalgia -Continue IVF -Follow BMP, CK #Acute diarrhea -single episode this am -Monitor for recurrence. COnsider infectious etiology if recurrent #Acute hypokalemia -possibly related to GI losses -Repleted in ED, follow BMP #Acute metabolic encephalopathy -likely r/t hypothermia -Check VBG -Continue luz hugger as above #HTN- uncontrolled -previously treat with nifedipine -Will restart nifedipine ER at 30mg -Followo BP #History Hep C with transaminitis -Did not complete course epclusa per patient after dc from [facility] -Check Hep C viral load #Hypothyroidism -noncompliant with meds -Check TSH w/ reflex free T4 #Bipolar disorder -seems euthymic, not on meds -consider psych consult if needed #Polysubstance abuse -Verify methadone dose. addiction med consult #Prolonged QT -likely r/t methadone use -Mag normal. Will keep on tele DVT prophylaxis- lovenox Full code Pt requires inpt stay at least 2 midnights for management of acute hypothermia with acute metabolic encephalopathy requiring luz hugger for gradual warming and monitoring of mentation as well as replation of electrolytes and IV fluids for dehydration Time Spent With Patient Time: Total time managing care of this patient today ____ minutes. Quality Stroke Does the patient have a stroke diagnosis?: No VTE Prior VTE?: No VTE Risk Level:: Medical - moderate - high VTE Device Contraindication: Treatment Not Indicated VTE Drug Contraindication: N/A - Med Ordered
--- NOTE | 2022-09-12 15:13 | PC.NURSE ---
IVF hung per order
--- NOTE | 2022-09-12 16:02 | PC.NURSE ---
notified hospitalist of repeat rectal- pt continues to be on luz casanova
--- NOTE | 2022-09-12 16:11 | PHA.MEDREC ---
Pharmacy Consult ? Medication Reconciliation Pharmacy has completed the medication reconciliation. Spoke to patient to confirm meds. Patient states that they get methadone 75mg daily at [facility].
--- NOTE | 2022-09-12 16:21 | PC.NURSE ---
methadone dosage verification: pt goes to [facility] for methadone dosage, this clinic closes at 10 am on sundays- hospitalist was notified that methadone has not been verified.
--- NOTE | 2022-09-12 16:51 | PC.NURSE ---
phlebotomy in room attempting to draw labs
[2022-09-12 17:05] LABS: VBG Base Excess 0.2 mmol/L; VBG HCO3 22 mmol/L (22-26); VBG pCO2 31 mmHg; VBG pH 7.47 (7.32-7.43); VBG pO2 202 mmHg
[2022-09-12 17:06] LABS: TSH reflex Free T4 97.66 uIU/mL (0.32-4.0)
[2022-09-12 17:10] LABS: Venous Blood Gas Refer to POC result
[2022-09-12] MEDS: Lactated Ringers 1,000 ML 100 ML IVCONT (17:44)
[2022-09-12] MEDS: 0.9 % Sodium Chloride Flush 3 ML SYRINGE IVFLUSH (17:44)
[2022-09-12] MEDS: Enoxaparin Sodium 40 MG/0.4 ML SYRINGE SUBCUT (17:45)
[2022-09-12 17:52] LABS: Free T4 (Free Thyroxine) < 0.42 ng/dL (0.71-1.85)
--- NOTE | 2022-09-12 17:55 | PC.NURSE ---
IVF's and medication administered per provider order. medication administered late due to phlebotomy being in the room and having a hard time with drawing pt's labs. waiting on pharmacy for nifedipine - will administer when delivered/in pyxis. pt c/o 08/07 chest pain.
--- NOTE | 2022-09-12 18:23 | PC.NURSE ---
rectal temp wnl, luz casanova removed, hospitalist notified
--- NOTE | 2022-09-12 18:29 | PC.NURSE ---
called pharmacy again for missing medication
[2022-09-12] MEDS: NIFEdipine ER 30 MG TAB.ER.24 PO (18:32)
--- NOTE | 2022-09-12 18:33 | PC.NURSE ---
michelle casanova d/c'ceci since temperature was 98.3, nifedipine administered per provider order - pharmacy has just delivered med.
--- NOTE | 2022-09-12 19:41 | PC.NURSE ---
assumed care of pt at 1900 - pt sleeping comfortably on stretcher in no apparent distress. respirations even and unlabored. pt on cardiac nurse specialist. call bustamante within reach. vital signs updated will ctm
[2022-09-12] MEDS: hydrALAZINE HCl 20 MG/ML VIAL 5 MG IVPUSH (23:46)
[2022-09-13 01:26] VITALS: BP 134/96
[2022-09-13] MEDS: Lactated Ringers 1,000 ML 100 ML IVCONT ×3 (03:33→23:37)
--- NOTE | 2022-09-13 05:50 | PC.NURSE ---
attempted to call patient's methadone clinic at [facility] on [address] to verify methadone dose but clinic does not open until 8 am per answering machine.
[2022-09-13 06:01] VITALS: BP 116/75; PULSE 76; RESP 14; TEMP 36.6; O2SAT 97
[2022-09-13 07:59] VITALS: BP 128/83; PULSE 64; RESP 8; TEMP 36.4; O2SAT 96
--- NOTE | 2022-09-13 08:23 | PC.NURSE ---
patient resp equal and unlabored, sleeping in bed. no signs of distress. patient VSS. LR restarted as ordered.
[2022-09-13] MEDS: Levothyroxine Sodium 100 MCG TABLET PO (08:50)
--- NOTE | 2022-09-13 09:06 | PC.NURSE ---
methadone dose verified with [facility] clinic 75 mg, last dosed on 09/11
--- NOTE | 2022-09-13 09:24 | HE.PHANOTE ---
RE METHADONE BHN COD[place] 75MG 09/11/22 LAST DOSE SERGIO
[2022-09-13] MEDS: methADONE HCl 20 MG/2 ML ORAL.CONC 75 MG PO (09:38)
--- NOTE | 2022-09-13 09:42 | MHC.CM.PN ---
Attempted to meet with patient in regards to discharge planning. Patient currently sleeping. No family present. Will attempt to meet again. Continue to monitor for d/c needs.
--- NOTE | 2022-09-13 09:42 | PC.NURSE ---
PHLEBOTOMY ATTEMPT X 6 TO OBTAIN LABS UNSUCCESSFULLY
[2022-09-13 10:29] VITALS: BP 119/69; PULSE 60; RESP 16; TEMP 36.9; O2SAT 97
[2022-09-13] MEDS: NIFEdipine ER 30 MG TAB.ER.24 PO (11:06)
--- NOTE | 2022-09-13 11:13 | PC.NURSE ---
unable to place camera inmpatient room,VMT will contact us when space available
--- NOTE | 2022-09-13 12:45 | P.PNIM_ITS ---
Subjective Subjective Date of Service: 09/13/22 Interval History: was not compliant with thyroid medication chest pain resolved Review of Systems Review of Systems: Yes all other systems are reviewed and are negative Physical Exam Vital Signs: Vital Signs: Last Vital Signs Temp 98.4 F 09/13/22 10:29 Pulse 60 09/13/22 10:29 Resp 16 09/13/22 10:29 BP 119/69 09/13/22 10:29 Pulse Ox 97 09/13/22 10:29 O2 Del Method Room Air 09/13/22 07:59 BMI result Body Mass Index 19.8 Gen: in no acute distress, disheveled HEENT: sclera anicteric, moist mucus membranes Neck: supple Lungs: clear to auscultation bilaterally Heart: regular rate and rhythm, no murmurs Abd: soft, non-tender, non-distended Ext: no edema Skin: warm/well-perfused Neuro: alert and oriented x3, no focal findings Psych: appropriate affect Objective Data Active Medications Acetaminophen (Acetaminophen 325 Mg Tablet) 650 mg PO Q6H PRN PRN Reason: Pain, Mild (Pain Scale 1-3) Docusate Sodium (Docusate Sodium 100 Mg Capsule) 100 mg PO DAILY PRN PRN Reason: Constipation Enoxaparin Sodium (Enoxaparin Sodium 40 Mg/0.4 Ml Syringe) 40 mg SUBCUT Q24H [facility] Last Admin: 09/12/22 17:45 Dose: 40 mg Documented By: GLORIA Lactated Ringer's (Lr) 1,000 mls @ 100 mls/hr IVCONT .Q10H [facility] Last Admin: 09/13/22 10:30 Dose: 100 mls/hr Documented By: MISTI Levothyroxine Sodium (Levothyroxine Sodium 100 Mcg Tablet) 100 mcg PO DAILY@0600 [facility] Last Admin: 09/13/22 08:50 Dose: 100 mcg Documented By: WLILIAM Methadone HCl (Methadone Hcl 20 Mg/2 Ml Oral.Conc) 75 mg PO DAILY [facility] Last Admin: 09/13/22 09:38 Dose: 75 mg Documented By: WILLIAM Nifedipine (Nifedipine Er 30 Mg Tab.Er.24) 30 mg PO DAILY [facility]; Protocol Last Admin: 09/13/22 11:06 Dose: 30 mg Documented By: MISTI Ondansetron HCl (Ondansetron Hcl 4 Mg/2 Ml Vial) 4 mg IVPUSH Q8H PRN PRN Reason: Nausea and Vomiting Pharmacy Consult (Consult Rx Perform Med Rec) 1 each MISCELLANE ONCE PRN PRN Reason: Consult order Sodium Chloride (0.9 % Sodium Chloride Flush 3 Ml Syringe) 3 ml IVFLUSH QSHIFT [facility] Last Admin: 09/13/22 07:54 Dose: Not Given Documented By: WILLIAM Non-Admin Reason: IV Running Labs 09/12/22 11:22 09/12/22 11:22 Labs: Laboratory Results - last 24 hr 09/12/22 09/12/22 11:22 16:55 VBG pH 7.47 H VBG pCO2 31 VBG pO2 202 VBG HCO3 22 VBG O2 Saturation 100.0 VBG Base Excess 0.2 Magnesium 2.4 Total Creatine Kinase 1181 H Lipase 14 TSH 97.66 H Free T4 < 0.42 L Assessment and Plan (1) Elevated CK: Status: Acute (2) Acute metabolic encephalopathy: Status: Acute Plan d2 47yo homelemess M with bipolar disorder, HCV, HTN, hypothyroidism, ZACKERY, OUD on methadone, hx MSSA bacteremia treated with linezolid last yr admitted for hypothermia due to environmental exposure, elevated CPK concerning for rhabdomyolysis hypothermia due to environmental exposure + hypothyroidism - resolved elevated CPK concerning for rhabdomyolysis likely due to cocaine abuse - IV fluids, follow BMP/CPK hypoK - repleted, recheck level acute tixuc metabolic encephalopathy - due to hypothermia + drugs, resolved HTN - restart nifedipine chronic HCV - did not complete Epclusa, check viral load hypothyroidism, not compliant - resume levothyroxine @ 1.6 mcg/kg, recheck TSH 4-6 wk bipolar disorder - not on meds, needs outpt psych f/u OUD - methadone, QTc 476 ms, dose verified cocaine use disorder - Addiction Medicine consult VTE ppx - LMWH dispo - TBD In my clinical judgment, the patient requires continued inpatient hospitalization for the following reasons: IV fluids Time Spent With Patient Time: Total time managing care of this patient today __40 Quality Stroke Does the patient have a stroke diagnosis?: No VTE Prior VTE?: No VTE Risk Level:: Medical - moderate - high VTE Device Contraindication: Treatment Not Indicated VTE Drug Contraindication: N/A - Med Ordered
--- NOTE | 2022-09-13 13:46 | MHC.RECOVRN ---
This medical technical writer met with patient after addiction consult received. Pt admitted for hypothermia and concern for rhabdo. Pt was sleeping, resting in bed when this medical technical writer entered room. Pt awake to verbal command. Pt tired, sleepy, pt request Addiction/Recovery team return, as patient is tired. Provider Maria Ines Aguila aware.
[2022-09-13 14:47] LABS: Basophils Percent Auto 0.4 % (0-2); Eosinophils Percent Auto 0.3 % (0-4); Hematocrit 37.1 % (42.0-52.0); Hemoglobin 11.8 g/dl (14.0-18.0); Imm Gran Abs Auto 0.02 X10*3/uL (0.00-0.03); Imm Gran Pct Auto 0.3 % (0.0-0.4); Lymphocytes Absolute Auto 1.4 X10*3/uL (1.2-4.9); Lymphocytes Percent Auto 18.3 % (20-40); MANUAL DIFF FLAG SCAN; Mean Corpuscular HGB Conc 31.8 g/dl (31.0-36.0); Mean Corpuscular Hemoglobin 27.5 pg (27.0-33.0); Mean Corpuscular Volume 86.5 fL (80.0-98.0); Mean Platelet Volume 8.8 fL (9.4-12.4); Monocytes Absolute Auto 0.3 X10*3/uL (0.1-1.2); Monocytes Percent Auto 3.9 % (2-11); Neutrophils Percent Auto 76.8 % (45-73); PLT CLUMP 1; Red Blood Count 4.29 X10*6/uL (4.60-5.80); Red Cell Distribution Width 20.6 % (11.0-16.0); SCAN SMEAR FLAG 1
[2022-09-13 15:11] LABS: Anion Gap 11 (12-20); Blood Urea Nitrogen 9 mg/dL (9-16); Calcium 8.5 mg/dL (8.4-10.2); Carbon Dioxide 22 mmol/L (22-29); Chloride 105 mmol/L (96-108); Creatinine Clr Calc Pharmacy 74.6; Estimated Glomerular Filt Rate > 60; Glucose Random 115 mg/dL (60-115); Magnesium 2.1 mg/dL (1.6-2.6); Potassium 3.9 mmol/L (3.3-5.1); Sodium 134 mmol/L (135-145)
[2022-09-13 15:22] LABS: White Blood Count 7.8 X10*3/uL (4.8-10.8)
[2022-09-13] MEDS: Enoxaparin Sodium 40 MG/0.4 ML SYRINGE SUBCUT (15:55)
[2022-09-13 16:00] VITALS: BP 139/96; PULSE 56; RESP 18; TEMP 36.2; O2SAT 96
[2022-09-13 19:42] VITALS: BP 152/82; PULSE 52; RESP 18; TEMP 36.1; O2SAT 98
[2022-09-14 01:10] VITALS: BP 135/98; PULSE 57; RESP 18; TEMP 36.8; O2SAT 95
[2022-09-14 04:31] LABS: SLIDE REVIEW VERIFIED
[2022-09-14] MEDS: Levothyroxine Sodium 100 MCG TABLET PO (06:32)
[2022-09-14 06:33] LABS: Mean Corpuscular HGB Conc 32.3 g/dl (31.0-36.0); Mean Corpuscular Hemoglobin 27.2 pg (27.0-33.0); Mean Corpuscular Volume 84.5 fL (80.0-98.0); Mean Platelet Volume 9.1 fL (9.4-12.4); Platelet Count 306 X10*3/uL (160-400); Red Blood Count 3.67 X10*6/uL (4.60-5.80); Red Cell Distribution Width 20.5 % (11.0-16.0); White Blood Count 7.9 X10*3/uL (4.8-10.8)
[2022-09-14 06:50] LABS: Alanine Aminotransferase 27 U/L (0-40); Albumin Level 2.9 g/dL (3.5-5.0); Alkaline Phosphatase 243 U/L (39-117); Anion Gap 11 (12-20); Aspartate Amino Transferase 53 U/L (5-37); Bilirubin Total 0.6 mg/dL (0.0-1.0); Blood Urea Nitrogen 9 mg/dL (9-16); Calcium 8.1 mg/dL (8.4-10.2); Carbon Dioxide 24 mmol/L (22-29); Chloride 102 mmol/L (96-108); Creatinine Clr Calc Pharmacy 78.4; Estimated Glomerular Filt Rate > 60; Glucose Random 83 mg/dL (60-115); Potassium 3.7 mmol/L (3.3-5.1); Sodium 133 mmol/L (135-145); Total Protein 7.5 g/dL (6.5-8.0)
[2022-09-14 07:09] LABS: HIV AB/AG Nonreactive (Nonreactive); HIV Num 1 0.07 S/CO (0.00-0.99)
[2022-09-14 07:38] VITALS: BP 150/87; PULSE 57; RESP 16; TEMP 36.7; O2SAT 97
[2022-09-14] MEDS: methADONE HCl 20 MG/2 ML ORAL.CONC 75 MG PO (08:31)
[2022-09-14] MEDS: NIFEdipine ER 30 MG TAB.ER.24 PO (08:31)
--- NOTE | 2022-09-14 10:47 | MHC.CM.PN ---
pt is homeless living on the streets he says he was dcd from [facility] to the the [facility]..he gets his methadone from [facility] he would like if possible to return to [facility] referral made also to [facility]
--- NOTE | 2022-09-14 13:37 | P.PNIM_ITS ---
Subjective Subjective Date of Service: 09/14/22 Interval History: tired, muscles ache Review of Systems Review of Systems: Yes all other systems are reviewed and are negative Physical Exam 2 Vital Signs: Vital Signs: Last Vital Signs Temp 98.1 F 09/14/22 07:38 Pulse 57 09/14/22 07:38 Resp 16 09/14/22 07:38 BP 150/87 H 09/14/22 07:38 Pulse Ox 97 09/14/22 07:38 O2 Del Method Room Air 09/14/22 07:38 BMI result Body Mass Index 19.8 Gen: in no acute distress, disheveled HEENT: sclera anicteric, moist mucus membranes Neck: supple Lungs: clear to auscultation bilaterally Heart: regular rate and rhythm, no murmurs Abd: soft, non-tender, non-distended Ext: no edema Skin: warm/well-perfused Neuro: alert and oriented x3, no focal findings Psych: appropriate affect Objective Data Active Medications Acetaminophen (Acetaminophen 325 Mg Tablet) 650 mg PO Q6H PRN PRN Reason: Pain, Mild (Pain Scale 1-3) Docusate Sodium (Docusate Sodium 100 Mg Capsule) 100 mg PO DAILY PRN PRN Reason: Constipation Enoxaparin Sodium (Enoxaparin Sodium 40 Mg/0.4 Ml Syringe) 40 mg SUBCUT Q24H S Last Admin: 09/13/22 15:55 Dose: 40 mg Documented By: DENIA Levothyroxine Sodium (Levothyroxine Sodium 100 Mcg Tablet) 100 mcg PO DAILY@0600 [facility] Last Admin: 09/14/22 06:32 Dose: 100 mcg Documented By: DORARISBrandy Methadone HCl (Methadone Hcl 20 Mg/2 Ml Oral.Conc) 75 mg PO DAILY [facility] Last Admin: 09/14/22 08:31 Dose: 75 mg Documented By: KING Nifedipine (Nifedipine Er 30 Mg Tab.Er.24) 30 mg PO DAILY [facility]; Protocol Last Admin: 09/14/22 08:31 Dose: 30 mg Documented By: KING Ondansetron HCl (Ondansetron Hcl 4 Mg/2 Ml Vial) 4 mg IVPUSH Q8H PRN PRN Reason: Nausea and Vomiting Pharmacy Consult (Consult Rx Perform Med Rec) 1 each MISCELLANE ONCE PRN PRN Reason: Consult order Sodium Chloride (0.9 % Sodium Chloride Flush 3 Ml Syringe) 3 ml IVFLUSH QSHIFT [facility] Last Admin: 09/14/22 06:58 Dose: Not Given Documented By: KING Non-Admin Reason: IV Running Labs 09/14/22 06:08 09/14/22 06:08 Labs: Laboratory Results - last 24 hr 09/13/22 09/13/22 09/14/22 14:32 14:32 06:08 MCV 86.5 MCH 27.5 MCHC 31.8 RDW 20.6 H Plt Count TNP MPV 8.8 L Immature Gran % (Auto) 0.3 Neut % (Auto) 76.8 H Lymph % (Auto) 18.3 L [place] % (Auto) 3.9 Eos % (Auto) 0.3 Baso % (Auto) 0.4 Lymph # (Auto) 1.4 [place] # (Auto) 0.3 Eos # (Auto) 0.0 Baso # (Auto) 0.0 Abs Immat Gran (auto) 0.02 Absolute Neuts (auto) 6.0 Absolute Nucleated RBC 0.000 Nucleated RBC % (auto) 0.0 Smear Tech's Comments VERIFIED Anion Gap 11 L Estim Creat Clear Calc 74.6 Estimated GFR > 60 Random Glucose 115 Calcium 8.5 D Magnesium 2.1 Total Bilirubin AST ALT Alkaline Phosphatase Total Creatine Kinase 584 H Total Protein Albumin HIV 1&2 Ab/P24 Ag 4thGn Nonreactive 09/14/22 09/14/22 06:08 06:08 MCV 84.5 MCH 27.2 MCHC 32.3 RDW 20.5 H Plt Count 306 MPV 9.1 L Immature Gran % (Auto) Neut % (Auto) Lymph % (Auto) [place] % (Auto) Eos % (Auto) Baso % (Auto) Lymph # (Auto) [place] # (Auto) Eos # (Auto) Baso # (Auto) Abs Immat Gran (auto) Absolute Neuts (auto) Absolute Nucleated RBC 0.000 Nucleated RBC % (auto) 0.0 Smear Tech's Comments Anion Gap 11 L Estim Creat Clear Calc 78.4 Estimated GFR > 60 Random Glucose 83 Calcium 8.1 L Magnesium Total Bilirubin 0.6 AST 53 H ALT 27 Alkaline Phosphatase 243 H Total Creatine Kinase 407 H Total Protein 7.5 Albumin 2.9 L HIV 1&2 Ab/P24 Ag 4thGn Microbiology Microbiology Results: Microbiology 09/12/22 11:28 Blood Culture - Preliminary Blood - Venous No growth after 48 hours. 09/12/22 11:49 Blood Culture - Preliminary Blood - Venous No growth after 24 hours. Assessment and Plan (1) Elevated CK: Status: Acute (2) Acute metabolic encephalopathy: Status: Acute Plan d3 47yo homelemess M with bipolar disorder, HCV, HTN, hypothyroidism, ZACKERY, OUD on methadone, hx MSSA bacteremia treated with linezolid last yr admitted for hypothermia due to environmental exposure, elevated CPK concerning for rhabdomyolysis hypothermia due to environmental exposure + hypothyroidism - resolved elevated CPK concerning for rhabdomyolysis likely due to cocaine abuse - resolved hypoK - repleted acute toxic metabolic encephalopathy - due to hypothermia + drugs - resolved HTN - restarted nifedipine chronic HCV - did not complete Epclusa, viral load pending hypothyroidism, not compliant - resumed levothyroxine @ 1.6 mcg/kg, recheck TSH 4-6 wk bipolar disorder - not on meds, needs outpt psych f/u OUD - methadone, QTc 476 ms, dose verified cocaine use disorder - Addiction Medicine consult VTE ppx - LMWH dispo - TBD; awaiting PT eval In my clinical judgment, the patient requires continued inpatient hospitalization for the following reasons: placement Time Spent With Patient Time: Total time managing care of this patient today __35__ minutes. Quality Stroke Does the patient have a stroke diagnosis?: No VTE Prior VTE?: No VTE Risk Level:: Medical - moderate - high VTE Device Contraindication: Treatment Not Indicated VTE Drug Contraindication: N/A - Med Ordered
--- NOTE | 2022-09-14 14:39 | MHC.RECOVRN ---
Attempted to meet with pt in 368 to follow up after Addiction Medicine consult placed. Pt laying in bed, asleep, briefly wakes to voice. Pt tired and feels lousy. Requesting team to check in at another time.
[2022-09-14 15:08] VITALS: BP 126/79; PULSE 55; RESP 18; TEMP 36.4; O2SAT 97
[2022-09-14] MEDS: Enoxaparin Sodium 40 MG/0.4 ML SYRINGE SUBCUT (16:15)
[2022-09-14] MEDS: 0.9 % Sodium Chloride Flush 3 ML SYRINGE IVFLUSH ×2 (16:16→20:49)
[2022-09-14 20:00] VITALS: BP 135/83; PULSE 51; RESP 16; TEMP 36.5; O2SAT 95
[2022-09-15 03:43] VITALS: BP 137/88; PULSE 55; RESP 16; TEMP 36.4; O2SAT 93
[2022-09-15] MEDS: Levothyroxine Sodium 100 MCG TABLET PO (06:42)
[2022-09-15 08:00] VITALS: BP 132/92; PULSE 54; RESP 18; TEMP 36.2; O2SAT 96
[2022-09-15] MEDS: methADONE HCl 20 MG/2 ML ORAL.CONC 75 MG PO (08:00)
[2022-09-15] MEDS: NIFEdipine ER 30 MG TAB.ER.24 PO (08:01)
[2022-09-15] MEDS: 0.9 % Sodium Chloride Flush 3 ML SYRINGE IVFLUSH (08:02)
--- NOTE | 2022-09-15 11:01 | P.PNIM_ITS ---
Subjective Subjective Date of Service: 09/15/22 Interval History: very weak Review of Systems Review of Systems: Yes all other systems are reviewed and are negative Physical Exam Vital Signs: Vital Signs: Last Vital Signs Temp 97.1 F 09/15/22 08:00 Pulse 54 09/15/22 08:00 Resp 18 09/15/22 08:00 BP 132/92 H 09/15/22 08:00 Pulse Ox 96 09/15/22 08:00 O2 Del Method Room Air 09/15/22 08:00 BMI result Body Mass Index 19.8 Gen: in no acute distress, disheveled HEENT: sclera anicteric, moist mucus membranes Neck: supple Lungs: clear to auscultation bilaterally Heart: regular rate and rhythm, no murmurs Abd: soft, non-tender, non-distended Ext: no edema Skin: warm/well-perfused Neuro: alert and oriented x3, no focal findings Psych: appropriate affect Objective Data Active Medications Acetaminophen (Acetaminophen 325 Mg Tablet) 650 mg PO Q6H PRN PRN Reason: Pain, Mild (Pain Scale 1-3) Docusate Sodium (Docusate Sodium 100 Mg Capsule) 100 mg PO DAILY PRN PRN Reason: Constipation Enoxaparin Sodium (Enoxaparin Sodium 40 Mg/0.4 Ml Syringe) 40 mg SUBCUT Q24H [facility] Last Admin: 09/14/22 16:15 Dose: 40 mg Documented By: DABHouston Levothyroxine Sodium (Levothyroxine Sodium 100 Mcg Tablet) 100 mcg PO DAILY@0600 [facility] Last Admin: 09/15/22 06:42 Dose: 100 mcg Documented By: TEODORA Methadone HCl (Methadone Hcl 20 Mg/2 Ml Oral.Conc) 75 mg PO DAILY [facility] Last Admin: 09/15/22 08:00 Dose: 75 mg Documented By: RADHA Nifedipine (Nifedipine Er 30 Mg Tab.Er.24) 30 mg PO DAILY [facility]; Protocol Last Admin: 09/15/22 08:01 Dose: 30 mg Documented By: RADHA Ondansetron HCl (Ondansetron Hcl 4 Mg/2 Ml Vial) 4 mg IVPUSH Q8H PRN PRN Reason: Nausea and Vomiting Pharmacy Consult (Consult Rx Perform Med Rec) 1 each MISCELLANE ONCE PRN PRN Reason: Consult order Sodium Chloride (0.9 % Sodium Chloride Flush 3 Ml Syringe) 3 ml IVFLUSH QSHIFT [facility] Last Admin: 09/15/22 08:02 Dose: 3 ml Documented By: RADHA Labs 09/14/22 06:08 09/14/22 06:08 Microbiology Microbiology Results: Microbiology 09/12/22 11:49 Blood Culture - Preliminary Blood - Venous No growth after 48 hours. 09/12/22 11:28 Blood Culture - Preliminary Blood - Venous No growth after 48 hours. Assessment and Plan (1) Elevated CK: Status: Acute (2) Acute metabolic encephalopathy: Status: Acute Plan d4 47yo homelemess M with bipolar disorder, HCV, HTN, hypothyroidism, ZACKERY, OUD on methadone, hx MSSA bacteremia treated with linezolid last yr admitted for hypothermia due to environmental exposure, elevated CPK concerning for rhabdomyolysis hypothermia due to environmental exposure + hypothyroidism - resolved elevated CPK concerning for rhabdomyolysis likely due to cocaine abuse + h ypothyroid myopathy - resolved hypoK - repleted acute toxic metabolic encephalopathy - due to hypothermia + drugs - resolved HTN - restarted nifedipine chronic HCV - did not complete Epclusa, viral load pending hypothyroidism, not compliant - resumed levothyroxine @ 1.6 mcg/kg, recheck TSH 4-6 wk bipolar disorder - not on meds, needs outpt psych f/u OUD - methadone, QTc 476 ms, dose verified cocaine use disorder - Addiction Medicine consult VTE ppx - LMWH dispo - TBD; awaiting PT eval In my clinical judgment, the patient requires continued inpatient hospitalization for the following reasons: placement Time Spent With Patient Time: Total time managing care of this patient today ___25_ minutes. Quality Stroke Does the patient have a stroke diagnosis?: No VTE Prior VTE?: No VTE Risk Level:: Medical - moderate - high VTE Device Contraindication: Treatment Not Indicated VTE Drug Contraindication: N/A - Med Ordered
--- NOTE | 2022-09-15 11:37 | P.DS_ITS ---
DS: Providers Provider Date of Service: 09/15/22 Date of admission: 09/12/22 15:21 Date of discharge: 09/15/22 Primary care physician: Unknown Physician Consults: 09/12/22 15:41 Addiction Medicine Routine Consulting Provider: Addiction Covering Reason for consultation: cocaine abuse DS: Diagnosis Discharge Diagnosis (1) Elevated CK: Status: Acute (2) Acute metabolic encephalopathy: Status: Acute (3) Hypothermia: Status: Acute (4) Hypothyroid: Status: Acute (5) Hypertension: Status: Acute (6) Polysubstance abuse: Status: Acute DS: Summary Hospital Course Hospital Course: from admission H+P, 09/12/22, by hospitalist SOLE Milagros Rapp: 47-year-old male with history of bipolar disorder, hepatitis-C ?treated with epclusa, hypertension, hypothyroidism, ongoing IV polysubstance abuse with opiate use disorder on methadone, history MSSA bacteremia treated with PO linezolid presented to the ED via EMS after being found in a gas [place] bathroom likely due to the outside rain with complaints of chest pain and pressure radiating to the back. He is unable to provider many details as to how he ended up in the bathroom but states he is homeless and has been wandering in torrential rain though states he has good shoes. He is reporting pain in the feet bilaterally. He states his last cocaine use was several days ago and last methadone dose was yesterday, follows with [facility]. He describes the chest pain as a 7/10 with radiation to the back that is still present but improved. No associated sob, lightheadedness, palpitations, diaphoresis. He did also have single episode of large volume diarrhea with single episode vomiting this morning. No fevers, chills, recent illness, abd pain, nausea, vomiting, urinary symptoms, melena, hematochezia, or myalgia. On arrival, patient is hypothermic to 94.5 degrees, bradycardic to 49 improved to 64.? Initially was hypotensive to 202/125 with improvement to 149/117 without intervention.? There is no hypoxia.? There is no leukocytosis.? Stable normocytic anemia with H/H 12.0/37.5%. Creat 1.42, baseline 1.23. BUN 14. Lytes normal except for K 3.1. Mg 2.4.? Total bilirubin 0.8, AST 102, ALT 48, alkaline phosphatase 357.? Total CK 1181.? Troponin below detectable limits.? Urinalysis unremarkable.? Urine tox screen positive for fentanyl and cocaine.? Chest x-ray negative for any acute cardiopulmonary abnormality.? EKG shows sinus bradycardia rate 52 with sinus arrhythmia as well as nonspecific ST/T-wave abnormality and prolonged QT of 512, QTC 476.? In the ED, given 2 L IV NS bolus and 60 mEq potassium chloride p.o.. 47yo homelemess M with bipolar disorder, HCV, HTN, hypothyroidism, ZACKERY, OUD on methadone, hx MSSA bacteremia treated with linezolid last yr admitted for hypothermia due to environmental exposure, elevated CPK concerning for rhabdomyolysis hospital course by problem: hypothermia due to environmental exposure + hypothyroidism - resolved elevated CPK concerning for rhabdomyolysis likely due to cocaine abuse + hypothyroid myopathy - resolved hypoK - repleted acute toxic metabolic encephalopathy - due to hypothermia + drugs - resolved HTN - restarted nifedipine, prescribed chronic HCV - did not complete Epclusa, viral load pending hypothyroidism, not compliant - resumed levothyroxine @ 1.6 mcg/kg, prescribed, recheck TSH 4-6 wk bipolar disorder - not on meds, needs outpt psych f/u OUD - methadone, QTc 476 ms, dose verified cocaine use disorder - Addiction Medicine consulted Time Spent with Patient Time attestation: Total time managing care of this patient today __35__ minutes. Discharge coordination time: Greater than 30 minutes Quality: Safe Use of Opioids Does Pt have an Active Cancer Diagnosis on the Problem List?: No Quality: Stroke Does the patient have a stroke diagnosis?: No Physical Exam Vital Signs: Vital Signs: Last Vital Signs Temp 97.1 F 09/15/22 08:00 Pulse 54 09/15/22 08:00 Resp 18 09/15/22 08:00 BP 132/92 H 09/15/22 08:00 Pulse Ox 96 09/15/22 08:00 O2 Del Method Room Air 09/15/22 08:00 BMI result Body Mass Index 19.8 Gen: in no acute distress, disheveled HEENT: sclera anicteric, moist mucus membranes Neck: supple Lungs: clear to auscultation bilaterally Heart: regular rate and rhythm, no murmurs Abd: soft, non-tender, non-distended Ext: no edema Skin: warm/well-perfused Neuro: alert and oriented x3, no focal findings Psych: appropriate affect DS: Data Data Completed and Pending Completed studies during hospitalization [Text1]: Laboratory Results WBC 7.9 X10*3/uL (4.8-10.8) 09/14/22 06:08 RBC 3.67 X10*6/uL (4.60-5.80) L 09/14/22 06:08 Hgb 10.0 g/dl (14.0-18.0) L 09/14/22 06:08 Hct 31.0 % (42.0-52.0) L 09/14/22 06:08 MCV 84.5 fL (80.0-98.0) 09/14/22 06:08 MCH 27.2 pg (27.0-33.0) 09/14/22 06:08 MCHC 32.3 g/dl (31.0-36.0) 09/14/22 06:08 RDW 20.5 % (11.0-16.0) H 09/14/22 06:08 Plt Count 306 X10*3/uL (160-400) 09/14/22 06:08 MPV 9.1 fL (9.4-12.4) L 09/14/22 06:08 Immature Gran % (Auto) 0.3 % (0.0-0.4) 09/13/22 14:32 Neut % (Auto) 76.8 % (45-73) H 09/13/22 14:32 Lymph % (Auto) 18.3 % (20-40) L 09/13/22 14:32 [place] % (Auto) 3.9 % (2-11) 09/13/22 14:32 Eos % (Auto) 0.3 % (0-4) 09/13/22 14:32 Baso % (Auto) 0.4 % (0-2) 09/13/22 14:32 Lymph # (Auto) 1.4 X10*3/uL (1.2-4.9) 09/13/22 14:32 [place] # (Auto) 0.3 X10*3/uL (0.1-1.2) 09/13/22 14:32 Eos # (Auto) 0.0 X10*3/uL (0.0-0.4) 09/13/22 14:32 Baso # (Auto) 0.0 X10*3/uL (0.0-0.2) 09/13/22 14:32 Abs Immat Gran (auto) 0.02 X10*3/uL (0.00-0.03) 09/13/22 14:32 Absolute Neuts (auto) 6.0 x10*3/uL (2.0-8.3) 09/13/22 14:32 Absolute Nucleated RBC 0.000 X10*3/uL (0.0-0.012) 09/14/22 06:08 Nucleated RBC % (auto) 0.0 /100WBC (0.0-0.2) 09/14/22 06:08 Smear Tech's Comments VERIFIED 09/13/22 14:32 VBG pH 7.47 (7.32-7.43) H 09/12/22 16:55 VBG pCO2 31 mmHg 09/12/22 16:55 VBG pO2 202 mmHg 09/12/22 16:55 VBG HCO3 22 mmol/L (22-26) 09/12/22 16:55 VBG O2 Saturation 100.0 % 09/12/22 16:55 VBG Base Excess 0.2 mmol/L 09/12/22 16:55 Sodium 133 mmol/L (135-145) L 09/14/22 06:08 Potassium 3.7 mmol/L (3.3-5.1) 09/14/22 06:08 Chloride 102 mmol/L (96-108) 09/14/22 06:08 Carbon Dioxide 24 mmol/L (22-29) 09/14/22 06:08 Anion Gap 11 (12-20) L 09/14/22 06:08 BUN 9 mg/dL (9-16) 09/14/22 06:08 Creatinine 0.98 mg/dL (0.5-1.4) 09/14/22 06:08 Estim Creat Clear Calc 78.4 09/14/22 06:08 Estimated GFR > 60 09/14/22 06:08 POC Glucose 85 mg/dL (60-115) 09/12/22 11:28 Random Glucose 83 mg/dL (60-115) 09/14/22 06:08 Lactic Acid 1.8 mmol/L (0.5-2.0) 09/12/22 11:28 Calcium 8.1 mg/dL (8.4-10.2) L 09/14/22 06:08 Magnesium 2.1 mg/dL (1.6-2.6) 09/13/22 14:32 Total Bilirubin 0.6 mg/dL (0.0-1.0) 09/14/22 06:08 AST 53 U/L (5-37) H 09/14/22 06:08 ALT 27 U/L (0-40) 09/14/22 06:08 Alkaline Phosphatase 243 U/L (39-117) H 09/14/22 06:08 Total Creatine Kinase 407 U/L (38-174) H 09/14/22 06:08 Troponin I High Sens 2.8 ng/L (<3.5-35.0) 09/12/22 11:22 Total Protein 7.5 g/dL (6.5-8.0) 09/14/22 06:08 Albumin 2.9 g/dL (3.5-5.0) L 09/14/22 06:08 Lipase 14 U/L (8-78) 09/12/22 11:22 TSH 97.66 uIU/mL (0.32-4.0) H 09/12/22 11:22 Free T4 < 0.42 ng/dL (0.71-1.85) L 09/12/22 11:22 Urine Color Yellow 09/12/22 11:04 Urine Appearance Clear 09/12/22 11:04 Urine pH 8.0 (5.0-9.0) 09/12/22 11:04 Ur Specific [place] 1.015 (1.005-1.025) 09/12/22 11:04 Urine Protein Trace mg/dL (Neg-Trace) 09/12/22 11:04 Urine Glucose (UA) Negative mg/dL (Negative) 09/12/22 11:04 Urine Ketones Negative mg/dL (Negative) 09/12/22 11:04 Urine Blood Negative (Negative) 09/12/22 11:04 Urine Nitrite Negative (Negative) 09/12/22 11:04 Ur Leukocyte Esterase Negative (Negative) 09/12/22 11:04 Urine Opiates Screen Not Detected (Not Detect) 09/12/22 11:04 Urine Fentanyl Screen POSITIVE (Not Detect) H 09/12/22 11:04 Ur Barbiturates Screen Not Detected (Not Detect) 09/12/22 11:04 Ur Phencyclidine Scrn Not Detected (Not Detect) 09/12/22 11:04 Ur Amphetamines Screen Not Detected (Not Detect) 09/12/22 11:04 U Benzodiazepines Scrn Not Detected (Not Detect) 09/12/22 11:04 Urine Cocaine Screen POSITIVE (Not Detect) H 09/12/22 11:04 U Marijuana (THC) Screen Not Detected (Not Detect) 09/12/22 11:04 HIV 1&2 Ab/P24 Ag 4thGn Nonreactive (Nonreactive) 09/14/22 06:08 Impressions Chest X-Ray 09/12/22 11:52 IMPRESSION: No acute cardiopulmonary findings. Labs on day of discharge: Preliminary micro results at discharge 09/12/22 11:49 Blood Culture - Preliminary Blood - Venous No growth after 48 hours. 09/12/22 11:28 Blood Culture - Preliminary Blood - Venous No growth after 48 hours. Discharge Plan Discharge Anticipated Discharge Date/Time: 09/14/22 13:07 Patient Disposition: Home, Self-Care Discharge Diagnosis: hypothermia mild rhabdomyolysis untreated hypothyroidism hypertension drug abuse Referrals: [facility] [Provider Group] - 1 Week Physician,Cassy Hopkins [Primary Care Provider] - 1 Week Discharge Medications: New nifedipine 30 mg Tablet Extended Release 24hr 30 mg PO DAILY Qty: 30 0RF Protocol: Hold for SBP< HOLD for SBP < : 90 levothyroxine [Synthroid] 100 mcg Tablet 100 mcg PO DAILY@0600 Qty: 30 0RF (DME) Ultra-Light Rollator Misc See Rx Instructions .Route Qty: 1 0RF Rx Instructions: As directed Continued methadone 10 mg/mL Concentrate 75 mg PO DAILY Discharge Orders: Discharge Order (Routine); Ordered 09/15/22 Ordered By: Augustine Gross Diet: Advance to usual diet Activity on Discharge: As tolerated Stand Alone Forms: Patient Portal Discharge page Other Ambulatory Orders: Thyroid Stimulating Hormone (Routine) Timeframe: 4 Weeks Facility: [facility] - Location: Laboratory Ordered By: Augustine Gross Care Plan Goals: sobriety Health Concerns: hypothermia mild rhabdomyolysis untreated hypothyroidism hypertension drug abuse Plan of Treatment: avoid drug abuse take levothyroxine 100 mcg daily; recheck TSH in 4-6wk take nifedipine 30 mg daily establish primary care LACY Please follow up with your primary care doctor within 1 week. Return to the hospital if you experience recurrent or worsening symptoms. Assessment: See Discharge Summary. Discharge Date/Time: 09/15/22 14:09
[2022-09-15 11:44] VITALS: PULSE 60
[2022-09-15 11:49] VITALS: BP 135/93; PULSE 50; RESP 18; TEMP 36.1; O2SAT 95
--- NOTE | 2022-09-15 12:36 | PC.NURSE ---
Pt signed d/c paperwork, understands and agrees. awaiting rolling walker for pt and discharge.
--- NOTE | 2022-09-15 13:50 | MHC.CM.PN ---
DP: PT HAS BEEN MEDICALLY CLEARED FOR DC . PT IS HOMELESS AND DECLINES A PENITENTIARY. REQUESTS A RIDE TO [facility]IA [facility]. LYNDSAY BOOKED FOR 2:10 PM. IRASEMA AWARE.
--- NOTE | 2022-09-15 14:08 | PC.NURSE ---
methadone clinic called and last dose letter given to Pt
--- NOTE | 2022-09-15 14:24 | MHC.RECOVRN ---
Met with pt prior to dc to discuss substance use. Pt sitting in bed, awake, alert, easily engages in conversation. Reports methadone is going well and states I don't even want the drugs anymore. Pt does report heroin use, less than 10 bags daily, IV, as well as $20-$40 cocaine, IV, daily. Pt states It's mostly out of boredom now. Pt focused on obtaining clothes and shoes, not interested in further recovery supports at this time. Denies other questions or concerns for t/w.
[2022-09-16 15:13] LABS: HCV Log PCR 6.88 Log IU/mL (NOT DETECTED)
== END 2022-09-15 14:09 | disposition home or self-care (01) | DRG 815 ==
LOC: HO.ED 14:31 → HO.EDOVER 15:48 → HO.S3 09-13 09:18
PROVIDERS: Admitting Provider Physician Assistant; Emergency Provider Student in an Organized Health Care Education/Training Program; Visit Provider Family Medicine
DX: T68.XXXA Hypothermia, initial encounter (principal); G93.41 Metabolic encephalopathy; N17.9 Acute kidney failure, unspecified; M62.82 Rhabdomyolysis; R64 Cachexia; F17.210 Nicotine dependence, cigarettes, uncomplicated; F19.10 Other psychoactive substance abuse, uncomplicated; E86.0 Dehydration; F31.9 Bipolar disorder, unspecified; Z68.1 Body mass index [BMI] 19.9 or less, adult; B18.2 Chronic viral hepatitis C; E87.6 Hypokalemia; R94.31 Abnormal electrocardiogram [ECG] [EKG]; F14.10 Cocaine abuse, uncomplicated; E03.9 Hypothyroidism, unspecified; X31.XXXA Exposure to excessive natural cold, initial encounter; F11.20 Opioid dependence, uncomplicated; Z91.148 Patient's other noncompliance with medication regimen for other reason; Z71.6 Tobacco abuse counseling; Z59.00 Homelessness unspecified; Z79.890 Hormone replacement therapy; Z79.899 Other long term (current) drug therapy
CPT/HCPCS: 36415; 71045; 80048; 80053; 80307; 81003; 82550; 82803; 82947; 83605; 83690; 83735; 84439; 84443; 84484; 85025; 85027; 87040; 87389; 87522; 93005; 97161; 99285; J1650

== ENCOUNTER → 2022-09-12 10:30 | Outpatient (BNV) | payer OTHER, SELFPAY | PROVIDERS: Admitting Provider Physician Assistant; Emergency Provider Student in an Organized Health Care Education/Training Program; Visit Provider Internal Medicine Cardiovascular Disease | DX: I45.81 Long QT syndrome (principal) | CPT/HCPCS: 93010 ==

== ENCOUNTER → 2022-09-12 15:21 | Outpatient (BNV) | payer OTHER, SELFPAY | PROVIDERS: Admitting Provider Physician Assistant; Emergency Provider Student in an Organized Health Care Education/Training Program; Visit Provider Physician Assistant | DX: R74.8 Abnormal levels of other serum enzymes (principal); G93.41 Metabolic encephalopathy | CPT/HCPCS: 99223; 99232; 99239; 99499 ==

== ENCOUNTER 2022-10-13 09:44 | Emergency (ER) | payer OTHER, SELFPAY ==
[2022-10-13] VITALS (11 sets, daily range): BP systolic 134–210; BP diastolic 80–123; PULSE 35–68; RESP 10–18; TEMP 32.6–35.9; O2SAT 98–100; BMI 24.3
--- NOTE | ~2022-10-13 | CT_ITS ---
EXAMINATION: CT CHEST, ABDOMEN AND PELVIS WITH CONTRAST CLINICAL INFORMATION: Right-sided pain status post fall. COMPARISON: Chest CT scan dated 12/14/2021. TECHNIQUE: Multidetector volumetric imaging was performed of the chest, abdomen and pelvis following IV administration of 85 mL of Omnipaque 350 intravenous contrast. Sagittal and coronal reformatted images were obtained on the technologist's workstation. This CT examination was performed using dose optimization techniques as appropriate, variously including the following: *Automated exposure control *Adjustment of mA and/or kV according to patient size (this includes techniques or standardized protocols for targeted exams where dose is matched to indication/reason for exam; i.e. extremities or head) DLP: 277 mGy-cm FINDINGS: CHEST: LUNGS/PLEURA/AIRWAYS: Mild upper lobe predominant centrilobular and mild to moderate paraseptal emphysema is seen. No significant/suspicious pulmonary nodules. Mild dependent atelectasis in the lower lobes bilaterally. No pleural effusions. The airways are patent. MEDIASTINUM: The thyroid gland is unremarkable. The thoracic aorta is unremarkable. No coronary artery calcifications. No significant pericardial effusion. CHEST LYMPH NODES: No lymphadenopathy. SOFT TISSUES: Unremarkable. ABDOMEN/PELVIS: LIVER, GALLBLADDER, AND BILIARY TREE: Hepatic mild heterogeneous attenuation with periportal edema. Irregular subcapsular/perihepatic nodules are seen along the posterior inferior margin of the right lobe measuring approximately 3.8 x 2.9 x 2.5 cm (image 21, series 10; image 68, series 34). There is a larger low-attenuation mass in the frank hepatis measuring approximately 4.2 x 3.6 x 3.6 cm (image 42, series 34; image 16, series 10). The gallbladder is moderately distended with an intraluminal noncalcified mass measuring up to 4.6 cm (image 26, series 10). No significant mural thickening. No significant biliary ductal dilatation. Mild perihepatic and pericholecystic fluid. PANCREAS: Unremarkable. SPLEEN: Unremarkable. ADRENAL GLANDS: Unremarkable. KIDNEYS AND URETERS: The left kidney shows a small cyst in the upper pole measuring 1.0 cm (image 51, series 34). The right kidney is unremarkable. No nephrolithiasis or hydroureteronephrosis. BLADDER: Unremarkable. GASTROINTESTINAL TRACT: The stomach is unremarkable. Several mild to moderately dilated gas-filled loops of small bowel are seen. A inside sales account representative loop in the anterior left abdomen measures up to 3.8 cm (image 36, series 10). A few loops in the left abdomen show mild mural thickening towards the left lower quadrant (image 35, series 34). No definitive obstructing abnormality. Moderate stool seen throughout the colon more pronounced proximally. LYMPH NODES: Mildly enlarged frank hepatis and gastrohepatic lymph nodes. A inside sales account representative left frank hepatis lymph node measures 1.0 cm in short axis (image 37, series series 4). VASCULAR: Unremarkable. PELVIC VISCERA: Unremarkable. MUSCULOSKELETAL: Small nodes and associated superior endplate compression deformities at T11 and L4. No suspicious abnormality. Old healed right rib fractures. No overt acute fracture. Severe degenerative changes in the superior aspect of the left hip. SOFT TISSUES: Unremarkable. CT/CT abdomen pelvis w IV con IMPRESSION: 1. No definitive acute traumatic injury. 2. Frank hepatis mass with irregular right subcapsular/perihepatic lesions along the posterior inferior hepatic margin. Mild frank hepatis and gastrohepatic lymphadenopathy and periportal edema. These findings are concerning for malignancy, possibly primary biliary. The noncalcified intraluminal gallbladder mass is nonspecific and could represent a noncalcified large gallstone or tumefactive sludge. A malignant mass cannot be excluded given the other findings. This was not seen previously. Considerations for follow-up include PET/CT and biopsy. 3. Dilated loops of small bowel are nonspecific without obstructing abnormality. There are several loops of small bowel in the left lower quadrant with mural thickening. This could be reactive to the right upper quadrant findings. An infectious/inflammatory process cannot be excluded. Moderate colonic stool burden.
--- NOTE | ~2022-10-13 | CT_ITS ---
EXAMINATION: CT HEAD WITHOUT CONTRAST CLINICAL INFORMATION: Status post fall, rule out intracranial abnormality. COMPARISON: Head CT scan dated 10/14/2021. TECHNIQUE: Contiguous axial imaging was performed from the skull base to vertex without intravenous administration of contrast. Coronal and sagittal reformatted images were obtained. This CT examination was performed using dose optimization techniques as appropriate, variously including the following: *Automated exposure control *Adjustment of mA and/or kV according to patient size (this includes techniques or standardized protocols for targeted exams where dose is matched to indication/reason for exam; i.e. extremities or head) *Use of iterative reconstruction technique DLP: 634.90 mGy-cm FINDINGS: The cortical sulci are normal. The lateral ventricles are symmetrical. The third and fourth ventricles are in their normal midline position. The basilar and prepontine cisterns are unremarkable. There is no acute intra or extracerebral abnormality. There is no mass effect or midline shift. Sections through the bony calvarium are unremarkable. The paranasal sinuses are clear. The bony orbits and orbital contents are unremarkable. Moderate anterior nasal septal deviation, apex the left is seen. Hypoaeration of the left mastoid process. The mastoid air cells are clear. CT/CT head/brain wo IV con IMPRESSION: No acute intracranial pathology.
--- NOTE | ~2022-10-13 | CT_ITS ---
EXAMINATION: CT CHEST, ABDOMEN AND PELVIS WITH CONTRAST CLINICAL INFORMATION: Right-sided pain status post fall. COMPARISON: Chest CT scan dated 12/14/2021. TECHNIQUE: Multidetector volumetric imaging was performed of the chest, abdomen and pelvis following IV administration of 85 mL of Omnipaque 350 intravenous contrast. Sagittal and coronal reformatted images were obtained on the technologist's workstation. This CT examination was performed using dose optimization techniques as appropriate, variously including the following: *Automated exposure control *Adjustment of mA and/or kV according to patient size (this includes techniques or standardized protocols for targeted exams where dose is matched to indication/reason for exam; i.e. extremities or head) DLP: 277 mGy-cm FINDINGS: CHEST: LUNGS/PLEURA/AIRWAYS: Mild upper lobe predominant centrilobular and mild to moderate paraseptal emphysema is seen. No significant/suspicious pulmonary nodules. Mild dependent atelectasis in the lower lobes bilaterally. No pleural effusions. The airways are patent. MEDIASTINUM: The thyroid gland is unremarkable. The thoracic aorta is unremarkable. No coronary artery calcifications. No significant pericardial effusion. CHEST LYMPH NODES: No lymphadenopathy. SOFT TISSUES: Unremarkable. ABDOMEN/PELVIS: LIVER, GALLBLADDER, AND BILIARY TREE: Hepatic mild heterogeneous attenuation with periportal edema. Irregular subcapsular/perihepatic nodules are seen along the posterior inferior margin of the right lobe measuring approximately 3.8 x 2.9 x 2.5 cm (image 21, series 10; image 68, series 34). There is a larger low-attenuation mass in the frank hepatis measuring approximately 4.2 x 3.6 x 3.6 cm (image 42, series 34; image 16, series 10). The gallbladder is moderately distended with an intraluminal noncalcified mass measuring up to 4.6 cm (image 26, series 10). No significant mural thickening. No significant biliary ductal dilatation. Mild perihepatic and pericholecystic fluid. PANCREAS: Unremarkable. SPLEEN: Unremarkable. ADRENAL GLANDS: Unremarkable. KIDNEYS AND URETERS: The left kidney shows a small cyst in the upper pole measuring 1.0 cm (image 51, series 34). The right kidney is unremarkable. No nephrolithiasis or hydroureteronephrosis. BLADDER: Unremarkable. GASTROINTESTINAL TRACT: The stomach is unremarkable. Several mild to moderately dilated gas-filled loops of small bowel are seen. A medical detail representative loop in the anterior left abdomen measures up to 3.8 cm (image 36, series 10). A few loops in the left abdomen show mild mural thickening towards the left lower quadrant (image 35, series 34). No definitive obstructing abnormality. Moderate stool seen throughout the colon more pronounced proximally. LYMPH NODES: Mildly enlarged frank hepatis and gastrohepatic lymph nodes. A medical detail representative left frank hepatis lymph node measures 1.0 cm in short axis (image 37, series series 4). VASCULAR: Unremarkable. PELVIC VISCERA: Unremarkable. MUSCULOSKELETAL: Small nodes and associated superior endplate compression deformities at T11 and L4. No suspicious abnormality. Old healed right rib fractures. No overt acute fracture. Severe degenerative changes in the superior aspect of the left hip. SOFT TISSUES: Unremarkable. CT/CT chest w IV con IMPRESSION: 1. No definitive acute traumatic injury. 2. Frank hepatis mass with irregular right subcapsular/perihepatic lesions along the posterior inferior hepatic margin. Mild frank hepatis and gastrohepatic lymphadenopathy and periportal edema. These findings are concerning for malignancy, possibly primary biliary. The noncalcified intraluminal gallbladder mass is nonspecific and could represent a noncalcified large gallstone or tumefactive sludge. A malignant mass cannot be excluded given the other findings. This was not seen previously. Considerations for follow-up include PET/CT and biopsy. 3. Dilated loops of small bowel are nonspecific without obstructing abnormality. There are several loops of small bowel in the left lower quadrant with mural thickening. This could be reactive to the right upper quadrant findings. An infectious/inflammatory process cannot be excluded. Moderate colonic stool burden.
--- NOTE | ~2022-10-13 | CT_ITS ---
EXAMINATION: CT CERVICAL SPINE WITHOUT CONTRAST CLINICAL INFORMATION: Neck pain status post fall. COMPARISON: None available. TECHNIQUE: Multiple axial images of the cervical spine were obtained without the administration of intravenous contrast. Coronal and sagittal reformatted images were obtained. This CT examination was performed using dose optimization techniques as appropriate, variously including the following: *Automated exposure control *Adjustment of mA and/or kV according to patient size (this includes techniques or standardized protocols for targeted exams where dose is matched to indication/reason for exam; i.e. extremities or head) *Use of iterative reconstruction technique DLP: 289.43 mGy-cm FINDINGS: There is normal cervical lordosis and spinal alignment. The vertebral bodies are intact. Moderate to severe degenerative disc disease is seen at C6-C7 with disc space narrowing and marginal osteophyte formation. The vertebral bodies are intact. The odontoid process is intact. The facet joints are unremarkable. The spinous and transverse processes are intact. The cervical soft tissues are unremarkable. Is no lymphadenopathy. The visualized thyroid gland is unremarkable. The lung apices show partial visualization of moderate biapical paraseptal emphysema. CT/CT cervical spine wo IV con IMPRESSION: 1. C6-C7 moderate to severe degenerative disc disease. No acute abnormality.
--- NOTE | 2022-10-13 09:59 | ECG_ITS ---
Test Reason : chest pain Blood Pressure : / mmHG Vent. Rate : 039 BPM Atrial Rate : 039 BPM P-R Int : 148 ms QRS Dur : 096 ms QT Int : 596 ms P-R-T Axes : 069 009 180 degrees QTc Int : 479 ms Marked sinus bradycardia T wave abnormality, consider anterolateral ischemia Prolonged QT Abnormal ECG No previous ECGs available Referred By: Mimi Marsh Electronically Signed By:ALFA HUDSON
--- NOTE | 2022-10-13 10:02 | ED_ITS ---
HPI - General Adult General Chief complaint: Abdominal Pain Stated complaint: FALL TO GROUND,METHADONE WITHDRAWAL PER EMS Time Seen by Provider: 10/13/22 09:48 Source: patient and EMS Mode of arrival: EMS Limitations: no limitations History of Present Illness HPI narrative: 47 yo male with history of OUD here after being found laying on the ground in the rain c/o abdominal pain. Patient is a poor historian. He tells me that he is homeless and was sleeping outside in the rain. He denies any fall or trauma. He reports he has abdominal pain right-sided for the last few days with nausea with no vomiting or diarrhea no fevers or urinary symptoms. Patient reports he was unable to get his 85 mg of methadone today at the clinic. His last dose was yesterday. HPI very limited Per nursing patient was soaking wet, disheveled on arrival Related Data Home Medications Medication Instructions Recorded Confirmed methadone 10 mg/mL oral concentrate 75 mg PO DAILY 09/12/22 09/13/22 Previous Rx's Medication Instructions Recorded levothyroxine 100 mcg tablet 100 mcg PO DAILY@0600 #30 tabs 09/14/22 (Synthroid) nifedipine 30 mg tablet,extended 30 mg PO DAILY #30 tabs 09/14/22 release 24 hr walker (Ultra-Light Rollator misc) #1 ea 09/15/22 Allergies Allergy/AdvReac Type Severity Reaction Status Date / Time diphenhydramine Allergy Unknown Verified 10/13/22 13:05 [From Benadryl] From BENADRYL Allergy Unknown CANT Uncoded 10/13/22 13:05 BREATHE HIVES Review of Systems Review of Systems: Yes all other systems are reviewed and are negative Constitutional: Constitutional: Reports no additional constitutional com plaints, Denies body ache(s), Denies chills, Denies fever(s), Denies headache(s) and Denies weakness Eyes: Eyes: Reports no additional eye complaints and Denies change in vision ENT: Reports system reviewed and no additional complaints, except as documented, Denies dizziness, Denies headache(s), Denies nasal congestion, Denies nasal discharge and Denies neck pain Cardiovascular: Cardiovascular: Reports no additional cardiovascular complaints, Denies chest pain, Denies leg edema and Denies dyspnea Respiratory: Respiratory: Reports no additional respiratory complaints, Denies cough and Denies dyspnea Gastrointestinal: Gastrointestinal: Reports no additional gastrointestinal complaints, Reports abdominal pain, Denies diarrhea, Reports nausea and Denies vomiting Genitourinary: Genitourinary: Denies urinary incontinence Musculoskeletal: Musculoskeletal: Reports no additional musculoskeletal complaints, Denies back pain, Denies arthralgias, Denies joint swelling, Denies neck pain, Denies numbness and Denies tingling Integumentary/Breasts: Skin/Breast: Reports system reviewed and no additional complaints, except as docu and Denies rash Neurologic: Reports system reviewed and no additional complaints, except as documented, Denies dizziness, Denies headache(s), Denies numbness, Denies tingling and Denies weakness PMFSH Past Medical History Attestation statement: The following information was validated with the patient. Source: old records reviewed and nursing notes reviewed Medical History (Updated 10/13/22 @ 16:00 by Mimi Marsh NP) Abdominal pain Abnormal LFTs Acute kidney injury Bipolar 1 disorder, depressed Hepatitis C HTN (hypertension) Hypothyroid IV drug user Leukopenia MSSA (methicillin susceptible Staphylococcus aureus) septicemia Normocytic anemia Opioid use disorder Rib fractures Subdural hematoma Surgical History (System 10/13/22 @ 13:05 by Marisel Wright) No pertinent past surgical history Family History Family History Other No family history of coronary artery disease Social History Social History (System 10/13/22 @ 13:05 by Marisel Wright) Household Members: None Household Members Other:: Currently rehab in [place] Housing: Homeless Do you presently have visiting nurse or other home services: No Alcohol intake: never Patient Tobacco Use Status: Current everyday Tobacco user Tobacco use type: Cigarette Cigarettes Per Day: 4 Smoked in Last 30 Days: Yes Second Hand Smoke Exposure: Yes Use of substances other than those prescribed or required for medical reasons: Yes Substance Use Type: Heroin Advance Directives: No service: No Current occupational status: unemployed Physical Exam ED Vital Signs: Vital Signs - 24 hr 10/13/22 09:54 10/13/22 10:33 10/13/22 11:00 Temperature 90.7 F L Pulse Rate 43 L 35 L Respiratory Rate 18 10 L Blood Pressure 184/112 H 177/105 H Pulse Oximetry 100 99 Oxygen Delivery Method Room Air Room Air 10/13/22 11:30 10/13/22 12:57 10/13/22 11:49 Temperature 92.3 F L Pulse Rate 40 L 43 L Respiratory Rate 10 L 12 Blood Pressure 210/119 H Pulse Oximetry 100 100 Oxygen Delivery Method Room Air Room Air 10/13/22 13:52 10/13/22 14:42 10/13/22 15:36 Temperature 92.7 F L 96.7 F L Pulse Rate 51 50 Respiratory Rate 12 Blood Pressure 162/103 H 185/123 H Pulse Oximetry 100 100 Oxygen Delivery Method Room Air Room Air 10/13/22 15:49 Temperature Pulse Rate 59 Respiratory Rate 12 Blood Pressure 157/113 H Pulse Oximetry 100 Oxygen Delivery Method Room Air BMI result Body Mass Index 24.3 Const General: alert Orientation/consciousness: patient oriented x3 Limitations: no limitations HENMT Head: Yes normal to inspection Ears: hearing grossly normal bilaterally Eyes General: appearance normal, both eyes and all related structures Pupils: Equal, round and reactive pupils present Neck Neck: Yes normal visual inspection, Yes full ROM, Yes no lymphadenopathy and Yes no meningeal signs Chest Chest palpation & inspection: normal inspection of the chest Resp Effort & Inspection: normal respiratory effort Auscultation: clear to auscultation bilaterally Cardio Rate: regular rate Rhythm: regular rhythm Peripheral pulses: Peripheral pulses 2+ throughout GI Inspection: Yes normal to inspection Palpation (GI): Soft to palpation and Tenderness to palpation present (GI) (right sided-no rebound or guarding ) Auscultation: normal bowel sounds Back/Spine/Pelvis Thoracic/Lumbar Spine: thoracic and lumbar spine normal to inspection Skin General skin exam: no rashes or lesions noted Neuro General: patient oriented x3, moves all extremities and no meningeal signs Cranial nerves: Yes Equal, round and reactive pupils present Cognition (Neuro): normal cognition Sensory Exam: Normal double simultaneous stimulation for sensation Extrem General: Yes normal to inspection, Yes no pedal edema and Yes no calf tenderness Course Course Course Narrative: 1040-temperature 90 degrees F. Patient placed on warming blanket. 1120-labs show mild anemia with no previous for comparison, hypokalemia, transaminitis. Ordered oral and IV replacement of potassium. Patient has history of IV drug abuse. Transaminitis is likely secondary to hepatitis-C. Patient denies any known history of same. I will add hepatitis AB and C panel. Patient has CT A/P pending Reevaluation(s) Reevaluation #1: 1130-Informed from nursing that patient has no IV access. They have attempted multiple times including using the US with no success. I also attempted myself and was unable. R EJ placed with no issues. Reevaluation #2: 1430- Ct A/P shows 1. No definitive acute traumatic injury. 2. Marc hepatis mass with irregular right subcapsular/perihepatic lesions along the posterior inferior hepatic margin. Mild marc hepatis and gastrohepatic lymphadenopathy and periportal edema. These findings are concerning for malignancy, possibly primary biliary. The noncalcified intraluminal gallbladder mass is nonspecific and could represent a noncalcified large gallstone or tumefactive sludge. A malignant mass cannot be excluded given the other findings. This was not seen previously. Considerations for follow-up include PET/CT and biopsy. 3. Dilated loops of small bowel are nonspecific without obstructing abnormality. There are several loops of small bowel in the left lower quadrant with mural thickening. This could be reactive to the right upper quadrant findings. An infectious/inflammatory process cannot be excluded. Moderate colonic stool burden. Hepatitis C screen reactive. Patient with continued a RUQ abdominal pain, nausea with transamanitis and continued hypothermia (likely secondary to exposure) w/ limited resources d/t homelessness. Will continue to warm patient, consult with surgery/GI. Anticipate admission. Reevaluation #3: 1530-After discussion with both our general surgeon and gastroenterology team they recommended transfer to a tertiary care center where they have a biliary team. I did call [facility] and they are closed to transfers. Will attempt [facility] and if no success [facility]. Additional Reevaluation(s): 1550-[facility] closed to transfers. Patient accepted to ER with accepting physician Dr Brown. Temp now 96.7. blood pressure trending down, patient stable for transfer. Medications Administered Discontinued Medications Generic Name Dose Route Start Last Admin Trade Name Freq PRN Reason Stop Dose Admin Sodium Chloride 1,000 mls @ 999 mls/hr 10/13/22 09:59 10/13/22 13:54 Ns IV 10/13/22 10:59 Infused .Q1H1M STA Infusion Potassium Chloride 10 meq in 100 mls @ 100 mls/hr 10/13/22 11:16 10/13/22 13:54 Potassium Chloride/H20 IV 10/13/22 12:15 Infused ONCE ONE Infusion Sodium Chloride 1,000 mls @ 999 mls/hr 10/13/22 14:30 10/13/22 14:41 Ns IV 10/13/22 15:30 999 mls/hr .Q1H1M STA Administration Iohexol 85 ml 10/13/22 12:37 10/13/22 12:38 Iohexol 350 Mg/Ml 100 Ml Infus..Btl IV 10/13/22 12:38 85 ml ONCE ONE Administration Morphine Sulfate 4 mg 10/13/22 09:59 10/13/22 10:19 Morphine Sulfate 4 Mg/Ml Cartridge IVPUSH 10/13/22 10:00 4 mg ONCE ONE Administration Protocol Ondansetron HCl 4 mg 10/13/22 09:59 10/13/22 10:19 Ondansetron Hcl 4 Mg/2 Ml Vial IVPUSH 10/13/22 10:00 4 mg ONCE ONE Administration Potassium Chloride 60 meq 10/13/22 11:16 10/13/22 12:16 Potassium Chloride Er 20 Meq Tab.Er.Prt PO 10/13/22 11:17 60 meq ONCE ONE Administration Procedures EJ/Peripheral Line Neck R: Time Out Performed: Yes Skin Cleansed in Sterile Fashion: Yes Size (gauge): 20 IV Secured and Dressing Applied: Yes Patient Tolerated Procedure: well Medical Decision Making Medical Decision Making MDM Narrative: 47 yo male with history of OUD here with complaints of right sided abdominal pain, nausea, found on the ground outside but unclear if there was any trauma or injury. Patient reports he is homeless and has been outside all night in the rain. On arrival patient is alert and oriented. He does have right-sided abdominal pain with no rebound or guarding. He is quite disheveled, soaking wet. Will need labs, drug screen, EKG. Will need CT head/cervical spine/abdomen/chest as it is unclear if there was any trauma Differential Diagnosis Differential Diagnoses: The differential diagnosis associated with the presentation includes rhabdo, dehydration Intrathoracic/intra-abdominal pathology, trauma Polysubstance use Hypothermia Admission/Observation Consideration of admission/observation: Escalation of care including admission/observation considered See course of care for discussion Consult Healthcare Provider Management of the patient was discussed with: Hospitalist and Clinical Program Coordinator 1450-Spoke to our general surgeon peoplesoft functional analyst Dr Echeverria who noted large GB mass and portahepatic mass with narrowing of the hepatic vessels w/ some RUQ ascites. ?transfer to tertiary care [place] for hepatobiliary service 1500-Spoke to GI team (Dr Laura) who recommended transfer to tertiary [facility] for biliary team consultation Lab Data MDM Lab Attestation statement: I reviewed the patient's lab results. See course of care for lab review 10/13/22 10:28 10/13/22 10:28 Labs: Lab Results 10/13/22 10/13/22 10/13/22 Range/Units 10:28 10:28 10:28 WBC 4.8 (4.8-10.8) X10*3/uL RBC 3.28 L (4.60-5.80) X10*6/uL Hgb 9.5 L (14.0-18.0) g/dl Hct 28.5 L (42.0-52.0) % MCV 86.9 (80.0-98.0) fL MCH 29.0 (27.0-33.0) pg MCHC 33.3 (31.0-36.0) g/dl RDW 18.4 H (11.0-16.0) % Plt Count 309 (160-400) X10*3/uL MPV 8.7 L (9.4-12.4) fL Immature Gran % (Auto) 0.4 (0.0-0.4) % Neut % (Auto) 68.8 (45-73) % Lymph % (Auto) 22.7 (20-40) % [place] % (Auto) 5.6 (2-11) % Eos % (Auto) 1.7 (0-4) % Baso % (Auto) 0.8 (0-2) % Lymph # (Auto) 1.1 L (1.2-4.9) X10*3/uL [place] # (Auto) 0.3 (0.1-1.2) X10*3/uL Eos # (Auto) 0.1 (0.0-0.4) X10*3/uL Baso # (Auto) 0.0 (0.0-0.2) X10*3/uL Abs Immat Gran (auto) 0.02 (0.00-0.03) X10*3/uL Absolute Neuts (auto) 3.3 (2.0-8.3) x10*3/uL Absolute Nucleated RBC 0.000 (0.0-0.012) X10*3/uL Nucleated RBC % (auto) 0.0 (0.0-0.2) /100WBC PT 11.4 (11.1-13.3) SEC INR 0.9 (0.9-1.1) Sodium 135 (135-145) mmol/L Potassium 2.8 L (3.3-5.1) mmol/L Chloride 101 (96-108) mmol/L Carbon Dioxide 25 (22-29) mmol/L Anion Gap 12 (12-20) BUN 11 (9-16) mg/dL Creatinine 1.07 (0.5-1.4) mg/dL Estim Creat Clear Calc 80.7 Estimated GFR > 60 POC Glucose (60-115) mg/dL Random Glucose 101 (60-115) mg/dL Lactic Acid (0.5-2.0) mmol/L Calcium 8.7 (8.4-10.2) mg/dL Magnesium 2.0 (1.6-2.6) mg/dL Total Bilirubin 1.5 H (0.0-1.0) mg/dL Direct Bilirubin 1.1 H (0.0-0.5) mg/dL AST 332 H (5-37) U/L ALT 118 H (0-40) U/L Alkaline Phosphatase 876 H (39-117) U/L Total Creatine Kinase 911 H (38-174) U/L Troponin I High Sens (<3.5-35.0) ng/L B-Natriuretic Peptide (<100) pg/mL Total Protein 8.3 H (6.5-8.0) g/dL Albumin 3.3 L (3.5-5.0) g/dL Lipase 10 (8-78) U/L Urine Color Urine Appearance Urine pH (5.0-9.0) Ur Specific [place] (1.005-1.025) Urine Protein (Neg-Trace) mg/dL Urine Glucose (UA) (Negative) mg/dL Urine Ketones (Negative) mg/dL Urine Blood (Negative) Urine Nitrite (Negative) Ur Leukocyte Esterase (Negative) Urine Opiates Screen (Not Detect) Urine Fentanyl Screen (Not Detect) Ur Barbiturates Screen (Not Detect) Ur Phencyclidine Scrn (Not Detect) Ur Amphetamines Screen (Not Detect) U Benzodiazepines Scrn (Not Detect) Urine Cocaine Screen (Not Detect) U Marijuana (THC) Screen (Not Detect) Ethyl Alcohol < 10 mg/dL COVID-19 (GUILLERMO) (Negative) COVID-19 Clin Com Hepatitis A IgM Ab (Nonreactive) Hep Bs Antigen (Negative) Hep Bs Antibody (Nonreactive) Hep B Core Total Ab (Nonreactive) Hepatitis C Ab (EIA) (Nonreactive) 10/13/22 10/13/22 10/13/22 Range/Units 10:28 10:28 10:28 WBC (4.8-10.8) X10*3/uL RBC (4.60-5.80) X10*6/uL Hgb (14.0-18.0) g/dl Hct (42.0-52.0) % MCV (80.0-98.0) fL MCH (27.0-33.0) pg MCHC (31.0-36.0) g/dl RDW (11.0-16.0) % Plt Count (160-400) X10*3/uL MPV (9.4-12.4) fL Immature Gran % (Auto) (0.0-0.4) % Neut % (Auto) (45-73) % Lymph % (Auto) (20-40) % [place] % (Auto) (2-11) % Eos % (Auto) (0-4) % Baso % (Auto) (0-2) % Lymph # (Auto) (1.2-4.9) X10*3/uL [place] # (Auto) (0.1-1.2) X10*3/uL Eos # (Auto) (0.0-0.4) X10*3/uL Baso # (Auto) (0.0-0.2) X10*3/uL Abs Immat Gran (auto) (0.00-0.03) X10*3/uL Absolute Neuts (auto) (2.0-8.3) x10*3/uL Absolute Nucleated RBC (0.0-0.012) X10*3/uL Nucleated RBC % (auto) (0.0-0.2) /100WBC PT (11.1-13.3) SEC INR (0.9-1.1) Sodium (135-145) mmol/L Potassium (3.3-5.1) mmol/L Chloride (96-108) mmol/L Carbon Dioxide (22-29) mmol/L Anion Gap (12-20) BUN (9-16) mg/dL Creatinine (0.5-1.4) mg/dL Estim Creat Clear Calc Estimated GFR POC Glucose (60-115) mg/dL Random Glucose (60-115) mg/dL Lactic Acid 0.8 (0.5-2.0) mmol/L Calcium (8.4-10.2) mg/dL Magnesium (1.6-2.6) mg/dL Total Bilirubin (0.0-1.0) mg/dL Direct Bilirubin (0.0-0.5) mg/dL AST (5-37) U/L ALT (0-40) U/L Alkaline Phosphatase (39-117) U/L Total Creatine Kinase (38-174) U/L Troponin I High Sens 3.9 (<3.5-35.0) ng/L B-Natriuretic Peptide 31 (<100) pg/mL Total Protein (6.5-8.0) g/dL Albumin (3.5-5.0) g/dL Lipase (8-78) U/L Urine Color Urine Appearance Urine pH (5.0-9.0) Ur Specific [place] (1.005-1.025) Urine Protein (Neg-Trace) mg/dL Urine Glucose (UA) (Negative) mg/dL Urine Ketones (Negative) mg/dL Urine Blood (Negative) Urine Nitrite (Negative) Ur Leukocyte Esterase (Negative) Urine Opiates Screen (Not Detect) Urine Fentanyl Screen (Not Detect) Ur Barbiturates Screen (Not Detect) Ur Phencyclidine Scrn (Not Detect) Ur Amphetamines Screen (Not Detect) U Benzodiazepines Scrn (Not Detect) Urine Cocaine Screen (Not Detect) U Marijuana (THC) Screen (Not Detect) Ethyl Alcohol mg/dL COVID-19 (GUILLERMO) (Negative) COVID-19 Clin Com Hepatitis A IgM Ab (Nonreactive) Hep Bs Antigen (Negative) Hep Bs Antibody (Nonreactive) Hep B Core Total Ab (Nonreactive) Hepatitis C Ab (EIA) (Nonreactive) 10/13/22 10/13/22 10/13/22 Range/Units 10:46 10:57 11:10 WBC (4.8-10.8) X10*3/uL RBC (4.60-5.80) X10*6/uL Hgb (14.0-18.0) g/dl Hct (42.0-52.0) % MCV (80.0-98.0) fL MCH (27.0-33.0) pg MCHC (31.0-36.0) g/dl RDW (11.0-16.0) % Plt Count (160-400) X10*3/uL MPV (9.4-12.4) fL Immature Gran % (Auto) (0.0-0.4) % Neut % (Auto) (45-73) % Lymph % (Auto) (20-40) % [place] % (Auto) (2-11) % Eos % (Auto) (0-4) % Baso % (Auto) (0-2) % Lymph # (Auto) (1.2-4.9) X10*3/uL [place] # (Auto) (0.1-1.2) X10*3/uL Eos # (Auto) (0.0-0.4) X10*3/uL Baso # (Auto) (0.0-0.2) X10*3/uL Abs Immat Gran (auto) (0.00-0.03) X10*3/uL Absolute Neuts (auto) (2.0-8.3) x10*3/uL Absolute Nucleated RBC (0.0-0.012) X10*3/uL Nucleated RBC % (auto) (0.0-0.2) /100WBC PT (11.1-13.3) SEC INR (0.9-1.1) Sodium (135-145) mmol/L Potassium (3.3-5.1) mmol/L Chloride (96-108) mmol/L Carbon Dioxide (22-29) mmol/L Anion Gap (12-20) BUN (9-16) mg/dL Creatinine (0.5-1.4) mg/dL Estim Creat Clear Calc Estimated GFR POC Glucose 76 (60-115) mg/dL Random Glucose (60-115) mg/dL Lactic Acid (0.5-2.0) mmol/L Calcium (8.4-10.2) mg/dL Magnesium (1.6-2.6) mg/dL Total Bilirubin (0.0-1.0) mg/dL Direct Bilirubin (0.0-0.5) mg/dL AST (5-37) U/L ALT (0-40) U/L Alkaline Phosphatase (39-117) U/L Total Creatine Kinase (38-174) U/L Troponin I High Sens (<3.5-35.0) ng/L B-Natriuretic Peptide (<100) pg/mL Total Protein (6.5-8.0) g/dL Albumin (3.5-5.0) g/dL Lipase (8-78) U/L Urine Color Yellow Urine Appearance Clear Urine pH >= 9.0 (5.0-9.0) Ur Specific [place] 1.015 (1.005-1.025) Urine Protein Trace (Neg-Trace) mg/dL Urine Glucose (UA) Negative (Negative) mg/dL Urine Ketones Trace (Negative) mg/dL Urine Blood Negative (Negative) Urine Nitrite Negative (Negative) Ur Leukocyte Esterase Negative (Negative) Urine Opiates Screen (Not Detect) Urine Fentanyl Screen (Not Detect) Ur Barbiturates Screen (Not Detect) Ur Phencyclidine Scrn (Not Detect) Ur Amphetamines Screen (Not Detect) U Benzodiazepines Scrn (Not Detect) Urine Cocaine Screen (Not Detect) U Marijuana (THC) Screen (Not Detect) Ethyl Alcohol mg/dL COVID-19 (GUILLERMO) Negative (Negative) COVID-19 Clin Com See Note Hepatitis A IgM Ab (Nonreactive) Hep Bs Antigen (Negative) Hep Bs Antibody (Nonreactive) Hep B Core Total Ab (Nonreactive) Hepatitis C Ab (EIA) (Nonreactive) 10/13/22 10/13/22 Range/Units 11:10 11:30 WBC (4.8-10.8) X10*3/uL RBC (4.60-5.80) X10*6/uL Hgb (14.0-18.0) g/dl Hct (42.0-52.0) % MCV (80.0-98.0) fL MCH (27.0-33.0) pg MCHC (31.0-36.0) g/dl RDW (11.0-16.0) % Plt Count (160-400) X10*3/uL MPV (9.4-12.4) fL Immature Gran % (Auto) (0.0-0.4) % Neut % (Auto) (45-73) % Lymph % (Auto) (20-40) % [place] % (Auto) (2-11) % Eos % (Auto) (0-4) % Baso % (Auto) (0-2) % Lymph # (Auto) (1.2-4.9) X10*3/uL [place] # (Auto) (0.1-1.2) X10*3/uL Eos # (Auto) (0.0-0.4) X10*3/uL Baso # (Auto) (0.0-0.2) X10*3/uL Abs Immat Gran (auto) (0.00-0.03) X10*3/uL Absolute Neuts (auto) (2.0-8.3) x10*3/uL Absolute Nucleated RBC (0.0-0.012) X10*3/uL Nucleated RBC % (auto) (0.0-0.2) /100WBC PT (11.1-13.3) SEC INR (0.9-1.1) Sodium (135-145) mmol/L Potassium (3.3-5.1) mmol/L Chloride (96-108) mmol/L Carbon Dioxide (22-29) mmol/L Anion Gap (12-20) BUN (9-16) mg/dL Creatinine (0.5-1.4) mg/dL Estim Creat Clear Calc Estimated GFR POC Glucose (60-115) mg/dL Random Glucose (60-115) mg/dL Lactic Acid (0.5-2.0) mmol/L Calcium (8.4-10.2) mg/dL Magnesium (1.6-2.6) mg/dL Total Bilirubin (0.0-1.0) mg/dL Direct Bilirubin (0.0-0.5) mg/dL AST (5-37) U/L ALT (0-40) U/L Alkaline Phosphatase (39-117) U/L Total Creatine Kinase (38-174) U/L Troponin I High Sens (<3.5-35.0) ng/L B-Natriuretic Peptide (<100) pg/mL Total Protein (6.5-8.0) g/dL Albumin (3.5-5.0) g/dL Lipase (8-78) U/L Urine Color Urine Appearance Urine pH (5.0-9.0) Ur Specific [place] (1.005-1.025) Urine Protein (Neg-Trace) mg/dL Urine Glucose (UA) (Negative) mg/dL Urine Ketones (Negative) mg/dL Urine Blood (Negative) Urine Nitrite (Negative) Ur Leukocyte Esterase (Negative) Urine Opiates Screen POSITIVE H (Not Detect) Urine Fentanyl Screen POSITIVE H (Not Detect) Ur Barbiturates Screen Not Detected (Not Detect) Ur Phencyclidine Scrn Not Detected (Not Detect) Ur Amphetamines Screen Not Detected (Not Detect) U Benzodiazepines Scrn Not Detected (Not Detect) Urine Cocaine Screen POSITIVE H (Not Detect) U Marijuana (THC) Screen Not Detected (Not Detect) Ethyl Alcohol mg/dL COVID-19 (GUILLERMO) (Negative) COVID-19 Clin Com Hepatitis A IgM Ab Nonreactive (Nonreactive) Hep Bs Antigen Negative (Negative) Hep Bs Antibody REACTIVE (Nonreactive) Hep B Core Total Ab Nonreactive (Nonreactive) Hepatitis C Ab (EIA) Reactive H (Nonreactive) Independent Interpretation I performed an independent interpretation of an: EKG and CT Scan Interpretation: I independently reviewed the EKG which shows sinus bradycardia with rate of 39, normal DC, normal QRS, ST depressions diffusely unchanged from EKG 09/12/2022 I independently reviewed the CT scan of the chest, abdomen, pelvis, head and cervical spine and agree with the radiology report Radiology Impression Discussion of test interpretation with radiology: I have reviewed the radiologist's reading. Radiologist Impression: [address] [address] [address] Scan Report Signed Patient: Mando Butler MR#: [id number] : 1975 Acct:[id number] Age/Sex: 47 / M ADM Date: 10/13/22 Loc: HO.ED Attending Dr: Ordering Physician: Mimi Crowell NP Date of Service: 10/13/22 Procedure(s): CT head/brain wo IV con Accession Number(s): [id number] cc: Mimi Crowell PALLET ASSEMBLER~ EXAMINATION: CT HEAD WITHOUT CONTRAST CLINICAL INFORMATION: Status post fall, rule out intracranial abnormality.? COMPARISON: Head CT scan dated 10/14/2021. TECHNIQUE: Contiguous axial imaging was performed from the skull base to vertex without intravenous administration of contrast. Coronal and sagittal reformatted images were obtained. This CT examination was performed using dose optimization techniques as appropriate, variously including the following: *Automated exposure control *Adjustment of mA and/or kV according to patient size (this includes techniques or standardized protocols for targeted exams where dose is matched to indication/reason for exam; i.e. extremities or head) *Use of iterative reconstruction technique DLP: 634.90 mGy-cm FINDINGS: The cortical sulci are normal. The lateral ventricles are symmetrical. The third and fourth ventricles are in their normal midline position. The basilar and prepontine cisterns are unremarkable. There is no acute intra or extracerebral abnormality. There is no mass effect or midline shift. Sections through the bony calvarium are unremarkable. The paranasal sinuses are clear. The bony orbits and orbital contents are unremarkable. Moderate anterior nasal septal deviation, apex the left is seen. Hypoaeration of the left mastoid process. The mastoid air cells are clear. CT/CT head/brain wo IV con IMPRESSION: No acute intracranial pathology. [place] [id number] CT Scan Report Signed Patient: Mando Butler MR#: [id number] : 1975 Acct:[id number] Age/Sex: 47 / M ADM Date: 10/13/22 Loc: HO.ED Attending Dr: Ordering Physician: Mimi Crowell NP Date of Service: 10/13/22 Procedure(s): CT chest w IV con Accession Number(s): [id number] cc: Mimi Crowell PALLET ASSEMBLER~ EXAMINATION: CT CHEST, ABDOMEN AND PELVIS WITH CONTRAST CLINICAL INFORMATION: Right-sided pain status post fall.? COMPARISON: Chest CT scan dated 12/14/2021.? TECHNIQUE: Multidetector volumetric imaging was performed of the chest, abdomen and pelvis following IV administration of 85 mL of Omnipaque 350 intravenous contrast. Sagittal and coronal reformatted images were obtained on the technologist's workstation. This CT examination was performed using dose optimization techniques as appropriate, variously including the following: *Automated exposure control *Adjustment of mA and/or kV according to patient size (this includes techniques or standardized protocols for targeted exams where dose is matched to indication/reason for exam; i.e. extremities or head) DLP: 277 mGy-cm FINDINGS: CHEST: LUNGS/PLEURA/AIRWAYS: Mild upper lobe predominant centrilobular and mild to moderate paraseptal emphysema is seen. No significant/suspicious pulmonary nodules. Mild dependent atelectasis in the lower lobes bilaterally. No pleural effusions. The airways are patent.? MEDIASTINUM: The thyroid gland is unremarkable. The thoracic aorta is unremarkable. No coronary artery calcifications. No significant pericardial effusion. CHEST LYMPH NODES: No lymphadenopathy. SOFT TISSUES: Unremarkable. ABDOMEN/PELVIS: LIVER, GALLBLADDER, AND BILIARY TREE: Hepatic mild heterogeneous attenuation with periportal edema. Irregular subcapsular/perihepatic nodules are seen along the posterior inferior margin of the right lobe measuring approximately 3.8 x 2.9 x 2.5 cm (image 21, series 10; image 68, series 34). There is a larger low-attenuation mass in the marc hepatis measuring approximately 4.2 x 3.6 x 3.6 cm (image 42, series 34; image 16, series 10). The gallbladder is moderately distended with an intraluminal noncalcified mass measuring up to 4.6 cm (image 26, series 10). No significant mural thickening. No significant biliary ductal dilatation. Mild perihepatic and pericholecystic fluid. PANCREAS: Unremarkable.? SPLEEN: Unremarkable.? ADRENAL GLANDS: Unremarkable.? KIDNEYS AND URETERS: The left kidney shows a small cyst in the upper pole measuring 1.0 cm (image 51, series 34). The right kidney is unremarkable. No nephrolithiasis or hydroureteronephrosis.? BLADDER: Unremarkable.? GASTROINTESTINAL TRACT: The stomach is unremarkable. Several mild to moderately dilated gas-filled loops of small bowel are seen. A data entry representative loop in the anterior left abdomen measures up to 3.8 cm (image 36, series 10). A few loops in the left abdomen show mild mural thickening towards the left lower quadrant (image 35, series 34). No definitive obstructing abnormality. Moderate stool seen throughout the colon more pronounced proximally. LYMPH NODES: Mildly enlarged marc hepatis and gastrohepatic lymph nodes. A data entry representative left marc hepatis lymph node measures 1.0 cm in short axis (image 37, series series 4). VASCULAR: Unremarkable. PELVIC VISCERA: Unremarkable. MUSCULOSKELETAL: Small nodes and associated superior endplate compression deformities at T11 and L4. No suspicious abnormality. Old healed right rib fractures. No overt acute fracture. Severe degenerative changes in the superior aspect of the left hip. SOFT TISSUES: Unremarkable. CT/CT chest w IV con IMPRESSION: 1. No definitive acute traumatic injury. 2. Marc hepatis mass with irregular right subcapsular/perihepatic lesions along the posterior inferior hepatic margin. Mild marc hepatis and gastrohepatic lymphadenopathy and periportal edema. These findings are concerning for malignancy, possibly primary biliary. The noncalcified intraluminal gallbladder mass is nonspecific and could represent a noncalcified large gallstone or tumefactive sludge. A malignant mass cannot be excluded given the other findings. This was not seen previously. Considerations for follow-up include PET/CT and biopsy. 3. Dilated loops of small bowel are nonspecific without obstructing abnormality. There are several loops of small bowel in the left lower quadrant with mural thickening. This could be reactive to the right upper quadrant findings. An infectious/inflammatory process cannot be excluded. Moderate colonic stool burden. ?[place] [id number] CT Scan Report Signed Patient: Mando Butler MR#: [id number] : 1975 Acct:[id number] Age/Sex: 47 / M ADM Date: 10/13/22 Loc: HO.ED Attending Dr: Ordering Physician: Mimi Crowell NP Date of Service: 10/13/22 Procedure(s): CT cervical spine wo IV con Accession Number(s): [id number] cc: Mimi Crowell NP~ EXAMINATION: CT CERVICAL SPINE WITHOUT CONTRAST CLINICAL INFORMATION: Neck pain status post fall.? COMPARISON: None available. TECHNIQUE: Multiple axial images of the cervical spine were obtained without the administration of intravenous contrast. Coronal and sagittal reformatted images were obtained.? This CT examination was performed using dose optimization techniques as appropriate, variously including the following: *Automated exposure control *Adjustment of mA and/or kV according to patient size (this includes techniques or standardized protocols for targeted exams where dose is matched to indication/reason for exam; i.e. extremities or head) *Use of iterative reconstruction technique DLP: 289.43 mGy-cm FINDINGS: There is normal cervical lordosis and spinal alignment. The vertebral bodies are intact. Moderate to severe degenerative disc disease is seen at C6-C7 with disc space narrowing and marginal osteophyte formation. The vertebral bodies are intact. The odontoid process is intact. The facet joints are unremarkable. The spinous and transverse processes are intact. The cervical soft tissues are unremarkable. Is no lymphadenopathy. The visualized thyroid gland is unremarkable.? The lung apices show partial visualization of moderate biapical paraseptal emphysema. CT/CT cervical spine wo IV con IMPRESSION: ? 1. C6-C7 moderate to severe degenerative disc disease. No acute abnormality.? ? ? Independent Historian Clinical information obtained from an independent historian. History obtained from or confirmed by: EMS Social Determinants Patient?s care significantly limited by Social Determinants of Health including: Inadequate housing and Other Social Determinant of Health (polysubstance use ) Critical Care Time Critical Care Time Critical Care Time: Yes Total Critical Care Time: 120 Attestation: d/w with general surgeon, GI specialist here at [facility] with recommendations for transfer D/w with multiple tertiary care centers including [facility] where the patient will be transferred to Re-evaluation of patient's temperature, heart rate, blood pressure Discharge Plan Discharge Clinical Impression: Acute hypokalemia, Gallbladder mass, Hypothermia, Transaminitis, Hepatic lesion Patient Disposition: [facility] Transfer Details: [facility] ER Prescriptions: No Action methadone 10 mg/mL Concentrate 75 mg PO DAILY nifedipine 30 mg Tablet Extended Release 24hr 30 mg PO DAILY Qty: 30 0RF Protocol: Hold for SBP< HOLD for SBP < : 90 levothyroxine [Synthroid] 100 mcg Tablet 100 mcg PO DAILY@0600 Qty: 30 0RF (DME) Ultra-Light Rollator Misc See Rx Instructions .Route Qty: 1 0RF Rx Instructions: As directed
[2022-10-13] MEDS: 0.9 % Sodium Chloride 1,000 ML 999 ML IV ×2 (10:19→14:41)
[2022-10-13] MEDS: ondansetron HCL 4 MG/2 ML VIAL IVPUSH (10:19)
[2022-10-13] MEDS: Morphine Sulfate 4 MG/ML CARTRIDGE IVPUSH ×2 (10:19→16:09)
[2022-10-13 10:37] LABS: MANUAL DIFF FLAG NO
[2022-10-13 10:41] LABS: Basophils Percent Auto 0.8 % (0-2); Eosinophils Absolute Auto 0.1 X10*3/uL (0.0-0.4); Eosinophils Percent Auto 1.7 % (0-4); Hematocrit 28.5 % (42.0-52.0); Hemoglobin 9.5 g/dl (14.0-18.0); Imm Gran Abs Auto 0.02 X10*3/uL (0.00-0.03); Imm Gran Pct Auto 0.4 % (0.0-0.4); Lymphocytes Absolute Auto 1.1 X10*3/uL (1.2-4.9); Lymphocytes Percent Auto 22.7 % (20-40); Mean Corpuscular HGB Conc 33.3 g/dl (31.0-36.0); Mean Corpuscular Volume 86.9 fL (80.0-98.0); Mean Platelet Volume 8.7 fL (9.4-12.4); Monocytes Absolute Auto 0.3 X10*3/uL (0.1-1.2); Monocytes Percent Auto 5.6 % (2-11); Neutrophils Absolute Auto 3.3 x10*3/uL (2.0-8.3); Neutrophils Percent Auto 68.8 % (45-73); Platelet Count 309 X10*3/uL (160-400); Red Blood Count 3.28 X10*6/uL (4.60-5.80); Red Cell Distribution Width 18.4 % (11.0-16.0); White Blood Count 4.8 X10*3/uL (4.8-10.8)
[2022-10-13 10:46] LABS: INTERNATIONAL NORM RATIO 0.9 (0.9-1.1); Prothrombin Time 11.4 SEC (11.1-13.3)
[2022-10-13 10:59] LABS: Lactic Acid 0.8 mmol/L (0.5-2.0)
[2022-10-13 11:00] LABS: Glucose, Whole Blood 76 mg/dL (60-115)
[2022-10-13 11:06] LABS: COVID-19 Test Negative (Negative); IDNOW Serial# BCCEAD1C
[2022-10-13 11:06] LABS: B Type Natriuretic Peptide 31 pg/mL (<100)
[2022-10-13 11:09] LABS: Troponin-I High Sensitivity 3.9 ng/L (<3.5-35.0)
[2022-10-13 11:12] LABS: Ethanol < 10 mg/dL; Total Protein 8.3 g/dL (6.5-8.0)
[2022-10-13 11:13] LABS: Alanine Aminotransferase 118 U/L (0-40); Albumin Level 3.3 g/dL (3.5-5.0); Alkaline Phosphatase 876 U/L (39-117); Anion Gap 12 (12-20); Aspartate Amino Transferase 332 U/L (5-37); Bilirubin Direct 1.1 mg/dL (0.0-0.5); Bilirubin Total 1.5 mg/dL (0.0-1.0); Blood Urea Nitrogen 11 mg/dL (9-16); Calcium 8.7 mg/dL (8.4-10.2); Carbon Dioxide 25 mmol/L (22-29); Chloride 101 mmol/L (96-108); Creatinine Clr Calc Pharmacy 80.7; Estimated Glomerular Filt Rate > 60; Glucose Random 101 mg/dL (60-115); Lipase 10 U/L (8-78); Potassium 2.8 mmol/L (3.3-5.1); Sodium 135 mmol/L (135-145)
[2022-10-13 11:18] LABS: Appearance Urine Clear; Color Urine Yellow; Glucose Urine UA Negative (Negative); Leukocyte Esterase Urine Negative (Negative); Nitrite Urine Negative (Negative); PH >= 9.0 (5.0-9.0); Specific Gravity - Urine 1.015 (1.005-1.025); Urine Blood Negative (Negative); Urine Ketones Trace mg/dL (Negative); Urine Protein Trace mg/dL (Neg-Trace)
[2022-10-13 11:26] LABS: Amphetamine Screen Urine Not Detected (Not Detect); Barbiturates, Urine Not Detected (Not Detect); Benzodiazepines Screen Urine Not Detected (Not Detect); Cannabinoid Screen Urine Not Detected (Not Detect); Cocaine Screen Urine POSITIVE (Not Detect); Fentanyl, urine POSITIVE (Not Detect); Opiate Screen Urine POSITIVE (Not Detect); Phencyclidine Screen Urine Not Detected (Not Detect)
--- NOTE | 2022-10-13 11:55 | PC.NURSE ---
Addendum entered by Victorino Mims 10/13/22 12:14: +2 pitting edema noted ble. Original Note: pt arrived via ems stating I stood up and my legs felt weird so i fell and sat down. pt also c/o diffused abd pain stating he hasnt had bm x 1 month. reports n/v. pt arrived diaphoretic; poc 76; laith cardic with prolonged qt and inverted t waves on monitor at 36 bpm; sats 98% RA; CO2 30, respirations even and unlabored. multiple attempts at iv; EJ placed by Mimi NAVA. labs drawn. bladder scan with >337mL urine; output 550mL clear yellow urine. abd distention noted; diffused abd. tenderness noted. pt also states missing methadone dose today; states use of heroin last night. pt in ct at this time.
[2022-10-13] MEDS: Potassium Chloride/H20 10 MEQ/100 ML PIGGYBACK 100 MEQ IV (12:15)
[2022-10-13] MEDS: Potassium Chloride ER 20 MEQ TAB.ER.PRT 60 MEQ PO (12:16)
[2022-10-13] MEDS: iohexoL 350 MG/ML 100 ML INFUS..BTL 85 ML IV (12:38)
[2022-10-13 13:01] LABS: HBS Num1 21.41 mIU/mL (0-7.99); HBc Num1 0.14 S/CO (0.00-0.79); HBsAGNum1 0.38 S/CO (0.00-0.99); Hepatitis A Antibody IgM 0.38 Index (0-0.79); Hepatitis B Core Antibody Nonreactive (Nonreactive); Hepatitis B Surface Antigen Negative (Negative); ~HepC Num1 9.95 S/CO (0.00-0.79); ~Hepatitis A Antibody IgM Nonreactive (Nonreactive); ~Hepatitis B Surface Antibody REACTIVE (Nonreactive); ~Hepatitis C Antibody Reactive (Nonreactive)
--- NOTE | 2022-10-13 15:50 | PC.NURSE ---
pt sleeping in stretcher; bear hug in place per provider request; respirations even and unlabored; vss; warmed fluids infusing per order.
--- NOTE | 2022-10-13 18:19 | PC.NURSE ---
report given to [facility] burglar alarm installer; pt transported via [facility].
== END 2022-10-13 18:05 | disposition short-term general hospital (02) ==
PROVIDERS: Nurse Practitioner Family; Emergency Provider Emergency Medicine
DX: E87.6 Hypokalemia (principal); K82.9 Disease of gallbladder, unspecified; R74.01 Elevation of levels of liver transaminase levels; K76.9 Liver disease, unspecified; M54.2 Cervicalgia; F11.23 Opioid dependence with withdrawal; R06.02 Shortness of breath; M54.6 Pain in thoracic spine; R07.89 Other chest pain; F17.210 Nicotine dependence, cigarettes, uncomplicated; Z20.822 Contact with and (suspected) exposure to COVID-19; Z20.828 Contact with and (suspected) exposure to other viral communicable diseases; Z79.899 Other long term (current) drug therapy; Z71.6 Tobacco abuse counseling; Z59.00 Homelessness unspecified
CPT/HCPCS: 36415; 36556; 70450; 71260; 72125; 74177; 80048; 80076; 80307; 81003; 82550; 82947; 83605; 83690; 83735; 83880; 84484; 85025; 85610; 86704; 86706; 86709; 86803; 87040; 87147; 87205; 87340; 87635; 93005; 99285; J2270; J2405; Q9967

== ENCOUNTER 2023-03-17 08:23 | Emergency (ER) | payer MEDICAID, SELFPAY ==
[2023-03-17] VITALS (8 sets, daily range): BP systolic 142–196; BP diastolic 96–133; PULSE 61–93; RESP 11–18; TEMP 35.3–37.1; O2SAT 97–98; BMI 21.5
--- NOTE | ~2023-03-17 | XR_ITS ---
EXAMINATION: XR CHEST CLINICAL INFORMATION: Weakness COMPARISON: Chest CT October 13, 2022 and chest x-ray September 12, 2022 TECHNIQUE: Frontal view of the chest was obtained. FINDINGS: Cardiac silhouette is normal in size. The lungs are mildly hypoinflated. There is no gross lobar consolidation. No pleural effusion or pneumothorax. Old healed right-sided rib fractures. Surgical clips in the right upper abdomen consistent with prior cholecystectomy. XR/XR chest 1V IMPRESSION: No acute pulmonary pathology.
--- NOTE | 2023-03-17 08:28 | ED_ITS ---
HPI - General Adult General Chief complaint: General Medical Stated complaint: COLD WEATHER EXPOSURE ALL NIGHT PER EMS Time Seen by Provider: 03/17/23 08:24 Source: patient, EMS and old records reviewed Mode of arrival: EMS Limitations: other (poor historian) History of Present Illness HPI narrative: 48 yo male with PMH of YONY, bipolar disorder, hep C, HTN, hypothyroidism, MSSA bacteremia, opiate use disorder, anemia, subdural hematoma who presents with c/o not wanting to live this life anymore in the cold and using drugs - IVDA. He states he has been trying to survive in the cold but he can no longer do it. He is cold and cannot live like this anymore. He has no medical complaints other than being cold and is asking for skilled nursing and placement. MD complaint: cold exposure Onset (ago): day(s) Radiation: non-radiation Severity: moderate Relieving factors: other (inside ) Exacerbating factors: other (outside exposure) Associated symptoms: loss of appetite, malaise and other (depression) Treatments prior to arrival: none Related Data Home Medications Medication Instructions Recorded Confirmed methadone 10 mg/mL oral concentrate 75 mg PO DAILY 09/12/22 09/13/22 Previous Rx's Medication Instructions Recorded levothyroxine 100 mcg tablet 100 mcg PO DAILY@0600 #30 tabs 09/14/22 (Synthroid) nifedipine 30 mg tablet,extended 30 mg PO DAILY #30 tabs 09/14/22 release 24 hr walker (Ultra-Light Rollator misc) #1 ea 09/15/22 Allergies Allergy/AdvReac Type Severity Reaction Status Date / Time diphenhydramine Allergy Unknown Verified 10/13/22 13:05 [From Benadryl] From BENADRYL Allergy Unknown CANT Uncoded 10/13/22 13:05 BREATHE HIVES Review of Systems 2 Review of Systems: Constitutional : No Fever, No Chills, pos fatigue ENT/Mouth : No sore throat, No Rhinorrhea Eyes: No Eye Pain, No Swelling, No Redness Cardiovascular : No Chest Pain, No SOB, No Dyspnea on Exertion Respiratory : No Cough, No Sputum Gastrointestinal : No Nausea, No Vomiting, No Diarrhea, No abdominal Pain Genitourinary : No Dysuria, No Urinary Frequency, No Hematuria, Musculoskeletal : No joint pain, No Myalgias, No Joint Swelling Skin : No Skin Lesions, No rash Neuro : No Weakness, No Numbness, No Dizziness, no Headache Psych : No Anxiety/Panic, No Depression All other systems reviewed and are negative PMFSH Past Medical History Attestation statement: The following information was validated with the patient. Source: old records reviewed Onset Date is defined in the Problem List Problems that require an onset date and time if occurred within 24 hrs of arrival to the ED Aortic Dissection and Rupture; Neurologic impairment; Cardiopulmonary Arrest; Endotracheal Intubation; Insertion or Replacement of Mechanical Circulatory Assist Device Medical History MSSA (methicillin susceptible Staphylococcus aureus) septicemia Hepatitis C Opioid use disorder Abnormal LFTs Rib fractures Subdural hematoma IV drug user Normocytic anemia Leukopenia Acute kidney injury Abdominal pain Bipolar 1 disorder, depressed HTN (hypertension) Hypothyroid Surgical History No pertinent past surgical history Family History Family History Other No family history of coronary artery disease Social History Social History Household Members: None Household Members Other:: Currently rehab in [place] Housing: Homeless Do you presently have visiting nurse or other home services: No Alcohol intake: former Patient Tobacco Use Status: Current everyday Tobacco user Tobacco use type: Cigarette Cigarettes Per Day: 4 Smoked in Last 30 Days: No Second Hand Smoke Exposure: Yes Use of substances other than those prescribed or required for medical reasons: Yes Substance Use Type: Crack/Cocaine and Heroin Substance Use Frequency: Chronic Longstanding Advance Directives: No Advance Directives Information Provided: No service: No Current occupational status: unemployed Physical Exam ED Vital Signs: Vital Signs - 24 hr 03/17/23 08:32 03/17/23 08:56 03/17/23 10:02 Temperature 95.6 F L Pulse Rate 61 78 61 Respiratory Rate 16 11 L Blood Pressure 196/126 H 188/133 H Pulse Oximetry 98 Oxygen Delivery Method Room Air 03/17/23 10:30 Temperature 98.3 F Pulse Rate 62 Respiratory Rate 18 Blood Pressure 156/115 H Pulse Oximetry 97 Oxygen Delivery Method Room Air BMI result Body Mass Index 21.5 Appearance: Alert. Oriented X3. No acute distress. unkempt disheveled poor hygiene Eyes: Pupils equal, round and reactive to light. ENT: Pharynx normal. Neck: Normal inspection. Neck supple. CVS: Normal heart rate and rhythm. Pulses normal. Respiratory: No respiratory distress. Breath sounds normal. Abdomen: Soft and nontender. Skin: Skin warm and cool to touch but no signs of frostbite and he has BCR in digits. Normal skin color. Normal skin turgor. Extremities: No lower extremity edema. Neuro: Oriented X 3. No motor deficit. No sensory deficit. Course Course Course Narrative: temp is up H/H trending lower but not far from baseline no GIB reported - refusing rectal temps and exam Reevaluation(s) Reevaluation #1: Physician observation started at 1046am. Patient placed in physician observation because the patient needed more time for recovery team to help with possible placement. At the time observation was started the patient's vitals were stable, patient is alert and oriented Neuro: nonfocal, CV RRR, Lungs clear Medications Administered Discontinued Medications Generic Name Dose Route Start Last Admin Trade Name Freq PRN Reason Stop Dose Admin Calcium Carbonate 1,000 mg 03/17/23 10:11 03/17/23 10:29 Calcium Carbonate 500 Mg Tablet PO 03/17/23 10:12 1,000 mg ONCE ONE Administration Hydralazine HCl 25 mg 03/17/23 10:31 03/17/23 10:44 Hydralazine Hcl 25 Mg Tablet PO 03/17/23 10:32 25 mg ONCE ONE Administration Protocol Medical Decision Making Medical Decision Making [facility] Narrative: 48 yo male with PMH of YONY, bipolar disorder, hep C, HTN, hypothyroidism, MSSA bacteremia, opiate use disorder, anemia, subdural hematoma here with c/o cold exposure and requesting skilled nursing placement at this time will need basic labs, UA, CXR, EKG and core temp. He has no signs of active frostbite. He denies SI. Will involve recovery/case management. Differential Diagnosis Differential Diagnoses: The differential diagnosis associated with the presentation includes cold exposure, lyte abnormality, opiate use disorder Admission/Observation Consideration of admission/observation: Escalation of care including admission/observation considered Lab Data [facility] Lab Attestation statement: I reviewed the patient's lab results. 03/17/23 09:44 03/17/23 09:44 Labs: Lab Results 03/17/23 Range/Units 09:44 WBC 4.9 (4.8-10.8) X10*3/uL RBC 3.54 L (4.60-5.80) X10*6/uL Hgb 8.9 L (14.0-18.0) g/dl Hct 28.4 L (42.0-52.0) % MCV 80.2 (80.0-98.0) fL MCH 25.1 L (27.0-33.0) pg MCHC 31.3 (31.0-36.0) g/dl RDW 24.6 H (11.0-16.0) % Plt Count 277 (160-400) X10*3/uL MPV 9.3 L (9.4-12.4) fL Immature Gran % (Auto) 0.2 (0.0-0.4) % Neut % (Auto) 76.8 H (45-73) % Lymph % (Auto) 18.3 L (20-40) % Waldo % (Auto) 3.7 (2-11) % Eos % (Auto) 0.6 (0-4) % Baso % (Auto) 0.4 (0-2) % Lymph # (Auto) 0.9 L (1.2-4.9) X10*3/uL Waldo # (Auto) 0.2 (0.1-1.2) X10*3/uL Eos # (Auto) 0.0 (0.0-0.4) X10*3/uL Baso # (Auto) 0.0 (0.0-0.2) X10*3/uL Abs Immat Gran (auto) 0.01 (0.00-0.03) X10*3/uL Absolute Neuts (auto) 3.7 (2.0-8.3) x10*3/uL Absolute Nucleated RBC 0.000 (0.0-0.012) X10*3/uL Nucleated RBC % (auto) 0.0 (0.0-0.2) /100WBC Sodium 136 (135-145) mmol/L Potassium 3.4 (3.3-5.1) mmol/L Chloride 100 (96-108) mmol/L Carbon Dioxide 26 (22-29) mmol/L Anion Gap 13 (12-20) BUN 14 (9-16) mg/dL Creatinine 1.03 (0.5-1.4) mg/dL Estim Creat Clear Calc 82.5 Estimated GFR > 60 Random Glucose 98 (60-115) mg/dL Calcium 7.9 L D (8.4-10.2) mg/dL Magnesium 1.9 (1.6-2.6) mg/dL Total Bilirubin 0.3 (0.0-1.0) mg/dL Direct Bilirubin 0.1 (0.0-0.5) mg/dL AST 47 H (5-37) U/L ALT 19 (0-40) U/L Alkaline Phosphatase 107 (39-117) U/L Total Protein 8.6 H (6.5-8.0) g/dL Albumin 3.6 (3.5-5.0) g/dL Ethyl Alcohol < 10 mg/dL COVID-19 (GUILLERMO) Negative (Negative) COVID-19 Clin Com See Note Independent Interpretation I performed an independent interpretation of an: EKG and Plain X-Ray Interpretation: Rate: 55 Rhythm: sinus bradycardia [place]: normal Normal P waves. Normal DAVID. Normal QRS complex. ST T wave : flat t waves inf leads, t wave inversions anterior septal leads qTC: 480 prior studies: no change from prior The study has been interpreted contemporaneously by me. . Radiology Impression Discussion of test interpretation with radiology: I have reviewed the radiologist's reading. Independent Historian Clinical information obtained from an independent historian. History obtained from or confirmed by: EMS External Record Review External record reviewed: Inpatient record Discharge Plan Discharge Clinical Impression: Polysubstance abuse Cold exposure Qualifiers: Encounter type: initial encounter Qualified Code(s): T69.9XXA - Effect of reduced temperature, unspecified, initial encounter Patient Disposition: Still a Patient Prescriptions: No Action methadone 10 mg/mL Concentrate 75 mg PO DAILY nifedipine 30 mg Tablet Extended Release 24hr 30 mg PO DAILY Qty: 30 0RF Protocol: Hold for SBP< HOLD for SBP < : 90 levothyroxine [Synthroid] 100 mcg Tablet 100 mcg PO DAILY@0600 Qty: 30 0RF (DME) Ultra-Light Rollator Misc See Rx Instructions .Route Qty: 1 0RF Rx Instructions: As directed
--- NOTE | 2023-03-17 08:36 | ECG_ITS ---
Test Reason : rived Blood Pressure : / mmHG Vent. Rate : 055 BPM Atrial Rate : 055 BPM P-R Int : 142 ms QRS Dur : 082 ms QT Int : 502 ms P-R-T Axes : 060 007 213 degrees QTc Int : 480 ms Sinus bradycardia T wave abnormality, consider anterolateral ischemia Abnormal ECG When compared with ECG of 12-SEP-2022 10:48, T wave inversion more evident in Anterior leads Referred By: Dolores Valencia Electronically Signed By:AL YAO
--- NOTE | 2023-03-17 09:03 | PC.NURSE ---
Patient arrvied via ems after ems was called by the methadone clinic. Patient reports slept outside all night without any half-way. Changed over with security- patient reports has multiple needs in pockets. Denies etoh use, reports uses heroin and cocaine daily with last use being yesterday. rectal temp 95.2, warm blankets applied.
--- NOTE | 2023-03-17 09:19 | PC.NURSE ---
IV line unable to be placed via ultrasound guidance, provider aware stating to just get blood work at this time
--- OUTSIDE RECORDS SUMMARY | 2023-03-17 09:25 | XMS_ITS | Continuity of Care Document ---
Author Name Unknown Organization [facility] Address [address] [place] [address]- Care Team Providers Care Electroencephalographic Technician Name Role Phone Not on Staff, PCP Primary Care Physician Unavail able Encounter [facility] Date(s): 11/26/22 - 01/14/23 [facility] [address] [place] [id number]- Attending Physician: Clinton Rhodes MD Admitting Physician: Clinton Rhodes MD Referring Physician: Not on Staff, Referring MD Allergies, Adverse Reactions, Alerts Substance Reaction Severity Status diphenhydrAMINE Active Immunizations Given and Recorded Vaccine Date Status Refusal Reason SARS-CoV-2 (COVID-19) [id number] vaccine 09/25/20 R ecorded Medications hydrALAZINE 25 mg oral tablet 25 mg, 1, tablet, By Mouth, 3 times a day, # 270 tablet, Refills 0, Tot. Refills 0, Maintenance, 11/28/22 13:20:00 EDT, Route to Pharmacy Electronically, [facility], Partial fill upon patient request if the prescription is for a schedule... Start Date: 11/28/22 Status: Ordered levothyroxine 150 mcg (0.15 mg) oral tablet 1 tablet = 150 mcg, By Mouth, Daily, # 90 tablet, 0 Refills, Maintenance, 11/28/22 13:20:00 EDT, Tablet, [facility], Partial fill upon patient request if the prescription is for a schedule II opioid drug., 175.26, cm, 11/28/22 12:18:00 E... Start Date: 11/28/22 Status: Ordered losartan 25 mg oral tablet 25 mg, By Mouth, Daily, # 90 tablet, Refills 0, Tot. Refills 0, Maintenance, 11/28/22 13:20:00 EDT,Route to Pharmacy Electronically, [facility], Partial fill upon patient request if the prescription is for a schedule II opioid drug., 17... Start Date: 11/28/22 Stop Date: 02/26/23 Status: Ordered Methadone = 75 mg, By Mouth, Daily, 0 Refills, Maintenance, 10/27/22 15:26:00 EDT, Partial fill upon patient request if the prescription is for a schedule II opioid drug. Start Date: 10/27/22 Status: Ordered Problem List Condition Confirmation Course Effective Dates Status H ealth Status Informant Avascular necrosis of hip Confirmed Active Essential hypertension Confirmed Active IV heroin dependence Confirmed Active History of subdural hematoma Confirmed 11/02/21 Active History of traumatic brain injury Confirmed Active Hypothyroidism Confirmed Active Tobacco dependence Confirmed Active Social History Social History Type Response Tobacco Use: 4 or less cigar ettes(less than 1/4 pack)/day in last 30 days. Sex Patient Care team information Care Team Personnel Name: Gabriela Woodard RN Position: [facility] RN Member Role: Primary Care Nurse Name: Josselin Flores RN Position: [facility] RN Member Role: Primary Care Nurse Name: Spring Mancia RN Position: [facility] SN RN Member Role: Primary Care Nurse Name: Precious Castañeda RN Position: [facility] RN Member Role: Primary Care Nurse Name: Elena Choi RN Position: [facility] RN Member Role: Primary Care Nurse Name: Jimmie Gastelum RN Position: [facility] RN Triston Member Role: Primary Care Nurse Name: Faisal Albrecht RN Position: [facility] RN Member Role: Primary Care Nurse Name: Olamide Hill LPN Position: [facility] RN Member Role: Primary Care Nurse Name: Neha Owen RN Position: [facility] RN Member Role: Primary Care Nurse Name: Not on Staff, PCP Position: [facility] Physician (General Medicine) Member Role: PCP Name: Elsa Jackson RN Position: S RN Member Role: Primary Care Nurse Name: Chapito Griffith RN Position: [facility] RN Member Role: Primary Care Nurse Name: Estefani Washington RN Position: [facility] RN Member Role: Primary Care Nurse Name: Swetha Newell RN Position: [facility] RN Member Role: Primary Care Nurse Name: Namrata Roe RN Position: [facility] RN Member Role: Primary Care Nurse Care Team Related Persons Name: GAY BLACK Address: [place] [address]
--- OUTSIDE RECORDS SUMMARY | 2023-03-17 09:25 | XMS_ITS | Continuity of Care Document ---
Author Name Unknown Organization [facility] Address [address] [place] [address] [address] [place] [address]- Care Team Providers Care Music Historian Name Role Phone Not on Staff, PCP Primary Care Physician Unavail able Encounter [facility] Date(s): 11/25/22 - 12/25/22 [facility] [address] [place] [address]- Attending Physician: Cas Gann Admitting Physician: AdmtrCas Referring Physician: Admtr ArAbimbola Allergies, Adverse Reactions, Alerts Substance Reaction Severity Status diphenhydrAMINE Active Immunizations Given and Recorded Vaccine Date Status Refusal Reason SARS-CoV-2 (COVID-19) [id number] vaccine 09/25/20 R ecorded Medications docusate-senna 50 mg-8.6 mg oral capsule 1 capsule, By Mouth, 2 times a day, for 45 days, # 90 capsule, 0 Refills, Acute 01/12/23 13:50:00 EST, 11/28/22 13:50:00 EDT, [facility], Partial fill upon patient request if the prescription is for a schedule II opioid drug., 1 capsule... Start Date: 11/28/22 Stop Date: 01/12/23 Status: Ordered hydrALAZINE 25 mg oral tablet 25 mg, 1, tablet, By Mouth, 3 times a day, # 270 tablet, Refills 0, Tot. Refills 0, Maintenance, 11/28/22 13:20:00 EDT, Route to Pharmacy Electronically, [facility], Partial fill upon patient request if the prescription is for a schedule... Start Date: 11/28/22 Status: Ordered levothyroxine 150 mcg (0.15 mg) oral tablet 1 tablet = 150 mcg, By Mouth, Daily, # 90 tablet, 0 Refills, Maintenance, 11/28/22 13:20:00 EDT, Tablet, [facility], Partial fill upon patient request if the prescription is for a schedule II opioid drug., 175.26, cm, 11/28/22 12:18:00 E... Start Date: 11/28/22 Status: Ordered losartan 25 mg oral tablet 25 mg, By Mouth, Daily, # 90 tablet, Refills 0, Tot. Refills 0, Maintenance, 11/28/22 13:20:00 EDT,Route to Pharmacy Electronically, [facility], Partial fill upon patient [...] Team Personnel Name: Gabriela Woodard RN Position: [facility] RN Member Role: Primary Care Nurse Name: Josselin Flores RN Position: [facility] RN Member Role: Primary Care Nurse Name: Spring Mancia RN Position: [facility] SN RN Member Role: Primary Care Nurse Name: Precious Castañeda RN Position: S RN Member Role: Primary Care Nurse Name: Elena Choi RN Position: S RN Member Role: Primary Care Nurse Name: Jimmie Gastelum RN Position: [facility] RN Supv Member Role: Primary Care Nurse Name: Faisal Albrecht RN Position: S RN Member Role: Primary Care Nurse Name: Olamide Hill LPN Position: S RN Member Role: Primary Care Nurse Name: Neha Owen RN Position: [facility] RN Member Role: Primary Care Nurse Name: Not on Staff, PCP Position: [facility] Physician (General Medicine) Member Role: PCP Name: Elsa Jackson RN Position: [facility] RN Member Role: Primary Care Nurse Name: Chapito Griffith RN Position: [facility] RN Member Role: Primary Care Nurse Name: Estefani Washington RN Position: [facility] RN Member Role: Primary Care Nurse Name: Swetha Newell RN Position: [facility] RN Member Role: Primary Care Nurse Name: Namrata Roe RN Position: [facility] RN Member Role: Primary Care Nurse Care Team Related Persons Name: GAY BLACK Address: [place] [address]
--- OUTSIDE RECORDS SUMMARY | 2023-03-17 09:25 | XMS_ITS | Continuity of Care Document ---
Author Name Unknown Organization [facility] Address [address] [place] [address]- Care Team Providers Care Perl Programmer Name Role Phone Not on Staff, PCP Primary Care Physician Unavail able Encounter [facility] Date(s): 01/06/23 - 03/11/23 [facility] [address] [place] [address]- Attending Physician: Not on Staff, Attending MD Allergies, Adverse Reactions, Alerts Substance Reaction Severity Status diphenhydrAMINE Active Immunizations Given and Recorded Vaccine Date Status Refusal Reason SARS-CoV-2 (COVID-19) [id number] vaccine 09/25/20 R ecorded Medications hydrALAZINE 25 mg oral tablet 25 mg, 1, tablet, By Mouth, 3 times a day, # 270 tablet, Refills 0, Tot. Refills 0, Maintenance, 11/28/22 13:20:00 EDT, Route to Pharmacy Electronically, [facility], Partial fill upon patient request if the prescription is for a schedule... Start Date: 11/28/22 Status: Ordered levothyroxine 150 mcg (0.15 mg) oral tablet 1 tablet = 150 mcg, By Mouth, Daily, # 90 tablet, 0 Refills, Maintenance, 11/28/22 13:20:00 EDT, Tablet, [facility], Partial fill upon patient request if the prescription is for a schedule II opioid drug., 175.26, cm, 11/28/22 12:18:00 E... Start Date: 11/28/22 Status: Ordered losartan 25 mg oral tablet 25 mg, By Mouth, Daily, # 90 tablet, Refills 0, Tot. Refills 0, Maintenance, 11/28/22 13:20:00 EDT,Route to Pharmacy Electronically, [facility], Partial fill upon [...] Team Personnel Name: Gabriela Woodard RN Position: [facility] RN Member Role: Primary Care Nurse Name: Josselin Flores RN Position: [facility] RN Member Role: Primary Care Nurse Name: Spring Mancia RN Position: [facility] SN RN Member Role: Primary Care Nurse Name: Precious Castañeda RN Position: [facility] RN Member Role: Primary Care Nurse Name: Elena Choi RN Position: [facility] RN Member Role: Primary Care Nurse Name: Jimmie Gastelum RN Position: [facility] RN Triston Member Role: Primary Care Nurse Name: Faisal Albrecht RN Position: [facility] RN Member Role: Primary Care Nurse Name: Olamide Hill LPN Position: [facility] RN Member Role: Primary Care Nurse Name: Neha Owen RN Position: [facility] RN Member Role: Primary Care Nurse Name: Not on Staff, PCP Position: [facility] Physician (General Medicine) Member Role: PCP Name: Elsa Jackson RN Position: [facility] RN Member Role: Primary Care Nurse Name: Chapito Griffith RN Position: [facility] RN Member Role: Primary Care Nurse Name: Estefani Washington RN Position: [facility] RN Member Role: Primary Care Nurse Name: Swetha Newell RN Position: [facility] RN Member Role: Primary Care Nurse Name: Namrata Roe RN Position: [facility] RN Member Role: Primary Care Nurse Care Team Related Persons Name: GAY BLACK Address: [place] [address]
--- OUTSIDE RECORDS SUMMARY | 2023-03-17 09:25 | XMS_ITS | Continuity of Care Document ---
Author Name Unknown Organization [facility] Address [address] [place] [address]- Care Team Providers Care Disk Recoater Name Role Phone Not on Staff, PCP Primary Care Physician Unavail able Encounter [facility] Date(s): 02/09/23 - 03/11/23 [facility] [address] [place] [id number] Attending Physician: Cas Gann Admitting Physician: AdmtrCas Referring Physician: AdmtrCas Allergies, Adverse Reactions, Alerts Substance Reaction Severity Status diphenhydrAMINE Active Immunizations Given and Recorded Vaccine Date Status Refusal Reason SARS-CoV-2 (COVID-19) [id number] vaccine 09/25/20 R ecorded Medications hydrALAZINE 25 mg oral tablet 25 mg, 1, tablet, By Mouth, 3 times a day, # 270 tablet, Refills 0, Tot. Refills 0, Maintenance, 11/28/22 13:20:00 EDT, Route to Pharmacy Electronically, [facility], Partial fill upon patient request if the prescription is for a schedule... Start Date: 11/28/22 Status: Ordered levothyroxine 150 mcg (0.15 mg) oral tablet 1 tablet = 150 mcg, By Mouth, Daily, # 90 tablet, 0 Refills, Maintenance, 11/28/22 13:20:00 EDT, Tablet, [facility], Partial fill upon patient request if the prescription is for a schedule II opioid drug., 175.26, cm, 11/28/22 12:18:00 E... Start Date: 11/28/22 Status: Ordered losartan 25 mg oral tablet 25 mg, By Mouth, Daily, # 90 tablet, Refills 0, Tot. Refills 0, Maintenance, 11/28/22 13:20:00 EDT,Route to Pharmacy Electronically, [facility], Partial fill upon patient [...] Name: Gabriela Woodard RN Position: [facility] RN Member Role: Primary Care Nurse Name: Josselin Flores RN Position: [facility] RN Member Role: Primary Care Nurse Name: Spring Mancia RN Position: [facility] SN RN Member Role: Primary Care Nurse Name: Precious Castañeda RN Position: [facility] RN Member Role: Primary Care Nurse Name: Elena Choi RN Position: [facility] RN Member Role: Primary Care Nurse Name: Jimmie Gastelum RN Position: [facility] RN Triston Member Role: Primary Care Nurse Name: Faisal Albrecht RN Position: [facility] RN Member Role: Primary Care Nurse Name: Olamide Hill LPN Position: S RN Member Role: Primary Care Nurse Name: Neha Owen RN Position: S RN Member Role: Primary Care Nurse Name: Not on Staff, PCP Position: [facility] Physician (General Medicine) Member Role: PCP Name: Elsa Jackson RN Position: S RN Member Role: Primary Care Nurse Name: Chapito Griffith RN Position: [facility] RN Member Role: Primary Care Nurse Name: Estefani Washington RN Position: [facility] RN Member Role: Primary Care Nurse Name: Swetha Newell RN Position: S RN Member Role: Primary Care Nurse Name: Namrata Roe RN Position: [facility] RN Member Role: Primary Care Nurse Care Team Related Persons Name: GAY BLACK Address: [place] [address]
--- OUTSIDE RECORDS SUMMARY | 2023-03-17 09:25 | XMS_ITS | Continuity of Care Document ---
Author Name Unknown Organization [facility] Address [address] [place] [id number]- Care Team Providers [employer] Name Role Phone Not on Staff, PCP Primary Care Physician Unavail able Encounter [facility] Date(s): 11/24/22 - 12/24/22 [facility] [address] [place] [id number] Allergies, Adverse Reactions, Alerts Substance Reaction Severity Status diphenhydrAMINE Active Immunizations Given and Recorded Vaccine Date Status Refusal Reason SARS-CoV-2 (COVID-19) [id number] vaccine 09/25/20 R ecorded Medications docusate-senna 50 mg-8.6 mg oral capsule 1 capsule, By Mouth, 2 times a day, for 45 days, # 90 capsule, 0 Refills, Acute 01/12/23 13:50:00 EST, 11/28/22 13:50:00 EDT, [facility], Partial fill upon patient request if the prescription is for a schedule II opioid drug., 1 capsule... Start Date: 11/28/22 Stop Date: 01/12/23 Status: Ordered hydrALAZINE 25 mg oral tablet 25 mg, 1, tablet, By Mouth, 3 times a day, # 270 tablet, Refills 0, Tot. Refills 0, Maintenance, 11/28/22 13:20:00 EDT, Route to Pharmacy Electronically, [facility], Partial fill upon patient request if the prescription is for a schedule... Start Date: 11/28/22 Status: Ordered levothyroxine 150 mcg (0.15 mg) oral tablet 1 tablet = 150 mcg, By Mouth, Daily, # 90 tablet, 0 Refills, Maintenance, 11/28/22 13:20:00 EDT, Tablet, [facility], Partial fill upon patient request if the prescription is for a schedule II opioid drug., 175.26, cm, 11/28/22 12:18:00 E... Start Date: 11/28/22 Status: Ordered losartan 25 mg oral tablet 25 mg, By Mouth, Daily, # 90 tablet, Refills 0, Tot. Refills 0, Maintenance, 11/28/22 13:20:00 EDT,Route to Pharmacy Electronically, [facility], Partial fill upon patient request [...] Team Personnel Name: Gabriela Woodard RN Position: [facility] RN Member Role: Primary Care Nurse Name: Josselin Flores RN Position: [facility] RN Member Role: Primary Care Nurse Name: Spring Mancia RN Position: [facility] SN RN Member Role: Primary Care Nurse Name: Precious Castañeda RN Position: [facility] RN Member Role: Primary Care Nurse Name: Elena Choi RN Position: [facility] RN Member Role: Primary Care Nurse Name: Jimmie Gastelum RN Position: [facility] RN Supv Member Role: Primary Care Nurse Name: Faisal Albrecht RN Position: [facility] RN Member Role: Primary Care Nurse Name: Olamide Hill LPN Position: [facility] RN Member Role: Primary Care Nurse Name: Neha Owen RN Position: [facility] RN Member Role: Primary Care Nurse Name: Not on Staff, PCP Position: [facility] Physician (General Medicine) Member Role: PCP Name: Elsa Jackson RN Position: S RN Member Role: Primary Care Nurse Name: Chapito Griffith RN Position: [facility] RN Member Role: Primary Care Nurse Name: Estefani Washington RN Position: [facility] RN Member Role: Primary Care Nurse Name: Swetha Newell RN Position: [facility] RN Member Role: Primary Care Nurse Name: Namrata Roe RN Position: [facility] RN Member Role: Primary Care Nurse Care Team Related Persons Name: GAY BLACK Address: [place] [address]
--- OUTSIDE RECORDS SUMMARY | 2023-03-17 09:26 | XMS_ITS | Continuity of Care Document ---
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 generated on the same workstation with concurrent physician supervision. COMPARISON: Right upper quadrant 10/26/2022. Outside MRI abdomen 10/14/2022. CT chest with contrast 10/13/2022. FINDINGS: LOWER THORAX: Dependent atelectasis of both lower lobes, right greater than left. No pleural effusion. Normal cardiac size. No pericardial effusion. LIVER: Normal hepatic size. Normal background parenchymal enhancement. The lesion at the marc hepatis in hepatic segment V/ is redemonstrated though has decreased in size, today measuring 2.8 x 2.9 x 2.4 cm (33/4). The lesion demonstrates a peripheral rind of T2 hyperintensity, T1 hyperintensity and central T2 heterogeneously hyperintense, T1 hypointense material. This is peripheral rind likely corresponds to hemosiderin or blood products. This lesion previously measured approximately 3.6 x 3.7 x 3.7 cm when measured in a similar fashion. There is intense associated restricted diffusion. There is faint enhancement of a thickened peripheral wall. Minimal enhancement of internal septation faint internal septations. Additional lesions in hepatic segment and VII. Which demonstrates similar signal characteristicshave also significantly decreased in size. The lesions noted in hepatic segment 7 have resolved with the 2 lesions in hepatic segment 6 demonstrating peripheral enhancement, though significantly smaller than the prior study. These 2 lesions measure 5 and 7 mm, previously both measuring approximately 13 mm. These also demonstrate internal T1 hyperintense fluid. (130 and 131/11). Two additional foci of faint T1 hyperintensity hepatic segment 6 are barely perceptible on today's exam (108/9), likely representing additional sites involuting lesions. Given the significant interval decrease in size of all of the lesions including the lesion at the marc hepatis, these are favored to represent an infectious process such as small abscesses, rather than a neoplastic process. Patent portal and hepatic veins. GALLBLADDER: There is persistent gallbladder wall thickening and mild gallbladder wall edema compatible with cholecystitis. BILE DUCTS: No biliary ductal dilatation. SPLEEN: Normal. PANCREAS: Normal. No pancreatic ductal dilatation. ADRENAL GLANDS: No nodules. KIDNEYS: No hydronephrosis. Kidneys enhance symmetrically. No suspicious mass. Scarring in the upper pole of the right kidney. STOMACH/UPPER GI TRACT: Stomach is unremarkable. There is moderate gaseous and stool distention of the transverse colon and large bowel. Small bowel is normal in caliber. PERITONEUM AND RETROPERITONEUM: No loculated fluid collection or peritoneal mass. LYMPH NODES: No lymphadenopathy. VESSELS: Abdominal aorta is nonaneurysmal. Hepatic, portal and splenic veins patent. Visualized inferior vena cava unremarkable. ABDOMINAL WALL: Unremarkable. BONES: Unremarkable. IMPRESSION: 1. Interval decrease in size of the dominant lesion in hepatic segment V/, now measuring up to maximum of 2.9 cm which is predominantly centrally necrotic with a few small septations and a thick enhancing wall. Additional rim-enhancing lesions in hepatic segments and VII posteriorly have also significantly decreased in size. Given the decrease in size of the lesions, these are favored to represent an infectious process such as hepatic abscesses, particularly given the setting of acute cholecystitis, rather than a primary neoplastic process. Correlation with pathology from recent tissue sampling is recommended. 2. Persistent wall thickening and edema of the gallbladder related to ongoing cholecystitis. Microbiology: Culture/Event_id: Blood Culture, Second Order/[id number] Collect date: 11/04/21 06:07 Result Status: Auth (Verified) Result Date: 11/10/21 23:25 SPECIMEN DESCRIPTION : BLOOD LT SPECIAL REQUESTS : NONE CULTURE : NO GROWTH 6 DAYS REPORT STATUS : FINAL 11/10/2021 Culture/Event_id: Blood Culture/[id number] Collect date: 11/04/21 06:07 Result Status: Auth (Verified) Result Date: 11/10/21 23:25 SPECIMEN DESCRIPTION : BLOOD RT SPECIAL REQUESTS : NONE CULTURE : NO GROWTH 6 DAYS REPORT STATUS : FINAL 11/10/2021 Impression and Plan Impression: This is a 37-year-old man with above-mentioned problems and comorbidities. Patient being evaluated because of what seems to be liver abscesses and hepatitis C. In terms of the liver abscesses, they seem to be responding to antibiotic therapy. It does seem that some of them might be on the moderate to large size measuring almost 4 cm. Patient could continue on therapy with ceftriaxone metronidazole and once ready for discharge could transition to therapy with levofloxacin and metronidazole. Ideally patient would undergo at least 3 weeks of therapy repeatCT scan to ensure these lesions have resolved and determine if further extension of antibiotic therapy necessary. Quite likely that this is related to the patient's gallbladder, although seeing how these have been there for some time, wonder if there might be some component over the patient's intrav enous drug use contributing to these lesions. Regardless, if there is no change in repeat CT scan in 3 weeks, further evaluations and repeat biopsies need to be entertained to determine alternative diagnoses. Unfortunately no cultures from these available so we will need to treat empirically. Regardless it does seem that the patient has been responding to ceftriaxone and metronidazole. Patient with well-established chronic hepatitis C in the setting of his intravenous drug use. Hepatitis C is not an emergency and cannot be treated as an inpatient in almost all instances since insurances will not cover the cost of the medication in an acute setting. Patient will need to be seen asan outpatient to determine further course of action. Possible that he might does want to follow-up with Dr Rader who he already is established with and likely has all laboratories available to determine hepatitis C treatment including genotype and FibroSure. Patient can be provided phone number for clinic if he were to prefer to see us in [place] and not Dr Rader over at [place] Recommendations: -Can continue ceftriaxone and metronidazole while inpatient; once ready for discharge can transition to levofloxacin and metronidazole -Next of therapy should be at least 3 weeks; please repeat CT scan at that time to determine if therapy needs to be further extended -Hepatitis C treatment as an outpatient issue; patient can either reestablish care with Dr Rader,or he could call our office to make an appointment at [phone] -It does seem that surgery is following up with the patient in 2 weeks; will defer to them coordinating CT scan. If they are not willing to take this responsibility, please contact us at time of discharge to coordinate this Thank you for the consultation. Infectious Diseases will sign-off, please call with any questions or concerns. Disclaimer: This dictation was accomplished with use of [employer] voice recognition software, prone tomedical word misidentifications and grammatical errors. The physician does strive to identify and correct these, but some could still be present. Please do not hesitate to contact physician for clarifications. * Gricel STARK, Ravihan: PERFORM Event Display: Consultation Note Authored Date: [id number] Patient: ??MANDO ODELL ? Age:??47 Years?Sex:??Male?:??1975?? Chief Complaint Pt homeless with c/o nausea, recently diagnosed with a liver tumor 2 days ago. Pt was told if he gets new freckles to go the ER. Pt states he has new freckles that appeared yesterday Reason for Consultation liver mass. cholecystitis History of Present Illness Patient is a 47-year-old male with a history of substance abuse??(on methadone), hypothyroidism,HepC,??HTN, was diagnosed with a new liver mass at [facility] after being found down on the ground outside discharged roughly a week ago. ??Presented today with continued abdominal pain and lethargy, nausea and vomiting. ??Had right upper quadrant ultrasound??with evidence of pericholecystic fluid and wall thickening, suggestive of acute cholecystitis. Biopsy of the liver lesion??at [place]??appeared benign, Patient reports around 30 pounds of weight loss. He smokes around pack/day for >20yrs. Previous IVDU, on methadone now. Drinks around 4 beers a day. ?? Physical Exam Vitals & Measurements T:??97.1?F?? TMIN:??97.1?F?? TMAX:??98.3?F?? HR:??71??(Peripheral)?? RR:??18?? BP:??148/116?? SpO2:??94%?? General:??Well appearing, looks comfortable at rest HEENT:??ERLINDA, Moist mucus membranes, oropharynx benign, no palpable?? Respiratory:??normal work of breathing, equal air entry bilaterally, breath sounds vesicular. No wheezes, rhonchi or crepitations Cardiovascular:??Normal rate, regular rhythm, no murmurs rubs of gallops on auscultation GI/Abdomen:??Normal active bowel sounds, soft, non-tender, non-distended. no palpable masses or organomegaly.Mild RUQ discomfort , pain mainly in RLQ and rebound pain Extremities:??Moving extremities,. No peripheral edema, lower limbs are warm and well perfused, ??DP and PT pulses palpable bilaterally. Skin:??No jaundice, no ecchymoses Neurologic:??Alert & Oriented, no obvious focal neurological deficit Psychiatric:??Mood and affect appropriate Assessment/Plan Patient is a 47-year-old man with history of IVDU, GERD, alcohol excess, and history of hepatitis Cdenting??with abdominal pains. ??Recent??admission to the hospital in [place], decided to have liver mass. ??Biopsy taken, preliminary pathology negative for malignancy. ??There is a question about the sample was adequate/representative personal service. GI consulted for repeat of biopsy. ?? Plan - please reach out to IR to evaluate for percutaneous biopsy ?? This note was typed using [employer] dictation software. Occasionally, typing errors may occur. Please contact me on Cortext if anything requires further clarification. Patient discussed with attending physician, ?? Jenni Monsalve MD Gastroenterology Fellow ??PGY 4?? Problem List/Past Medical History Ongoing Avascular necrosis of hip Essential hypertension History of subdural hematoma History of traumatic brain injury Hypothyroidism IV heroin dependence Tobacco dependence Medications Inpatient Acetaminophen Tablet, 650 mg, By Mouth, Every 4 hours, PRN Bisacodyl Supp, 10 mg= 1 supp, Rectally, Daily, PRN Ceftriaxone Inj, 1 Gm, IVPB, Every 24 hours Docusate Sodium Capsule, 100 mg= 1 capsule, By Mouth, 2 times a day Enoxaparin Inj, 30 mg= 0.3 mL, Subcutaneous Injection, 2 times a day Flagyl IVPB, 500 mg= 100 mL, IVPB, Every 8 hours hydrALAZINE 25 mg oral tablet, 25 mg, By Mouth, 3 times a day levothyroxine 0.075 mg oral tablet, 150 mcg, By Mouth, Daily LR 1,000 mL, 1000 mL, IV Infusion Methadone Tablet, 75 mg, By Mouth, Daily MiraLax Powder, 17 Gm= 1 pack/packet, By Mouth, Daily nalOXONE Inj, 0.2 mg= 0.5 mL, IV Push, Every 5 minutes, PRN NIFEdipine 30 mg oral tablet, extended release, 30 mg, By Mouth, Daily oxyCODONE 5 mg oral tablet, 5 mg, By Mouth, Every 6 hours, PRN Zofran Inj, 4 mg, IV Push, Every 6 hours, PRN Home Eliquis 5 mg oral tablet, 5 mg= 1 tablet, By Mouth, 2 times a day hydrALAZINE 25 mg oral tablet, 25 mg= 1 tablet, By Mouth, 3 times a day levothyroxine 0.1 mg oral tablet, By Mouth, Daily levothyroxine 150 mcg (0.15 mg) oral tablet, 150 mcg= 1 tablet, By Mouth, Daily Lisinopril, By Mouth, Daily NIFEdipine (Eqv-Adalat CC) 30 mg oral tablet, extended release, 30 mg= 1 tablet, By Mouth, Daily Allergies diphenhydrAMINE Social History Alcohol Use: Never. Other Name: HCP: None. Details: He is a FULL CODE. Substance Abuse Type: Cocaine. Tobacco Use: 4 or less cigarettes(less than 1/4 pack)/day in last 30 days. Family History Hypertension: Mother and Father. Hypothyroidism: Mother and Father. * Eriberto STARK, Tegan: PERFORM Event Display: Consultation Note Authored Date: [id number] ?I saw and evaluated the patient. Discussed with the fellow and agree with the findings and plan as documented in the fellow's note.?US images reviewed, labs reivewed HGb 8.6, WBC 5, PLT 401, Cr 1.9->1.2, AST 71, ALT 31, ALP 599, bili 0.7 Per history (no [facility] for my review) s/p EUS guided liver biopsy with benign but ?insufficent tissue. Unclear exact date of biopsy, but no suggestion of melena or hemodyn instability or rapid drop in hgb to suggest hemobilia or other bleeding complication of his biopsy, though if hgb drops?? without melena could consider CTA abd/pel to look for intraabdominal bleed. given the severity of his pain, less likely to be related to mass or recent biopsy than acute cholecystitis based onUS appearance. Labs not overtly suspicious for HCC but not is made of possible history of HCV. If report from OSH confirms insufficient tissue for dx pls consult IR here and obtain imaging for review. * Charlene STARK, [place]: PERFORM Event Display: Consult Authored Date: [id number] Patient: ??MANDO ODELL ? Age:??47 Years?Sex:??Male?:??1975?? Chief Complaint/Reason for Consult Acute cholecystitis History of Present Illness Patient is a 47 year old male with a previous medical history of hypothyroidism, polysubstance abuse and HTN who was just recently diagnosed with a new liver mass at [facility] now presenting to [facility] Emergency Department with continued abdominal pain and lethargy. ACS was consulted for findings of acute cholecystitis on imaging. Per patient report, he was found down on the ground outside of his hindu roughly one week ago after passing out secondary to pain. He was transferred to [facility] where he was being worked up for a newly found liver mass. The patient was unable to report what form of workup was performed and was unsure if he was given a diagnoses. He stayed inpatient for roughly one week and was eventually discharged three days ago??due to insurance issues. He states when he returned home he continued to have pain originating in his epigastric area and radiating to his RUQ. States pain is 10/10 and unrelenting. It is associated with nausea and vomiting. He has had a decreased appetite in the last several weeks and has noted significant weight loss. He has not noticed any contributing or alleviating factors to the pain. He is He does feel his skin has become more dry with new areas of pinpoint black markings, he denies jaundice or pruritus. He denies any vision changes. Denies fevers or chills. Review of Systems 12 point ROS completed. Negative unless otherwise stated in HPI/subjective. Physical Exam Vitals & Measurements T:??98.1?F?? HR:??55??(Peripheral)?? RR:??20?? BP:??168/105?? SpO2:??100%?? HT:??176??cm?? WT:??71??kg?? BMI:??22.92?? GENERAL: No acute distress. Non-toxic. Interactive. HEENT: Normocephalic. Atraumatic. Trachea midline. HEART: Regular rate and rhythm. RESPIRATORY: Equal and symmetric chest rise bilaterally; no increased work of breathing. ABDOMEN: Soft, compressible. Moderately distended. Tender to palpation in the RUQ and epigastric area without rebound or guarding. Positive Carey's. MUSCULOSKELETAL: Moving all extremities equally. No calf fullness or tenderness. Compartments soft.Cachectic. SKIN: Warm and well perfused. Skin flaking with small black pinpoint markings. NEURO: AOx3 Assessment/Plan Patient is a 47-year-old male with a history of polysubstance abuse, hypothyroidism, HTN and new liver mass presenting today with continued abdominal pain and fatigue after being discharged from [facility] just three days ago. He had been admitted to [facility] for a week and undergoing workup for a newly identified liver mass and upon discharge had worsening RUQ pain, nausea, vomiting and fatigue. Upon arrival to [facility] Emergency Department he was hypertensive but otherwise hemodynamically normal. Lab findings without leukocytosis, and LFTs largely within normal limits aside from an alkaline phosphatase of 599. RUQ US significant for pericholecystic fluid and wall thickening. On exam he is moderately distended with tenderness to epigastric and RUQ with palpation and a positive Carey's sign. We will admit him to the surgical service as we await documentation from [facility] regarding workup, which will help??with decision making regarding operative interventions. ?? Plan: - Admit - CLD - Start antibiotics - DVT prophylaxis - Await outside records from [facility] - OR timing for lap jesse ?? Patient was discussed with Dr. [place] Please page??[place] [phone] with any questions or concerns.?? Problem List/Past Medical History Ongoing Avascular necrosis of hip Essential hypertension History of subdural hematoma History of traumatic brain injury Hypothyroidism IV heroin dependence Tobacco dependence Procedure/Surgical History No qualifying data available. Home Medications Levothyroxine: By Mouth, Daily Lisinopril: By Mouth, Daily Allergies diphenhydrAMINE Social History Alcohol Use: Never. Other Name: HCP: None. Details: He is a FULL CODE. Substance Abuse Type: Cocaine. Tobacco Use: 4 or less cigarettes(less than 1/4 pack)/day in last 30 days. Family History Mother (): Hypertension; Hypothyroidism Father (): Hypertension; Hypothyroidism Sister (): ovarian cancer Lab Results Labs Last 24 Hours BLOOD COUNT & DIFF ? Event Name?? Event Result?? Date/Time?? WBC 5.8 k/mm3 10/26/22 05:30:00 RBC 2.74 m/mm3??Low 10/26/22 05:30:00 Hgb 8.2 Gm/dL??Low 10/26/22 05:30:00 Hct 25.3 %??Low 10/26/22 05:30:00 MCV 92.3 femtoliters 10/26/22 05:30:00 MCH 29.9 pg 10/26/22 05:30:00 MCHC 32.4 g/dL??Low 10/26/22 05:30:00 Platelet Count 426 k/mm3 10/26/22 05:30:00 MPV 8.5 femtoliters??Low 10/26/22 05:30:00 Nucleated RBC (Automated) 0 #/100 WBC'S 10/26/22 05:30:00 ? CHEM GENERAL ? Event Name?? Event Result?? Date/Time?? Sodium 133 mmol/L 10/26/22 05:30:00 Chloride 95 mmol/L??Low 10/26/22 05:30:00 Bicarbonate Level 26 mmol/L 10/26/22 05:30:00 Anion Gap 12 10/26/22 05:30:00 Glucose Level 95 mg/dL 10/26/22 05:30:00 BUN 32 mg/dL??High 10/26/22 05:30:00 Creatinine-Blood 1.9 mg/dL??High 10/26/22 05:30:00 Alkaline Phosphatase 599 units/L??High 10/26/22 05:30:00 Lipase 26 units/L 10/26/22 05:30:00 AST (SGOT) 71 units/L??High 10/26/22 05:30:00 ALT (SGPT) 34 units/L 10/26/22 05:30:00 Bilirubin, Total 0.7 mg/dL 10/26/22 05:30:00 ? * Bonita STARK, Isac Rivera: PERFORM Event Display: Consult Authored Date: The patient was discussed with the team on the date of service documented. ??The clinical course, labs, and radiological studies were reviewed by me and findings confirmed. ??I agree with the findings and assessment and plan as delineated above. ?? --- Isac Mesa MD Division of Trauma, Acute Care Surgery, and Surgical Critical Care?? History and physical note * Event Display: History and Physical Hospital Authored Date: * Suresh STARK, Zahira: MODIFY, MODIFY, PERFORM Event Display: History and Physical Hospital Authored Date: Patient: ??ODELLMANDO FRIEDMAN ? Age:??47 Years?Sex:??Male?:??1975?? Chief Complaint/Reason for Consult Pt homeless with c/o nausea, recently diagnosed with a liver tumor 2 days ago. Pt was told if he gets new freckles to go the ER. Pt states he has new freckles that appeared yesterday History of Present Illness Mando is a 47 year old male with history of hypothyroidism, past??polysubstance abuse now on methadone,??Hep C s/p half a treatment??, and HTN who was just recently diagnosed with a new liver and gallbladder lesion and hepatic vein thrombus and at [facility] who subsequently presented to [facility] Emergency Department with continued abdominal pain and lethargy. He underwent right upper quadrant ultrasound??that demonstrated findings consistent with acute cholecystitis without??ductal dilation.?? EGS was subsequently consulted for??cholecystectomy, however in light of the??recent??diagn oses,??surgical oncology??was consulted??to weigh in. Per the patient,??he developed??acute onset abdominal pain??in the right upper quadrant??acutely??acouple of weeks ago that resulted in him being found down and transferred to [facility] for further work up. At that time, trauma yeung-imaging was obtained and notable for liver mass along the marc hepatis along with a gallbladder filling defect and perihepatic and periportal lymphadenopathy raising suspicion for malignancy prompting transfer to [facility]. At [place], he underwent an MRI that demonstrated by report a ??heterogeneous three-point centimeter mass??centrally in the right aspect of the liver. ??With elongated filling defect in the lumen of the gallbladder??body neck. Dermatology was consulted for concern for melanoma. GI was consulted and he underwent a colonoscopy that was aborted due to poor prep and an EUS with biopsy of the liver lesion, however, pathologyfor this resulted as, ??benign??fragments of hepatic parenchyma with adjacent extensive necrosis. He was discharged from the hospital with eliquis as he was also noted to have a hepatic vein thrombus. Per patient, the pain he experiences in the RUQ has been ongoing since the attack a few weeks ago and described as intermittent in nature without any provoking or alleviating factors. He does state that he has a history of Hep C and only underwent half of the required treatment and he is unsure if this has been fully treated. At this time, he otherwise denies any fevers, chills, CP, or SOB. Hefurther denies melena, pale stools, or changes in bowel or urinary habits. He does admit to a recent unintentional weight loss. He has never had a colonoscopy except for when it was attempted then aborted on [place]. Review of Systems A 14-point review of systems was negative except as documented above. Physical Exam Vitals & Measurements T:??98.0?F?? HR:??56??(Peripheral)?? RR:??18?? BP:??144/104?? SpO2:??98%?? HT:??176??cm?? WT:??69??kg?? BMI:??22.28?Physical Examination ?General: no acute distress, alert, awake, thin appearing ?HEENT: sclera icteric, PERRLA and EOMI bilaterally, ??voice normal, neck supple, moist mucous membranes ?Cardiac: regular rate and rhythm, no murmurs appreciated ?Respiratory: clear to auscultation bilaterally, no wheezes, rales, or ronchi, nonlabored breathing ?Abdomen: soft,??rotund, mildly distended, mild tenderness to nontender, no guarding, no rebound, bowel sounds present, no hepatosplenomegaly ?Extremities: warm, well perfused, no edema, cyanosis, or clubbing ?Musculoskeletal: moves all four extremities spontaneously, range of motion grossly intact ?Skin: warm, no diaphoresis,??+ jaundice, good skin turgor ?Neurologic: alert and oriented x3, GCS 15, CNII to XII grossly intact, no apparent focal defects ?Psychiatric: mood and affect within normal limits, cooperative Assessment/Plan Mando is a 47 year old male with history of hypothyroidism, past??polysubstance abuse now on methadone,??Hep C s/p half a treatment??, and HTN who was just recently diagnosed with a new liver and gallbladder lesion and hepatic vein thrombus and at [facility] who subsequently presented to [facility] Emergency Department with continued abdominal pain and lethargy. He underwent right upper quadrant ultrasound??that demonstrated findings consistent with acute cholecystitis without??ductal dilation.?? EGS was subsequently consulted for??cholecystectomy, however in light of the??recent??diagn oses,??surgical oncology??was consulted??to weigh in. ?? The liver lesion in question is of concern given its involvement of the main portal vein and right intrahepatic artery without any bile duct dilatation, and appears to be unresectable at this time, however further oncologic work up with tissue biopsy is warranted and may be achieved with IR-guided biopsy. ?? At this time, he does show evidence of clinical acute cholecystitis and while imaging from OS shows concern for a mass within the gallbladder fossa, the US review most recently suggests this may be sludge and significant pericholecystic fluid. Okay to proceed with cholecystectomy for symptom management while oncologic work up is pursued. ?? Discussed with attending surgeon, ??Romain [facility]ERY [id number] Problem List/Past Medical History Ongoing Avascular necrosis of hip Essential hypertension History of subdural hematoma History of traumatic brain injury Hypothyroidism IV heroin dependence Tobacco dependence Procedure/Surgical History LUE forearm surgery for infection per patient, many years ago ?? Home Medications apixaban: 5 mg = 1 tablet, By Mouth, 2 times a day hydrALAZINE: 25 mg = 1 tablet, By Mouth, 3 times a day Levothyroxine: By Mouth, Daily Levothyroxine: 150 mcg = 1 tablet, By Mouth, Daily Lisinopril: By Mouth, Daily Methadone: 75 mg, By Mouth, Daily NIFEdipine: 30 mg = 1 tablet, By Mouth, Daily Allergies diphenhydrAMINE Social History Alcohol Use: Never. Other Name: HCP: None. Details: He is a FULL CODE. Substance Abuse Type: Cocaine. Tobacco Use: 4 or less cigarettes(less than 1/4 pack)/day in last 30 days. Family History Mother (): Hypertension; Hypothyroidism Father (): Hypertension; Hypothyroidism Per patient, mother had a malignancy in the vertebrae but is unsure of further details and sisterdied of ovarian cancer. Radiology ESULT: US RUQ US RUQ? HX OF PRESENT ILLNESS: pt stated recent liver tumor diagnosis, pt stated I'm exhausted, I couldn'tsleep, I'm just scare about my liver. pt stated cocaine use today, goes to methadone clinic. c o abd pain right upper quad 6 10.; Reason: Abdominal Pain; Clinical Question(s): Cholecystitis ?? COMPARISON: CT 11/23/2021 ?? FINDINGS: ?? Liver: There is a heterogeneous mass in the medial right hepatic lobe measuring 3.8 x 2.8 x 3.5 cm.Per technologist, this was recently biopsied. Smooth hepatic contour. Main portal vein patent with normal hepatopetal direction of flow. ?? Gallbladder: Sludge filled gallbladder. Moderate wall thickening. Mild pericholecystic fluid. Positive Carey sign. ?? Biliary Tree: No intrahepatic or extrahepatic bile duct dilation is identified. Common duct measures: 0.5 cm. ?? Pancreas: Obscured by overlying bowel gas. ?? Right kidney: 10.0 cm in length. Normal parenchymal echotexture and thickness. No hydronephrosis, stone or mass.? IMPRESSION:? 1. ??Acute cholecystitis. This was conveyed by Cortext by Dr. Dumont to Jaleel [facility] on 10/26/2022 at 11:38 AM with understanding acknowledged. 2. ??Heterogeneous liver mass, by report this was recently biopsied. ?? Lab Results Labs Last 24 Hours BLOOD COUNT & DIFF ? Event Name?? Event Result?? Date/Time?? WBC 5.9 k/mm3 10/28/22 06:55:00 RBC 2.92 m/mm3??Low 10/28/22 06:55:00 Hgb 8.7 Gm/dL??Low 10/28/22 06:55:00 Hct 26.9 %??Low 10/28/22 06:55:00 MCV 92.1 femtoliters 10/28/22 06:55:00 MCH 29.8 pg 10/28/22 06:55:00 MCHC 32.3 g/dL??Low 10/28/22 06:55:00 Platelet Count 380 k/mm3 10/28/22 06:55:00 MPV 8.5 femtoliters??Low 10/28/22 06:55:00 Nucleated RBC (Automated) 0 #/100 WBC'S 10/28/22 06:55:00 ? COAG ? Event Name?? Event Result?? Date/Time?? INR 1.1 10/28/22 03:46:00 Protime (PT) 11.4 seconds 10/28/22 03:46:00 APTT 34.4 seconds??High 10/28/22 03:46:00 ? CHEM GENERAL ? Event Name?? Event Result?? Date/Time?? Sodium 135 mmol/L 10/28/22 06:55:00 Chloride 100 mmol/L 10/28/22 06:55:00 Bicarbonate Level 25 mmol/L 10/28/22 06:55:00 Anion Gap 10 10/28/22 06:55:00 Glucose Level 86 mg/dL 10/28/22 06:55:00 BUN 9 mg/dL 10/28/22 06:55:00 Creatinine-Blood 1.1 mg/dL 10/28/22 06:55:00 Calcium, Ionized pH Corrected 1.13 mmol/L 10/28/22 03:46:00 Phosphorus 2.7 mg/dL 10/28/22 03:46:00 Magnesium 1.9 mg/dL 10/28/22 03:46:00 Alkaline Phosphatase 412 units/L??High 10/28/22 06:55:00 AST (SGOT) 32 units/L 10/28/22 06:55:00 ALT (SGPT) 20 units/L 10/28/22 06:55:00 Bilirubin, Total 0.4 mg/dL 10/28/22 06:55:00 Bilirubin, Direct <0.2 10/28/22 06:55:00 Bilirubin, Indirect Direct bilirubin is less than the measureable limit. Therefore, indirect 10/28/22 06:55:00 ? EKG study * Event Display: ECG 12-Lead Authored Date: Please click on pdf link to open report * Event Display: ECG 12-Lead Authored Date: Ventricular Rate: 56 BPM Atrial Rate: 56 BPM P-R Interval: 140 ms QRS Duration: 92 ms Q-T Interval: 432 ms QTC Calculation(Bazett): 416 ms P [place]: 49 degrees R [place]: 13 degrees T [place]: 73 degrees Sinus bradycardia Cannot rule out Anterior infarct , age undetermined Abnormal ECG When compared with ECG of 08-DEC-2021 00:28, T wave inversion no longer evident in Anterior leads Confirmed by TIANA BROWNE MD ([id number]) on 11/09/2022 9:10:36 AM [place]: HOLLIE STARK,TIANA Cardiology * Event Display: Cardiac Rhythm Strips Authored Date: Hospital Progress note * Estefani Washington RN: PERFORM, SIGN, VERIFY Event Display: Progress Note Hospital Authored Date: Patient: MANDO ODELL Age: 47 years Sex: Male : 1975 Associated Diagnoses: None Author: Estefani Washington RN Findings Evaluation A+Ox4. VSS. Pt denies SOB, chest pain, N/V/D. Respirations even and steady. IPOC rounds completed on pt today. Able to ambulate with stand by assistance using a walker. Pt being discharged. Report given to S3 nurse on discharge unit. All personal belongings taken with pt. Pt leaving unit via wheelchair. . Discharge Information Rehabilitation Discharge : Rehab Discharge Index 11/10/2022 11:59 EDT Walker: distance >50 11/08/2022 15:05 EDT Walker: distance 20-50 * Peyton Vladivia RN: VERIFY, PERFORM, SIGN Event Display: Progress Note Hospital Authored Date: Patient: MANDO ODELL Age: 47 years Sex: Male : 1975 Associated Diagnoses: None Author: Peyton Valdivia RN Findings Problem Related to Alteration in Gastrointestinal : Alteration in Gastrointestinal Func/new 11/11/2022 1:00 EDT Alteration in GI status Related to Other: acute cholecystitis/liver lesion Goals & Outcomes, Gastrointestinal Nutritional intake is adequate for metabolic needs, Pt will maintain adequate GI function appropriate for pt, Pt will resume/maintain adequate hemodynamic status, Pt will tolerate age appropriate diet prior to discharge Interventions, Gastrointestinal Assess/monitor abdomen for distention, tenderness, Assess/monitor abdominal girth & bowel function, Assess/monitor bowel pattern, bowel sounds, flatus, Assess/monitor number of bowel movements, Assess/monitor color, quantity, quality, consistency of stoo, Assess/monitor pt for nausea, vomiting, Assess/monitor intake & output, Assess if pt tolerating diet, Collaborate/Consult with Retail Grocer; review recommendations, DVT prophylaxis as ordered, Elevate HOB to facilitate lung expansion, prevent aspiration, Taking PO: Encourage/monitor intake & swallowing ability, Teach Pt/caregiver diet & give copy of dietary instructions, Teach Pt/caregiver on bow el elimination interventions, Teach Pt/caregiver re: importance of bowel regime, Teach Pt/caregiverre: nutritional intake & dietary restrict, Teach/encourage deep breath & cough exercises, Teach/encourage use of incentive spirometer Goals/Interventions, Gastrointestinal Yes Gastrointestinal, Problem Start 10/27/2022 15:47 Reviewed plan with, Gastrointestinal Patient Patient Progression, Gastrointestinal Pt progressing according to plan . Nursing Data Cardiac Data. : Cardiac Data. 11/11/2022 1:51 EDT Cardiovascular WNL . Gastrointestinal Data. : Gastrointestinal Data. 11/11/2022 1:51 EDT Last Bowel Movement 11/10/2022 GI WNL Normal Bowel Pattern Every other day . Genitourinary Data. : Genitourinary Data. 11/11/2022 1:51 EDT WNL . HEENT Data. : HEENT Assessment 11/11/2022 1:51 EDT HEENT, Adult WNL . Integumentary Data. : Integumentary Data. 11/11/2022 1:51 EDT Integumentary WNL . Musculoskeletal Data. : Musculoskeletal Data. 11/11/2022 1:51 EDT Musculoskeletal Symptoms Weakness Musculoskeletal Comment 1 assist with walker Musculoskeletal WNL except . Neurological Data. : Neurological Data. 11/11/2022 1:51 EDT Pain Intensity 0 1 - 10 Pain Scale Score 6 Pain Interventions Pharmacological, PRN medication Neuro WNL 11/11/2022 0:22 EDT Pain Intensity 5 . Respiratory/Pulmonary Data. 11/11/2022 1:51 EDT Respiratory Treatment(s) Cough and deep breathe Respiratory WNL 11/10/2022 23:38 EDT Mode of Delivery (Oxygen) Room air . Narrative/Incidental Pt is full code, A/O x 3. Pt is afrebrile reporting no N/V, shortness of breath or chest pain. Patient reports pain 6/10 given tylenol as ordered with positive therapeutic effect, 0/-1/10. +PP no edema present. Lung sounds are clear bilaterally on RA, respirations even and steady. vital signs are stable. Pt is receiving treatments as prescribed. Pt is voiding in the urinal. Last BM was 11/10. Bed in lowest, locked position. Bed alarm on. Pt instructed to use the call bustamante for assistance. Call bustamante in reach for safety.. * Karlie WHIPPLE, Iggy Parkinson: PERFORM Event Display: Progress Note Hospital Authored Date: [id number] Patient: ??MANDO ODELL ? Age:??47 Years?Sex:??Male?:??1975?? Subjective 47-year-old male admitted with acute cholecystitis ?? Chart, Labs, and Imaging reviewed. Patient Seen and examined at bedside. 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 Moved bowels today.?? D/W surgery.?? Plan for discharge??within the next 24 hours when available bed at [facility]. ?? Currently, No CP, SOB, RAMIREZ, Dizziness, lightheadedness, n/v/d, f/c, No other new or acute concerns or complaints. Review of Systems A focused review of systems was completed and is otherwise negative aside from as stated above.?? Objective ?? Physical Exam Temperature?97.5 ?(14:57) Systolic Blood Pressure?131 ?(14:57) Diastolic Blood Pressure?92 ?(14:57) Pulse?71 ?(14:57) SpO2?97 ?(14:57) Respiratory Rate?22 ?(14:57) ?? Constitutional: Awake, alert and oriented x4. NAD. Lying comfortably in bed. HEENT: Normocephalic. Atraumatic. PERRLA, EOMI. Respiratory: Clear to auscultation. No wheezing, rales or rhonchi. Speaking in full sentences comfortably on room Air. Cardiovascular: RRR. No murmurs, rubs or gallops. No JVD. 2+ radial and pedal pulses. Gastrointestinal: Abdomen soft, non-tender, mildly-distended. + bowel sounds. Neurologic: Smooth, coordinated, and spontaneous movement of extremities. MSK: Uniform strength against resistance in BL UE and LE,??able to??sit upright. Skin: No rashes or lesions. ??Surgical site??wounds appear intact Extremities: No cyanosis or clubbing. No gross deformities. Normal range of motion. Psychiatric: appropriate mood and affect. Patient is cooperative during exam.?? Assessment/Plan Assessment:??47-year-old male Hx IVDU on methadone, active hepatitis C infection, P/w/VA/RUQ pain. Initial suspicion for cholecystitis. CT/MRI concerning for multiple liver masses (s/p CT-guided liver biopsy. Results pending.) Imaging has showed improvement in masses (likely suggestive of abscess).S/p cholecystectomy. ID/GI on board. Surgery following. ?? Liver mass (R16.0):?? Acute cholecystitis (K81.0):?? Underwent Lap. Cholecystectomy 11/05 KUB showing stool throughout colon. Imaging suggestive of multiple liver masses concerning for malignancy versus abscess. Biopsy performed. Pending. MRCP showed improvement in size of liver masses, suggestive of abscess. ID evaluated. Agree with recommendation. -Continue low-fat diet -Continue pain control as indicated -Aggressive bowel regimen. Patient was able to move bowels today. -Continue to encourage adequate p.o. intake -Surgery to follow-up patient -3 weeks of antibiotics in agreement with ID recommendations. transition to levofloxacin, metronidazole. -Repeat CT scan will be performed outpatient with follow-up w/ surgery ?? Hepatitis C virus (B19.20):?? Elevated viral load with presence of liver masses on imaging -ID recommending outpatient follow-up. -Patient to call office at ?? Opioid use disorder (F11.90):?? -On methadone. Appears well controlled at this time. ?? Anemia (D64.9): -Remains stable. No evidence of active bleeding ?? HTN (hypertension) (I10):?? Continue nifedipine, hydralazine, losartan ?? On apixaban therapy (Z79.01):?? -Patient no longer taking Eliquis, discontinued ?? Hypothyroidism (E03.9): ??-Continue levothyroxine ? Quality Measures Diet:??Low-fat diet Code Status:??Full DVT PPX:??Lovenox OMN/ Dispo:??Anticipate discharge likely tomorrow when available bed at [facility]. Pt has had BM and cleared by surgery. ? Iggy Ziegler PA-C?? [facility], Dept. of Hospital Medicine Pager: [phone]? Note * Namrata Roe RN: PERFORM Event Display: Discharge/Transfer Note Hospital Authored Date: [id number] Nursing Discharge Note Entered On: 11/11/2022 10:48 EDT Performed On: 11/11/2022 10:48 EDT by Namrata Roe RN Nursing Discharge Note 2 Discharge Time : 11/11/2022 11:45 EDT Namrata Roe RN - 11/11/2022 18:09 EDT Discharge Level of Care at Discharge : Home/Detention/Foster Care Patient Left Unit Via : Wheelchair Patient Accompanied Off Unit with : Responsible adult, Other: STAFF DC Instructions Provided & Signed by Pt : Yes Patient Understands D/C Instructions : Yes Patient Instructions Discharge Signed : Yes Did Pt have Specialty Bed or Wound Vac : No Namrata Roe RN - 11/11/2022 10:48 EDT * Iggy Romero: PERFORM Event Display: Discharge/Transfer Note Hospital Authored Date: [id number] Patient: ??ODELL, MANDO ? Age:??47 Years?Sex:??Male?:??1975?? Patient Information Discharge Location: [facility] Primary Care Physician: Not on Staff, PCP Admit Date/Time: 10/26/22 13:23 Discharge Date:??11/11/2022 09:50:33 Discharge Disposition Discharge Disposition: Home: No Services Discharge Diagnosis Liver mass (R16.0) Acute cholecystitis (K81.0) Hepatitis C virus (B19.20) Opioid use disorder (F11.90) Anemia (D64.9) Acute kidney injury (N17.9) HTN (hypertension) (I10) On apixaban therapy (Z79.01) Hypothyroidism (E03.9) ?? _ Discharge Medications hydrALAZINE (hydrALAZINE 25 mg oral tablet)?25?Milligram?1?tablet?By Mouth?3 times a day Levofloxacin (levoFLOXacin 750 mg oral tablet)?1?tab(s)?750?Milligram?By Mouth?Every 24 hours?for 21?Days Levothyroxine (levothyroxine 150 mcg (0.15 mg) oral tablet)?1?tab(s)?150?Microgram?By Mouth?Daily Losartan (losartan 25 mg oral tablet)?25?Milligram?By Mouth?Daily?for 30?Days Methadone?75?Milligram?By Mouth?Daily Metronidazole (metroNIDAZOLE 500 mg oral tablet)?500?Milligram?By Mouth?Every 8 hours?for 21?Days NIFEdipine (NIFEdipine (Eqv-Adalat CC) 30 mg oral tablet, extended release)?1?tab(s)?30?Milligram?By Mouth?Daily ? Medications Started Levofloxacin (levoFLOXacin 750 mg oral tablet)?1?tab(s)?750?Milligram?By Mouth?Every 24 hours?for 21?Days Metronidazole (metroNIDAZOLE 500 mg oral tablet)?500?Milligram?By Mouth?Every 8 hours?for 21?Days Losartan (losartan 25 mg oral tablet)?25?Milligram?By Mouth?Daily?for 30?Days Medications Discontinued No home medications discontinued Doses Changed No doses changed PCP Follow-Up/Heads-Up -Admitted to [facility] with acute cholecystitis. ??Underwent cholecystectomy 11/05 -Imaging suggestive??of liver mass versus abscess. ??Appears to respond well to antibiotics.?? Outpatient follow-up with surgery with repeat CT??planned -ID involved, recommend continuation of antibiotics??for 21 days??with levofloxacin, metronidazole prescribed. Future Appointments 2022 10:20 AM EDT ?? With: Lázaro Aiken MD Where: [facility] [address] [place] [address]- Status: Pending Hospital Course 47-year-old male Hx hypothyroidism, polysubstance use on methadone, hep C (reports receiving Treatment), HTN with recent diagnosis of new liver/gallbladder lesion and hepatic vein thrombus at [facility] presented to [facility] with abdominal pain and lethargy. Given concern for continued pain, presented promptly to the ED. ?? While in the ED, right upper quadrant ultrasound demonstrating findings of acute cholecystitis without ductal dilatation, EGS was consulted along with surgical oncology for cholecystectomy and evaluation of apparent lesions. He was admitted to medicine for further work-up and assessment. ?? Initially, CT showing similar lesions to patient's report concerning for possible malignancy versusabscess. MRCP showing improvements in lesions suggestive of abscess rather than malignancy. Nonetheless, biopsy obtained. Infectious disease consulted to further assess. Recommended continuation of an tibiotics. Outpatient follow-up given positive active hepatitis C infection. He remained clinicallystable. Bowel function returned appropriately. Cleared by ID and surgery for discharge. With this in mind, he is being discharged today in stable condition with instructions for outpatient follow-up with surgery and infectious disease following his admission for acute cholecystitis. ?? Please see below for brief problem focused assessment and plan: ?? Liver mass (R16.0): Acute cholecystitis (K81.0): ?Underwent Lap. Cholecystectomy 11/05 ??KUB showing stool throughout colon. ??Imaging suggestive of multiple liver masses concerning for malignancy versus abscess. Biopsy performed. Pending. ??MRCP showed improvement in size of liver masses, suggestive of abscess. ??ID evaluated. Agree with recommendation. ??-Continue to encourage adequate p.o. intake ??-Surgery to follow-up patient ??-3 weeks of antibiotics in agreement with ID recommendations. transition to levofloxacin, metronidazole. ??-Repeat CT scan will be performed outpatient with follow-up w/ surgery ? Hepatitis C virus (B19.20): ?Elevated viral load with presence of liver masses on imaging ??-ID recommending outpatient follow-up. ??-Patient to call office at ? Opioid use disorder (F11.90): ?-On methadone. Appears well controlled at this time. ? Anemia (D64.9): ??-Remains stable. No evidence of active bleeding ?? HTN (hypertension) (I10): ?Continue nifedipine, hydralazine, losartan ? On apixaban therapy (Z79.01): ?-Patient no longer taking Eliquis, discontinued ? Hypothyroidism (E03.9): ?-Continue levothyroxine ?? Objective . Physical Exam Temperature?98.4 ?(07:41) Systolic Blood Pressure?131 ?(08:27) Diastolic Blood Pressure?82 ?(08:27) Pulse?59 ?(07:41) SpO2?96 ?(07:41) Respiratory Rate?20 ?(08:27) ? Constitutional: Awake, alert and oriented x4. NAD. Lying comfortably in bed. HEENT: Normocephalic. Atraumatic. PERRLA, EOMI. Respiratory: Clear to auscultation. No wheezing, rales or rhonchi. Speaking in full sentences comfortably on room Air. Cardiovascular: RRR. No murmurs, rubs or gallops. No JVD. 2+ radial and pedal pulses. Gastrointestinal: Abdomen soft, non-tender, mildly-distended. + bowel sounds. Neurologic: Smooth, coordinated, and spontaneous movement of extremities. MSK: Uniform strength against resistance in BL UE and LE,??able to??sit upright. Skin: No rashes or lesions. ??Surgical site??wounds appear intact Extremities: No cyanosis or clubbing. No gross deformities. Normal range of motion. Psychiatric: appropriate mood and affect. Patient is cooperative during exam.?? Surgical Procedures Cholecystectomy Laparoscopic 11/05/2022 08:20 Follow-Up Appointments Added Follow Up ?Time Frame ?Comments Not on Staff, PCP?Within two weeks?Please follow up with your primary care provider within two weeks of discharge to discuss your recent hospital admission.?? Infectious Disease?Within two weeks?please call infectious disease??office at to establish further treatment. Patient Instructions Reason for Admission:?? You were recently admitted to [facility] for workup/ management of the following conditions: ? -Cholecystitis : A condition in which??your gallbladder becomes inflamed. When this occurs, it may lead to discomfort, particularly in the right upper quadrant of the abdomen. this is often caused bystones in the gallbladder. ??treatment often includes a??combination of antibiotics and surgical procedures including gallbladder removal.??With proper management, many individuals with cholecystitismay continue to lead high functioning lives ?? -Hepatitis C:??This is??an inflammatory condition of the liver and is often caused by a virus.?? Requires close follow-up with an outpatient provider. ??Please follow-up with our infectious disease team??to further manage??this condition ?? Diagnostic Studies: ?? Your workup included the following tests: ? -Blood work including??complete blood count, metabolic panel,??coagulation studies,??hepatitis C??panel ?? -Imaging studies including CT scan,??MRI,??ultrasound ?? Treatment: ?? Treatment for your condition included: ? -Antibiotics,??surgical procedure??to remove your gallbladder ?? Prescribed Medications: ?? You are being sent home with the following Medications:? - You are being prescribed the antibiotic medication??levofloxacin,??metronidazole. This medicationis designed to treat bacterial infections such as the one with which you were diagnosed. Some common side effects of this medication may include.??GI discomfort. Please stop taking this medication immediately and return to the ED??if you develop any allergic sx such as swelling of the tongue or throat. - Please complete the full course of this medication even if you feel better before completing all doses as it is important to ensure your infection is treated in a complete manner.?? -You are also being prescribed losartan. ??This medication is designed to help control your blood pressure. ?? Changes to home Medications: ?? No changes have been made to your home medications. Please continue to take all medications as prescribed by your primary provider. ? Follow Up Care:?? Please follow up with the following parties after your discharge: ? -Please follow with your Primary Care Provider within two weeks of discharge to discuss your recentadmission -Please follow-up with the surgical team. ??An appointment has been scheduled for you. -Please follow-up with the infectious disease team. ??They may be reached at??[phone] ?? Return Precautions:?? Please return to the ED if you experience any of the following:? -Sudden severe abdominal pain that does not go away with rest,??nausea and vomiting that prevents you from eating or drinking,??chest pain or shortness of breath that prevents you from performing activities of daily living and??does not go away with rest,??fever that does not go away with [id number] medications, uncontrollable bleeding from your surgical sites??or green/yellow drainage. ?? It was a pleasure participating in your care at [facility].? Post Discharge Care Code Status: ?? Full Resuscitation Discharge ?11/11/22 9:34:00 EDT Discharge Prescriptions ?ePrescribed, ??11/11/22 9:35:00 EDT Home Health Face to Face ^HomeHealthFTF Results Imaging(s) ?MRI Abdomen W+W/O Contrast ?? 11/04/2022 03:45??by Glenn STARK, [place] ?IMPRESSION: ?? 1. Interval decrease in size of the dominant lesion in hepatic segment V/, now measuring up to maximum of 2.9 cm which is predominantly centrally necrotic with a few small septations and a thick enhancing wall. Additional rim-enhancing lesions in hepatic segments and VII posteriorly have also significantly decreased in size. Given the decrease in size of the lesions, these are favored to represent an infectious process such as hepatic abscesses, particularly given the setting of acute cholecystitis, rather than a primary neoplastic process. Correlation with pathology from recent tissue sampling is recommended. 2. Persistent wall thickening and edema of the gallbladder related to ongoing cholecystitis. ?Abdomen AP ?? 11/09/2022 10:57??by Raza Ragsdale MD ? IMPRESSION: ?? Stool throughout the colon. ?? Loop of small bowel in the left abdomen dilated to 4 cm. Early or partial small bowel obstruction not excluded. Follow-up may be considered as clinically indicated. ?US RUQ ?? 10/26/2022 11:27??by Tim STARK, Trent Coronado ?IMPRESSION: ?? 1. Acute cholecystitis. This was conveyed by Cortext by Dr. Dumont to Jaleel Scanlon DO on 10/26/2022 at 11:38 AM with understanding acknowledged. 2. Heterogeneous liver mass, by report this was recently biopsied. ?CT Abd/Pelvis W/ IV Contrast Only ?? 11/07/2022 12:31??by Isaura Odom MD ?There is some wall thickening of the sigmoid colon, suspicious for focal colitis. Chronic severe constipation. ?? Several borderline sized fluid-filled small bowel loops in the left abdomen likely relate to ileus.No definite small bowel obstruction. No evidence of abscess. ?? Suggests severe stenosis at origin of the left renal artery. May consider CT angiogram to better assess if needed. ? 35??minutes spent on discharge * Namrata Roe RN: PERFORM Event Display: Patient Education/Instruction Authored Date: [id number] Inpatient Adult Discharge Instructions [address] [address] Name: MANDO ODELL : 1975 Visit: 10/26/2022 13:23:00 Current Date: 11/11/2022 10:52 Account: [id number] Inpatient Adult Discharge Instructions We would like to thank you for allowing us to assist you with your healthcare needs. The following includes patient education materials and information regarding your injury/illness. Our entire staffstrives to provide an excellent experience for our patients and their families. PLEASE ENSURE YOU FOLLOW-UP PER THE INSTRUCTIONS BELOW! ?? YOUR OPINION IS IMPORTANT TO US! Please complete the survey you may receive by mail or email. Your feedback will be used to make improvements to the healthcare experiences of our patients and their families. Surveys are administered by [employer] ?? If further treatment with your primary care physician or another doctor is recommended, it is important for you to keep the appointment. Call your primary care physician or return to the Emergency Department immediately if your condition worsens, fails to improve, or new symptoms develop. If you need to find a doctor, you can call [facility] [employer] for a referral at [phone] or toll free at [phone]) or log in to [email or web address].. ?? [facility], in keeping with [facility] guidance, no longer requires face masks for staff, patientsor visitors in most situations. Similiar to time spent indoors at other locations, there is the chance that you were exposed to repiratory viruses during your time with us (such as flu or COVID-19). If you develop symptoms concerning for a viral respiratory infection, please seek testing (and treatment if indicated) from your medical provider or home test kit. ?? You can view and manage your care through the patient portal or by using a health care debbie of your choosing. [employer] is a website that allows you to securely view your medical information including your hospital discharge summary, office visit summaries, medications and follow-up visits. You can also request appointments, renew medications, and request access to your medical information using a health care debbie of your choosing, or just ask a question. You can enroll at [email or web address] or register during your next office visit. You have been discharged from [facility], Patient Care Unit: W3. If you have any questions regarding these instructions after you leave, please call us and we will be happy to assist you. [facility] Your Care Team Attending Physician Zahraa STARK, Mateusz Ribera Consulting Providers Romain STARK, Stephenie; Eriberto STARK, Tegan; Alexis STARK, Criselda; Nelli STARK, Lázaro; Eusebio STARK,Steve A; Damien STARK, [facility]; Laith STARK, Raza Rapp Discharging Providers Karlie WHIPPLE, Iggy Parkinson Reason for Admission Pt homeless with c/o nausea, recently diagnosed with a liver tumor 2 days ago. Pt was told if he gets new freckles to go the ER. Pt states he has new freckles that appeared yesterday Your Diagnosis Acute cholecystitis Liver mass Anemia Acute kidney injury Hepatitis C virus HTN (hypertension) Opioid use disorder On apixaban therapy Hypothyroidism Tests Performed Below is a partial list of the tests performed during your hospitalization. You may have had other tests and procedures not included in this list. Please discuss all test results with your provider. [address]408 Albumin Level Alk Phos ALT AST B12 Vitamin Level Basic Metabolic Panel Bilirubin Total + Direct BUN CA 19-9 CBC CBC w/ Differential CEA Comprehensive Metabolic Panel COVID-19 (2019 Novel Coronavirus) PCR Creatinine Ferritin Folic Acid Level GLUCOSE POC HEPATIC FUNCTION PANEL Hepatitis C Ab Hepatitis C RNA PCR Quant Hold Blue Top Tube HOLD GREEN TUBE Ionized Calcium Iron + Iron Binding Capacity Lactic Acid Level LFT's Lipase Liver Function Panel Lytes Magnesium Level Phosphorus Level PT (INR) PTT Transferrin Type and Screen CT Abd/Pelvis W/ IV Contrast Only CT Guidance Needle CT Outside Film Consult?-- Results Pending -- KUB MRI Abdomen W+W/O Contrast US RUQ You will be contacted within 72 hours with your results. Primary Care Provider Not on Staff, PCP Advance Directive Health Care Proxy on File No Patient refuses to discuss Discharge Vitals Temperature: 98.4 DegF Height: 176 cm Pulse Rate: 59 bpm Weight: 59.8 kg Respiratory Rate: 20 br/min Body Mass Index: 19.31 kg/m2 Systolic Blood Pressure: 131 mm Hg Body surface area: 1.71 Diastolic Blood Pressure: 82 mm Hg ?? Oxygen Saturation: 96 % ?? Studies Pending All tests and labs ordered during this hospital stay have been completed unless listed below. Please discuss all pending results with your provider listed above in these instructions. ?? Add On Lab Order Albumin Level BUN CBC w/ Differential CT Outside Film Consult Creatinine Electrolytes (Lytes) INR (PT (INR)) Ionized Calcium Magnesium Level PTT Pathology Tissue Request () Phosphorus Level What to do next Instructions From Your Doctor Reason for Admission:?? You were recently admitted to [facility] for workup/ management of the following conditions: ? -Cholecystitis : A condition in which??your gallbladder becomes inflamed. When this occurs, it may lead to discomfort, particularly in the right upper quadrant of the abdomen. this is often caused bystones in the gallbladder. ??treatment often includes a??combination of antibiotics and surgical procedures including gallbladder removal.??With proper management, many individuals with cholecystitismay continue to lead high functioning lives ?? -Hepatitis C:??This is??an inflammatory condition of the liver and is often caused by a virus.?? Requires close follow-up with an outpatient provider. ??Please follow-up with our infectious disease team??to further manage??this condition ?? Diagnostic Studies: ?? Your workup included the following tests: ? -Blood work including??complete blood count, metabolic panel,??coagulation studies,??hepatitis C??panel ?? -Imaging studies including CT scan,??MRI,??ultrasound ?? Treatment: ?? Treatment for your condition included: ? -Antibiotics,??surgical procedure??to remove your gallbladder ?? Prescribed Medications: ?? You are being sent home with the following Medications:? - You are being prescribed the antibiotic medication??levofloxacin,??metronidazole. This medicationis designed to treat bacterial infections such as the one with which you were diagnosed. Some common side effects of this medication may include.??GI discomfort. Please stop taking this medication immediately and return to the ED??if you develop any allergic sx such as swelling of the tongue or throat. - Please complete the full course of this medication even if you feel better before completing all doses as it is important to ensure your infection is treated in a complete manner.?? -You are also being prescribed losartan. ??This medication is designed to help control your blood pressure. ?? Changes to home Medications: ?? No changes have been made to your home medications. Please continue to take all medications as prescribed by your primary provider. ? Follow Up Care:?? Please follow up with the following parties after your discharge: ? -Please follow with your Primary Care Provider within two weeks of discharge to discuss your recentadmission -Please follow-up with the surgical team. ??An appointment has been scheduled for you. -Please follow-up with the infectious disease team. ??They may be reached at??[phone] ?? Return Precautions:?? Please return to the ED if you experience any of the following:? -Sudden severe abdominal pain that does not go away with rest,??nausea and vomiting that prevents you from eating or drinking,??chest pain or shortness of breath that prevents you from performing activities of daily living and??does not go away with rest,??fever that does not go away with lvoi-zqp-hawzgjw medications, uncontrollable bleeding from your surgical sites??or green/yellow drainage. ?? It was a pleasure participating in your care at [facility].? Discharge Orders Code Status:?? Full Resuscitation Scheduled Follow-Up Appointments 2022 10:20 AM EDT ?? With: Lázaro Aiken MD Where: [facility] [address] [place] [address]- Status: Pending You Need to Schedule the Following Appointments Follow Up with??Not on Staff, PCP When:??Within Within two weeks Why: Please follow up with your primary care provider within two weeks of discharge to discuss yourrecent hospital admission.?? Follow Up with??Infectious Disease When:??Within Within two weeks Why: please call infectious disease??office at to establish further treatment. Where: ?? Discharge Medications MANDO ODELL :1975 Visit Date:10/26/2022 Medications: Please continue your medications until treatment is completed or stopped by your provider. Medications not listed below should be discontinued. Discuss any questions related to medications with your provider. What How Much When Instructions Next Dose New Levofloxacin (levoFLOXacin 750 mg oral tablet) 1 tab(s) Oral Every 24 hours Duration: 21 Days Pickup at [place] [address] New Losartan (losartan 25 mg oral tablet) 25 Milligram Oral Daily Duration: 30 Days Pickup at [place] [address] 9am 11/12 New Metronidazole (metroNIDAZOLE 500 mg oral tablet) 500 Milligram Oral Every 8 hours Duration: 21 Days Pickup at [place] [address] Unchanged hydrALAZINE (hydrALAZINE 25 mg oral tablet) 1 tab(s) Oral 3 times a day 2pm 14 Unchanged Levothyroxine (levothyroxine 0.1 mg oral tablet) Oral Daily 6a11/12 Unchanged Levothyroxine (levothyroxine 150 mcg (0.15 mg) oral tablet) 1 tab(s) Oral Daily 6a11/12 Unchanged Methadone 75 Milligram Oral Daily 9am 11/12 Unchanged NIFEdipine (NIFEdipine (Eqv-Adalat CC) 30 mg oral tablet, extended release) 1 tab(s) Oral Daily 9a11/12 Pharmacy Information [facility]: [address], [place] [id number] [phone] ?? What How Much When Comments Stop Taking apixaban (Eliquis 5 mg oral tablet) 1 tab(s) Oral Twice a day Stop Taking Lisinopril Oral Daily Test Results Below is a partial list of the most recent Laboratory test results done prior to this discharge. You may have had other tests and procedures not included in this list. Please discuss all test resultswith your provider. Est Creatinine Clearance - 87.21 mL/min (11/11/2022) [address] (11/02/2022) ? ?Surgical Pathology - Patient Name: MANDO ODELL
Lab
Patient : 1975 (Age: 47)
Collection Date: 11/02/2022
Accession Date: 11/02/2022
Sign Out Date: 11/05/2022

Tissue Source:
1:POSTERIOR LIVER LESION

Final Diagnosis:&lt ;br/>Liver, lesion, biopsy:
- Benign hepatic parenchyma and well demarcated aggregate of histocytes and chronic inflammation composed of lymphocytes and plasma cells (see note).
- No malignancy identified.

Note: CD68 highlights histiocytes. Reticulin demonstrates preserved framework without macrotrabecular arrangement of hepatocytes. Glutamine synthetase demonstrates appropriate staining in the benign hepatic parenchyma. Glypican is negative. If representative personal service of lesion, findings are suggestive of inflammatory pseudotumor/resolving abscess. If clinical suspicion for a more worrisome lesion persists, close follow up would be useful.

Comment:
These immunohistochemistry and/or in-situ h ybridization tests were developed and their performance characteristics determined by the immunohistochemistry and in-situ hybridization laboratories at [facility], [place], [place]. They may not have been cleared or approved by the U.S. Food and Drug Administration (FDA). However, the FDA has determined that such clearance or approval is not necessary. These tests are used for clinical purposes. They should not be regarded as investigational or for research.

All immunohistochemical controls are reviewed and show appropriate staining.

Primary Pathologist:Dany Nicole MD
electronically signed out by: Dany Nicole MD / LORA

Clinical History:
Liver mass/diagnosis. Liver lesions/hepatitis C.

Gross Description:
Labeled liver biopsy . Received in formalin are machado-red soft tissue cores ranging from 0.5 x 0.1 x 0.1cm to 1.5 x 0.1 x 0.1 cm which are submitted in toto.
1-2 pieces x 2 +8 unstained in betwe en
2-2 pieces x 1 (HS)*

Phone #: [phone], On-Call Pathologist: [id number] Albumin Level (11/08/2022) ???Albumin - 3.4 Gm/dL Alk Phos (10/29/2022) ???Alkaline Phosphatase - 386 units/L ALT (10/29/2022) ???ALT (SGPT) - 18 units/L AST (10/29/2022) ???AST (SGOT) - 31 units/L B12 Vitamin Level (10/28/2022) ???Vitamin B12 Level - 452 pg/mL Basic Metabolic Panel (11/08/2022) ???Sodium - 133 mmol/L???Potassium - 4.7 mmol/L???Chloride - 100 mmol/L???Bicarbonate Level - 23 mmol/L???Anion Gap - 10???Glucose Level - 83 mg/dL???BUN - 21 mg/dL???Creatinine-Blood - 1.2 mg/dL???Estimated GFR Creatinine - 75 ML/MIN/1.73 M2???Calcium - 8.3 mg/dL Bilirubin Total + Direct (10/29/2022) ???Bilirubin, Total - 0.3 mg/dL???Bilirubin, Direct - 0.2 mg/dL???Bilirubin, Indirect - 0.1 mg/dL BUN (11/11/2022) ???BUN - 19 mg/dL CA 19-9 (10/27/2022) ???CA19-9 - 49 U/mL CBC (10/28/2022) ???WBC - 5.9 k/mm3???RBC - 2.92 m/mm3???Hgb - 8.7 Gm/dL???Hct - 26.9 %???MCV - 92.1 femtoliters???MCH - 29.8 pg???MCHC - 32.3 g/dL???Platelet Count - 380 k/mm3???RDW-SD - 56.0 femtoliters???MPV - 8.5femtoliters???Nucleated RBC (Automated) - 0.0 #/100 WBC'S???Abs. NRBC - 0.0 k/mm3 CBC w/ Differential (11/11/2022) ???WBC - 5.0 k/mm3???RBC - 2.91 m/mm3???Hgb - 8.4 Gm/dL???Hct - 26.5 %???MCV - 91.1 femtoliters???MCH - 28.9 pg???MCHC - 31.7 g/dL???Platelet Count - 446 k/mm3???RDW-SD - 50.2 femtoliters???MPV - 8.9femtoliters???Nucleated RBC (Automated) - 0.0 #/100 WBC'S???Abs. NRBC - 0.0 k/mm3???Abs. Neut - 2.5 k/mm3???Abs. Lymph - 1.8 k/mm3???Abs. Laporte - 0.4 k/mm3???Abs. Eo - 0.2 k/mm3???Abs. Baso - 0.1 k/mm3???Neut % - 49.5 %???Lymph % - 35.9 %???Laporte % - 8.4 %???Eos % - 4.4 %???Baso % - 1.4 %???Imm Gran - 0.4 %???Abs. Imm Gran - 0.0 k/mm3 CEA (10/27/2022) ???CEA Monoclonal - 12.9 ng/mL Comprehensive Metabolic Panel (10/26/2022) ???Sodium - 133 mmol/L???Potassium - 3.8 mmol/L???Chloride - 95 mmol/L???Bicarbonate Level - 26 mmol/L???Anion Gap - 12???Glucose Level - 95 mg/dL???BUN - 32 mg/dL???Creatinine-Blood - 1.9 mg/dL???Estimated GFR Creatinine - 43 ML/MIN/1.73 M2???Calcium - 8.8 mg/dL???Protein, Total - 8.3 Gm/dL???Albumin - 4.0 Gm/dL???AG Ratio - 0.9???Alkaline Phosphatase - 599 units/L???AST (SGOT) - 71 units/L???ALT (SGPT) - 34 units/L???Bilirubin, Total - 0.7 mg/dL COVID-19 (2019 Novel Coronavirus) PCR (10/26/2022) ???COVID-19 PCR Specimen Source - NASAL???COVID-19 PCR Result - NEGATIVE Creatinine (11/11/2022) ???Creatinine-Blood - 1.0 mg/dL???Estimated GFR Creatinine - 88 ML/MIN/1.73 M2 Ferritin (10/28/2022) ???Ferritin Level - 62 ng/mL Folic Acid Level (10/28/2022) ???Folic Acid Level - 4.8 ng/mL GLUCOSE POC (11/10/2022) ???Glucose, POC - 100 mg/dL HEPATIC FUNCTION PANEL (11/06/2022) ???Protein, Total - 7.9 Gm/dL???Albumin - 3.7 Gm/dL???Alkaline Phosphatase - 317 units/L???AST (SGOT) - 40 units/L???ALT (SGPT) - 20 units/L???Bilirubin, Total - 0.4 mg/dL???Bilirubin, Direct - 0.2 mg/dL???Bilirubin, Indirect - 0.2 mg/dL Hepatitis C Ab (11/02/2022) ???Hepatitis C Ab - REACTIVE Hepatitis C RNA PCR Quant (11/02/2022) ???Hepatitis C, RNA PCR, Quantitative - [id number] IU/mL???HCV Quant Log Result - 6.66 log IU/mL Hold Blue Top Tube (10/26/2022) ???Hold Blue Top - SPECIMEN DISCARDED AFTER 4 HOURS. HOLD GREEN TUBE (10/26/2022) ???Hold Green Top - SPECIMEN DISCARDED AFTER 1 WEEK Ionized Calcium (11/11/2022) ???Calcium, Ionized pH Corrected - 1.16 mmol/L Iron + Iron Binding Capacity (10/28/2022) ???Iron Level - 22 mcg/dL???Iron Binding Capacity, Unsaturated - 236 mcg/dL???Iron Binding Capacity, Estimated Total - 258 mcg/dL???% Iron Saturation - 9 % Lactic Acid Level (10/26/2022) ???Lactate - 1.5 mmol/L LFT's (11/07/2022) ???Protein, Total - 6.9 Gm/dL???Albumin - 3.4 Gm/dL???Alkaline Phosphatase - 251 units/L???AST (SGOT) - 31 units/L? ?ALT (SGPT) - 15 units/L? ?Bilirubin, Total - 0.3 mg/dL? ?Bilirubin, Direct - <0.2 mg/dL???Bilirubin, Indirect - Direct bilirubin is less than the measureable limit. Therefore, indirect Lipase (10/26/2022) ???Lipase - 26 units/L Liver Function Panel (10/30/2022) ???Protein, Total - 6.6 Gm/dL???Albumin - 3.0 Gm/dL???Alkaline Phosphatase - 378 units/L???AST (SGOT) - 25 units/L???ALT (SGPT) - 18 units/L???Bilirubin, Total - 0.3 mg/dL???Bilirubin, Direct - 0.2 mg/dL???Bilirubin, Indirect - 0.1 mg/dL Lytes (11/11/2022) ???Sodium - 135 mmol/L???Potassium - 4.3 mmol/L???Chloride - 100 mmol/L???Bicarbonate Level - 24 mmol/L???Anion Gap - 11 Magnesium Level (11/11/2022) ???Magnesium - 1.9 mg/dL Phosphorus Level (11/11/2022) ???Phosphorus - 4.0 mg/dL PT (INR) (11/11/2022) ???INR - 1.0???Protime (PT) - 10.7 seconds PTT (11/11/2022) ???APTT - 31.6 seconds Transferrin (10/28/2022) ???Transferrin - 199 mg/dL Type and Screen (11/05/2022) ???Blood Type - O Positive???Antibody Screen - Negative Allergies (NKA means No Known Allergies) diphenhydrAMINE Problems Active Problems??(7) Avascular necrosis of hip?? Essential hypertension?? History of subdural hematoma?? History of traumatic brain injury?? Hypothyroidism?? IV heroin dependence?? Tobacco dependence?? Education Materials Below is the list of Educational Leaflet Providered with your Discharge Instructions. Metronidazole Oral Tablet?? Cholecystitis (Presumed)?? Valuables and Belongings I fully understand and agree that [facility] accepts no responsibility for all my personal property including clothing, toilet articles, radios, jewelry, dentures, hearing aids, rings, money, or any other property that is in my possession or is brought to me after admission. I understand certain valuables may be placed in a hospital safe for a short period of time. I understand that the hospital is not liable for loss or damage due to accident, fire, or other natural occurrence while said property is in the safe. I accept full responsibility for any personal property that I keep with me, and will not hold the hospital responsible in case of loss or disappearance. I acknowledge that i have been encouraged to send valuables and belongings home. ?? No Valuables/Belongings: No valuables/belongings present Date for Pt to Sign Valuables/Belongings: 11/05/22 07:38:00 ?? Valuables & Belongings ?? Clothes Electronic devices Jewelry Monetary Items Personal devices Miscellaneous Medications (Valuables) Valuables at Bedside Other: Shaver ? Walker Books, Other: tarp, flashlight, rain cover, Tablets, Capsules, Other: fleet enemas Valuables Sent Home ? Valuables Sent to Security ? Other Discharge Information ? Case Management Discharge Plan?? Discharge Plan?? Discharge Level of Care at Discharge: Home/Detention/Foster Care ?? Pulmonary Rehab Status?? Pulmonary Rehab Discharge Status?? Respiratory Rate: 20 br/min ? Common Emergency Awareness Tips IS IT A STROKE? Act FAST and Check for these signs: FACE Does the face look uneven? ARM Does one arm drift down? SPEECH Does their speech sound strange? TIME Call at any sign of stroke ?? Heart Attack Signs Chest discomfort: Most heart attacks involve discomfort in the center of the chest and lasts more than a few minutes, or goes away and comes back. It can feel like uncomfortable pressure, squeezing, fullness or pain. Discomfort in upper body: Symptoms can include pain or discomfort in one or both arms, back, neck, jaw or stomach. Shortness of breath: With or without discomfort. Other signs: Breaking out in a cold sweat, nausea, or lightheaded. Remember, MINUTES DO MATTER. If you experience any of these heart attack warning signs, call to get immediate medical attention! ?? Smoking can increase your chances of developing chronic health problems and can cause harmful effects to other family members in your house. If you smoke, you are strongly encouraged to quit. Please call [facility] [employer] [facility] at [phone] or [phone] ([phone]) or log in to [email or web address] for referrals to smoking cessation programs. ?? 357 Suicide & Crisis Lifeline is available 20/09 if you or someone you know needs to find a reason to keep living. By calling 838 you'll be connected to a skilled, trained counselor at a crisis center in your area. INPATIENT DISCHARGE INSTRUCTIONS SIGNATURE PAGE MANDO ODELL Location:[facility] Registration Date and Time:10/26/2022 13:23 EDT Primary Care Physician: Not on Staff, PCP Attending Physician: Zahraa STARK, Mateusz Ribera, I MANDO ODELL, have received the above patient education materials/instructions and have verbalized understanding. If ambulance or transport services are being used I further acknowledge being given a choice of service. ?? If you need to contact me, please call me at this number: . Patient/Can Sorter Name: Patient/Can Sorter Signature: Relationship to Patient: Witness Name/Signature: Date: * Namrata Roe RN: PERFORM Event Display: Patient Education Leaflets Authored Date: [id number] Metronidazole Oral Tablet ?? 83848-21 Metronidazole Oral Tablet Brands: Flagyl Uses For infection. ?? Instructions Swallow with a full glass (8 oz) of water unless your doctor gives you different instructions. You may take with food to prevent stomach upset. This medicine will work best if you take it at about the same time every day. Space doses evenly to keep a steady amount of medicine in the body. Keep the medicine at room temperature. Avoid heat and direct light. If you forget to take a dose on time, take it as soon as you remember. If it is almost time for thenext dose, do not take the missed dose. Return to your normal schedule. Do not take 2 doses at one time. Drug interactions can change how medicines work or increase risk for side effects. Tell your healthcare providers about all medicines taken. Include prescription and qqll-yfa-ynbdsiz medicines, vitamins, and herbal medicines. Speak with your doctor or pharmacist before starting or stopping any medicine. Tell your doctor if symptoms do not get better or if they get worse. Keep using this medicine for the full number of days that it is prescribed. Do not stop the medicine even if you start to feel better. Keep all appointments for medical exams and tests while on this medicine. ?? Cautions Tell your doctor and pharmacist if you ever had an allergic reaction to a medicine. Do not use the medication any more than instructed. Your ability to stay alert or to react quickly may be impaired by this medicine. Do not drive or operate machinery until you know how this medicine will affect you. Avoid alcohol and products containing propylene glycol during and for 3 days after treatment with this medicine. Speak with your health care provider before receiving any vaccinations. Please tell your doctor if you have moderate to severe diarrhea while on this medicine. Do not treat the diarrhea with cjzt-xgy-xwdznix diarrhea medicine. Tell the doctor or pharmacist if you are , planning to be , or . Do not share this medicine with anyone who has not been prescribed this medicine. ?? Side Effects The following is a list of some common side effects from this medicine. Please speak with your doctor about what you should do if you experience these or other side effects. ??? decreased appetite ??? diarrhea ??? dizziness ??? headaches ??? nausea and vomiting ??? stomachupset or abdominal pain ??? changes in taste or unpleasant taste Call your doctor or get medical help right away if you notice any of these more serious side effects: ??? confusion ??? numbness or tingling in hands and feet ??? severe or persistent headache ??? signs of liver damage (such as yellowing of eye or skin, dark urine, or unusual tiredness) ??? seizures ??? unsteadiness while walking ??? difficulty or discomfort urinating ??? vaginal itching or yeast infection ??? sudden change or loss of vision A few people may have an allergic reaction to this medicine. Symptoms can include difficulty breathing, skin rash, itching, swelling, or severe dizziness. If you notice any of these symptoms, seek medical help quickly. ?? Extra Please speak with your doctor, nurse, or pharmacist if you have any questions about this medicine. ?? [email or web address] IMPORTANT NOTE: This document tells you briefly how to take your medicine, but it does not tell youall there is to know about it. Your doctor or pharmacist may give you other documents about your medicine. Please talk to them if you have any questions. Always follow their advice. There is a more complete description of this medicine available in [employer]. Scan this code on your smartphone or tablet or use the web address below. You can also ask your pharmacist for a printout. If you have any questions, please ask your pharmacist. The display and use of this drug information is subject to Terms of Use. Copyright(c) 2022 [employer]. ?? [employer]. All rights reserved. This information is not intended as a substitute for professional medical care. Always follow your healthcare professional's instructions. ?? * Namrata Roe RN: PERFORM Event Display: Patient Education Leaflets Authored Date: [id number] Cholecystitis (Presumed) ?? [id number] Cholecystitis (Presumed) Your belly (abdominal) pain may be due to an inflammation and possible infection in the gallbladder. This is called cholecystitis. The gallbladder is a small sac under the liver. It stores and releases bile. Bile is a fluid??made in the liver??that helps with digesting fat. Eating fatty food stimulates the gallbladder to contract and release the bile.??Gallstones??may form in this sac??(called cholelithiasis). Most people don't have symptoms. But if??the stone moves and blocks bile from leavingthe gallbladder, it can cause pain and even an infection.??The infection is called cholecystitis.??Bile sludge without a stone can also cause cholecystitis. To help be sure of the diagnosis, you may need to have an ultrasound, CT scan, or other special test. Several things increase the risk of developing gallstones: ??? Being a woman ??? Being obese ??? Being older ??? Losing or gaining weight quickly ??? Having ahigh-calorie diet ??? Being ??? Using hormone therapy ??? Having diabetes The most common symptoms are: ??? Belly pain, cramping, aching ??? Upset stomach (nausea), vomiting ??? Fever Many illnesses can cause these symptoms. Gallbladder pain is called biliary colic and often starts in the upper right side of your belly. The pain can also be in the top middle part of the belly. Sometimes it can spread to your right shoulder, back, and arm. It often starts suddenly, becomes more intense quickly, and then slowly decreases and goes away over a couple of hours. Older adults and people with diabetes may have trouble showing exactly where the pain is.??The pain may occur after meals, especially fatty meals. Home care ??? If you have short periods of gallbladder pain that go away, this is called biliary colic. You may be sent home to rest in bed and follow a clear liquid diet until the pain, upset stomach, and vomiting go away. Call your healthcare provider for a follow-up appointment. Biliary colic can keep coming back and can cause acute cholecystitis. ??? Antibiotics and other medicine may be prescribed. Take these exactly as directed. ??? You can take acetaminophen or ibuprofen for pain, unlessyou were given a different pain medicine to use. Talk with your provider before using these medicines if you: o Have chronic liver or kidney disease o Ever had a stomach ulcer or GI (gastrointestinal) bleeding o Are taking blood-thinner medicines ??? Fat in your diet makes the gallbladder contract and may cause more pain. Don't have any fat in your diet over the next 2 days. Follow a low-fat dietafter that. If you are overweight, a low-fat diet will help you lose weight. ?? Call 911 Call 911 if you have ongoing symptoms that don't get better, or if you get a fever with your symptoms. You may have acute cholecystitis. This is not a condition that should be treated at home. You should go to the emergency room. Often surgery to remove the gallbladder (cholecystectomy) is needed. ?? Follow-up care An infection in the gallbladder is a serious problem and must be watched carefully. Keep any appointments made to have further testing and to see a general surgeon. See your healthcare provider for another exam in the next 1 to 2 days, or as advised. Once cholecystitis has occurred, removing the gallbladder is often needed to prevent a recurrence. You can talk with your provider about this at your follow-up visit.??If you were hospitalized for cholecystitis, your gallbladder may be taken out during that same hospital stay. Gallstones that aren't causing infection or symptoms often don't need surgery. ?? When to get medical advice Call your healthcare provider if any of these occur: ??? Repeated vomiting ??? Belly swelling ??? Pain lasting more than 6 hours ??? Fever of 100.4??F (38??C) or higher, or as advised by your provider ??? Shaking chills ??? Weakness, dizziness, or fainting ??? Dark yellow pee (urine) or poop (stool) that's light foss or milo-colored ??? Yellow color of the skin or eyes (jaundice) ??? Chest, arm, back, neck, or jaw pain ?? Last Reviewed Date: 2021 ?? 3437-0199 [employer]. All rights reserved. This information is not intended as a substitute for professional medical care. Always follow your healthcare professional's instructions. ?? Patient Care team information Care Team Personnel Name: Gabriela Woodard RN Position: [facility] RN Member Role: Primary Care Nurse Name: Josselin Flores RN Position: [facility] RN Member Role: Primary Care Nurse Name: Spring Mancia RN Position: [facility] SN RN Member Role: Primary Care Nurse Name: Precious Castañeda RN Position: [facility] RN Member Role: Primary Care Nurse Name: Elena Choi RN Position: [facility] RN Member Role: Primary Care Nurse Name: Jimmie Gastelum RN Position: [facility] RN Suptaryn Member Role: Primary Care Nurse Name: Neha Owen RN Position: [facility] RN Member Role: Primary Care Nurse Name: Not on Staff, PCP Position: [facility] Physician (General Medicine) Member Role: PCP Name: Elsa Jackson RN Position: [facility] RN Member Role: Primary Care Nurse Name: Chapito Griffith RN Position: [facility] RN Member Role: Primary Care Nurse Name: Estefani Washington RN Position: [facility] RN Member Role: Primary Care Nurse Name: Swetha Newell RN Position: [facility] RN Member Role: Primary Care Nurse Name: Namrata Roe RN Position: [facility] RN Member Role: Primary Care Nurse Name: Kanwal MANRIQUEZ Attending Position: [facility] ED Medicine MD Name: Sierra Pierre RN Position: S RN Member Role: Patient Care Provider Name: Katelyn Leon Position: [facility] ED OA Charge Member Role: ED Associate Care Team Related Persons Name: GAY PIERRE Address: [place] [address]
--- OUTSIDE RECORDS SUMMARY | 2023-03-17 09:26 | XMS_ITS | Continuity of Care Document ---
Author Name Unknown Organization [facility] Address [address] [place] [address]- Care Team Providers Care Offender Employment Specialist Name Role Phone Not on Staff, PCP Primary Care Physician Unavail able Encounter [facility] Date(s): 11/02/22 - 12/02/22 [facility] [address] [place] [id number]- Attending Physician: Cas Gann Admitting Physician: AdmCas hancock Referring Physician: AdmtrCas Allergies, Adverse Reactions, Alerts Substance Reaction Severity Status diphenhydrAMINE Active Immunizations Given and Recorded Vaccine Date Status Refusal Reason SARS-CoV-2 (COVID-19) mRNA-1273 vaccine 09/25/20 R ecorded Medications docusate-senna 50 mg-8.6 mg oral capsule 1 capsule, By Mouth, 2 times a day, for 45 days, # 90 capsule, 0 Refills, Acute 01/12/23 13:50:00 EST, 11/28/22 13:50:00 EDT, [facility], Partial fill upon patient request if the prescription is for a schedule II opioid drug., 1 capsule... Start Date: 11/28/22 Stop Date: 01/12/23 Status: Ordered hydrALAZINE 25 mg oral tablet 25 mg, 1, tablet, By Mouth, 3 times a day, # 270 tablet, Refills 0, Tot. Refills 0, Maintenance, 11/28/22 13:20:00 EDT, Route to Pharmacy Electronically, [facility], Partial fill upon patient request if the prescription is for a schedule... Start Date: 11/28/22 Status: Ordered levoFLOXacin 750 mg oral tablet 1 tablet = 750 mg, By Mouth, Every 24 hours, for 20 days, # 20 tablet, 0 Refills, Acute 12/18/22 13:20:00 EDT, 11/28/22 13:20:00 EDT, Tablet, [facility], Partial fill upon patient request if the prescription is for a schedule II opioid d... Start Date: 11/28/22 Stop Date: 12/18/22 Status: Ordered levothyroxine 150 mcg (0.15 mg) oral tablet 1 tablet = 150 mcg, By Mouth, Daily, # 90 tablet, 0 Refills, Maintenance, 11/28/22 13:20:00 EDT, Tablet, [facility], Partial fill upon patient request if the prescription is for a schedule II opioid drug., 175.26, cm, 11/28/22 12:18:00 E... Start Date: 11/28/22 Status: Ordered losartan 25 mg oral tablet 25 mg, By Mouth, Daily, # 90 tablet, Refills 0, Tot. Refills 0, Maintenance, 11/28/22 13:20:00 EDT,Route to Pharmacy Electronically, [facility], Partial fill upon patient request if the prescription is for a schedule II opioid drug., 17... Start Date: 11/28/22 Stop Date: 02/26/23 Status: Ordered Methadone = 75 mg, By Mouth, Daily, 0 Refills, Maintenance, 10/27/22 15:26:00 EDT, Partial fill upon patient request if the prescription is for a schedule II opioid drug. Start Date: 10/27/22 Status: Ordered metroNIDAZOLE 500 mg oral tablet = 500 mg, By Mouth, Every 8 hours, for 21 days, # 62 tablet, 0 Refills, Acute 12/19/22 13:20:00 EDT, 11/28/22 13:20:00 EDT, Tablet, [facility], Partial fill upon patient request if the prescription is for a schedule II opioid drug., 175.... Start Date: 11/28/22 Stop Date: 12/19/22 Status: Ordered MiraLax oral powder for reconstitution = 17 Gm, By Mouth, Daily, # 238 Gm, 0 Refills, Acute 12/12/22 13:51:00 EDT, 11/28/22 13:51:00 EDT, REC Powder, [facility], Partial fill upon patient request if the prescription is for aschedule II opioid drug., 17 Gm By Mouth Daily, 175... Start Date: 11/28/22 Stop Date: 12/12/22 Status: Ordered Problem List Condition Confirmation Course [...] Team Personnel Name: Gabriela Woodard RN Position: [facility] RN Member Role: Primary Care Nurse Name: Josselin Flores RN Position: [facility] RN Member Role: Primary Care Nurse Name: Spring Mancia RN Position: [facility] SN RN Member Role: Primary Care Nurse Name: Precious Castañeda RN Position: [facility] RN Member Role: Primary Care Nurse Name: Elena Choi RN Position: S RN Member Role: Primary Care Nurse Name: Jimmie Gastelum RN Position: [facility] RN Supv Member Role: Primary Care Nurse Name: Faisal Albrecht RN Position: [facility] RN Member Role: Primary Care Nurse Name: Olamide Hill LPN Position: [facility] RN Member Role: Primary Care Nurse Name: Neha Owen RN Position: [facility] RN Member Role: Primary Care Nurse Name: Not on Staff, PCP Position: [facility] Physician (General Medicine) Member Role: PCP Name: Elsa Jackson RN Position: S RN Member Role: Primary Care Nurse Name: Chapito Griffith RN Position: [facility] RN Member Role: Primary Care Nurse Name: Estefani Washington RN Position: [facility] RN Member Role: Primary Care Nurse Name: Swetha Newell RN Position: S RN Member Role: Primary Care Nurse Name: Namrata Roe RN Position: S RN Member Role: Primary Care Nurse Care Team Related Persons Name: GAY BLACK Address: [place] [address]
--- OUTSIDE RECORDS SUMMARY | 2023-03-17 09:26 | XMS_ITS | Continuity of Care Document ---
Author Name Unknown Organization [facility] Address [address] [place] [address] [address] [place] [address]- Care Team Providers Care Tribal Delegate Name Role Phone Not on Staff, PCP Primary Care Physician Unavail able Encounter [facility] Date(s): 11/09/22 - 12/25/[address] [place] [address]- Attending Physician: Lázaro Aiken MD Allergies, Adverse Reactions, Alerts Substance Reaction Severity Status diphenhydrAMINE Active Immunizations Given and Recorded Vaccine Date Status Refusal Reason SARS-CoV-2 (COVID-19) mRNA-7576 vaccine 09/25/20 R ecorded Medications docusate-senna 50 mg-8.6 mg oral capsule 1 capsule, By Mouth, 2 times a day, for 45 days, # 90 capsule, 0 Refills, Acute 01/12/23 13:50:00 EST, 11/28/22 13:50:00 EDT, [facility], Partial fill upon patient request if the prescription is for a schedule II opioid drug., 1 capsule... Start Date: 11/28/22 Stop Date: 01/12/23 Status: Ordered hydrALAZINE 25 mg oral tablet 25 mg, 1, tablet, By Mouth, 3 times a day, # 270 tablet, Refills 0, Tot. Refills 0, Maintenance, 11/28/22 13:20:00 EDT, Route to Pharmacy Electronically, [facility], Partial fill upon patient request if [...] Maintenance, 11/28/22 13:20:00 EDT,Route to Pharmacy Electronically, [facility], Partial fill upon patient request if [...] Team Personnel Name: Gabriela Woodard RN Position: [facility] RN Member Role: Primary Care Nurse Name: Josselin Flores RN Position: [facility] RN Member Role: Primary Care Nurse Name: Spring Mancia RN Position: [facility] SN RN Member Role: Primary Care Nurse Name: Precious Castañeda RN Position: S RN Member Role: Primary Care Nurse Name: Elena Choi RN Position: S RN Member Role: Primary Care Nurse Name: Jimmie Gastelum RN Position: [facility] RN Supv Member Role: Primary Care Nurse Name: Faisal Albrecht RN Position: S RN Member Role: Primary Care Nurse Name: Olamide Hill LPN Position: S RN Member Role: Primary Care Nurse Name: Neha Owen RN Position: S RN Member Role: Primary Care Nurse Name: Not on Staff, PCP Position: [facility] Physician (General Medicine) Member Role: PCP Name: Elsa Jackson RN Position: [facility] RN Member Role: Primary Care Nurse Name: Chapito Griffith RN Position: [facility] RN Member Role: Primary Care Nurse Name: Estefani Washington RN Position: [facility] RN Member Role: Primary Care Nurse Name: Swetha Newell RN Position: [facility] RN Member Role: Primary Care Nurse Name: Namrata Roe RN Position: [facility] RN Member Role: Primary Care Nurse Care Team Related Persons Name: GAY BLACK Address: [place] [address]
--- OUTSIDE RECORDS SUMMARY | 2023-03-17 09:26 | XMS_ITS | Continuity of Care Document ---
Author Name Unknown Organization [facility] Address [address] [place] [address]- Care Team Providers Care Pony Trimmer Name Role Phone Not on Staff, PCP Primary Care Physician Unavail able Encounter [facility] Date(s): 11/02/22 - 02/22/23 [facility] [address] [place] [address]- Discharge Disposition: A-D/C Home Attending Physician: Stephenie Hoyos MD Admitting Physician: Stephenie Hoyos MD Referring Physician: Deysi Chang MD Allergies, Adverse Reactions, Alerts Substance Reaction Severity Status diphenhydrAMINE Active Immunizations Given and Recorded Vaccine Date Status Refusal Reason SARS-CoV-2 (COVID-19) mRNA-4779 vaccine 09/25/20 R ecorded Medications hydrALAZINE 25 mg oral tablet 25 mg, 1, tablet, By Mouth, 3 times a day, # 270 tablet, Refills 0, Tot. Refills 0, Maintenance, 11/28/22 13:20:00 EDT, Route to Pharmacy Electronically, [facility] 3, Partial fill upon patient request if the prescription is for a schedule... Start Date: 11/28/22 Status: Ordered levothyroxine 150 mcg (0.15 mg) oral tablet 1 tablet = 150 mcg, By Mouth, Daily, # 90 tablet, 0 Refills, Maintenance, 11/28/22 13:20:00 EDT, Tablet, [facility], Partial fill upon patient request [...] Team Personnel Name: Gabriela Woodard RN Position: [facility] RN Member Role: Primary Care Nurse Name: Josselin Flores RN Position: [facility] RN Member Role: Primary Care Nurse Name: Spring Mancia RN Position: [facility] SN RN Member Role: Primary Care Nurse Name: Precious Castañeda RN Position: [facility] RN Member Role: Primary Care Nurse Name: Elena Choi RN Position: [facility] RN Member Role: Primary Care Nurse Name: Jimmie Gastelum RN Position: [facility] RN Supv Member Role: Primary Care Nurse Name: Faisal Albrecht RN Position: [facility] RN Member Role: Primary Care Nurse Name: Olamide Hill LPN Position: S RN Member Role: Primary Care Nurse Name: Neha Owen RN Position: [facility] RN Member Role: Primary Care Nurse Name: Not on Staff, PCP Position: [facility] Physician (General Medicine) Member Role: PCP Name: Elsa Jackson RN Position: S RN Member Role: Primary Care Nurse Name: Chapito Griffith RN Position: [facility] RN Member Role: Primary Care Nurse Name: Estefani Washington RN Position: [facility] RN Member Role: Primary Care Nurse Name: Swetha Newell RN Position: [facility] RN Member Role: Primary Care Nurse Name: Namrata Roe RN Position: [facility] RN Member Role: Primary Care Nurse Care Team Related Persons Name: GAY BLACK Address: [place] [address]
--- OUTSIDE RECORDS SUMMARY | 2023-03-17 09:26 | XMS_ITS | Continuity of Care Document ---
Author Name Unknown Organization [facility] ter Address [address] [place] [id number] Care Team Providers Care Financial Analyst Name Role Phone Not on Staff, PCP Primary Care Physician Unavail able Encounter [facility] Date(s): 11/21/22 - 11/28/[address] [address]- Encounter Diagnosis Altered mental state(Final) - 11/19/22 Homelessness(Final) - 11/19/22 Methadone use(Final) - 11/19/22 Liver masses(Final) - 11/19/22 Discharge Disposition: A-D/C Home Attending Physician: Georgina Acosta DO Admitting Physician: Anderson Del Castillo MD Referring Physician: Not on Staff, Referring [...] Acute 01/12/23 13:50:00 EST, 11/28/22 13:50:00 EDT, [facility], Partial fill upon patient request if the prescription is for a schedule II opioid drug., 1 capsule... Start Date: 11/28/22 Stop Date: 01/12/23 Status: Ordered hydrALAZINE 25 mg oral tablet 25 mg, Tablet, By Mouth, 11/28/22 15:00:00 EDT Start Date: 11/28/22 Stop Date: 11/28/22 Status: Completed hydrALAZINE 25 mg oral tablet 25 mg, 1, tablet, By Mouth, 3 times a day, # 270 tablet, Refills 0, Tot. Refills 0, Maintenance, 11/28/22 13:20:00 EDT, Route to Pharmacy Electronically, [facility], Partial fill upon patient request if the prescription is for a schedule... Start Date: 11/28/22 Status: Ordered levoFLOXacin 750 mg oral tablet 1 tablet = 750 mg, By Mouth, Every 24 hours, for 20 days, # 20 tablet, 0 Refills, Acute 12/18/22 13:20:00 EDT, 11/28/22 13:20:00 EDT, Tablet, [facility], Partial fill upon patient request if the prescription is for a schedule II opioid d... Start Date: 11/28/22 Stop Date: 12/18/22 Status: Ordered levothyroxine 150 mcg (0.15 mg) oral tablet 1 tablet = 150 mcg, By Mouth, Daily, # 90 tablet, 0 Refills, Maintenance, 11/28/22 13:20:00 EDT, Tablet, [facility], Partial fill upon patient request if the prescription is for a schedule II opioid drug., 175.26, cm, 11/28/22 12:18:00 E... Start Date: 11/28/22 Status: Ordered losartan 25 mg oral tablet 25 mg, By Mouth, Daily, # 90 tablet, Refills 0, Tot. Refills 0, Maintenance, 11/28/22 13:20:00 EDT,Route to Pharmacy Electronically, [facility], Partial fill upon patient request if the prescription is for a schedule II opioid drug., 17... Start Date: 11/28/22 Stop Date: 02/26/23 Status: Ordered Methadone = 75 mg, By Mouth, Daily, 0 Refills, Maintenance, 10/27/22 15:26:00 EDT, Partial fill upon patient request if the prescription is for a schedule II opioid drug. Start Date: 10/27/22 Status: Ordered Methadone Liquid 75 mg, Solution, By Mouth, 11/28/22 9:00:00 EDT Start Date: 11/28/22 Stop Date: 11/28/22 Status: Completed metroNIDAZOLE 500 mg oral tablet = 500 mg, By Mouth, Every 8 hours, for 21 days, # 62 tablet, 0 Refills, Acute 12/19/22 13:20:00 EDT, 11/28/22 13:20:00 EDT, Tablet, [facility], Partial fill upon patient request if the prescription is for a schedule II opioid drug., 175.... Start Date: 11/28/22 Stop Date: 12/19/22 Status: Ordered MiraLax oral powder for reconstitution = 17 Gm, By Mouth, Daily, # 238 Gm, 0 Refills, Acute 12/12/22 13:51:00 EDT, 11/28/22 13:51:00 EDT, REC Powder, [facility], Partial fill upon patient [...] Confirmed Active Tobacco dependence Confirmed Active Results Orders for Microbiology Reports Name Date Blood Culture 11/19/22 Blood Culture #2 11/19/22 Microbiology Reports TEST:Blood Culture STATUS:Auth (Verified) BODY SITE: SOURCE:Blood COLLECTED DATE/TIME:11/19/22 10:05 PM Blood Culture SPECIMEN DESCRIPTION : BLOOD NO SITE SPECIAL REQUESTS : NONE CULTURE : NO GROWTH 5 DAYS. REPORT STATUS : FINAL 11/25/2022 TEST:Blood Culture, Second Order STATUS:Auth (Verified) BODY SITE: SOURCE:Blood COLLECTED DATE/TIME:11/19/22 8:42 PM Blood Culture, Second Order SPECIMEN DESCRIPTION : BLOOD SPECIAL REQUESTS : NONE CULTURE : NO GROWTH 5 DAYS. REPORT STATUS : FINAL 11/24/2022 Radiology Reports * Exam Date Time Procedure Performing Provider Status 11/23/22 11:[address] Abdomen W+W/O Contrast Rosas Nayak; Auth (Verified) Notes: (CT Abdomen W+W/O Contrast) Reason For Exam: prior liver lesions; need to reassess;Other: RESULT: CT Abdomen W+W/O Contrast CT Abdomen W+W/O Contrast Reason: Other:; prior liver lesions; need to reassess; Clinical Question(s): Abscess; Order Comment: TECHNIQUE: Helical CT scan was performed through the abdomen without and with nonionic IV contrast.Liver mass protocol was used. Images are formatted in axial, sagittal and coronal planes. 100 cc ofOmnipaque 300 was administered intravenously. This study was performed without oral contrast. Weight-based protocol using automatic tube modulation was used to optimize exposure parameters. RADIATION DOSE PARAMETERS: CTDIvol Body: 11.62 mGy, DLP Body: 797 mGy*cm. COMPARISON: Prior CTs of the abdomen and pelvis dated November 19, 2022 and November 07, 2022, and MRI of the abdomen dated November 04, 2022. FINDINGS: Car Oiler View Findings, Lines and Tubes: None. Visualized Chest: Trace left-sided pleural effusion. Bibasilar atelectasis. Top normal heart size without pericardial effusion. Diaphragm: Normal. Liver: No suspicious lesion or overt changes of cirrhosis. Rim-enhancing 1.6 x 1.5 cm collection atthe marc hepatis may be within the hepatic parenchyma or just outside (series 601 image 47), previously measuring up to 2.7 x 2.4 cm on MRI from November 04, 2022. No new or enlarging collection. Evaluation is mildly limited by early timing of the contrast bolus. Gallbladder: Surgically absent. Bile ducts: Mild central biliary prominence, likely reservoir effect following cholecystectomy. Spleen: Normal. Pancreas: Normal. Adrenal glands: Normal. Kidneys and ureters: No hydronephrosis, stones, or suspicious masses. Small hypodensities that are too small to characterize are noted, requiring no dedicated follow up. Stomach, small bowel, and large bowel: Physiologic distention of the stomach. Normal caliber small bowel loops without evidence of obstruction within the [id number]. Large volume of stool within the imaged colon. Peritoneum and retroperitoneum: No ascites or pneumoperitoneum. No omental or mesenteric lesions. Lymph nodes: No enlarged lymph nodes. Blood vessels: Moderate atherosclerotic vascular calcification. No aortic aneurysm. Moderate to severe stenosis of the proximal aspect of the left renal artery with the stenotic segment spanning approximately 1.6 cm in length. Duplicated patent right renal arteries. No evidence of venous thrombosis. Abdominal wall: Unremarkable. Bones: No acute abnormality. Mild degenerative changes. IMPRESSION: Single rim-enhancing collection at the marc hepatis either within or directly adjacent to the liver measuring up to 1.6 cm, previously up to 2.7 cm. No new or enlarging fluid collection. Moderate to severe stenosis of the proximal left renal artery. Large stool burden throughout the colon. WSN: [id number] Ordering Physician: Guillermo Vital Dictated By: Andrew Bautista MD Dictated Date/Time: 11/23/22 12:06 p Reviewed By: Andrew Bautista MD Signed By: Andrew Bautista MD Signed Date/Time: 11/23/22 12:06 pm Transcribed By: CSJessica Transcribed Date/Time: 11/23/22 11:50 am * Exam Date Time Procedure Performing Provider Status 11/19/22 9:[address] Abd/Pelvis W/ IV Contrast Only Long avila , Rose Marie; Auth (Verified) Notes: (CT Abd/Pelvis W/ IV Contrast Only) Reason For Exam: diffues abdominal pain;Other: RESULT: CT Abd/Pelvis W/ IV Contrast Only CT Abd/Pelvis W/ IV Contrast Only Hx of Present Illness: found in public, had a seizure, hit head, when ems arrived pt was alert and oriented, having nausea vomiting, abd pain, fevers, chills; Reason: Other:; diffuse abdominal pain; Clinical Question(s): Abscess; Order Comment: TECHNIQUE: Spiral CT through the abdomen and pelvis with IV contrast formatted in 3 planes. 75 cc of Omnipaque 300 was administered intravenously. This study was performed without oral contrast. Weight-based protocol using automatic tube modulation was used to optimize exposure parameters. CTDIvol Body: 10.70 mGy, DLP Body: 609 mGy*cm. COMPARISON: 11/07/2022. FINDINGS: Image quality is degraded due to breathing motion artifacts, most significant in the lower pelvis. Furthermore, patient's left arm overlies the torso and there is motion of the arm creating additional artifacts. Car Oiler View Findings, Lines and Tubes: None. Visualized Chest: Mild dependent atelectasis in lower lobes. No pleural effusion. The heart is normal in size. No pericardial effusion. Diaphragm: Normal. Liver: Periportal edema. No focal liver lesions seen within limitations of motion artifacts. Gallbladder: Absent consistent with prior cholecystectomy. Bile ducts: No biliary ductal dilation. Spleen: Normal. Pancreas: Normal. Adrenal glands: Normal. Kidneys and ureters: No hydronephrosis, stones, or suspicious masses. There is a 1.1 cm cyst in theleft kidney upper pole. Bladder: Normal. Reproductive organs: Unremarkable. Stomach, small bowel, and large bowel: Distal duodenum and jejunum are mildly distended with caliber of the jejunum measuring 3.5 cm. Extremely limited evaluation of the bowel wall due to motion artifacts, ascites, and diffuse mesenteric edema. No discrete transition point is seen. Remainder of thesmall bowel loops appear normal in caliber. There is large amount of stool throughout the colon, most significant in the right hemicolon and transverse colon. Appendix: Not visualized. Peritoneum and retroperitoneum: Small volume abdominopelvic ascites and diffuse mesenteric edema. Evaluation for omental or mesenteric lesions is extremely limited. Lymph nodes: No enlarged lymph nodes. Blood vessels: Mild vascular calcifications but no aneurysm. No evidence of venous thrombosis. Abdominal and pelvic wall: Unremarkable. Bones: No acute abnormality seen within limitations of motion artifacts. Evaluation of the lower spine and pelvic bones is extremely limited. Mild superior endplate deformity of L4 is likely unchanged. IMPRESSION: 1. Significantly degraded image quality due to patient motion artifacts. 2. Small abdominopelvic ascites, diffuse mesenteric edema, and periportal edema. 3. Mildly distended distal duodenum and jejunum without a transition point. Evaluation of the bowelwall is extremely limited. 4. Large amount of stool retention in the colon. WSN: [id number] Ordering Physician: Velia Reveles Dictated By: Cristopher Mathis MD Dictated Date/Time: 11/19/22 9:45 pm Reviewed By: Cristopher Mathis MD Signed By: Cristopher Mathis MD Signed Date/Time: 11/19/22 9:45 pm Transcribed By: MARY ALICE Transcribed Date/Time: 11/19/22 9:35 pm * Exam Date Time Procedure Performing Provider Status 11/19/22 8:[address] Head/Brain W/O Contrast Delicia Velasquez; Auth (Verified) Notes: (CT Head/Brain W/O Contrast) Reason For Exam: Brain mass or lesion;Other: RESULT: CT Head/Brain W/O Contrast CT Head/Brain W/O Contrast INDICATION: Hx of Present Illness: found in public, had a seizure, hit head, when ems arrived pt was alert and oriented, having nausea vomiting, abd pain, fevers, chills; Reason: Other:; Brain mass or lesion; Clinical Question(s): Hematoma; Order Comment: TECHNIQUE: Noncontrast head CT using axial technique and reconstructed in axial and coronal planes.Iterative reconstruction techniques are used to optimize dose and image quality. CTDIvol Head: 47.90 mGy, DLP Head: 772 mGy*cm. COMPARISON: 12/08/2021 FINDINGS: Car Oiler view findings, lines and tubes: None. BRAIN AND EXTRA-AXIAL SPACES: No parenchymal hemorrhage, midline shift, or mass effect. Land-white matter differentiation is wellpreserved. No acute infarct. Ventricles, sulci, and basilar cisterns are normal. No white matter lesions. No subarachnoid hemorrhage. No subdural or epidural collection. CALVARIUM, SKULL BASE, AND SOFT TISSUES: No fractures or suspicious bony lesions. The paranasal sinuses and mastoid air cells are clear. Visualized orbits and globes are intact. The extracranial soft tissues are unremarkable. IMPRESSION: No acute intracranial pathology. WSN: [id number] Ordering Physician: Velia Reveles Dictated By: Rich Barton MD Dictated Date/Time: 11/19/22 8:43 pm Reviewed By: Rich Barton MD Signed By: Rich Barton MD Signed Date/Time: 11/19/22 8:43 pm Transcribed By: MARY ALICE Transcribed Date/Time: 11/19/22 8:41 pm Vital Signs Most recent to oldest [Reference Range]: 1 2 3 Height 175.26 cm (11/28/22 12:18 PM) 175.26 cm (11/28/22 9:54 AM) 175.26 cm (11/28/22 5:19 AM) Oxygen Saturation [94-100 %] 100 % (11/28/22 12:18 PM) 100 % (11/28/22 5:19 AM) 99 % (11/27/22 9:33 PM) Pulse Rate [55-90 bpm] 36 bpm *L* (11/28/22 12:18 PM) 56 bpm (11/28/22 9:54 AM) 48 bpm *L* (11/28/22 5:19 AM) Blood Pressure [90-138/55-84 mm Hg] 123/80mm Hg (11/28/22 1:53 PM) 113/76mm Hg (11/28/22 12:18 PM) 125/71mm Hg (11/28/22 9:54 AM) Respiratory Rate [16-30 br/min] 16 br/min (11/28/22 12:18 PM) 16 br/min (11/28/22 9:59 AM) 17 br/min (11/28/22 5:19 AM) Temperature [96.8-100.4 DegF] 98.7 DegF (11/28/22 12:18 PM) 97.9 DegF (11/28/22 5:19 AM) 97.9 DegF (11/27/22 9:33 PM) Liters per Minute 4 L/min (11/19/22 7:25 PM) 4 L/min (11/19/22 6:25 PM) 4 L/min (11/19/22 6:07 PM) Mode of Delivery (Oxygen) Room air (11/28/22 12:18 PM) Room air (11/28/22 5:19 AM) Room air (11/27/22 9:33 PM) Blood pressure sites Arm, left (11/28/22 12:18 PM) Arm, left (11/28/22 9:54 AM) Arm, left (11/28/22 5:19 AM) Temperature Route Oral (11/28/22 12:18 PM) Oral (11/28/22 5:19 AM) Oral (11/27/22 9:33 PM) Social History Social History Type Response Tobacco Use: 4 or less cigar ettes(less than 1/4 pack)/day in last 30 days. Sex Admission evaluation note * Shanika STARK, Lamin Coronado: PERFORM, MODIFY Event Display: Admission Note Authored Date: Patient: ??MANDO BUTLER ? Age:??47 Years?Sex:??Male?:??1975?? Chief Complaint/Reason for Consultation found in public, had a seizure, hit head, when ems arrived pt was alert and oriented, having nauseavomiting, abd pain, fevers, chills History of Present Illness 47-year-old gentleman with past medical history of??recent abdominal surgery??for acute cholecystitis, opiate use disorder on methadone, hypertension??presented to [facility]??for evaluation??for??with questionable seizure??behind[facility]. ??Patient was initially sleepy but woke up after sternal rub.?? Patient denied??having any??illicit drug use or alcohol use.?? The patient was apparently??discharged??to the streets.?? Patient complained of??abdominal pain.?? Patient deniedhaving any fevers??or sputum production.?? No leukocytosis.?? High sensitive troponins??are below 60.?? Patient has??history of opiate use disorder??and is on??methadone??75 mg.?? The patient is being admitted to [facility] for further evaluation and treatment. Review of Systems Constitutional: No fever HEENT: No visual loss, blurred vision, double vision or yellow sclera. No runny nose or sore throat. Cardiovascular: No chest pain, palpitations or pedal edema. Respiratory: No shortness of breath, cough or sputum production. Gastrointestinal: No nausea, vomiting or diarrhea. No abdominal pain.?? Neurologic: No headache, dizziness, unilateral weakness, numbness or tingling in the extremities. Objective Measurements?? Height: 175.26 cm (11/20/22) ?? Vital Signs?? Temperature: 98.8 DegF (11/20/22 13:10:00) Temperature Route: Oral (11/20/22 13:10:00) Pulse Rate: 65 bpm (11/20/22 13:10:00) Respiratory Rate: 18 br/min (11/20/22 13:57:00) Systolic Blood Pressure: 138 mm Hg (11/20/22 13:57:00) Systolic Blood Pressure: 138 mm Hg (11/20/22 13:57:00) Diastolic Blood Pressure:??102 mm Hg??High (11/20/22 13:57:00) Diastolic Blood Pressure:??102 mm Hg??High (11/20/22 13:57:00) Blood pressure sites: Arm, right (11/20/22 13:10:00) Mean Arterial Pressure: 114 mm Hg (11/20/22 13:10:00) Pulse Pressure: 36 mm Hg (11/20/22 13:10:00) Oxygen Saturation: 100 % (11/20/22 10:27:00) Liters per Minute: 4 L/min (11/19/22 19:25:00) Mode of Delivery (Oxygen): Room air (11/20/22 10:27:00) Early Warning Score: 0 (11/20/22 14:00:48) ? Intake/Output? No Data Available ?? Precautions No Precautions documented.? Mobility & Ambulation Level Mobility & Ambulation Level Ambulatory devices needed: None (11/20/22) ? Physical Exam General: Alert Mental Status: Oriented to person, place and time. Head: Normocephalic. Neck: Supple Respiratory: Clear to auscultation and percussion. No wheezing, rales or rhonchi. Cardiovascular: Heart sounds normal. No thrills. Regular rate and rhythm, no murmurs, rubs or gallops. Gastrointestinal: Abdomen soft, non-tender, non-distended. Normal bowel sounds.?? Neurologic: Cranial nerves II-XII grossly intact. No focal neurological deficits. Sensation intact bilaterally. Skin: No rashes or lesions.?? Musculoskeletal: No cyanosis or clubbing. Assessment/Plan Diagnoses Altered mental state ??(R41.82) Homelessness ??(Z59.00) Liver masses ??(R16.0) Methadone use ??(F11.90) ?? Assessment:??47-year-old gentleman with past medical history of recent abdominal surgery for acute cholecystitis, opiate use disorder on methadone, hypertension presented to [facility] for evaluation for with questionable seizure behind [employer]. Patient was initially sleepy but woke up after sternal rub. Patient denied having any illicit drug use or alcohol use. The patient was apparently discharged to the streets. Patient complained of abdominal pain. Patient denied having any fevers or sputum production. No leukocytosis. High sensitive troponins are below 60. Patient has history of opiate use disorder and is on methadone 75 mg. The patient is being admitted to [facility] for further evaluation and treatment. ? 1.?Abdominal pain:/Severe constipation Likely secondary to??increased opiate use??and constipation Severe constipation: Recent??cholecystectomy History of??recent??acute cholecystitis at outside hospital Patient had??cholecystectomy??at outside hospital Patient denies having??vomitings CT scan??of the abdomen??which showed??severe stool burden I will prescribe??stool softener??and bowel regimen We will monitor the??bowel pattern??and if??the patient is still??constipated,??we can consider??suppository or enema ? 2.?Hypertension: Blood pressure was initially high??at 177/1 1 2 mmHg Subsequently??the blood pressure??has improved??to 138/102 mmHg We will monitor??blood pressure and adjust??antihypertensive medications??if??needed ? 3.?History of substance use disorder: Patient has history of??opiate use disorder Patient is on methadone??75 mg daily??which we will continue ? 4.?Question of seizure: No clear??the patient had??a seizure We will monitor the patient??clinically ? 5.? DVT prophylaxis:??Pneumatic compression boots and??early ambulation Diet:??Cardiac diet CODE STATUS: Full code ?? I have discussed the above plan with the patient at bedside who is in agreement ? Discharge Planning:? Histories Allergies Allergies ?(Active and Proposed Allergies Only) diphenhydrAMINE? (Severity: Unknown severity, Onset: Unknown) ? Past Medical History/Problem List Active Problems??(7) Avascular necrosis of hip Essential hypertension History of subdural hematoma History of traumatic brain injury Hypothyroidism IV heroin dependence Tobacco dependence ? Past Surgical History Laparoscopic cholecystectomy: 11/05/22 ? Social History Alcohol Details:??Use: Never. Other Details:??Name: HCP: None. ??Details: He is a FULL CODE. Substance Abuse Details:??Type: Cocaine. Details:??Use: Current. ??Type: Heroin. Tobacco Details:??Use: 4 or less cigarettes(less than 1/4 pack)/day in last 30 days. ? Psychosocial History ? Family History Mother (): Hypertension; Hypothyroidism Father (): Hypertension; Hypothyroidism ? Medications Home Medications hydrALAZINE (hydrALAZINE 25 mg oral tablet)?25?Milligram?1?tablet?By Mouth?3 times a day Levofloxacin (levoFLOXacin 750 mg oral tablet)?1?tab(s)?750?Milligram?By Mouth?Every 24 hours?for 21?Days Levothyroxine (levothyroxine 150 mcg (0.15 mg) oral tablet)?1?tab(s)?150?Microgram?By Mouth?Daily Losartan (losartan 25 mg oral tablet)?25?Milligram?By Mouth?Daily?for 30?Days Methadone?75?Milligram?By Mouth?Daily Metronidazole (metroNIDAZOLE 500 mg oral tablet)?500?Milligram?By Mouth?Every 8 hours?for 21?Days NIFEdipine (NIFEdipine (Eqv-Adalat CC) 30 mg oral tablet, extended release)?1?tab(s)?30?Milligram?By Mouth?Daily ? Inpatient Medications Medications (18) Active SCHEDULED: (13) Bisacodyl 10 mg Suppository (Dulcolax Supp) ??10 mg 1 supp, Rectally, Once Docusate Sodium 100 mg Capsule (docusate sodium 100 mg oral capsule) ??100 mg 1 capsule, By Mouth, 2 times a day hydrALAZINE 25 mg Tablet (hydrALAZINE 25 mg oral tablet) ??25 mg, By Mouth, 3 times a day Levofloxacin 750 mg Tablet (Levofloxacin Tablet) ??750 mg, By Mouth, Every 24 hours Levothyroxine 75 mcg Tablet (levothyroxine 0.1 mg oral tablet) ??150 mcg, By Mouth, Daily Losartan 25 mg Tablet (losartan 25 mg oral tablet) ??25 mg, By Mouth, Daily Methadone 30mg/15mL UD Solution (Methadone Liquid) ??75 mg 37.5 mL, By Mouth, Daily Metronidazole 500mg Tablet (Metronidazole Tablet) ??500 mg, By Mouth, Every 8 hours NaCl 0.9% Flush 3ml (NaCL 0.9% Flush) ??3 mL, IV Push, Every 8 hours NaCl 0.9% Flush 3ml (NaCL 0.9% Flush) ??3 mL, IV Push, Every 8 hours NaCl 0.9% Flush 3ml (NaCL 0.9% Flush) ??3 mL, IV Push, Every 8 hours Polyethylene Glycol 17 Gm Powder (MiraLax Powder) ??17 Gm 1 pack/packet, By Mouth, Daily Senna Tablet (Senna 8.6 mg oral tablet) ??8.6 mg 1 tablet, By Mouth, Daily CONTINUOUS: (0) PRN: (5) NaCl 0.9% Flush 3ml (NaCL 0.9% Flush) ??3 mL, IV Push, Every 8 hours nalOXONE ??400mcg/mL Inj (nalOXONE Inj) ??0.2 mg 0.5 mL, IV Push, Every 5 minutes nalOXONE ??400mcg/mL Inj (nalOXONE Inj) ??0.2 mg 0.5 mL, IV Push, Every 5 minutes Ondansetron 2mg/mL Inj (2mL Vial) (Ondansetron Inj) ??4 mg, IV Push, Every 6 hours Simethicone 80 mg Chewable Tablet (Simethicone Tablet) ??80 mg, Chew, 3 times a day ? Results Recent Labs BLOOD COUNT & DIFF WBC 4.0 k/mm3 ()?? 11/19/2022 19:08 RBC 2.66 m/mm3 (Low)?? 11/19/2022 19:08 Hgb 7.7 Gm/dL (Low)?? 11/19/2022 19:08 Hct 23.5 % (Low)?? 11/19/2022 19:08 MCV 88.3 femtoliters ()?? 11/19/2022 19:08 MCH 28.9 pg ()?? 11/19/2022 19:08 MCHC 32.8 g/dL (Low)?? 11/19/2022 19:08 Platelet Count 455 k/mm3 ()?? 11/19/2022 19:08 RDW-SD 46.0 femtoliters ()?? 11/19/2022 19:08 MPV 8.7 femtoliters (Low)?? 11/19/2022 19:08 Nucleated RBC (Automated) 0.0 #/100 WBC'S ()?? 11/19/2022 19:08 Abs. NRBC 0.0 k/mm3 ()?? 11/19/2022 19:08 Abs. Neut 2.3 k/mm3 ()?? 11/19/2022 19:08 Abs. Lymph 1.0 k/mm3 ()?? 11/19/2022 19:08 Abs. [place] 0.6 k/mm3 ()?? 11/19/2022 19:08 Abs. Eo 0.1 k/mm3 ()?? 11/19/2022 19:08 Abs. Baso 0.0 k/mm3 ()?? 11/19/2022 19:08 Neut % 58.4 % ()?? 11/19/2022 19:08 Lymph % 25.1 % ()?? 11/19/2022 19:08 [place] % 14.1 % (High)?? 11/19/2022 19:08 Eos % 1.3 % ()?? 11/19/2022 19:08 Baso % 0.8 % ()?? 11/19/2022 19:08 Imm Gran 0.3 % ()?? 11/19/2022 19:08 Abs. Imm Gran 0.0 k/mm3 ()?? 11/19/2022 19:08 ?? CARDIAC Nt-Probnp 576 pg/mL (High)?? 11/19/2022 19:08 High Sensitivity Troponin (HSTnT) 61 ng/L (Critical)?? 11/20/2022 04:08 ?? CHEM GENERAL Sodium 140 mmol/L ()?? 11/19/2022 19:08 Potassium 3.9 mmol/L ()?? 11/19/2022 19:08 Chloride 102 mmol/L ()?? 11/19/2022 19:08 Bicarbonate Level 27 mmol/L ()?? 11/19/2022 19:08 Anion Gap 11 ()?? 11/19/2022 19:08 Glucose Level 105 mg/dL (High)?? 11/19/2022 19:08 BUN 15 mg/dL ()?? 11/19/2022 19:08 Creatinine-Blood 1.1 mg/dL ()?? 11/19/2022 19:08 Estimated GFR Creatinine 85 ML/MIN/1.73 M2 ()?? 11/19/2022 19:08 Calcium 8.3 mg/dL (Low)?? 11/19/2022 19:08 Calcium, Ionized pH Corrected 1.16 mmol/L ()?? 11/19/2022 19:08 Magnesium 1.9 mg/dL ()?? 11/19/2022 19:08 Protein, Total 6.7 Gm/dL ()?? 11/19/2022 19:08 Albumin 3.4 Gm/dL ()?? 11/19/2022 19:08 AG Ratio 1.0 ()?? 11/19/2022 19:08 Alkaline Phosphatase 188 units/L (High)?? 11/19/2022 19:08 Lipase 24 units/L ()?? 11/19/2022 19:08 AST (SGOT) 24 units/L ()?? 11/19/2022 19:08 ALT (SGPT) 16 units/L ()?? 11/19/2022 19:08 Bilirubin, Total 0.2 mg/dL ()?? 11/19/2022 19:08 ?? COAG INR 1.0 ()?? 11/19/2022 19:08 Protime (PT) 10.5 seconds ()?? 11/19/2022 19:08 APTT 30.7 seconds ()?? 11/19/2022 19:08 ?? HEME OTHER Hold Lavender Top SPECIMEN DISCARDED AFTER 24 HOURS. ()??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 follow up on hypothyroidism: TSH was 38 on admit, FT4 0.65, patient had not been taking thyroid medication prior to admission.?? Restarted??last dose of??150??mcg,??and will need??TSH recheck??and dose titration. Patient has active hepatitis C??infection,??has follow-up scheduled with infectious disease,??but may not be able to??get transportation to this appointment. Patient discharged on??levofloxacin??and metronidazole??for??intra- abdominal??abscess,??at last discharge patient did not??take these antibiotics,??so please follow-up??regarding??completion of treatment. Future Appointments Tuesday 9:30 AM EDT ?? With: Erika NAVA, Peace Campos Where: [facility] Infectious Disease [address] [place] [address]- Status: Pending Hospital Course Mando Butler is a 47yr old who was recently admitted for acute cholecystitis, s/p cholecystectomy. ??At that time patient was also??found to have??a rim- enhancing lesion??at [facility] hepatis and he was discharged??on??levofloxacin and metronidazole??with plan for??repeat imaging and follow-up with surgery. ?Carrie also has a history of??opioid use disorder??on methadone,??hypertension, hypothyroidism,??hepatitis C??infection and chronic constipation.?? He is currently unhoused and was admitted after being found??down behind a [employer] with severe abdominal pain. ??He??initially presented with altered mental status and there was concern for seizure,??however??he had no??further episodes,??CT head was??negative for acute pathology,??and EEG was normal.?? Patient later reported ??feeling??generalized??body aches, weakness, chills/sweats??and??remembers shaking before falling down.?? Given his history of??insufficiently treated??abdominal abscess,??this presentation is more consistent with??fever and rigors??leading to fall??rather than??seizure.?? Patient was restarted on outpatient??medications including??levofloxacin and metronidazole, hydralazine and losartan for hypertension??(of note he was not started on nifedipine which had previously been prescribed but his blood pressures??remained well controlled??without this),??levothyroxine 150 mcg??and methadone??75 mg.?? Throughout his hospitalization, he remained afebrile??and hemodynamically stable.?? He was severely constipated??and multiple bowel regimens were attempted; MiraLAX??3 times daily, lactulose??3 times daily,??senna, and docusate were all prescribed, but he declined many of the doses. Dulcolax supp ository was also attempted but he persistently declined this. ??He did not??stool while??admitted,??but says that his baseline??is??to stool only once per month, and his abdominal pain??rapidly improved.?? Abdominal exam was benign throughout the admission.?He did develop??an YONY??with max??creatinine of??1.4??up from??0.9-1.1??at baseline. ??This improved after??IV fluid??resuscitation.??As Mr. Butler is unhoused and has struggled with getting to outpatient followups or taking medications after discharge, social work was consulted??and found him??in bed??at a local [facility],??they were also able to??transfer his methadone care to a clinic near this [facility],??but??patient??declined transportation to the [facility].?? He said that he??has been in shelters in the past and??does not want to go back.?? Instead he would like to go??to where he was??previously staying??and??look??for his belongings which were left there.?? Patient expressed understanding??that??this was not??a safe??discharge??to the [facility]??and expressed desire to stay in the hospital,??but said that??if he stayed??he would not??go to a [facility] tomorrow either. ?? Recommendations: ? Altered mental status, Fall Per EMS handover: found in public, had a seizure, hit head, when ems arrived pt was alert and oriented, having nausea vomiting, abd pain. Patient was initially sleepy but woke up after sternal rub.Now awake and oriented, remembers feeling body chills/sweating and??generalized??aches/weakness??for a couple days and shaking then falling during the episode. CT head negative for any acute pathology, EEG normal. Patient's report more consistent with fever/rigors leading to fall rather than seizure given his memory of the event, prior symptoms and concern for abscess on CT. No additional events while hospitalized - treatment for infection as below ?? Abdominal pain:/Severe constipation Likely secondary to??increased opiate use??and constipation. Recent cholecystectomy so also may be some post surgical pain, no current concern for adhesions. Concern for intraabdominal abscess on last admission, was discharged on levofloxacin and metronidazole but had not been taking after discharge. Had planned for repeat CT to guide treatment duration, CT on this admission only showed severe stool burden but with significant motion artifact. Repeat CT redemonstrates rim-enhancing lesion at [facility] hepatis and large stool burden. ID recommend continued treatment with follow up and repeat CT in3 weeks. - continue Levofloxacin and Metronidazole for 20 days to complete 4 week course - repeat CT scan in 3 weeks and followup in ID clinic prior to discontinuing antibiotics - docusate-senna and miralax prescribed ?? Acute Kidney Injury - resolved Hypercalcemia Cr increased from baseline 0.9-1.1 to 1.4??on 11/26. Now back to baseline after fluid boluses. Does have hypercalcemia now likely 2/2 to being volume down. ?? Hypertension: Had previously been prescribed hydralazine, losartan and nifedipine but was not taking these prior to admission -??restarted Hydralazine 25mg??TID and Losartan 25mg daily ?? History of opioid use disorder: Patient reports no recent drug or alcohol use - continue methadone 75mg ?? Hypothyroidism TSH 38, FT4 0.65, was not taking meds after last discharge - restart levothyroxine 150mcg - followup outpatient ?? Hepatitis C infection Hep C RNA qPCR positive at 4,530,000 IU/mL on 11/02 - followup in ID clinic - HIV negative ?? Homelessness - social work consulted found [facility] with open bed but patient declined -??Case management have looked into the PCP situation and unfortunately will be unable to help due to??logistical/insurance issues. Provided phone number/resources and encouraged patient to attempt to schedule appointment ?? Objective Vital Signs?? Temperature: 98.7 DegF (11/28/22 12:18:00) Temperature Route: Oral (11/28/22 12:18:00) Pulse Rate:??36 bpm??Low (11/28/22 12:18:00) Respiratory Rate: 16 br/min (11/28/22 12:18:00) Systolic Blood Pressure: 123 mm Hg (11/28/22 13:53:00) Diastolic Blood Pressure: 80 mm Hg (11/28/22 13:53:00) Blood pressure sites: Arm, left (11/28/22 12:18:00) Mean Arterial Pressure: 88 mm Hg (11/28/22 12:18:00) Pulse Pressure: 37 mm Hg (11/28/22 12:18:00) Oxygen Saturation: 100 % (11/28/22 12:18:00) Mode of Delivery (Oxygen): Room air (11/28/22 12:18:00) Early Warning Score: 3 (11/28/22 13:58:56) ? Pari Coma Scale Pari Coma Score: 15 (11/21/22 10:03:00) Motor Response-Adult: Obeys commands (11/21/22 10:03:00) Response Eye Opening: Spontaneously (11/21/22 10:03:00) Verbal Response-Adult: Oriented and converses (11/21/22 10:03:00) ?? . Physical Exam General: No acute distress CV: Regular rate and rhythm. No murmurs, gallops, rubs Respiratory: All david clear to auscultation bilaterally. No wheezes, rales, rhonchi Abdominal: Mild tenderness to palpation in inferior aspects of abdomen. No distention. Extremities: No lower extremity edema, firm nodule in L antecubital fossa at site of prior IV insertion (improved but still present) Neuro: AAO x3. Motor 5/5 all extremities. Sensation intact [facility] Infectious Disease Social Work Physical Therapy Pending Results Hold Lavender Tube (BB) ordered on 11/19/2022 Patient Education Titles Understanding Liver Abscess?? Intra-Abdominal Abscess?? Follow-Up Appointments Added Follow Up ?Time Frame ?Comments [facility] PCP Assignment Line [phone]?Call this number to be assigned a primary care provider Patient Instructions You were admitted with concern for a seizure after you fell. We did a CT image of your head, an EEGto look at your brain's electrical activity, and monitored for signs of seizure while you were here,??we did not??see any evidence of seizure.?? We also repeated an abdominal CT scan??to follow-up??on the??possible abscess??seen??the last time you were in the hospital.?? The scan showed??that the abscess??was still there but have decreased in size,??so we continued??the antibiotics you had previously been on.?? Based on this imaging,??and the fact that you remember feeling??chills and sweaty??and shaky??before you fell,??we think that the fall was more likely related to??fever and infection??rather than??a seizure.?? Therefore it is very important that you continue taking your antibiotics??for the next??3 weeks??until you can follow-up with the infectious disease specialists.?? When we did blood work, we also found??that your TSH level was very high,??which is a marker??for??hypothyroidism.?? Since you had not been on??your thyroid medication, we restarted that, and you will need to??f ollow-up outpatient??with a primary care doctor??to make sure that this is the right??dose of medication. ??You have been constipated while you are here,??we tried??multiple??stool softeners,??but have not yet??helped due to stool.?? As you have been??constipated for a long time,??we did not think you needed to stay in the hospital until you stooled.?? We will give you??a prescription for stool softeners??when you leave. ?? Recommendations: Take your antibiotics for 3 weeks or until you see the Infectious Disease doctors in clinic: Metronidazole 3 times per day and Levofloxacin once per day (these are also called Flagyl and Levaquin) Follow up in the Infectious Disease clinic on December 15 at 9:30am at [address],??[place],??[address] Continue taking your levothyroxine every day Take your blood pressure medication (Hydralazine 3 times per day and Losartan once per day) Call the PCP assignment line at [phone] or walk in to clinic to get a primary care appointmentif the [facility] is unable to set you up with one Post Discharge Care Discharge ?11/28/22 13:41:00 EDT Discharge Prescriptions ?ePrescribed, 11/28/22 13:41:00 EDT Results Discharge Labs BLOOD COUNT & DIFF WBC 4.5 k/mm3 ()?? 11/28/2022 00:47 RBC 2.94 m/mm3 (Low)?? 11/28/2022 00:47 Hgb 8.2 Gm/dL (Low)?? 11/28/2022 00:47 Hct 25.9 % (Low)?? 11/28/2022 00:47 MCV 88.1 femtoliters ()?? 11/28/2022 00:47 MCH 27.9 pg ()?? 11/28/2022 00:47 MCHC 31.7 g/dL (Low)?? 11/28/2022 00:47 Platelet Count 379 k/mm3 ()?? 11/28/2022 00:47 RDW-SD 49.9 femtoliters (High)?? 11/28/2022 00:47 MPV 8.8 femtoliters (Low)?? 11/28/2022 00:47 Nucleated RBC (Automated) 0.0 #/100 WBC'S ()?? 11/28/2022 00:47 Abs. NRBC 0.0 k/mm3 ()?? 11/28/2022 00:47 Abs. Neut 1.7 k/mm3 ()?? 11/25/2022 00:27 Abs. Lymph 1.6 k/mm3 ()?? 11/25/2022 00:27 Abs. [place] 0.4 k/mm3 ()?? 11/25/2022 00:27 Abs. Eo 0.1 k/mm3 ()?? 11/25/2022 00:27 Abs. Baso 0.0 k/mm3 ()?? 11/25/2022 00:27 Neut % 43.6 % (Low)?? 11/25/2022 00:27 Lymph % 40.6 % ()?? 11/25/2022 00:27 [place] % 10.9 % (High)?? 11/25/2022 00:27 Eos % 3.6 % ()?? 11/25/2022 00:27 Baso % 1.0 % ()?? 11/25/2022 00:27 Imm Gran 0.3 % ()?? 11/25/2022 00:27 Abs. Imm Gran 0.0 k/mm3 ()?? 11/25/2022 00:27 ?? CARDIAC Nt-Probnp 576 pg/mL (High)?? 11/19/2022 19:08 High Sensitivity Troponin (HSTnT) 61 ng/L (Critical)?? 11/20/2022 04:08 ?? CHEM GENERAL Sodium 133 mmol/L ()?? 11/28/2022 00:47 Potassium 4.7 mmol/L ()?? 11/28/2022 00:47 Chloride 100 mmol/L ()?? 11/28/2022 00:47 Bicarbonate Level 24 mmol/L ()?? 11/28/2022 00:47 Anion Gap 9 ()?? 11/28/2022 00:47 Glucose Level 83 mg/dL ()?? 11/28/2022 00:47 BUN 19 mg/dL ()?? 11/28/2022 00:47 Creatinine-Blood 1.2 mg/dL ()?? 11/28/2022 00:47 Estimated GFR Creatinine 75 ML/MIN/1.73 M2 ()?? 11/28/2022 00:47 Calcium 8.3 mg/dL (Low)?? 11/28/2022 00:47 Calcium, Ionized pH Corrected 1.16 mmol/L ()?? 11/19/2022 19:08 Phosphorus 3.2 mg/dL ()?? 11/27/2022 00:54 Magnesium 2.0 mg/dL ()?? 11/27/2022 00:54 Protein, Total 6.4 Gm/dL ()?? 11/25/2022 00:27 Albumin 3.2 Gm/dL (Low)?? 11/25/2022 00:27 AG Ratio 1.0 ()?? 11/25/2022 00:27 Alkaline Phosphatase 144 units/L (High)?? 11/25/2022 00:27 Lipase 24 units/L ()?? 11/19/2022 19:08 AST (SGOT) 27 units/L ()?? 11/25/2022 00:27 ALT (SGPT) 16 units/L ()?? 11/25/2022 00:27 Bilirubin, Total 0.2 mg/dL ()?? 11/25/2022 00:27 ? COAG INR 1.0 ()?? 11/19/2022 19:08 Protime (PT) 10.5 seconds ()?? 11/19/2022 19:08 APTT 30.7 seconds ()?? 11/19/2022 19:08 ? ENDOCRINE/TUMOR MARKER TSH 38.00 uIU/mL (High)?? 11/22/2022 00:36 Free T4 0.65 ng/dL (Low)?? 11/22/2022 00:36 PTH, Intact 47 pg/mL ()?? 11/22/2022 00:36 ? HEME OTHER Hold Lavender Top SPECIMEN DISCARDED AFTER 24 HOURS. ()?? 11/26/2022 13:46 ? MISC. CHEMISTRY 25 OH-Vitamin D Level 22.8 ng/mL ()?? 11/22/2022 00:36 Hold Land Top SPECIMEN DISCARDED AFTER 1 WEEK ()?? 11/19/2022 22:05 ?? SEROLOGY INF DISEASE HIV 4th Generation Ab-Ag Result NEGATIVE (N)?? 11/24/2022 03:55 ? TOXICOLOGY/TDM Ethanol, Serum or Plasma NONE DETECTED mg/dL ()?? 11/19/2022 19:08 Salicylate Level <0.3 mg/dL (Low)?? 11/19/2022 19:08 Acetaminophen Level <5 mg/L (Low)?? 11/19/2022 19:08 ? UA/URINALYSIS Appear/Color, Urine LIGHT YELLOW ()?? 11/20/2022 00:15 Specific Ceres, Urine 1.047 (High)?? 11/20/2022 00:15 pH, Urine 6.5 ()?? 11/20/2022 00:15 Albumin, Urine TRACE (Abnormal)?? 11/20/2022 00:15 Glucose, Urine NEGATIVE ()?? 11/20/2022 00:15 Ketones, Urine NEGATIVE ()?? 11/20/2022 00:15 Bilirubin, Urine NEGATIVE ()?? 11/20/2022 00:15 Hemoglobin, Urine NEGATIVE ()?? 11/20/2022 00:15 Nitrite, Urine NEGATIVE ()?? 11/20/2022 00:15 Leukocyte, Urine NEGATIVE ()?? 11/20/2022 00:15 Urobilinogen NORMAL mg/dL ()?? 11/20/2022 00:15 WBC's, Urine 1 /HPF ()?? 11/20/2022 00:15 RBC's, Urine 1 /HPF ()?? 11/20/2022 00:15 Mucus SLIGHT /LPF ()?? 11/20/2022 00:15 Hold Urine Culture Testing available 48 hours from time of collection. ()?? 11/20/2022 00:15 ? VIROLOGY COVID-19 PCR Specimen Source NASAL ()?? 11/19/2022 19:35 COVID-19 PCR Result NEGATIVE ()?? 11/19/2022 19:35 ? Microbiology ?? COVID-19 (2019 Novel Coronavirus) PCR?? Completed?? Source: Nasal Body Site: Nose Collected Dt/Tm: 11/19/2022 19:12 Last Updated Dt/Tm: 11/19/2022 20:48 Blood Culture?? Completed?? Source: Blood Body Site: ?? Collected Dt/Tm: 11/19/2022 19:41 Last Updated Dt/Tm: 11/19/2022 19:42 ?SPECIMEN DESCRIPTION : BLOOD NO SITESPECIAL REQUESTS : NONECULTURE : NO GROWTH 5 DAYS.REPORT STATUS : FINAL 11/25/2022 Blood Culture #2?? Completed?? Source: Blood Body Site: ?? Collected Dt/Tm: 11/19/2022 19:41 Last Updated Dt/Tm: 11/19/2022 19:42 ?SPECIMEN DESCRIPTION : BLOODSPECIAL REQUESTS : NONECULTURE : NO GROWTH 5 DAYS.REPORT STATUS : FINAL 11/24/2022 ? _ minutes spent on discharge * Georgina Acosta DO: PERFORM Event Display: Discharge/Transfer Note Hospital Authored Date: [id number] I have seen and evaluated the patient on the above day of service??11/28 and discussed the case and management with the medical team as stated below. 35 minutes spend on discharge. As this patient is unhoused, social work has assisted in getting patient discharged to a [facility]. He will need follow up with ID in [address] scan (ID to arrange). Patient discharged with 3 weeks of abx to complete a four week course as well as three months of HTN and hypothyroidism given no access to PCP. He was discharged with bowel regimen, while patient has not had a BM during stay his abdominal pain has improved significantly and has remained stable and ready for discharge. * Sierra Sweet RN: PERFORM Event Display: Patient Education/Instruction Authored Date: [id number] Inpatient Adult Discharge Instructions [address] [address] Name: MANDO BUTLER : 1975 Visit: 11/21/2022 14:26:00 Current Date: 11/28/2022 13:45 Account: [id number] Inpatient Adult Discharge Instructions We would like [...] and their families. Surveys are administered by [employer] ?? If further treatment with your primary care physician or another doctor is recommended, it is important for you to keep the appointment. Call your primary care physician or return to the Emergency Department immediately if your condition worsens, fails to improve, or new symptoms develop. If you need to find a doctor, you can call [facility] [employer] Link for a referral at [phone] or toll free at [phone] or log in to [email or web address] ?? [facility], in keeping with [facility] guidance, no longer requires face masks for [...] a health care debbie of your choosing. [employer] is a website that allows you to securely view your medical information including your hospital discharge summary, office visit summaries, medications and follow-up visits. You can also request appointments, renew medications, and request access to your medical information using a health care debbie of your choosing, or just ask a question. You can enroll at [email or web address] or register during your next office visit. You have been discharged from [facility], Patient Care Unit: S2. If you have any questions regarding these instructions after you leave, please call us and we will be happy to assist you. [facility] Your Care Team Attending Physician Georgina Acosta DO Consulting Providers Sam STARK, Bereket Nava Discharging Providers Malu STARK, Tk Reason for Admission found in public, had a seizure, hit head, when ems arrived pt was alert and oriented, having nauseavomiting, abd pain, fevers, chills Your Diagnosis Altered mental state Homelessness Methadone use Liver masses Tests Performed Below is a partial list of the tests performed during your hospitalization. You may have had other tests and procedures not included in this list. Please discuss all test results with your provider. 25OH VITAMIN D Acetaminophen Level Alcohol Level Aspirin Level Basic Metabolic Panel BUN Calcium Ionized CBC CBC w/ Differential Comprehensive Metabolic Panel COVID-19 (2019 Novel Coronavirus) PCR Creatinine Electrolytes FREE T4 High??Sensitivity??Troponin T HIV AB-AG 4TH GENERATION HOLD LAND TUBE HOLD LAVENDER TUBE INR Lipase Magnesium Level Mg Level Phosphorus Level ProBNP PTH, INTACT PTT Troponin T, High Sensitivity TSH Urinalysis w/hold for Urine Culture CT Abd/Pelvis W/ IV Contrast Only CT Abdomen W+W/O Contrast CT Head/Brain W/O Contrast Primary Care Provider Not on Staff, PCP Advance Directive Health Care Proxy on File No Patient refuses to discuss Discharge Vitals Temperature: 98.7 DegF Height: 175.26 cm Pulse Rate:??36 bpm??Low ?? Respiratory Rate: 16 br/min ?? Systolic Blood Pressure: 113 mm Hg ?? Diastolic Blood Pressure: 76 mm Hg ?? Oxygen Saturation: 100 % ?? Studies Pending All tests and labs ordered during this hospital stay have been completed unless listed below. Please discuss all pending results with your provider listed above in these instructions. ?? Hold Lavender Tube (BB) What to do next Instructions From Your Doctor You were admitted with concern for a seizure after you fell. We did a CT image of your head, an EEGto look at your brain's electrical activity, and monitored for signs of seizure while you were here,??we did not??see any evidence of seizure.?? We also repeated an abdominal CT scan??to follow-up??on the??possible abscess??seen??the last time you were in the hospital.?? The scan showed??that the abscess??was still there but have decreased in size,??so we continued??the antibiotics you had previously been on.?? Based on this imaging,??and the fact that you remember feeling??chills and sweaty??and shaky??before you fell,??we think that the fall was more likely related to??fever and infection??rather than??a seizure.?? Therefore it is very important that you continue taking your antibiotics??for the next??3 weeks??until you can follow-up with the infectious disease specialists.?? When we did blood work, we also found??that your TSH level was very high,??which is a marker??for??hypothyroidism.?? Since you had not been on??your thyroid medication, we restarted that, and you will need to??f ollow-up outpatient??with a primary care doctor??to make sure that this is the right??dose of medication. ??You have been constipated while you are here,??we tried??multiple??stool softeners,??but have not yet??helped due to stool.?? As you have been??constipated for a long time,??we did not think you needed to stay in the hospital until you stooled.?? We will give you??a prescription for stool softeners??when you leave. ?? Recommendations: Take your antibiotics for 3 weeks or until you see the Infectious Disease doctors in clinic: Metronidazole 3 times per day and Levofloxacin once per day (these are also called Flagyl and Levaquin) Follow up in the Infectious Disease clinic on December 15 at 9:30am at [address]??[place],??[place],??[address] Continue taking your levothyroxine every day Take your blood pressure medication (Hydralazine 3 times per day and Losartan once per day) Call the PCP assignment line at [phone] or walk in to clinic to get a primary care appointmentif the [facility] is unable to set you up with one Discharge Orders Scheduled Follow-Up Appointments Tuesday 9:30 AM EDT ?? With: Erika NAVA, Peace Campos Where: [facility] Infectious Disease [address] [place] [address]- Status: Pending You Need to Schedule the Following Appointments Follow Up with??[facility] PCP Assignment Line [phone] Why: Call this number to be assigned a primary care provider Discharge Medications CARRIEMANDO :1975 Visit Date:11/21/2022 Medications: Please continue your medications until treatment is completed or stopped by your provider. Medications not listed below should be discontinued. Discuss any questions related to medications with your provider. What How Much When Instructions Next Dose Changed Levofloxacin (levoFLOXacin 750 mg oral tablet) 1 tab(s) Oral Every 24 hours Duration: 20 Days Pickup at [place] [address] 10, 2 pm Changed Losartan (losartan 25 mg oral tablet) 25 Milligram Oral Daily Duration: 90 Days Pickup at [place] [address] 11/29, 9 am Unchanged hydrALAZINE (hydrALAZINE 25 mg oral tablet) 1 tab(s) Oral 3 times a day Pickup at [place] [address] 11/28, 9 pm Unchanged Levothyroxine (levothyroxine 150 mcg (0.15 mg) oral tablet) 1 tab(s) Oral Daily Pickup at [place] [address] 11/29, 6 am Unchanged Methadone 75 Milligram Oral Daily 11/29, 9 am Unchanged Metronidazole (metroNIDAZOLE 500 mg oral tablet) 500 Milligram Oral Every 8 hours Duration: 21 Days Pickup at [place] [address] 11/28, 9 pm Pharmacy Information [facility] 3: [address], [place] [phone] ?? What How Much When Comments Stop Taking NIFEdipine (NIFEdipine (Eqv-Adalat CC) 30 mg oral tablet, extended release) 1 tab(s) Oral Daily Test Results Below is a partial list of the most recent Laboratory test results done prior to this discharge. You may have had other tests and procedures not included in this list. Please discuss all test resultswith your provider. 25OH VITAMIN D (11/22/2022) ???25 OH-Vitamin D Level - 22.8 ng/mL Acetaminophen Level (11/19/2022) ? ?Acetaminophen Level - <5 mg/L Alcohol Level (11/19/2022) ???Ethanol, Serum or Plasma - NONE DETECTED Aspirin Level (11/19/2022) ? ?Salicylate Level - <0.3 mg/dL Basic Metabolic Panel (11/28/2022) ???Sodium - 133 mmol/L???Potassium - 4.7 mmol/L???Chloride - 100 mmol/L???Bicarbonate Level - 24 mmol/L???Anion Gap - 9???Glucose Level - 83 mg/dL???BUN - 19 mg/dL???Creatinine-Blood - 1.2 mg/dL???Estimated GFR Creatinine - 75 ML/MIN/1.73 M2???Calcium - 8.3 mg/dL BUN (11/21/2022) ???BUN - 11 mg/dL Calcium Ionized (11/19/2022) ???Calcium, Ionized pH Corrected - 1.16 mmol/L CBC (11/28/2022) ???WBC - 4.5 k/mm3???RBC - 2.94 m/mm3???Hgb - 8.2 Gm/dL???Hct - 25.9 %???MCV - 88.1 femtoliters???MCH - 27.9 pg???MCHC - 31.7 g/dL???Platelet Count - 379 k/mm3???RDW-SD - 49.9 femtoliters???MPV - 8.8femtoliters???Nucleated RBC (Automated) - 0.0 #/100 WBC'S???Abs. NRBC - 0.0 k/mm3 CBC w/ Differential (11/25/2022) ???WBC - 3.9 k/mm3???RBC - 2.99 m/mm3???Hgb - 8.4 Gm/dL???Hct - 26.3 %???MCV - 88.0 femtoliters???MCH - 28.1 pg???MCHC - 31.9 g/dL???Platelet Count - 377 k/mm3???RDW-SD - 48.6 femtoliters???MPV - 8.8femtoliters???Nucleated RBC (Automated) - 0.0 #/100 WBC'S???Abs. NRBC - 0.0 k/mm3???Abs. Neut - 1.7 k/mm3???Abs. Lymph - 1.6 k/mm3???Abs. [place] - 0.4 k/mm3???Abs. Eo - 0.1 k/mm3???Abs. Baso - 0.0 k/mm3???Neut % - 43.6 %???Lymph % - 40.6 %???[place] % - 10.9 %???Eos % - 3.6 %???Baso % - 1.0 %???Imm Gran- 0.3 %???Abs. Imm Gran - 0.0 k/mm3 Comprehensive Metabolic Panel (11/25/2022) ???Sodium - 134 mmol/L???Potassium - 4.7 mmol/L???Chloride - 99 mmol/L???Bicarbonate Level - 25 mmol/L???Anion Gap - 10???Glucose Level - 98 mg/dL???BUN - 19 mg/dL???Creatinine-Blood - 1.2 mg/dL???Estimated GFR Creatinine - 73 ML/MIN/1.73 M2???Calcium - 8.2 mg/dL???Protein, Total - 6.4 Gm/dL???Album in - 3.2 Gm/dL???AG Ratio - 1.0???Alkaline Phosphatase - 144 units/L???AST (SGOT) - 27 units/L???ALT (SGPT) - 16 units/L???Bilirubin, Total - 0.2 mg/dL COVID-19 (2019 Novel Coronavirus) PCR (11/19/2022) ???COVID-19 PCR Specimen Source - NASAL???COVID-19 PCR Result - NEGATIVE Creatinine (11/21/2022) ???Creatinine-Blood - 1.1 mg/dL???Estimated GFR Creatinine - 83 ML/MIN/1.73 M2 Electrolytes (11/21/2022) ???Sodium - 136 mmol/L???Potassium - 4.1 mmol/L???Chloride - 100 mmol/L???Bicarbonate Level - 27 mmol/L???Anion Gap - 9 FREE T4 (11/22/2022) ???Free T4 - 0.65 ng/dL High??Sensitivity??Troponin T (11/20/2022) ???High Sensitivity Troponin (HSTnT) - 61 ng/L HIV AB-AG 4TH GENERATION (11/24/2022) ???HIV 4th Generation Ab-Ag Result - NEGATIVE HOLD LAND TUBE (11/19/2022) ???Hold Land Top - SPECIMEN DISCARDED AFTER 1 WEEK HOLD LAVENDER TUBE (11/26/2022) ???Hold Lavender Top - SPECIMEN DISCARDED AFTER 24 HOURS. INR (11/19/2022) ???INR - 1.0???Protime (PT) - 10.5 seconds Lipase (11/19/2022) ???Lipase - 24 units/L Magnesium Level (11/27/2022) ???Magnesium - 2.0 mg/dL Mg Level (11/22/2022) ???Magnesium - 1.8 mg/dL Phosphorus Level (11/27/2022) ???Phosphorus - 3.2 mg/dL ProBNP (11/19/2022) ???Nt-Probnp - 576 pg/mL PTH, INTACT (11/22/2022) ???PTH, Intact - 47 pg/mL PTT (11/19/2022) ???APTT - 30.7 seconds Troponin T, High Sensitivity (11/19/2022) ???High Sensitivity Troponin (HSTnT) - 48 ng/L TSH (11/22/2022) ???TSH - 38.00 uIU/mL Urinalysis w/hold for Urine Culture (11/20/2022) ???Appear/Color, Urine - LIGHT YELLOW???Specific Ceres, Urine - 1.047???pH, Urine - 6.5???Albumin, Urine - TRACE???Glucose, Urine - NEGATIVE???Ketones, Urine - NEGATIVE???Bilirubin, Urine - NEGATIVE???Hemoglobin, Urine - NEGATIVE???Nitrite, Urine - NEGATIVE???Leukocyte, Urine - NEGATIVE???Urobilin ogen - NORMAL???WBC's, Urine - 1 /HPF???RBC's, Urine - 1 /HPF???Mucus - SLIGHT???Hold Urine Culture- Testing available 48 hours from time of collection. Immunizations This Visit Not Given Vaccine Commentsinfluenza virus vaccine, inactivated Parent Or Guardian Refuses Allergies (NKA means No Known Allergies) diphenhydrAMINE Problems Active Problems??(7) Avascular necrosis of hip?? Essential hypertension?? History of subdural hematoma?? History of traumatic brain injury?? Hypothyroidism?? IV heroin dependence?? Tobacco dependence?? Education Materials Below is the list of Educational Leaflet Providered with your Discharge Instructions. Understanding Liver Abscess?? Intra-Abdominal Abscess?? Valuables and Belongings I fully understand and agree that [facility] accepts no responsibility for all my personal [...] home. ?? No Valuables/Belongings: No valuables/belongings present Review of Valuable and Belonging List: With patient Date for Pt to Sign Valuables/Belongings: 11/20/22 18:43:00 ?? Other Discharge Information ?? Wound Assessment?? Wound Assessment?? Wound Location I: Digit, right ? Pulmonary Rehab Status?? Pulmonary Rehab Discharge Status?? Respiratory Rate: 16 br/min ? Common Emergency Awareness Tips IS [...] are strongly encouraged to quit. Please call [facility] at [phone] or [phone] ([phone]) or log in to [email or web address] for referrals to smoking cessation programs. ?? 988 Suicide & Crisis Lifeline is available 20/09 if you or someone you know needs to find a reason to keep living. By calling 828 you'll be connected to a skilled, trained counselor at a crisis center in your area. INPATIENT DISCHARGE INSTRUCTIONS SIGNATURE PAGE MANDO BUTLER Location:[facility] Registration Date and Time:11/21/2022 14:26 EDT Primary Care Physician: Not on Staff, PCP Attending Physician: Georgina Acosta DO, I MANDO BUTLER, have received the above patient education materials/instructions and have verbalized understanding. If ambulance or transport services are being used I further acknowledge being given a choice of service. ?? If you need to contact me, please call me at this number: . Patient/Mechanical Maintenance Instructor Name: Patient/Mechanical Maintenance Instructor Signature: Relationship to Patient: Witness Name/Signature: Date: * Abdoul-Johnny MD, Tk: PERFORM Event Display: Patient Education Leaflets Authored Date: [id number] Understanding Liver Abscess ?? 92188 Understanding Liver Abscess A liver abscess is a pocket of pus that forms in the liver. It must be treated right away to prevent serious problems. How does a liver abscess happen? A liver abscess most often occurs because of infection from germs such as bacteria, parasites, or fungi. The type of germ determines what type of liver abscess you have: ??? Bacteria cause a pyogenic liver abscess ??? Parasites cause an amebic liver abscess ??? Fungi cause a fungal liver abscess The infection may have: ??? Spread to your liver from other structures in your belly (abdomen), such as the gallbladder, bile ducts, bowels, or appendix ??? Traveled in your bloodstream to your liverfrom more distant areas of the body ??? Happened after surgery or an injury to your liver ?? Symptoms of liver abscess Symptoms of a liver abscess may take 2 to 4 weeks to appear. They may include: ??? Fever, chills, sweats ??? General discomfort or sick feeling ??? Pain in the upper right part of the belly ??? Weight loss ??? Loss of appetite ??? Nausea, vomiting, or both ??? Diarrhea, constipation, or both ??? Cough ??? Chest pain or shoulder pain ??? Yellowish eyes and skin (jaundice) ?? Treatment for liver abscess Treatment depends on the type of liver abscess that you have. To find this out, your provider may put a needle through your skin into the abscess. A sample of pus will be removed and checked. Blood tests and cultures of the blood for infection are done. You will also have imaging tests, such as ultrasound or CT scan or MRI, to evaluate your liver. In many cases, treatment starts in the hospital and continues at home. Treatment may include: ??? Taking medicines, such as antibiotics. These may begiven by an IV (intravenous) line placed in a vein in your arm or hand. Or you may take them by mouth. You may need the medicines for a few weeks or longer. ??? Draining the pus from the abscess. The healthcare provider may do this using a needle or tube (catheter) put through your skin. In severe cases, the healthcare provider may make a cut (incision) through your skin to reach your liver. ??? Having imaging tests after treatment. In many cases, your healthcare provider will order follow-up tests of your liver after treatment. This is often done by ultrasound, CT scan, or MRI. ?? Possible complications of liver abscess These can include: ??? Burst (ruptured) abscess ??? Infection spreading into other parts of the body such as the blood, belly, lungs, heart, brain, and eyes ? When to call your healthcare provider Call your healthcare provider right away if you have any of these: ??? Symptoms, such as fever or pain, that don???t get better with treatment or get worse ??? Yellowish skin or eyes (jaundice) ??? New symptoms, such as trouble breathing ?? Last Reviewed Date: 2021 ?? 7944-1366 [employer]. All rights reserved. This information is not intended as a substitute for professional medical care. Always follow your healthcare professional's instructions. ?? * Tk Toribio MD: PERFORM Event Display: Patient Education Leaflets Authored Date: [id number] Intra-Abdominal Abscess ?? 145 Intra-Abdominal Abscess What is an intra-abdominal abscess? An intra-abdominal abscess is a collection of pus or infected fluid that is surrounded by inflamed tissue inside the belly. It can involve any abdominal organ. Or it can settle in the folds of the bowel. ?? What causes an intra-abdominal abscess? Intra-abdominal abscesses sometimes happen because of another condition. An example might be appendicitis or diverticulitis. Many cases, though, happen after surgery.?? Abdominal abscesses can be caused by a bacterial infection. The most common bacteria to cause them are found in the stomach and intestines. One of these is Escherichia coli (E. coli). If left untreated, the bacteria will multiply. They can cause inflammation and kill healthy tissue. ?? Who is at risk for an intra-abdominal abscess? Abdominal surgery or trauma can put you at risk for an intra-abdominal abscess. So, too, can healthproblems like diabetes or inflammatory bowel disease. ?? What are the symptoms of an intra-abdominal abscess? If you've recently had surgery or trauma to an abdominal organ and have other risk factors, such asdiabetes or inflammatory bowel disease, watch for signs of an intra-abdominal abscess. Common symptoms are: ??? Fever ??? Belly pain ??? Chest pain or shoulder pain? Lack of appetite ??? Nausea and vomiting ??? Change in bowel movements ??? Rectal tenderness or fullness ??? Mass in the belly ??? Malnourishment ?? How is an intra-abdominal abscess diagnosed? If you have symptoms of an intra-abdominal abscess, your healthcare provider may order these tests:??? Blood tests. Blood may be drawn to look for signs of infection or an abscess. Very useful testsare those that look at the number of white blood cells and other indicators of inflammation. ??? Imaging tests. The best imaging test to check for an abscess is usually a CT scan of the belly. Other tests, such as ultrasound or MRI, may be used as well. ??? Physical exam. As part of your exam, yourhealthcare provider will take your temperature. They will also check for tenderness in the belly. Sometimes, the abscess can be felt as a mass in the midsection. ?? How is an intra-abdominal abscess treated? Antibiotics may help treat an infection that could lead to an intra-abdominal abscess. But once theabscess has developed, antibiotics don't work as well. An abscess often will need to be drained of fluid to heal. But often antibiotics are given along with draining the abscess. The type of antibiotic will depend on how severe your abscess is, your age, and any other health problems you may have. One way to remove fluid is through percutaneous drainage. Your healthcare provider guides a needle through the skin to the place where the infection is. This is a short procedure. You will be given asedative and a local anesthetic to help you relax and not feel pain while it is being done.?? Another way to drain the abscess is with surgery. Surgery may also involve fixing the condition that caused the abscess in the first place, such as a bowel perforation. Sometimes, more than one operation is needed. Many times, a drainage catheter is left in the abscess cavity after it is drained. Your healthcare team will check it and remove it when needed. Your outcome will depend on the cause of your infection and how quickly you sought treatment. The right early treatment can greatly improve the outcome for people who have intra-abdominal abscesses. While you are being treated for an abscess, you may need nutritional support. This can be done by placing a feeding tube. ?? When should I call my healthcare provider? If you've recently had surgery or injury to an abdominal organ, call your healthcare provider rightaway if you: ??? Have a fever of ??? Have belly pain ??? Have nausea or vomiting ??? Have other new symptoms ???Are at high risk for an infection because you: o Have other risk factors, such as diabetes or inflammatory bowel disease o Smoke ?? Giraldo points about an intra-abdominal abscess ??? An intra-abdominal abscess is a collection of pus or infected fluid that is surrounded by inflamed tissue inside the belly. ??? An intra-abdominal abscess may be caused by bacteria. If left untreated, the bacteria will multiply. They can cause inflammation and kill healthy tissue. ??? If you've recently had surgery or trauma to an abdominal organ and have other risk factors, such as diabetes or inflammatory bowel disease, watch for signs of an abscess. ??? Early treatment can greatly improve the outcome for people who have intra-abdominal abscesses. ??? During treatment and recovery, you may need to get nutrition through a feeding tube. ?? Next steps Tips to help you get the most from a visit to your healthcare provider: ??? Know the reason for your visit and what you want to happen. ??? Before your visit, write down questions you want answered. ??? Bring someone with you to help you ask questions and remember what your provider tells you. ??? At the visit, write down the name of a new diagnosis and any new medicines, treatments, or tests. Also write down any new instructions your provider gives you. ??? Know why a new medicine or treatmentis prescribed and how it will help you. Also know what the side effects are. ??? Ask if your condition can be treated in other ways. ??? Know why a test or procedure is recommended and what the results could mean. ??? Know what to expect if you do not take the medicine or have the test or procedure. ??? If you have a follow-up appointment, write down the date, time, and purpose for that visit. ??? Know how you can contact your provider if you have questions. ?? Last Reviewed Date: 2020 ?? 1524-2059 [employer]. All rights reserved. This information is not intended as a substitute for professional medical care. Always follow your healthcare professional's instructions. ?? * Carlo Guerin: PERFORM Event Display: Discharge/Transfer Note Hospital Authored Date: [id number] Discharge Planning Nursing Entered On: 11/23/2022 16:27 EDT Performed On: 11/23/2022 8:00 EDT by Carlo Guerin Discharge Planning Nursing Anticipated discharge : Unable to determine Carlo Guerin - 11/23/2022 16:27 EDT Patient Care team information Care Team Personnel Name: Gabriela Woodard RN Position: [facility] RN Member Role: Primary Care Nurse Name: Josselin Flores RN Position: [facility] RN Member Role: Primary Care Nurse Name: Spring Mancia RN Position: [facility] SN RN Member Role: Primary Care Nurse Name: Precious Castañeda RN Position: [facility] RN Member Role: Primary Care Nurse Name: Elena Choi RN Position: [facility] RN Member Role: Primary Care Nurse Name: Jimmie Gastelum RN Position: [facility] RN Supv Member Role: Primary Care Nurse Name: Faisal Albrecht RN Position: [facility] RN Member Role: Primary Care Nurse Name: Olamide Hill LPN Position: [facility] RN Member Role: Primary Care Nurse Name: Neha Owen RN Position: [facility] RN Member Role: Primary Care Nurse Name: Not on Staff, PCP Position: [facility] Physician (General Medicine) Member Role: PCP Name: Elsa Jackson RN Position: [facility] RN Member Role: Primary Care Nurse Name: Chapito Griffith RN Position: [facility] RN Member Role: Primary Care Nurse Name: Estefani Washington RN Position: [facility] RN Member Role: Primary Care Nurse Name: Swetha Newell RN Position: [facility] RN Member Role: Primary Care Nurse Name: Namrata Roe RN Position: [facility] RN Member Role: Primary Care Nurse Name: Kanwal MANRIQUEZ Attending Position: [facility] ED Medicine MD Name: El Thomas Position: [facility] ED TA [facility] Member Role: Patient Care Provider Name: Rin Pickering Position: [facility] ED OA Charge Member Role: ED Associate Name: Beltran Espinosa RN Position: [facility] ED RN W/OE and Tasks Member Role: Patient Care Provider Name: Velia Reveles DO Position: [facility] Resident Member Role: ED Resident Address: Address: [address] [place] [address] [place] [address]- Care Team Related Persons Name: GAY BLACK Address: [place] [address]
--- OUTSIDE RECORDS SUMMARY | 2023-03-17 09:26 | XMS_ITS | Continuity of Care Document ---
Author Name Unknown Organization [facility] y Address [address] [place] [address] [address], [address] [place] [address]- Care Team Providers Care Blow Mold Machine Operator Name Role Phone Not on Staff, PCP Primary Care Physician Unavail able Encounter [facility] Date(s): 12/07/21 - 01/06/22 [facility] [address] [place] [address] Drive, [address] [place] [address]- Attending Physician: Cas Gann Admitting Physician: Admtr, Cas Referring Physician: Admtr, Ar8 Allergies, Adverse Reactions, Alerts Substance Reaction Severity Status diphenhydrAMINE Active Medications levothyroxine 0.1 mg oral tablet By Mouth, Daily, 0 Refills, Maintenance, 12/08/21 15:08:00 EDT, Partial fill upon patient request if the prescription is for a schedule II opioid drug. Start Date: 12/08/21 Status: Ordered Lisinopril By Mouth, Daily, Maintenance, 12/08/21 15:08:00 EDT, [...] Care team information Care Team Personnel Name: Spring Mancia RN Position: [facility] RN Member Role: Primary Care Nurse Name: Sierra Shah RN Position: S RN Member Role: Primary Care Nurse Name: Precious Castañeda RN Position: S RN Member Role: Primary Care Nurse Name: Atiya Gayle RN Position: S RN Member Role: Primary Care Nurse Name: Elena Choi RN Position: S RN Member Role: Primary Care Nurse Name: Jimmie Gastelum RN Position: [facility] RN Member Role: Primary Care Nurse Name: Not on Staff, PCP Position: [facility] Physician (General Medicine) Member Role: PCP Name: Elsa Jackson RN Position: [facility] RN Member Role: Primary Care Nurse Name: Swetha Newell RN Position: [facility] RN Member Role: Primary Care Nurse Care Team Related Persons Name: GAY BLACK Address: home [place] [address]
[2023-03-17 09:49] LABS: MANUAL DIFF FLAG NO
[2023-03-17 09:52] LABS: Basophils Percent Auto 0.4 % (0-2); Eosinophils Percent Auto 0.6 % (0-4); Hematocrit 28.4 % (42.0-52.0); Hemoglobin 8.9 g/dl (14.0-18.0); Imm Gran Abs Auto 0.01 X10*3/uL (0.00-0.03); Imm Gran Pct Auto 0.2 % (0.0-0.4); Lymphocytes Absolute Auto 0.9 X10*3/uL (1.2-4.9); Lymphocytes Percent Auto 18.3 % (20-40); Mean Corpuscular HGB Conc 31.3 g/dl (31.0-36.0); Mean Corpuscular Hemoglobin 25.1 pg (27.0-33.0); Mean Corpuscular Volume 80.2 fL (80.0-98.0); Mean Platelet Volume 9.3 fL (9.4-12.4); Monocytes Absolute Auto 0.2 X10*3/uL (0.1-1.2); Monocytes Percent Auto 3.7 % (2-11); Neutrophils Absolute Auto 3.7 x10*3/uL (2.0-8.3); Neutrophils Percent Auto 76.8 % (45-73); Platelet Count 277 X10*3/uL (160-400); Red Blood Count 3.54 X10*6/uL (4.60-5.80); Red Cell Distribution Width 24.6 % (11.0-16.0); White Blood Count 4.9 X10*3/uL (4.8-10.8)
[2023-03-17 10:05] LABS: Ethanol < 10 mg/dL
[2023-03-17 10:07] LABS: Alanine Aminotransferase 19 U/L (0-40); Albumin Level 3.6 g/dL (3.5-5.0); Alkaline Phosphatase 107 U/L (39-117); Anion Gap 13 (12-20); Aspartate Amino Transferase 47 U/L (5-37); Bilirubin Direct 0.1 mg/dL (0.0-0.5); Bilirubin Total 0.3 mg/dL (0.0-1.0); Blood Urea Nitrogen 14 mg/dL (9-16); Calcium 7.9 mg/dL (8.4-10.2); Carbon Dioxide 26 mmol/L (22-29); Chloride 100 mmol/L (96-108); Creatinine Clr Calc Pharmacy 82.5; Estimated Glomerular Filt Rate > 60; Glucose Random 98 mg/dL (60-115); Magnesium 1.9 mg/dL (1.6-2.6); Potassium 3.4 mmol/L (3.3-5.1); Sodium 136 mmol/L (135-145); Total Protein 8.6 g/dL (6.5-8.0)
[2023-03-17 10:10] LABS: COVID-19 Test Negative (Negative); IDNOW Serial# 6674DD1D
--- NOTE | 2023-03-17 10:16 | PC.NURSE ---
Reports feeling better, provided with food and fluids per patients request.
--- NOTE | 2023-03-17 10:30 | PC.NURSE ---
declined rectal temp, oral temp 98.3
[2023-03-17] MEDS: hydrALAZINE HCl 25 MG TABLET PO (10:44)
[2023-03-17 10:57] LABS: Appearance Urine Clear; Color Urine Yellow; Glucose Urine UA Negative (Negative); Leukocyte Esterase Urine Negative (Negative); Nitrite Urine Negative (Negative); PH 7.5 (5.0-9.0); Specific Gravity - Urine 1.015 (1.005-1.025); UMIC TRIGGER UACC YES; Urine Blood Small (1+) (Negative); Urine Ketones Negative (Negative); Urine Protein Negative (Neg-Trace)
[2023-03-17 10:59] LABS: Bacteria Urine None Seen (None Seen); Hyaline Casts Urine 0-2 /LPF (0-2); Squamous Epithelial Cell Urine 0-2 /HPF (0-2); WBC Urine 0-5 /HPF (0-5)
[2023-03-17 11:01] LABS: Amphetamine Screen Urine Not Detected (Not Detect); Barbiturates, Urine Not Detected (Not Detect); Benzodiazepines Screen Urine Not Detected (Not Detect); Cannabinoid Screen Urine Not Detected (Not Detect); Cocaine Screen Urine POSITIVE (Not Detect); Fentanyl, urine POSITIVE (Not Detect); Opiate Screen Urine POSITIVE (Not Detect); Phencyclidine Screen Urine Not Detected (Not Detect)
--- NOTE | 2023-03-17 11:12 | MHC.RECOVRN ---
Met with pt in ED18 after pt requesting ATS. Pt had presented to the ED reporting he is unstably housed and last used heroin and cocaine yesterday. Pt laying in bed, eyes closed, wakes to voice. Reports I just need to rest please. Pt reports heroin/fentanyl use, 1 bundle daily, IV, as well as cocaine about half that amount, IV. Pt is currently on methadone, reports 60 mg daily with last dose this morning. Pt is interested in ATS, is agreeable to any facility. T/w will conduct bedsearch.
--- NOTE | 2023-03-17 11:34 | PC.NURSE ---
Methadone dose verified with [facility] RN dieudonne. Patient received 40mg at 7:25am this morning
--- NOTE | 2023-03-17 13:30 | MHC.RECOVRN ---
Addendum entered by Lianet Dasilva 03/17/23 13:42: Updated Ania at [facility] that plan is for pts [facility] to be reactivated. Once proof of [facility] can be shown pt can complete phone intake with [facility]. Original Note: No bed availability at [facility], [place], [facility], [facility], [facility], or [facility]. [facility] in [place] has one male bed available and pt was accepted--however, per [facility] intake pts [facility] has been terminated and in order to reactivate pt needs proof of residency. T/w spoke with financial counselor, Mattie, who will meet with pt and submit required documentation to [facility].
--- NOTE | 2023-03-17 15:24 | PHA.MEDREC ---
Pharmacy Consult ? Medication Reconciliation Pharmacy has completed the medication reconciliation. Patient reported only taking methadone. Per claim history Pt was prescribed Hydralazine 25mg TID and Levothyroxine 150mcg 11/28/2022. Did not include as Pt reported not taking. Sabina Dent job placement officer
--- NOTE | 2023-03-17 15:43 | PC.NURSE ---
Resting in bed with eyes closed, breathing even and unlabored
--- NOTE | 2023-03-17 19:37 | PC.NURSE ---
Assumed care of the pt at 1900. Pt is asleep in bed with food tray at the bedside. Pt has been medically cleared and is waiting to go to [facility] in [place].
[2023-03-18] MEDS: Ondansetron ODT 4 MG TAB.RAPDIS TRANSLINGU (05:26)
[2023-03-18] MEDS: LORazepam 1 MG TABLET PO (05:26)
--- NOTE | 2023-03-18 05:36 | PC.NURSE ---
Pt reported not feeling well, nausea and body aches. He is requesting his methadone but I explained that I cannot give that right now. I [id number] ativan and karlie, per APR. Pt is now resting in bed comfortably.
--- NOTE | 2023-03-18 05:40 | PC.NURSE ---
Pt refused vital signs at this time.
[2023-03-18 05:51] VITALS: RESP 14
--- NOTE | 2023-03-18 05:51 | MHC.EDTECH ---
PT Refused Blood Pressure and all vital signs, RN made Aware
[2023-03-18] MEDS: methADONE HCl 20 MG/2 ML ORAL.CONC 40 MG PO (09:50)
--- NOTE | 2023-03-18 11:13 | MHC.RECOVRN ---
Continuing to wait for active [facility]. [facility] does have bed availability today, t/w sent referral and inquired about pt being accepted regardless of insurance status. Awaiting information.
--- NOTE | 2023-03-18 13:30 | MHC.RECOVRN ---
Addendum entered by Lianet Dasilva 03/18/23 13:36: Pt accepted, will be transported via [employer]. Provider aware. Original Note: Pt accepted to [facility] pending phone screen (pt currently completing).
== END 2023-03-18 14:29 | disposition other institution (70) ==
PROVIDERS: Emergency Provider Emergency Medicine
DX: R00.1 Bradycardia, unspecified (principal); F11.10 Opioid abuse, uncomplicated; F33.1 Major depressive disorder, recurrent, moderate; F17.210 Nicotine dependence, cigarettes, uncomplicated; F14.10 Cocaine abuse, uncomplicated; Z11.52 Encounter for screening for COVID-19; Z20.828 Contact with and (suspected) exposure to other viral communicable diseases; Z71.6 Tobacco abuse counseling; Z71.51 Drug abuse counseling and surveillance of drug abuser; Z79.899 Other long term (current) drug therapy
CPT/HCPCS: 36415; 71045; 80048; 80076; 80307; 81001; 83735; 85025; 87635; 93005; 99285

== ENCOUNTER → 2023-03-17 08:36 | Outpatient (BNV) | payer MEDICAID, SELFPAY | PROVIDERS: Emergency Provider Emergency Medicine; Visit Provider Internal Medicine | DX: R94.31 Abnormal electrocardiogram [ECG] [EKG] (principal) | CPT/HCPCS: 93010 ==